=== PATIENT | female | born 1940 | race Caucasian/White ===

== ENCOUNTER 2024-03-15 23:22 | Observation (INO) | payer OTHER, SELFPAY ==
[2024-03-15 21:34] VITALS: BP 144/72
[2024-03-15 21:44] VITALS: BMI 33.3
[2024-03-15] MEDS: TORADOL 15 MG IV (22:38)
[2024-03-15 22:42] VITALS: BP 128/67
[2024-03-15 22:44] LABS: % Basophils 0.4 % (0-2); % Eosinophils 0.6 % (0-6); % Immature Granulocytes 1.4 % (0-0.5); % Lymphocytes 10.9 % (20.5-51.1); % Monocytes 8.6 % (1.7-9.3); % Neutrophils 78.1 % (42.2-75.2); Absolute Basophils 0.1 10^3/uL (0-0.2); Absolute Eosinophils 0.1 10^3/uL (0-0.7); Absolute Immature Granulocytes 0.2 10^3/uL (0-0.05); Absolute Lymphocytes 1.5 10^3/uL (1.2-3.4); Absolute Monocytes 1.2 10^3/uL (0.1-0.6); Absolute Neutrophils 10.6 10^3/uL (1.4-6.5); Hematocrit 40.7 % (37.0-47.0); Hemoglobin 13.6 g/dL (12.0-16.0); Mean Corp Hgb Conc. 33.4 g/dL (33.0-37.0); Mean Corpuscular Hgb 29.7 pg (27.0-31.0); Mean Corpuscular Volume 88.9 fL (81.0-99.0); Mean Platelet Volume 9.7 fL (7.4-10.4); Nucleated Red Blood Cells % 0 %; Platelet Count 233 10^3/uL (130-400); Red Blood Cell Count 4.58 10^6/uL (4.20-5.40); Red Cell Dist. Width 12.9 % (11.5-14.5); White Blood Cell Count 13.6 10^3/uL (4.8-10.8)
--- NOTE | 2024-03-15 22:54 | ED.GENMED ---
History of Present Illness
General
Chief Complaint: Musculo-Skeletal Complaint
Time Seen by Provider: 03/15/24 21:54
History of Present Illness
History of Present Illness:
83-year-old female with history of hyperlipidemia and hypothyroidism presenting after a fall. Patient reports prior to arrival she turned too quickly and fell directly onto her right hip. She has since been unable to ambulate. Denies any head
injury or loss of consciousness. Denies any numbness or tingling to her leg. Took 2 ibuprofen several hours prior to arrival. Denies any prodromal dizziness, lightheadedness,, chest pain or difficulty breathing. Denies additional acute medical
complaints
Past History
Past History
ED Past Medical History: HTN and Hypothyroidism
Social History
Tobacco: Non-smoker
Personal:
Living: with family
Phy Exam
Physical Exam
Physical Exam:
General: Well-appearing, no clinical signs of dehydration, nontoxic and in no acute distress
HEENT: protecting airway
Neck: appears supple
CV: Normal heart rate, regular rhythm
Resp: No accessory muscle use, no increased work of breathing, lungs clear to auscultation bilaterally
Abd: No distention
Extremities: No obvious deformity to the right lower extremity with distal sensation and pulses intact. Generalized tenderness to the right gluteal region without ecchymosis. Limited range of motion secondary to pain
Neuro: alert, no focal neurologic deficit
: deferred
Rectal: deferred
Psych: Normal affect
Skin: Intact
Course
Orders/Labs/Results
Orders:
Orders
03/15/24 21:51
Hip, Right 2-3 Views [CR Hip - RT w/wo Pel 2-3 Vw*] Urgent
Comment:
Reason For Exam: fall, right hip pain
Include a pelvis x-ray?: Yes
03/15/24 22:31
Ketorolac [Toradol] 15 mg IV NOW STA
03/15/24 22:35
Complete Blood Count/With Diff Urgent
Comprehensive Metabolic Panel Urgent
Abnormal Lab Results
03/15/24
22:35
WBC 13.6 H 10^3/uL
(4.8-10.8)
Abs Immat Gran (auto) 0.2 H 10^3/uL
(0-0.05)
Absolute Neuts (auto) 10.6 H 10^3/uL
(1.4-6.5)
Absolute Monos (auto) 1.2 H 10^3/uL
(0.1-0.6)
Immature Gran % 1.4 H %
(0-0.5)
Neutrophils % 78.1 H %
(42.2-75.2)
Lymphocytes % 10.9 L %
(20.5-51.1)
03/15/24 22:35
Vital Signs
Initial and Last Documented VS:
Initial Vital Signs
Temp Pulse Resp BP Pulse Ox
98.5 F 72 18 144/72 97
03/15/24 21:34 03/15/24 21:34 03/15/24 21:34 03/15/24 21:34 03/15/24 21:34
Last Documented Vital Signs
Temp Pulse Resp BP Pulse Ox
98.5 F 84 18 128/67 97
03/15/24 21:34 03/15/24 22:42 03/15/24 22:42 03/15/24 22:42 03/15/24 22:42
MDM/Problems Addressed
MDM/Problems Addressed:
83-year-old female presenting after a fall onto her right hip with inability to ambulate. Vital signs are normal
On exam patient is resting comfortably, no acute distress or discomfort. No signs of trauma. Patient denying any prodromal symptoms such as chest pain or difficulty breathing or lightheadedness, without concern for syncope. Patient denies any
head strike, GCS of 15. No indication for advanced head imaging. Plan for x-ray imaging of the right hip and pelvis. Suspected pelvic fracture, given inability to ambulate. No neurovascular compromise to the right lower extremity.
23:00 - X-ray is consistent with a pelvic fracture. Patient has been unable to walk or bear weight. Will admit for PT/OT and potential SNF
*Critical Care Note
Total Time (30-74mins, 75-104mins- exclusive of procedures): Not Applicable
ED Attending Note
-
Portions of this chart may have been created with voice recognition software.� Occasional wrong word or��sound alike� substitutions may have occurred due to the inherent limitations of voice recognition software.
Discharge Plan
Departure
Prescriptions:
No Action
atorvastatin 10 mg Tablet
10 mg PO HS
levothyroxine 125 mcg Tablet
125 mcg PO DAILY
triamterene-hydrochlorothiazid 37.5-25 mg Tablet
1 tab PO DAILY
Referrals:
Rashad Trinidad, DO [Family Provider] -
Interventions
Interventions:
*Risk Screen - Suicide Last Done: 03/15/24 21:45
*General Assessment Last Done: 03/15/24 21:45
*Neglect/Abuse Screening Last Done: 03/15/24 21:45
*ED COVID-19 Vaccine History Last Done: 03/15/24 21:45
ED-Musculoskeletal Assessment Last Done: 03/15/24 21:46
Discharge Date and Time
Print Language: UPPER SORBIAN
[2024-03-15 22:58] LABS: ALT (SGPT) 31 U/L (0-35); AST (SGOT) 34 U/L (14-36); Albumin 4.2 g/dl (3.5-5.0); Alkaline Phosphatase 125 U/L (38-126); Blood Urea Nitrogen 24 mg/dl (7-17); Calcium 9.1 mg/dl (8.4-10.2); Carbon Dioxide 25 mmol/L (22-30); Chloride 97 mmol/L (98-107); Estimated Creatinine Clearance 62 ml/min; Glucose 111 mg/dl (70-99); Potassium 3.9 mmol/L (3.5-5.1); Sodium 131 mmol/L (135-145); Total Bilirubin 0.2 mg/dl (0.2-1.3); Total Protein 6.8 g/dl (6.3-8.2); eGFR > 60.00
--- NOTE | 2024-03-15 23:19 | HPS.HSE ---
Family Physician
-
Family Physician: Rashad Trinidad
Chief Complaint
-
fall, right hip pain
History of Present Illness
83-year-old female past medical history of hyperlipidemia, hypothyroidism, hypertension presenting for fall. Prior to arrival she turned too quickly and fell directly onto her right hip because she lost her balance. She has been unable to
ambulate. Denies any head injury or loss of consciousness. Denies any numbness or tingling of her leg. Denies any prodromal dizziness, lightheadedness, chest pain or trouble breathing.
She is having pain in her right butt region which radiates to her groin.
Drinks alcohol occasionally. Denies smoking.
Medical History
Past Medical History
Past Medical History: Reports Other ( hyperlipidemia, hypothyroidism, hypertension)
Past Surgical History: Reports None
Social History
Tobacco: Non-smoker
Alcohol: Occasional
Drug: None
Family History
Family History: Not pertinent
Allergies / Home Medications
Allergies reflects when Allergies were last updated in [employer].
Home Medications with original date entered in [employer]
Allergy/Medication List:
Allergies
Allergy/AdvReac Type Severity Reaction Status Date / Time
aspirin Allergy Hives Verified 03/15/24 21:42
Home Medications
atorvastatin 10 mg tablet 10 mg PO HS 03/15/24
calcium carbonate 500 mg PO DAILY 03/15/24
cholecalciferol (vitamin D3) 25 mcg (1,000 unit) tablet (Vitamin D3) 25 mcg PO DAILY 03/15/24
ibuprofen 200 mg tablet 400 mg PO Q8HPRN PRN mild pain 03/15/24
levothyroxine 125 mcg tablet 125 mcg PO DAILY 03/15/24
triamterene 37.5 mg-hydrochlorothiazide 25 mg tablet 1 tab PO DAILY 03/15/24
Review of Systems
-
History Source: Patient
A 12 point ROS was completed and negative except as noted: Yes
Constitutional: Reports No Symptoms
EENT: Reports No Symptoms
Respiratory: Reports No Symptoms
Cardiac: Reports No Symptoms
Abdomen/GI: Reports No Symptoms
: Reports No Symptoms
Musculoskeletal: Reports See HPI
Skin: Reports No Symptoms
Neurological: Reports No Symptoms
Endocrine: Reports No Symptoms
Hematologic/Lymphatic: Reports No Symptoms
Psych: Reports No Symptoms
Physical Exam
Vital Signs
Vital Signs
Temp Pulse Resp BP Pulse Ox
98.5 F 84 18 128/67 97
03/15/24 21:34 03/15/24 22:42 03/15/24 22:42 03/15/24 22:42 03/15/24 22:42
Physical Exam
General: Well Developed, Well Nourished and No Apparent Distress
HEENT: NormoCephalic, Moist mucous membranes and Atraumatic
Respiratory: Clear
Cardiac: S1/S2 and Regular Rhythm; No Murmur or Rub
GI: Soft, Non Tender, Non Distended and Normal Bowel Sounds; No Organomegaly
Rectal: Deferred by Provider
Musculoskeletal: No Clubbing, No Cyanosis and No Edema
Skin: No Rash
Neuro: Nonfocal/grossly intact
Laboratory Results
-
03/15/24 22:35
03/15/24 22:35
Laboratory Results
Total Bilirubin 0.2 mg/dl (0.2-1.3) 03/15/24 22:35
AST 34 U/L (14-36) 03/15/24 22:35
ALT 31 U/L (0-35) 03/15/24 22:35
Alkaline Phosphatase 125 U/L (38-126) 03/15/24 22:35
Data Reviewed
-
Lab Data: Labs Reviewed by me
Old Records: Reviewed
Impression/Plan
-
IMPRESSION:
PLAN:
# Pelvic fracture
-Acute nondisplaced fracture of the right superior inferior pubic rami
-PT/OT
-Tylenol, ibuprofen, Dilaudid for pain as needed
Essential hypertension
-Continue triamterene/hydrochlorothiazide
Hyperlipidemia
-Continue statin
Hypothyroidism
-Continue levothyroxine
Full code
DVT prophylaxis�heparin
Regular diet
--- NOTE | 2024-03-15 23:45 | PTCARENOTE ---
Patient arrived to [facility] from [facility], transferred into bed with max assist. AAOx3, very pleasant, VSS. Pt c/o of pain to R side of pelvis and hip, especially when turning in bed.
[2024-03-16] MEDS: DILAUDID 0.5 MG IV ×2 (04:17→17:07)
[2024-03-16] MEDS: SYNTHROID 125 MCG PO (06:29)
[2024-03-16 07:09] LABS: % Basophils 0.3 % (0-2); % Eosinophils 0.8 % (0-6); % Immature Granulocytes 0.5 % (0-0.5); % Lymphocytes 12.3 % (20.5-51.1); % Monocytes 10.2 % (1.7-9.3); % Neutrophils 75.9 % (42.2-75.2); Absolute Eosinophils 0.1 10^3/uL (0-0.7); Absolute Immature Granulocytes 0.1 10^3/uL (0-0.05); Absolute Lymphocytes 1.5 10^3/uL (1.2-3.4); Absolute Monocytes 1.2 10^3/uL (0.1-0.6); Hematocrit 37.3 % (37.0-47.0); Hemoglobin 12.4 g/dL (12.0-16.0); Mean Corp Hgb Conc. 33.2 g/dL (33.0-37.0); Mean Corpuscular Hgb 29.6 pg (27.0-31.0); Mean Platelet Volume 9.9 fL (7.4-10.4); Nucleated Red Blood Cells % 0 %; Platelet Count 221 10^3/uL (130-400); Red Blood Cell Count 4.19 10^6/uL (4.20-5.40); White Blood Cell Count 11.8 10^3/uL (4.8-10.8)
[2024-03-16 07:47] LABS: ALT (SGPT) 26 U/L (0-35); AST (SGOT) 29 U/L (14-36); Albumin 3.8 g/dl (3.5-5.0); Alkaline Phosphatase 93 U/L (38-126); Blood Urea Nitrogen 24 mg/dl (7-17); Calcium 8.9 mg/dl (8.4-10.2); Carbon Dioxide 28 mmol/L (22-30); Chloride 99 mmol/L (98-107); Estimated Creatinine Clearance 72 ml/min; Glucose 102 mg/dl (70-99); Potassium 4.5 mmol/L (3.5-5.1); Sodium 133 mmol/L (135-145); Total Bilirubin 0.6 mg/dl (0.2-1.3); Total Protein 6.2 g/dl (6.3-8.2); eGFR > 60.00
--- NOTE | 2024-03-16 07:49 | W.PN.HOSP.TC ---
Today's Communication/Plan
-
see bold
Assessment / Plan
Assessment / Plan
HPI: 83-year-old female past medical history of hyperlipidemia, hypothyroidism, hypertension presenting for fall. Prior to arrival she turned too quickly and fell directly onto her right hip because she lost her balance. She has been unable to
ambulate. Denies any head injury or loss of consciousness. Denies any numbness or tingling of her leg. Denies any prodromal dizziness, lightheadedness, chest pain or trouble breathing. She is having pain in her right butt region which radiates to
her groin.
# Acute pelvic fracture
-Acute nondisplaced fracture of the right superior & inferior pubic rami
-Weightbearing as tolerated with rolling walker
-Tylenol 1 g 3 times daily, tramadol as needed moderate pain, Oxy severe pain, laxatives
-PT/OT - rec acute rehab
-Consult physiatry
-Follow-up with orthopedic surgery in the office in 2-3 weeks
Leukocytosis
� Afebrile
� Likely reactive, monitor off antibiotics
Essential hypertension
-Continue triamterene/hydrochlorothiazide
Hyperlipidemia
-Continue statin
Hypothyroidism
-Continue levothyroxine
Obesity due to excess calories
� Affects all aspects of care
DVT prophylaxis�subcu Lovenox
Full code
Updated daughter on phone 03/16
Total time spent to see the patient on the floor, examine the patient, review data and lab results, discuss treatment plan with patient, nursing staff around 50 minutes.
Physical Exam
General: No acute distress
HEENT: Normocephalic, Atraumatic, EOMI, MMM
Respiratory: Clear to Auscultation bilaterally
Cardiac: Normal S1/S2, Regular Rate and Rhythm
GI: Soft, Nontender, Nondistended, Normal Bowel Sounds
Extremities: No Clubbing, Cyanosis, or Edema
Neuro: Nonfocal/Grossly Intact
Psych: Calm, Cooperative
Derm: No Visible lesions
Anticipated Discharge: 24 - 48 hours
Subjective/Interval History
-
Date of Service: March 16, 2024
Patient reports her pain is 2 at rest, 7 with movement. No chest pain, no shortness of breath. No fever, no vomiting.
Objective Data
-
Labs:
Laboratory Results
03/15/24 03/16/24
22:35 06:53
WBC 13.6 H 11.8 H
Hgb 13.6 12.4
Hct 40.7 37.3
Plt Count 233 221
Sodium 131 L 133 L
Potassium 3.9 4.5
Chloride 97 L 99
Carbon Dioxide 25 28
BUN 24 H 24 H
Creatinine 0.7 0.6
Glucose 111 H 102 H
Calcium 9.1 8.9
Total Bilirubin 0.2 0.6
AST 34 29
ALT 31 26
Alkaline Phosphatase 125 93
Vital Signs:
Vital Signs
Temp Pulse Resp BP Pulse Ox
98.5 F 84 18 128/67 97
03/15/24 21:34 03/15/24 22:42 03/15/24 22:42 03/15/24 22:42 03/15/24 22:42
I&O
03/15/24 03/16/24 03/17/24
06:59 06:59 06:59
Intake Total 480 / 480
Balance 480 / 480
[2024-03-16 08:00] VITALS: BP 151/79
[2024-03-16] MEDS: VITAMIN D3 (cholecalciferol) 25 MCG PO (08:47)
[2024-03-16] MEDS: MIRALAX 17 GRAMS PO (08:47)
[2024-03-16] MEDS: TYLENOL 1000 MG PO ×3 (08:47→22:20)
[2024-03-16] MEDS: DYAZIDE 1 CAPSULE PO (08:47)
[2024-03-16] MEDS: ULTRAM 50 MG PO (08:48)
[2024-03-16] MEDS: HEPARIN 5000 UNITS SC (08:48)
[2024-03-16] MEDS: OSCAL CAL 500 500 MG PO (08:48)
[2024-03-16 10:18] VITALS: BP 127/59; PULSE 77; O2SAT 95
[2024-03-16 10:19] VITALS: BP 127/59; PULSE 76; O2SAT 95
[2024-03-16] MEDS: ROXICODONE 5 MG PO (13:15)
[2024-03-16 14:40] VITALS: BP 130/81
--- NOTE | 2024-03-16 15:57 | CM ---
CM met with pt at bedside.
Pt resides with spouse in a 2SH with bedroom/bathroom on 2nd floor. SC on first. 1STE home.
Prior to admission pt reports being independent with no AD for ambulation, active, ind with adl's. 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
PCP is Dr. Trinidad and pharmacy is [facility] on [facility].
Pt has HC history 10 years ago and no SNF history.
Discussed rehab options in depth including different levels. Offered choice. Pt is leaning towards [facility] at [facility] but would like to further discuss with family. Floor CM to follow up with pt tomorrow.
[2024-03-16] MEDS: LOVENOX 40 MG SC (17:09)
[2024-03-16] MEDS: LIPITOR 10 MG PO (22:19)
[2024-03-16 23:00] VITALS: BP 142/70
[2024-03-17] MEDS: ULTRAM 50 MG PO ×3 (02:46→21:13)
[2024-03-17] MEDS: SYNTHROID 125 MCG PO (06:24)
[2024-03-17 07:35] VITALS: BP 149/80
--- NOTE | 2024-03-17 08:25 | W.PN.HOSP.TC ---
Today's Communication/Plan
-
see bold
Assessment / Plan
Assessment / Plan
HPI: 83-year-old female past medical history of hyperlipidemia, hypothyroidism, hypertension presenting for fall. Prior to arrival she turned too quickly and fell directly onto her right hip because she lost her balance. She has been unable to
ambulate. Denies any head injury or loss of consciousness. Denies any numbness or tingling of her leg. Denies any prodromal dizziness, lightheadedness, chest pain or trouble breathing. She is having pain in her right butt region which radiates to
her groin.
# Acute pelvic fracture
-Acute nondisplaced fracture of the right superior & inferior pubic rami
-Weightbearing as tolerated with rolling walker
-Tylenol 1 g 3 times daily, tramadol as needed moderate pain, Oxy severe pain, laxatives
-PT/OT - rec acute rehab
-Physiatry consulted 03/16, awaiting evaluation
-Follow-up with orthopedic surgery in the office in 2-3 weeks
Leukocytosis
� Afebrile
� Likely reactive, monitor off antibiotics
Hyponatremia
� Mild, monitor
Essential hypertension
-Continue triamterene/hydrochlorothiazide
Hyperlipidemia
-Continue statin
Hypothyroidism
-Continue levothyroxine
Obesity due to excess calories
� Affects all aspects of care
DVT prophylaxis�subcu Lovenox
Full code
Updated daughter on phone 03/16, updated at bedside 03/17
Total time spent to see the patient on the floor, examine the patient, review data and lab results, discuss treatment plan with patient, nursing staff around 40 minutes.
Physical Exam
General: No acute distress
HEENT: Normocephalic, Atraumatic, EOMI, MMM
Respiratory: Clear to Auscultation bilaterally
Cardiac: Normal S1/S2, Regular Rate and Rhythm
GI: Soft, Nontender, Nondistended, Normal Bowel Sounds
Extremities: No Clubbing, Cyanosis, or Edema
Neuro: Nonfocal/Grossly Intact
Psych: Calm, Cooperative
Derm: No Visible lesions
Anticipated Discharge: Within 24 hours
Subjective/Interval History
-
Date of Service: March 16, 2024
Patient reports her pain is minimal at rest, increases to 7 with movement. No chest pain, no shortness of breath. No fever, no vomiting, no bowel movement.
Objective Data
-
Labs:
Laboratory Results
03/16/24
06:53
WBC 11.8 H
Hgb 12.4
Hct 37.3
Plt Count 221
Sodium 133 L
Potassium 4.5
Chloride 99
Carbon Dioxide 28
BUN 24 H
Creatinine 0.6
Glucose 102 H
Calcium 8.9
Total Bilirubin 0.6
AST 29
ALT 26
Alkaline Phosphatase 93
Vital Signs:
Vital Signs
Temp Pulse Resp BP Pulse Ox
97.9 F 67 20 151/79 97
03/16/24 08:00 03/16/24 08:47 03/16/24 08:00 03/16/24 08:47 03/16/24 08:00
I&O
03/15/24 03/16/24 03/17/24
06:59 06:59 06:59
Intake Total 480 / 480
Balance 480 / 480
[2024-03-17] MEDS: TYLENOL 1000 MG PO ×3 (08:55→20:59)
[2024-03-17] MEDS: MIRALAX 17 GRAMS PO (08:56)
[2024-03-17] MEDS: VITAMIN D3 (cholecalciferol) 25 MCG PO (08:56)
[2024-03-17] MEDS: DYAZIDE 1 CAPSULE PO (08:56)
[2024-03-17] MEDS: OSCAL CAL 500 500 MG PO (08:56)
--- NOTE | 2024-03-17 10:54 | CM ---
Reviewed the chart notes and spoke with the patient and her spouse at the bedside. The patient is admitted under observational status. [facility] letter provided and explained. The patient had no questions with regards to the letter. Patient's
insurance changed as of 03/16/2024 to M87 [employer] 65 [employer] PPO; Mbr # [id number]. Admissions provided with new insurance information. CM continues to be available to patient/family and is monitoring medical plan for
needs at discharge.
Plan: Discharge to Acute Rehab if appropriate and precert obtained.
[2024-03-17 11:16] VITALS: BP 120/81; PULSE 88; O2SAT 98
[2024-03-17 11:25] VITALS: BP 120/81; PULSE 92; O2SAT 95
[2024-03-17] MEDS: SENOKOT-S 2 TABLET PO ×2 (16:17→20:59)
[2024-03-17] MEDS: LOVENOX 40 MG SC (18:45)
--- NOTE | 2024-03-17 19:54 | CON.MD ---
Consultation - Medical
-
Referring Provider:�Dr. Sinan Dawkins
Chief Complaint:�Pelvic fracture
�
History of Present Illness:�83-year-old male with PMH (as below) presented to [facility] on 03/15/2024 with right buttock pain radiating to the groin after a fall from turning too quickly. Found to have an acute nondisplaced fracture of
the right superior and inferior pubic rami. Made weightbearing as tolerated with rolling walker. Given pain medications and laxatives. Found to have reactive leukocytosis. Also with mild hyponatremia improved on 03/16 at 133.
�
Past Medical History:�HLD, hypothyroidism, HTN
Procedure History:�Denies
Family History:�None pertinent
�
Social History:�
Functional Level Premorbidly:�Independent with all activities�
Functional Level Currently:�Min assist transfers, min assist ambulating 20 feet x 2 with rolling walker. Supervision for grooming, toileting, lower extremity self-care.
�
Tobacco:�Denies�
Alcohol:�Occasional
Drug use:�Denies�
�
Lives with:�Spouse
24-hour assistance available:�Yes
Number of floors:�2
# steps to enter:�1
# steps to second floor: Full flight
Potential First floor set up:�Half bath on the first floor
Driving:�Yes
Occupation:�Retired
�
�
Allergies:�
Allergy/AdvReac Type Severity Reaction Status Date / Time
aspirin Allergy Hives Verified 03/15/24 21:42
�
Review of Systems:�
Constitutional: (x) Normal _
Eye: (x) Normal _
Ear/Nose/Throat: (x) Normal _
Respiratory: (x) Normal _
Cardiovascular: (x) Normal _
Gastrointestinal: (x) abNormal _no bowel movement since hospital arrival all voiding without difficulty
Genitourinary: (x) Normal _
Musculoskeletal: (x) abNormal _pelvic pain towards the right hip with activity, okay at rest
Integumentary: (x) Normal _
Neurologic: (x) Normal _
Psychiatric: (x) Normal _
Endocrine: (x) Normal _
Hematologic/Lymphatic: (x) Normal _
Allergic/Immunologic: (x) Normal _
�
Medications:�
Active Current Visit Medication List
Category Date Time Status
Acetaminophen [Tylenol] Med 03/16/24 08:00 Active
1,000 mg PO TID
Atorvastatin [Lipitor] Med 03/16/24 22:00 Active
10 mg PO HS
Calcium Carbonate [Oscal Manuel 500] Med 03/16/24 08:00 Active
500 mg PO DAILY
Cholecalciferol (Vitamin D3) [VITAMIN D3 ( Med 03/16/24 08:00 Active
cholecalciferol)]
25 mcg PO DAILY
Docusate W/Senna [Senokot-S] Med 03/17/24 15:50 Active
2 tablet PO BID
Enoxaparin Sodium [Lovenox] Med 03/16/24 18:00 Active
40 mg SC QPM
HYDROmorphone [Dilaudid] Med 03/16/24 00:17 Active
0.5 mg IV Q4HPRN PRN
Levothyroxine [Synthroid] Med 03/16/24 06:00 Active
125 mcg PO DAILY@0600
Oxycodone [Roxicodone] Med 03/16/24 07:55 Active
5 mg PO TIDPRN PRN
Polyethylene Glycol Powder [Miralax] Med 03/16/24 08:00 Active
17 grams PO DAILY
Tramadol HCl [Ultram] Med 03/16/24 07:55 Active
50 mg PO BIDPRN PRN
Triamterene/Hctz [Dyazide] Med 03/16/24 08:00 Active
1 capsule PO DAILY
Vitals:�
Temp Pulse Resp BP Pulse Ox
98.5 F 78 18 149/80 98
03/17/24 07:35 03/17/24 07:35 03/17/24 07:35 03/17/24 07:35 03/17/24 07:35
Height 5 ft 2 in
Actual Weight 82.6 kg
Body Mass Index (BMI) 33.3
�
Physical Exam:�
General Appearance/Observation: Well-developed, well-nourished female in no apparent distress.�
Pain/Comfort Assessment: No significant pain at rest, 8/10 pain standing.
Mood/Affect: Appropriate�
�
Integumentary/Operative Site:�Right knee with area of dry rough white-colored skin, nontender
�� Pressure Ulcer Evaluation: absent over heels.�
�
Eyes: Conjunctiva/Lids: normal���� Pupils: pupils equal round and reactive to light and Accommodation�
Ears/Nose/Throat: oral mucosa moist,� throat clear.������������ Lips/Teeth/Gums: normal�
Cardiovascular: Heart: regular, no murmur�
Pulses: dorsalis pedis 2+ bilaterally�
Respiratory: Respiratory Effort/Chest Expansion: normal������� Auscultation: Clear to auscultation bilaterally�
Gastrointestinal: abdomen not tender, no distension, normal abdominal bowel sounds
Genitourinary: No Anne�
Extremities:�Edema: None�Cyanosis: None�Trophic�changes: None
�
Neurology Exam:
Orientation: Alert, Oriented to self, Time, Place�
Memory: Intact for recent medical concerns
Repetition: Intact
Comprehension: Intact
Two step command: Intact
Naming: Intact
Cranial Nerves:
�� CN VII:�Facial movement: Symmetric
�� CN VIII:�Hearing: Normal
�� CN IX/X:�Speech & swallow: Normal,�Position of Uvula: Midline
�� CN XII:�Tongue protrusion: Midline
Sensory:
�� Light touch: Intact in bilateral upper and lower extremities
�
�� Babinski: Down going bilaterally
�� Clonus: None
�� German: Negative bilaterally�
Musculoskeletal: Motor: (Manual muscle scale 0-5)�
Muscle SA EF WE EE FF FA HF KE DF EHL PF
Right� 5 5 5 2* 4* 5 5 5
Left 5 5 5 4* 5 5 5 5
�*pain limited
Tone: Normal in all extremities�
Range of Motion: Passively within normal limits in all extremities�
�
Lab Results
Laboratory Data
03/16/24 06:53
03/16/24 06:53
Total Bilirubin 0.6 mg/dl (0.2-1.3) 03/16/24:53
AST 29 U/L (14-36) 03/16/24:53
ALT 26 U/L (0-35) 03/16/24:53
Alkaline Phosphatase 93 U/L (38-126) 03/16/24:53
Total Protein 6.2 g/dl (6.3-8.2) L 03/16/24:53
Albumin 3.8 g/dl (3.5-5.0) 03/16/24 06:53
�
Diagnostic Results:�as per HPI�
�
Assessment
83-year-old male with PMH (HLD, hypothyroidism, HTN�) with 03/15/2024 acute nondisplaced fracture of the right superior and inferior pubic rami after fall with ADL and ambulatory dysfunction.
Plan�
PM&R�PT/OT to increase independence with ADLs, improve balance, coordination, endurance, strength, mobility, community reintegration, decreased burden of care on others and family education.�
�
Nondisplaced fracture of the right superior and inferior pubic rami: Pain control
HTN: Triamterene/hydrochlorothiazide, monitor closely�
HLD: Statin�
Hypothyroidism: Levothyroxine
Mild leukocytosis: Thought reactive, monitor.�
Pain: acetaminophen, tramadol, or oxycodone as needed.� Stop IV Dilaudid as patient is not able to get it in rehab.
Bowel: Constipated�Colace and Senna, PRN bisacodyl.�
Bladder: Voiding without concern
GI Prophylaxis: Pantoprazole�
DVT Prophylaxis: Mechanical and Lovenox.�
Pulmonary: Incentive spirometry�
Obesity: Continue to direct selling counselor patient about diet adjustments to control obesity. Body habitus and increased force to move body and extremities causes further difficulty with functional tasks.�
Safety: Continue to reinforce assistance with all transfers.�
Code Status:� Full code
Dispo�(date/plan/equipment needs): Home with family care.� Social history reviewed.�
Functional and Medical Goals:�Modified Independent with ADL�s, ambulation, transfers�
Discharge Destination:�penitentiary facility
A total of 60 minutes were spent with the patient preparing for the evaluation, obtaining history, performing examination and evaluation, counseling, data review, case management, care coordination, security orderly, and EMR documentation.
Summary of recommendations:
-�Discharge Destination:�penitentiary facility
Nondisplaced fracture of the right superior and inferior pubic rami: Pain control
Mild leukocytosis: Thought reactive, monitor.�
Pain: acetaminophen, tramadol, or oxycodone as needed.� Held IV Dilaudid as patient is not able to get it in rehab.
Bowel: Constipated�Colace and Senna, PRN bisacodyl.�
�
Thank you for allowing me to care for your patient. Please contact me with any questions or concerns.
[2024-03-17] MEDS: LIPITOR 10 MG PO (20:59)
[2024-03-17 23:30] VITALS: BP 152/71
[2024-03-18] MEDS: SYNTHROID 125 MCG PO (04:59)
[2024-03-18] MEDS: ROXICODONE 5 MG PO ×3 (05:04→21:39)
[2024-03-18 07:45] VITALS: BP 154/83
[2024-03-18] MEDS: VITAMIN D3 (cholecalciferol) 25 MCG PO (08:25)
[2024-03-18] MEDS: DYAZIDE 1 CAPSULE PO (08:25)
[2024-03-18] MEDS: OSCAL CAL 500 500 MG PO (08:25)
[2024-03-18] MEDS: SENOKOT-S 2 TABLET PO (08:25)
[2024-03-18] MEDS: TYLENOL 1000 MG PO ×3 (08:25→21:27)
[2024-03-18] MEDS: MIRALAX 17 GRAMS PO (08:25)
--- NOTE | 2024-03-18 08:30 | W.PN.HOSP.TC ---
Today's Communication/Plan
-
see bold
Assessment / Plan
Assessment / Plan
HPI: 83-year-old female past medical history of hyperlipidemia, hypothyroidism, hypertension presenting for fall. Prior to arrival she turned too quickly and fell directly onto her right hip because she lost her balance. She has been unable to
ambulate. Denies any head injury or loss of consciousness. Denies any numbness or tingling of her leg. Denies any prodromal dizziness, lightheadedness, chest pain or trouble breathing. She is having pain in her right butt region which radiates to
her groin.
# Acute pelvic fracture
-Acute nondisplaced fracture of the right superior & inferior pubic rami
-Weightbearing as tolerated with rolling walker
-Tylenol 1 g 3 times daily, tramadol as needed moderate pain, Oxy severe pain, laxatives
-PT/OT - rec acute rehab
-Physiatry consulted 03/16, rec STR
-Medically stable for discharge to short-term rehab when bed available
-Follow-up with orthopedic surgery in the office in 2-3 weeks
#Constipation
� Increased laxatives
Leukocytosis
� Afebrile
� Likely reactive, monitor off antibiotics
Hyponatremia
� Mild, monitor
Essential hypertension
-Continue triamterene/hydrochlorothiazide
Hyperlipidemia
-Continue statin
Hypothyroidism
-Continue levothyroxine
Obesity due to excess calories
� Affects all aspects of care
DVT prophylaxis�subcu Lovenox
Full code
Updated daughter on phone 03/16, updated at bedside 03/18
Total time spent to see the patient on the floor, examine the patient, review data and lab results, discuss treatment plan with patient, nursing staff around 37 minutes.
Physical Exam
General: No acute distress
HEENT: Normocephalic, Atraumatic, EOMI, MMM
Respiratory: Clear to Auscultation bilaterally
Cardiac: Normal S1/S2, Regular Rate and Rhythm
GI: Soft, Nontender, Nondistended, Normal Bowel Sounds
Extremities: No Clubbing, Cyanosis, or Edema
Neuro: Nonfocal/Grossly Intact
Psych: Calm, Cooperative
Derm: No Visible lesions
Anticipated Discharge: Within 24 hours
Subjective/Interval History
-
Date of Service: March 18, 2024
Patient denies pain at rest. She reports her pain is 7 out of 10 with movement. No fever, no chest pain, no shortness of breath. No bowel movement.
Objective Data
-
Vital Signs:
Vital Signs
Temp Pulse Resp BP Pulse Ox
98.0 F 89 16 154/83 97
03/18/24 07:45 03/18/24 07:45 03/18/24 07:45 03/18/24 07:45 03/18/24 07:45
I&O
03/17/24 03/18/24 03/19/24
06:59 06:59 06:59
Intake Total 1580 / 1580 480 / 480
Output Total 200 / 200
Balance 1380 / 1380 480 / 480
[2024-03-18] MEDS: ULTRAM 50 MG PO ×2 (08:33→17:00)
[2024-03-18] MEDS: DULCOLAX 10 MG PO (10:19)
--- NOTE | 2024-03-18 14:40 | CM ---
Reviewed the chart notes. [facility] able to accept the patient tomorrow. Patient, patient's spouse and son updated at bedside. Auth received started 03/19-03/23; NRD 03/23; Call: [phone]; Auth # [id number].
Plan: Discharge to [facility] Thursday.
Call report to: [phone] - ask for nursing supervisor cutting department
Fax report to: [phone]
Medical necessity and transport forms on chart.
[2024-03-18] MEDS: DULCOLAX 10 MG RECTAL (15:24)
[2024-03-18 15:35] VITALS: BP 134/80
[2024-03-18] MEDS: LOVENOX 40 MG SC (17:01)
[2024-03-18] MEDS: SENOKOT-S PO (20:54)
[2024-03-18] MEDS: LIPITOR 10 MG PO (21:27)
[2024-03-18 23:44] VITALS: BP 156/85
[2024-03-19] MEDS: SYNTHROID 125 MCG PO (05:47)
[2024-03-19] MEDS: ULTRAM 50 MG PO (05:47)
--- NOTE | 2024-03-19 07:12 | W.PN.HOSP.TC ---
Today's Communication/Plan
-
Discharge to short-term rehab today
Assessment / Plan
Assessment / Plan
HPI: 83-year-old female past medical history of hyperlipidemia, hypothyroidism, hypertension presenting for fall. Prior to arrival she turned too quickly and fell directly onto her right hip because she lost her balance. She has been unable to
ambulate. Denies any head injury or loss of consciousness. Denies any numbness or tingling of her leg. Denies any prodromal dizziness, lightheadedness, chest pain or trouble breathing. She is having pain in her right butt region which radiates to
her groin.
# Acute pelvic fracture
-Acute nondisplaced fracture of the right superior & inferior pubic rami
-Weightbearing as tolerated with rolling walker
-Tylenol 1 g 3 times daily, oxycodone as needed, laxatives
-PT/OT - rec acute rehab
-Physiatry consulted 03/16, rec STR
-Medically stable for discharge to short-term rehab today
-Follow-up with orthopedic surgery in the office in 2-3 weeks
#Constipation
� Resolved on laxatives, continue laxatives upon discharge
Leukocytosis
� Afebrile
� Likely reactive, monitor off antibiotics
Hyponatremia
� Mild, monitor
Essential hypertension
-Continue triamterene/hydrochlorothiazide
Hyperlipidemia
-Continue statin
Hypothyroidism
-Continue levothyroxine
Obesity due to excess calories
� Affects all aspects of care
DVT prophylaxis�subcu Lovenox
Full code
Updated daughter on phone 03/16, updated at bedside 03/18
Physical Exam
General: No acute distress
HEENT: Normocephalic, Atraumatic, EOMI, MMM
Respiratory: Clear to Auscultation bilaterally
Cardiac: Normal S1/S2, Regular Rate and Rhythm
GI: Soft, Nontender, Nondistended, Normal Bowel Sounds
Extremities: No Clubbing, Cyanosis, or Edema
Neuro: Nonfocal/Grossly Intact
Psych: Calm, Cooperative
Derm: No Visible lesions
Anticipated Discharge: Today
Subjective/Interval History
-
Date of Service: March 19, 2024
Patient has had 2 bowel movements. Her pelvic pain is 7 out of 10 in intensity with movement. No chest pain, no shortness of breath. No fever, no vomiting.
Objective Data
-
Vital Signs:
Vital Signs
Temp Pulse Resp BP Pulse Ox
97.2 F 84 16 156/85 92
03/18/24 23:44 03/18/24 23:44 03/18/24 23:44 03/18/24 23:44 03/18/24 23:44
I&O
03/18/24 03/19/24 03/20/24
06:59 06:59 06:59
Intake Total 480 / 480 2160 / 2160
Balance 480 / 480 2160 / 2160
[2024-03-19 07:25] VITALS: BP 147/74
[2024-03-19] MEDS: ROXICODONE 5 MG PO ×2 (08:42→15:51)
[2024-03-19] MEDS: TYLENOL 1000 MG PO ×2 (08:43→15:50)
[2024-03-19] MEDS: OSCAL CAL 500 500 MG PO (08:43)
[2024-03-19] MEDS: DYAZIDE 1 CAPSULE PO (08:43)
[2024-03-19] MEDS: VITAMIN D3 (cholecalciferol) 25 MCG PO (08:43)
[2024-03-19] MEDS: DULCOLAX 10 MG PO (08:43)
[2024-03-19] MEDS: MIRALAX 17 GRAMS PO (08:44)
[2024-03-19] MEDS: SENOKOT-S 2 TABLET PO (08:44)
--- NOTE | 2024-03-19 11:56 | CM ---
Addendum entered by Nani Pak 03/19/24 13:58:
Transport at 6PM
Spoke with devang Gray sup - aware
Family at bedside
Plan - transfer to [facility]
Report - [phone]
Fax - [phone]
Original Note:
Pt medically ready for discharge
Spoke with Devang Gray Sup at [facility] - can accept
Transport to be arranged
Plan - transfer to [facility]
Report - [phone] - ask for nursing supervisor special effects
Fax - [phone]
--- NOTE | 2024-03-19 12:52 | W.DCSUMMARY ---
Discharge Summary
Discharge Data
Date of Admission: 03/15/24
Date of Discharge: 03/19/24
-
Pending Results: No
Hospital Course
Discharge diagnosis:
Acute pelvic fracture
Constipation
Leukocytosis, reactive
Hyponatremia
Essential hypertension
Hyperlipidemia
Hypothyroidism
Obesity due to excess calories
Consults: Physiatry
Hip XR:
1. ACUTE NONDISPLACED FRACTURES of the RIGHT SUPERIOR and INFERIOR PUBIC RAMI.
2. Mild bilateral osteoarthritis of the hips.
3. 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
4. Diffuse bone demineralization.
Hospital course:
83-year-old female with a past medical history of hypertension, hyperlipidemia, hypothyroidism, and obesity was placed in observation after sustaining an acute pelvic fracture status post mechanical fall. Hip x-ray shows acute nondisplaced
fractures of the right superior and inferior pubic rami. She was treated with Tylenol scheduled, oxycodone, and laxatives. PT recommended acute rehab. Patient was seen in conjunction with physiatry, who recommended short-term rehab.
Patient had a leukocytosis upon admission, likely reactive. She was afebrile, and did not have any signs or symptoms of infection.
Her hospital course was complicated by constipation. Her laxatives were increased. Her constipation resolved.
Patient is medically stable for discharge on pain medication and laxatives. She needs to follow-up with orthopedic surgery in the office in 2-3 weeks, and her primary care doctor 1 week after she leaves rehab.
Disposition: Short-term rehab
Discharge planning: Required 42 minutes
Discharge Plan
-
Patient Disposition: [facility]NF
Discharge Diagnosis/Procedures: Acute pelvic fracture, constipation, essential hypertension
Condition: Good
Diet: Low Fat and Low Cholesterol
Activity: As tolerated and With Walker
Additional Activity: Weightbearing as tolerated with a rolling walker
Driving Restrictions: As prior to admission
Activity Restrictions/Additional Instructions:
Follow-up with your primary care doctor 1 week after you leave rehab, and orthopedic surgery in the office in 2-3 weeks.
Referrals:
Britton Coleman MD [Active] - in two to three weeks
Rashad Trinidad DO [Family Provider] - in one week
Prescriptions:
New
polyethylene glycol 3350 17 gram Powder In Packet
17 g PO DAILY Qty: 0 0RF
sennosides-docusate sodium 8.6-50 mg Tablet
2 tab PO BID Qty: 0 0RF
acetaminophen [Tylenol Extra Strength] 500 mg Tablet
1,000 mg PO TID Qty: 0 0RF
oxycodone 5 mg Tablet
5 mg PO TIDPRN PRN (Reason: severe pain) Qty: 10 0RF
Continued
atorvastatin 10 mg Tablet
10 mg PO HS
levothyroxine 125 mcg Tablet
125 mcg PO DAILY
triamterene-hydrochlorothiazid 37.5-25 mg Tablet
1 tab PO DAILY
calcium carbonate 500 mg calcium (1,250 mg) Tablet
500 mg PO DAILY
cholecalciferol (vitamin D3) [Vitamin D3] 25 mcg (1,000 unit) Tablet
25 mcg PO DAILY
Discontinued
ibuprofen 200 mg Tablet
400 mg PO Q8HPRN PRN (Reason: mild pain)
Discharge Orders:
Discharge Patient (As Directed); Ordered 03/19/24
Ordered By: Sinan Dawkins
Discharge Date and Time
Print Language: CAPE VERDEAN
[2024-03-19 15:15] VITALS: BP 132/73
[2024-03-19] MEDS: LOVENOX 40 MG SC (17:56)
== END 2024-03-19 19:30 ==
LOC: 2 SOUTH 23:22
PROVIDERS: ADMITTING PHYSICIAN Hospitalist; ATTENDING PHYSICIAN Family Medicine; CONSULT PHYSICIAN Physical Medicine & Rehabilitation; EMERGENCY PHYSICIAN Student in an Organized Health Care Education/Training Program; FAMILY PHYSICIAN Internal Medicine
DX: S32.591A Other specified fracture of right pubis, initial encounter for closed fracture (principal); E03.9 Hypothyroidism, unspecified; I10 Essential (primary) hypertension; E78.49 Other hyperlipidemia; E87.1 Hypo-osmolality and hyponatremia; K59.00 Constipation, unspecified; W01.0XXA Fall on same level from slipping, tripping and stumbling without subsequent striking against object, initial encounter; Y93.01 Activity, walking, marching and hiking; Y92.9 Unspecified place or not applicable; M16.0 Bilateral primary osteoarthritis of hip; M51.369 Other intervertebral disc degeneration, lumbar region without mention of lumbar back pain or lower extremity pain; D72.829 Elevated white blood cell count, unspecified; E66.09 Other obesity due to excess calories; Z68.33 Body mass index [BMI] 33.0-33.9, adult; Z79.890 Hormone replacement therapy; Z88.6 Allergy status to analgesic agent
CPT/HCPCS: 73502; 80053; 85025; 96374; 97116; 97162; 97166; 97530; 97535; 99284; G0378

== ENCOUNTER 2024-04-18 19:28 | Inpatient (IN) | payer OTHER, SELFPAY ==
[2024-04-18] VITALS (9 sets, daily range): BP systolic 131–166; BP diastolic 71–94; BMI 32.7; BMI 31.1
[2024-04-18 11:20] LABS: % Basophils 0.6 % (0-2); % Eosinophils 1.2 % (0-6); % Immature Granulocytes 0.4 % (0-0.5); % Lymphocytes 12.7 % (20.5-51.1); % Monocytes 10.1 % (1.7-9.3); Absolute Basophils 0.1 10^3/uL (0-0.2); Absolute Eosinophils 0.1 10^3/uL (0-0.7); Absolute Lymphocytes 1.3 10^3/uL (1.2-3.4); Absolute Neutrophils 7.7 10^3/uL (1.4-6.5); Hematocrit 39.5 % (37.0-47.0); Mean Corp Hgb Conc. 32.9 g/dL (33.0-37.0); Mean Corpuscular Volume 88.2 fL (81.0-99.0); Mean Platelet Volume 9.4 fL (7.4-10.4); Nucleated Red Blood Cells % 0 %; Platelet Count 307 10^3/uL (130-400); Red Blood Cell Count 4.48 10^6/uL (4.20-5.40); Red Cell Dist. Width 12.3 % (11.5-14.5); White Blood Cell Count 10.3 10^3/uL (4.8-10.8)
[2024-04-18 11:38] LABS: ALT (SGPT) 20 U/L (0-35); AST (SGOT) 23 U/L (14-36); Albumin 4.5 g/dl (3.5-5.0); Alkaline Phosphatase 135 U/L (38-126); Blood Urea Nitrogen 22 mg/dl (7-17); Calcium 9.2 mg/dl (8.4-10.2); Carbon Dioxide 26 mmol/L (22-30); Chloride 98 mmol/L (98-107); Glucose 104 mg/dl (70-99); Sodium 134 mmol/L (135-145); Total Bilirubin 0.5 mg/dl (0.2-1.3); Total Protein 7.3 g/dl (6.3-8.2); eGFR > 60.00
[2024-04-18 11:46] LABS: Urine Albumin 1+ (Neg - Trace); Urine Bilirubin Negative (Negative); Urine Character Slightly Cloudy (Clear); Urine Color Yellow; Urine Glucose Negative (Negative); Urine Ketone 1+ (Negative); Urine Leukocyte 1+ (Negative); Urine Nitrite Positive (Negative); Urine Occult Blood Negative (Negative); Urine Urobilinogen 1+ (Neg - 1+)
[2024-04-18 12:50] LABS: Urine Squamous Cell 16-20 /LPF (Few)
[2024-04-18 12:51] LABS: Urine Amorphous Seen; Urine Calcium Oxalate Crystals Seen; Urine Red Blood Cell 0-2 /HPF (0-2)
[2024-04-18 12:52] LABS: Urine Bacteria Many (Negative); Urine White Cell 0-2 /HPF (0-5)
--- NOTE | 2024-04-18 13:17 | ED.GENMED ---
History of Present Illness
General
Chief Complaint: Weakness
Time Seen by Provider: 04/18/24 13:04
History of Present Illness
History of Present Illness:
83-year-old female presents the emergency department for evaluation of worsening bilateral hip and pelvic pain as well as poor p.o. intake and intermittent confusion. Patient was seen in this emergency department on and diagnosed
with right superior and just hospital to rehab. Has been following as an outpatient repeat is fractures are showing positive signs of healing. Over the past week or more she has had increasing left hip and pelvic pain with difficulty ambulating.
Has been using Celebrex, acetaminophen, and nightly tramadol with only modest relief. Family is concerned that she is not drinking well and seems confused as the past 2 days. They are concerned for cloudy and malodorous urine
Past History
Past History
ED Past Medical History: HTN and Hypothyroidism
Social History
Tobacco: Non-smoker
Personal:
Living: with family
Review of Systems
Review of Systems
Allergies reviewed?: Yes
All Other Systems: ROS reviewed and negative except as documented in HPI and ROS
Phy Exam
Physical Exam
Physical Exam:
GEN: Well appearing, NAD, WDWN
Eyes: PERRLA, EOMs intact, no scleral icterus
HENT: NCAT, oral mucosa moist
Lungs: CTAB, no wheezes, rales, rhonchi, normal chest wall excursion
Cardiac: RRR, no M/R/G, no peripheral edema. Radial pulses 2+ bilat
Abdomen: S, NT, ND, NABS, no masses or hepatosplenomegaly
Neuro: AO x 3
MSK: No gross deformity or ecchymosis. No edema. Tenderness to palpation of the left PSIS as well as the right PSIS, no midline lumbar spine tenderness, normal hip range of motion bilaterally with no crepitus or pain
Skin: No rashes, petechiae. Normal color, no pallor or jaundice.
Psych: Calm, cooperative, proper hygiene
Course
Orders/Labs/Results
Orders:
Orders
04/18/24 10:52
Complete Blood Count/With Diff Urgent
Comprehensive Metabolic Panel Urgent
04/18/24 11:05
Urinalysis Reflex To Culture Urgent
Date Specimen was Collected: 04/18/24
Time Specimen was Collected: 10:40
Urine Microscopic Reflex Cult Urgent
Urine Culture Urgent
HENRIK Source: U
Specimen Description:
Date Specimen was Collected: 04/18/24
Time Specimen was Collected: 10:40
04/18/24 13:15
Straight cath- Treatment ONCE
0.9% Sodium Chloride 1000 ml [Nss] 1,000 ml IV BOLUS
04/18/24 14:06
Urinalysis Urgent
Date Specimen was Collected: 04/18/24
Time Specimen was Collected: 13:57
Urine Microscopic Urgent
Date Specimen was Collected: 04/18/24
Time Specimen was Collected: 13:57
04/18/24 15:26
CefTRIAXone [Rocephin] 1,000 mg IV NOW STA
CR Hip - LT w/wo Pel 2-3 Vw* Urgent
Comment:
Reason For Exam: L pelvis/hip pain
Include a pelvis x-ray?: Yes
04/18/24 15:27
Ketorolac [Toradol] 15 mg IV NOW STA
Abnormal Lab Results
04/18/24 04/18/24 04/18/24
10:52 11:05 14:06
MCHC 32.9 L g/dL
(33.0-37.0)
Absolute Neuts (auto) 7.7 H 10^3/uL
(1.4-6.5)
Absolute Monos (auto) 1.0 H 10^3/uL
(0.1-0.6)
Lymphocytes % 12.7 L %
(20.5-51.1)
Monocytes % 10.1 H %
(1.7-9.3)
Sodium 134 L mmol/L
(135-145)
BUN 22 H mg/dl
(7-17)
Creatinine 0.5 L mg/dL
(0.6-1.0)
Glucose 104 H mg/dl
(70-99)
Alkaline Phosphatase 135 H U/L
(38-126)
Urine Ketones 1+ A 2+ A
(Negative) (Negative)
Urine Nitrite Positive A
(Negative)
Urine Nitrite (Reflex) Positive A
(Negative)
Leukocyte Esterase Rfl 1+ A
(Negative)
Urine Bacteria Many A
(Negative)
Urine Bacteria (Reflex) Many A
(Negative)
Urine Albumin 1+ A
(Neg - Trace)
Urine Albumin (Reflex) 1+ A
(Neg - Trace)
04/18/24 10:52
04/18/24 10:52
Vital Signs
Initial and Last Documented VS:
Initial Vital Signs
Temp Pulse Resp BP Pulse Ox
98.4 F 84 18 144/79 98
04/18/24 10:37 04/18/24 10:37 04/18/24 10:37 04/18/24 10:37 04/18/24 10:37
Last Documented Vital Signs
Temp Pulse Resp BP Pulse Ox
98.4 F 84 18 148/81 96
04/18/24 10:37 04/18/24 15:12 04/18/24 10:37 04/18/24 16:00 04/18/24 17:45
MDM/Problems Addressed
MDM/Problems Addressed:
Patient's urinalysis was repeated after initial midstream collection appeared to be contaminated, subsequent straight cath UA shows large bacteria with positive nitrites however no large amount of white blood cells. Given that I have no prior urine
specimens for comparison, we will have to treat this as a potential UTI particular given the patient's reported urine frequency. I am not certain as to the etiology of the patient's new onset bilateral hip pain but certainly she has significant
functional debility and is not suitable for discharge home to the care of family at this time
*Critical Care Note
Total Time (30-74mins, 75-104mins- exclusive of procedures): Not Applicable
ED Attending Note
-
Portions of this chart may have been created with voice recognition software.� Occasional wrong word or��sound alike� substitutions may have occurred due to the inherent limitations of voice recognition software.
Discharge Plan
Departure
Patient Disposition: Admit
Date of Disposition: 04/18/24
Time of Disposition: 18:27
Admit to: Med/Surg
Presentation/result/management discussed w/ accepting MD/DO: Hospitalist
Discharge Problem:
Urinary tract infection, Ambulatory dysfunction
Prescriptions:
No Action
atorvastatin 10 mg Tablet
10 mg PO HS
levothyroxine 125 mcg Tablet
125 mcg PO DAILY
triamterene-hydrochlorothiazid 37.5-25 mg Tablet
1 tab PO DAILY
calcium carbonate 500 mg calcium (1,250 mg) Tablet
500 mg PO DAILY
cholecalciferol (vitamin D3) [Vitamin D3] 25 mcg (1,000 unit) Tablet
25 mcg PO DAILY
polyethylene glycol 3350 17 gram Powder In Packet
17 g PO DAILY Qty: 0 0RF
sennosides-docusate sodium 8.6-50 mg Tablet
2 tab PO BID Qty: 0 0RF
acetaminophen [Tylenol Extra Strength] 500 mg Tablet
1,000 mg PO TID Qty: 0 0RF
oxycodone 5 mg Tablet
5 mg PO TIDPRN PRN (Reason: severe pain) Qty: 10 0RF
Referrals:
Rashad Trinidad DO [Family Provider] -
Interventions
Interventions:
*Risk Screen - Suicide Last Done: 04/18/24 10:37
*General Assessment Last Done: 04/18/24 10:37
*Neglect/Abuse Screening Last Done: 04/18/24 10:37
ED- Fall Risk Assessment Last Done: 04/18/24 14:18
*ED COVID-19 Vaccine History Last Done: 04/18/24 14:18
ED- Cardiac Assessment Last Done: 04/18/24 14:18
ED-Musculoskeletal Assessment Last Done: 04/18/24 14:18
ED- Neurological Assessment Last Done: 04/18/24 14:18
ED- Pulmonary Assessment Last Done: 04/18/24 14:18
Discharge Date and Time
Print Language: SWEDISH
[2024-04-18] MEDS: NSS 1000 IV (13:40)
[2024-04-18 14:33] LABS: Urine Albumin 1+ (Neg - Trace); Urine Bilirubin Negative (Negative); Urine Glucose Negative (Negative); Urine Ketone 2+ (Negative); Urine Leukocyte Negative (Negative); Urine Nitrite Positive (Negative); Urine Occult Blood Negative (Negative); Urine Urobilinogen Negative (Neg - 1+)
[2024-04-18 14:34] LABS: Urine Character Slightly Cloudy (Clear); Urine Color Yellow
[2024-04-18 14:49] LABS: Urine Amorphous Seen; Urine Squamous Cell 0-2 /LPF (Few)
[2024-04-18 14:50] LABS: Urine Bacteria Many (Negative); Urine Red Blood Cell 0-2 /HPF (0-2); Urine White Cell 0-2 /HPF (0-5)
[2024-04-18] MEDS: ROCEPHIN 1000 MG IV (15:40)
[2024-04-18] MEDS: TORADOL 15 MG IV (15:40)
--- NOTE | 2024-04-18 18:59 | HPS.HSE ---
Family Physician
-
Family Physician: Rashad Trinidad
Chief Complaint
-
Weakness
History of Present Illness
This is a 83-year-old female with past medical history of hypothyroidism, mild short-term memory loss, hypertension, hyperlipidemia, osteoporosis who presents to the emergency department from rehab with severe weakness.
Patient was recently admitted to the hospital a month ago with a right pelvic fracture. She was tolerating rehab and was ambulating independently the past week when today she started requesting to assist due to severe bilateral hip pain. She
reports urinary frequency and malodorous urine.
Patient reports recent episode of urinary frequency. She had a UA that was positive and apparently did have culture sent and was started on antibiotics. She took 5 days of antibiotic but unclear exactly what. Reports 3 times a day so likely
Keflex or ampicillin based. She reported that sometimes last year she also took a round of antibiotics. Despite the 5 days of antibiotics patient continued to have urinary frequency. She denies incontinence. She denies having any fevers or
chills. Nausea vomiting or diarrhea. She denies having any flank pain. She denies history of kidney stones. She denies urinary retention.
Patient reports left-sided hip and leg pain. She states the pain does shoot down her left leg. She denies any numbness or tingling. Pain worse with ambulation.
In the emergency department she was afebrile, blood pressure was 148/80 with a pulse of 84 satting 96% on room air. CBC was unremarkable. Electrolytes BUN/creatinine were all within the normal range. UA was markedly positive. Hip x-ray shows
subacute right sided superior and inferior pubic rami fractures without dislocation.
Medical History
Past Medical History
Past Medical History: Reports Dementia, HTN, Hypercholesterolemia and Hypothyroidism
Past Surgical History: Reports Cholecystectomy and Gynocological
Social History
Tobacco: Non-smoker
Alcohol: None
Drug: None
Personal:
Living: With Family
Employment: Retired
Family History
Family History: Not pertinent
Allergies / Home Medications
Allergies reflects when Allergies were last updated in [employer].
Home Medications with original date entered in [employer]
Allergy/Medication List:
Allergies
Allergy/AdvReac Type Severity Reaction Status Date / Time
aspirin Allergy Hives Verified 03/15/24 21:42
Home Medications
atorvastatin 10 mg tablet 10 mg PO HS High Cholesterol 03/15/24
calcium carbonate 500 mg PO DAILY Supplement 03/15/24
cholecalciferol (vitamin D3) 25 mcg (1,000 unit) tablet (Vitamin D3) 25 mcg PO DAILY Supplement 03/15/24
levothyroxine 125 mcg tablet 125 mcg PO DAILY Thyroid 03/15/24
triamterene 37.5 mg-hydrochlorothiazide 25 mg tablet 1 tab PO DAILY Blood Pressure 03/15/24
acetaminophen 500 mg tablet (Tylenol Extra Strength) 1,000 mg (2 x 500 mg) PO TID #0 tabs 03/19/24
oxycodone 5 mg tablet 5 mg PO TIDPRN PRN severe pain #10 tabs 03/19/24
polyethylene glycol 3350 17 gram oral powder packet 17 g PO DAILY #0 ea 03/19/24
sennosides 8.6 mg-docusate sodium 50 mg tablet 2 tab PO BID #0 tabs 03/19/24
Review of Systems
-
History Source: Family
Constitutional: Reports No Symptoms
EENT: Reports No Symptoms
Respiratory: Reports No Symptoms
Cardiac: Reports No Symptoms
Abdomen/GI: Reports No Symptoms
: Reports Dysuria and Frequency
Musculoskeletal: Reports Joint Pain
Skin: Reports No Symptoms
Neurological: Reports No Symptoms
Endocrine: Reports No Symptoms
Hematologic/Lymphatic: Reports No Symptoms
Psych: Reports No Symptoms
Physical Exam
Vital Signs
Vital Signs
Temp Pulse Resp BP Pulse Ox
98.4 F 84 18 148/81 96
04/18/24 10:37 04/18/24 15:12 04/18/24 10:37 04/18/24 16:00 04/18/24 17:45
Physical Exam
General: Well Developed, Well Nourished and Comfortable
HEENT: NormoCephalic, Anicteric and Moist mucous membranes
Respiratory: Clear
Cardiac: S1/S2 and Regular Rhythm
Breast: Deferred by me
GI: Soft, Non Tender, Non Distended and Normal Bowel Sounds
Rectal: Deferred by Provider
Genito-urinary: Deferred by me
Musculoskeletal: No Clubbing, No Cyanosis and Edema, Left Lower Extremity
Skin: Rash (left lower extremity swelling and erythema)
Neuro: AO x 3 and No Motor Deficits
Hematologic/Lymphatic: No Lymphadenopathy
Psych: Calm
Laboratory Results
-
04/18/24 10:52
04/18/24 10:52
Laboratory Results
Total Bilirubin 0.5 mg/dl (0.2-1.3) 04/18/24 10:52
AST 23 U/L (14-36) 04/18/24 10:52
ALT 20 U/L (0-35) 04/18/24 10:52
Alkaline Phosphatase 135 U/L (38-126) H 04/18/24 10:52
Data Reviewed
-
Diagnostic Radiology: Report Reviewed by me
Lab Data: Labs Reviewed by me
Old Records: Reviewed
Impression/Plan
-
IMPRESSION:
83 female with UTI and left sided > right sided hip pain.
PLAN:
1. UTI - Somewhat resistant UTI but no signs of systemic infection. No obvious pyelo. No history of stones or obstruction.
- admit to med/surg
- urine cultures
- IV ceftriaxone pending culture results
- I L NS in ED and tolerates PO well.
2. Hip Fracture - Subacute R pubic rami fractures. Had a fall and fracture Fei 1. In rehab but has developed more left sided pain over last 2 weeks. Likely MSK from muscle pain and arthritis from selective over use.
- pain control
- topical lidocaine on the left hip
- PT evaluation
3. HTN - normotensive
- continue hctz-triamterene
4. Hypothyroid - eutthyroid appearing
- continue levothyroxine
DVT PPX - Lovenox Sq
Code Status - Full Code
[2024-04-18] MEDS: TYLENOL 1000 MG PO (19:44)
[2024-04-18] MEDS: LIPITOR 10 MG PO (21:06)
--- NOTE | 2024-04-19 01:45 | PTCARENOTE ---
Pt admitted from ED to [facility]. Pt AAOx3. Pain to L hip/buttock area with movement. Pt afebrile, VSS. Lungs clear, pt on room air. Purewick placed in ED. Purewick and attends changed upon arrival to unit. Pt oriented to room. Bed in lowest
position and call richardson within reach.
[2024-04-19] MEDS: SYNTHROID 125 MCG PO (05:35)
[2024-04-19 07:27] LABS: Hematocrit 36.4 % (37.0-47.0); Hemoglobin 12.6 g/dL (12.0-16.0); Mean Corp Hgb Conc. 34.6 g/dL (33.0-37.0); Mean Corpuscular Hgb 29.9 pg (27.0-31.0); Mean Corpuscular Volume 86.5 fL (81.0-99.0); Mean Platelet Volume 9.4 fL (7.4-10.4); Platelet Count 280 10^3/uL (130-400); Red Blood Cell Count 4.21 10^6/uL (4.20-5.40); Red Cell Dist. Width 12.3 % (11.5-14.5); White Blood Cell Count 11.6 10^3/uL (4.8-10.8)
[2024-04-19 08:03] VITALS: BP 113/64
[2024-04-19] MEDS: LIDOCAINE 4% PATCH 1 PATCH TOPICAL (08:20)
[2024-04-19] MEDS: TYLENOL 1000 MG PO ×3 (08:22→21:49)
[2024-04-19 08:24] LABS: Blood Urea Nitrogen 16 mg/dl (7-17); Calcium 8.8 mg/dl (8.4-10.2); Carbon Dioxide 25 mmol/L (22-30); Chloride 98 mmol/L (98-107); Estimated Creatinine Clearance 70 ml/min; Glucose 93 mg/dl (70-99); Potassium 3.5 mmol/L (3.5-5.1); Sodium 133 mmol/L (135-145); eGFR > 60.00
[2024-04-19] MEDS: DYAZIDE 1 CAPSULE PO (08:30)
[2024-04-19 09:10] VITALS: BP 151/80; PULSE 104; O2SAT 94
--- NOTE | 2024-04-19 09:19 | VNURNOTE ---
Chart reviewed.� [facility].� Will continue to follow hospital course and DC plans.
--- NOTE | 2024-04-19 11:52 | W.PN.HOSP.TC ---
Today's Communication/Plan
-
Lumbar X ray
Tylenol & Toradol PRN
Check CRP & ESR
Assessment / Plan
Assessment / Plan
# left Buttock pain
Usually pubic fracture pain is groin area
Lumbar x ray showed moderate DJD, no fracture
Pain started after the fall
Check CRP & ESR, if highly elevated
Tylenol 1000 mg TID, PRN NSAIDs
#UTI - Somewhat resistant UTI but no signs of systemic infection. No obvious pyelo. No history of stones or obstruction.
Ordered blood culture
- urine culture is showing gram negative bacilli
- IV ceftriaxone for now. No fever or dysuria.
- I L NS in ED and tolerates PO well.
#. Hip Fracture - Subacute R pubic rami fractures. Had a fall and fracture Fei 1. In rehab but has developed more left sided pain over last 2 weeks. Likely MSK from muscle pain and arthritis from selective over use.
- pain control
- topical lidocaine on the left hip
- PT evaluation
#Leukocytosis
� Afebrile
� Likely reactive, monitor off antibiotics
#Hyponatremia
� Mild, monitor
#Essential hypertension
-Continue triamterene/hydrochlorothiazide
#Hyperlipidemia
-Continue statin
#Hypothyroidism
-Continue levothyroxine
#Obesity due to excess calories
� Affects all aspects of care
#DVT prophylaxis�subcu Lovenox
Full code
Total time spent to see the patient, examine the patient, review data and lab results, discuss treatment plan with patient and nursing staff around 55 minutes
Anticipated Discharge: 24 - 48 hours
Subjective/Interval History
-
Date of Service: April 19, 2024
She complained of pain in left buttock area that has been going on since her fall in February.
Objective Data
-
Labs:
Laboratory Results
04/19/24
07:14
WBC 11.6 H
Hgb 12.6
Hct 36.4 L
Plt Count 280
Sodium 133 L
Potassium 3.5
Chloride 98
Carbon Dioxide 25
BUN 16
Creatinine 0.4 L
Glucose 93
Calcium 8.8
Vital Signs:
Vital Signs
Temp Pulse Resp BP Pulse Ox
98.7 F 99 17 113/64 94
04/19/24 08:03 04/19/24 08:03 04/19/24 08:03 04/19/24 08:03 04/19/24 08:03
[2024-04-19 13:18] LABS: Erythrocyte Sed Rate 23 mm/hour (0-20)
[2024-04-19] MEDS: TORADOL 15 MG IV (13:21)
[2024-04-19 15:09] VITALS: BP 140/79
--- NOTE | 2024-04-19 16:01 | CM ---
Alert awake oriented patient who lives with her Isai in a 2 story home with 1 steps to enter and 13 to bed bathroom. She is independent in in all activities of daily living but needs more help since fall in Mar 2024.PT recommended VN .
Will offer VN.
walker
VN/[facility] hx
Pharmacy [facility]
PCP Dr Penny
PLAN Home with VN if pts accepts
[2024-04-19] MEDS: ROCEPHIN 1000 MG IV (16:30)
[2024-04-19] MEDS: STERILE WATER FOR INJECTION 10 ML IV (16:31)
[2024-04-19] MEDS: LOVENOX 40 MG SC (18:29)
[2024-04-19] MEDS: LIPITOR 10 MG PO (21:50)
[2024-04-19 23:10] VITALS: BP 164/80
[2024-04-20] MEDS: SYNTHROID 125 MCG PO (05:07)
[2024-04-20 06:58] VITALS: BP 149/78
[2024-04-20 07:08] LABS: Blood Urea Nitrogen 16 mg/dl (7-17); Calcium 8.9 mg/dl (8.4-10.2); Carbon Dioxide 24 mmol/L (22-30); Chloride 95 mmol/L (98-107); Estimated Creatinine Clearance 70 ml/min; Glucose 101 mg/dl (70-99); Potassium 3.6 mmol/L (3.5-5.1); Sodium 132 mmol/L (135-145); eGFR > 60.00
[2024-04-20] MEDS: DYAZIDE 1 CAPSULE PO (08:54)
[2024-04-20] MEDS: LIDOCAINE 4% PATCH 1 PATCH TOPICAL (08:54)
[2024-04-20] MEDS: TYLENOL 1000 MG PO ×3 (08:56→20:59)
[2024-04-20] MEDS: STERILE WATER FOR INJECTION 10 ML IV ×2 (08:56→16:05)
[2024-04-20] MEDS: MAXIPIME 1000 MG IV ×2 (08:56→16:05)
[2024-04-20] MEDS: TORADOL 15 MG IV (10:44)
--- NOTE | 2024-04-20 11:10 | W.PN.HOSP.TC ---
Addendum entered and electronically signed by Gaurav De Luna MD 04/20/24 13:45:
Addendum
Discussed with family at bedside. Will DC diuretic therapy and monitor blood pressure as recommended upon discussion with her primary care doctor
Will change tramadol to only at night for severe pain
Will add probiotic
Likely discharge Thursday pending physical status and pain level
End
Original Note:
Today's Communication/Plan
-
Repeat CBC and BMP in AM
PT/OT
c/w Cefepime
Order EKG
Assessment / Plan
Assessment / Plan
# left Buttock pain
Usually pubic fracture pain is groin area
Lumbar x ray showed moderate DJD, no fracture
Pain started after the fall
Ordered renal US, no obstructive lesion or hydronephrosis
Elevated CRP & ESR but not f highly elevated
Tylenol 1000 mg TID, PRN NSAIDs
#UTI -
OP culture Pseudomonas that is susceptible cefepime
Continue to monitor culture of urine and blood culture here. Change antibiotic to cefepime
Patient denies fever or dysuria.
Status post IV fluid. Renal ultrasound no hydronephrosis
CBC in the a.m. check EKG for QT interval for possibility to be discharged on quinolones
#. Hip Fracture - Subacute R pubic rami fractures. Had a fall and fracture Mar 16. In rehab but has developed more left sided pain over last 2 weeks. Likely MSK from muscle pain and arthritis from selective over use.
- pain control
- topical lidocaine on the left hip
- PT evaluation
#Leukocytosis
� Afebrile
� Likely reactive, monitor off antibiotics
#Hyponatremia
� Mild, monitor
Repeat blood work tomorrow
#Essential hypertension
-Continue triamterene/hydrochlorothiazide
#Hyperlipidemia
-Continue statin
#Hypothyroidism
-Continue levothyroxine
#Obesity due to excess calories
� Affects all aspects of care
#DVT prophylaxis�subcu Lovenox
Full code
Total time spent to see the patient, examine the patient, review data and lab results, discuss treatment plan with patient and nursing staff around 55 minutes
Anticipated Discharge: Within 24 hours
Subjective/Interval History
-
Date of Service: April 20, 2024
No chest pain
No sob
Objective Data
-
Labs:
Laboratory Results
04/20/24
06:16
Sodium 132 L
Potassium 3.6
Chloride 95 L
Carbon Dioxide 24
BUN 16
Creatinine 0.5 L
Glucose 101 H
Calcium 8.9
Vital Signs:
Vital Signs
Temp Pulse Resp BP Pulse Ox
98.6 F 92 20 149/78 96
04/20/24 06:58 04/20/24 06:58 04/20/24 06:58 04/20/24 06:58 04/20/24 06:58
I&O
04/19/24 04/20/24 04/21/24
06:59 06:59 06:59
Intake Total 600 / 600
Balance 600 / 600
[2024-04-20] MEDS: VISBIOME 1 CAP PO (14:33)
[2024-04-20 15:05] VITALS: BP 115/72
[2024-04-20] MEDS: LOVENOX 40 MG SC (17:11)
[2024-04-20] MEDS: LIPITOR 10 MG PO (20:59)
[2024-04-20 23:23] VITALS: BP 158/87
[2024-04-21] MEDS: MAXIPIME 1000 MG IV ×4 (00:24→23:42)
[2024-04-21] MEDS: ULTRAM 25 MG PO (00:26)
[2024-04-21] MEDS: STERILE WATER FOR INJECTION 10 ML IV ×4 (00:26→23:43)
[2024-04-21] MEDS: SYNTHROID 125 MCG PO (04:59)
[2024-04-21] MEDS: TORADOL 15 MG IV ×3 (05:00→21:01)
[2024-04-21 05:43] LABS: Mean Corp Hgb Conc. 35.3 g/dL (33.0-37.0); Mean Corpuscular Hgb 30.1 pg (27.0-31.0); Mean Corpuscular Volume 85.2 fL (81.0-99.0); Mean Platelet Volume 9.4 fL (7.4-10.4); Platelet Count 273 10^3/uL (130-400); Red Blood Cell Count 3.99 10^6/uL (4.20-5.40); Red Cell Dist. Width 12.2 % (11.5-14.5); White Blood Cell Count 12.5 10^3/uL (4.8-10.8)
[2024-04-21 06:14] LABS: Blood Urea Nitrogen 15 mg/dl (7-17); Calcium 8.9 mg/dl (8.4-10.2); Carbon Dioxide 25 mmol/L (22-30); Chloride 95 mmol/L (98-107); Estimated Creatinine Clearance 70 ml/min; Glucose 98 mg/dl (70-99); Potassium 3.7 mmol/L (3.5-5.1); Sodium 130 mmol/L (135-145); eGFR > 60.00
[2024-04-21 07:05] VITALS: BP 130/79
[2024-04-21] MEDS: TYLENOL 1000 MG PO ×3 (08:55→23:41)
[2024-04-21] MEDS: LIDOCAINE 4% PATCH 1 PATCH TOPICAL (08:56)
[2024-04-21 09:25] VITALS: BP 123/76; PULSE 95; O2SAT 96
--- NOTE | 2024-04-21 10:01 | W.PN.HOSP.TC ---
Addendum entered and electronically signed by Gaurav De Luna MD 04/21/24 12:03:
Addendum
In order to minimize the use/need for tramadol, we will do low-dose Toradol twice daily.
Discussed with daughter.
End
Addendum entered and electronically signed by Gaurav De Luna MD 04/21/24 10:12:
Addendum/ Correction
Essential hypertension
Family told me that Dyazide was discontinued by primary care doctor. Patient was having urinary frequency. Will monitor blood pressure. If consistently more than 130/90, will recommend an alternative blood pressure medication.
End
Original Note:
Today's Communication/Plan
-
Likely discharge Thursday if pain in back in better
Assessment / Plan
Assessment / Plan
Physical Exam
General: Well Developed, Well Nourished and Comfortable
HEENT: Normocephalic, Anicteric and Moist mucous membranes
Respiratory: Clear
Cardiac: S1/S2 and Regular Rhythm
GI: Soft, Non Tender, Non Distended and Normal Bowel Sounds
Rectal: no bleeding
Genito-urinary: no hematuria.
Musculoskeletal: No Clubbing, No Cyanosis and Edema, Left Lower Extremity
Skin: Rash (left lower extremity swelling and erythema)
Neuro: AO to self and surroundings,she follows commands.
Psych: Calm
# left Buttock pain
likely related to lumbar radiculopathy
Lumbar x ray showed moderate DJD, no fracture
Pain started after the fall
Ordered renal US, no obstructive lesion or hydronephrosis
Elevated CRP & ESR but not highly elevated
Tylenol 1000 mg TID, PRN NSAIDs. PRN tramadol for night time.
#UTI -
OP culture Pseudomonas that is susceptible cefepime
Current urine culture showing Pseudomonas & Raoultella ornithinolytica
Negative blood culture
c/w cefepime
Patient denies fever or dysuria.
Status post IV fluid. Renal ultrasound no hydronephrosis
#. Hip Fracture - Subacute R pubic rami fractures. Had a fall and fracture Fei 1. In rehab but has developed more left sided pain over last 2 weeks. Likely MSK from muscle pain and arthritis from selective over use.
- pain control
- topical lidocaine on the left hip
- PT evaluation
#Leukocytosis
� Afebrile
� Likely reactive, monitor off antibiotics
#Hyponatremia
� Mild, monitor
Repeat blood work tomorrow
#Essential hypertension
-Continue triamterene/hydrochlorothiazide
#Hyperlipidemia
-Continue statin
#Hypothyroidism
-Continue levothyroxine
#DVT prophylaxis�subcu Lovenox
Full code
Total time spent to see the patient, examine the patient, review data and lab results, discuss treatment plan with patient,family and nursing staff around 55 minutes
Anticipated Discharge: Within 24 hours
Subjective/Interval History
-
Date of Service: April 21, 2024
She denies back pain while in bed, only upon moving
Objective Data
-
Labs:
Laboratory Results
04/21/24
05:19
WBC 12.5 H
Hgb 12.0
Hct 34.0 L
Plt Count 273
Sodium 130 L
Potassium 3.7
Chloride 95 L
Carbon Dioxide 25
BUN 15
Creatinine 0.5 L
Glucose 98
Calcium 8.9
Vital Signs:
Vital Signs
Temp Pulse Resp BP Pulse Ox
97.4 F 84 18 130/79 95
04/21/24 07:05 04/21/24 07:05 04/21/24 07:05 04/21/24 07:05 04/21/24 07:05
I&O
04/20/24 04/21/24 04/22/24
06:59 06:59 06:59
Intake Total 600 / 600 480 / 480
Balance 600 / 600 480 / 480
[2024-04-21] MEDS: VISBIOME 1 CAP PO (10:47)
--- NOTE | 2024-04-21 12:12 | VNURNOTE ---
[facility] liaison met with patient and daughter at bedside. They both confirm they would like to resume [facility] services. Resumption referral for [facility] placed in [facility].
[2024-04-21 15:05] VITALS: BP 124/73
[2024-04-21] MEDS: LOVENOX 40 MG SC (17:04)
[2024-04-21] MEDS: LIPITOR 10 MG PO (21:01)
[2024-04-22 00:31] VITALS: BP 155/81
[2024-04-22] MEDS: SYNTHROID 125 MCG PO (05:22)
[2024-04-22] MEDS: TORADOL 15 MG IV ×3 (05:23→21:28)
[2024-04-22 05:37] LABS: % Basophils 0.7 % (0-2); % Eosinophils 7.5 % (0-6); % Immature Granulocytes 0.3 % (0-0.5); % Lymphocytes 28.3 % (20.5-51.1); % Monocytes 10.3 % (1.7-9.3); % Neutrophils 52.9 % (42.2-75.2); Absolute Basophils 0.1 10^3/uL (0-0.2); Absolute Eosinophils 0.7 10^3/uL (0-0.7); Absolute Lymphocytes 2.5 10^3/uL (1.2-3.4); Absolute Monocytes 0.9 10^3/uL (0.1-0.6); Absolute Neutrophils 4.7 10^3/uL (1.4-6.5); Mean Corp Hgb Conc. 34.3 g/dL (33.0-37.0); Mean Corpuscular Hgb 29.7 pg (27.0-31.0); Mean Corpuscular Volume 86.6 fL (81.0-99.0); Mean Platelet Volume 9.2 fL (7.4-10.4); Nucleated Red Blood Cells % 0 %; Platelet Count 291 10^3/uL (130-400); Red Blood Cell Count 4.04 10^6/uL (4.20-5.40); Red Cell Dist. Width 12.3 % (11.5-14.5); White Blood Cell Count 8.9 10^3/uL (4.8-10.8)
[2024-04-22 06:35] LABS: Blood Urea Nitrogen 20 mg/dl (7-17); Carbon Dioxide 25 mmol/L (22-30); Chloride 97 mmol/L (98-107); Estimated Creatinine Clearance 70 ml/min; Glucose 90 mg/dl (70-99); Potassium 3.6 mmol/L (3.5-5.1); Sodium 128 mmol/L (135-145); eGFR > 60.00
[2024-04-22 07:05] VITALS: BP 141/78
--- NOTE | 2024-04-22 07:19 | PTCARENOTE ---
pt c/o 7/10 pain in hips and back. ASSISTANT MAINTENANCE MANAGER notified and instructed to give 0800 dose of toradol early, given at 0523. At 0630, pt called to go to the bathroom. Pt w/ increasing pain attempting to get oob. Pt placed on bedpan d/t pain. Dayshift RN to
place lidocaine patch and give tylenol. Passed on in report to RN. Plan of care ongoing.
[2024-04-22] MEDS: MAXIPIME 1000 MG IV ×2 (07:57→15:06)
[2024-04-22] MEDS: TYLENOL 1000 MG PO ×3 (07:58→21:29)
[2024-04-22] MEDS: VISBIOME 1 CAP PO (07:59)
[2024-04-22] MEDS: LIDOCAINE 4% PATCH TOPICAL ×2 (07:59→13:17)
[2024-04-22] MEDS: STERILE WATER FOR INJECTION 10 ML IV ×2 (07:59→15:06)
--- NOTE | 2024-04-22 12:13 | CM ---
PT Indicates [facility]N at [facility].
Offered VN pt picked [facility] .
[facility] liaison set up [facility]
Family to transport home.
[facility]
--- NOTE | 2024-04-22 12:28 | W.PN.HOSP.TC ---
Today's Communication/Plan
-
c/w IV Cefepime while in hospital
She reports same back pain, will do MRI
Pre- MRI Low dose Ativan for Claustrophobia
Assessment / Plan
Assessment / Plan
Physical Exam
General: Well Developed, Well Nourished and Comfortable
HEENT: Normocephalic, Anicteric and Moist mucous membranes
Respiratory: Clear
Cardiac: S1/S2 and Regular Rhythm
GI: Soft, Non Tender, Non Distended and Normal Bowel Sounds
Rectal: no bleeding
Genito-urinary: no hematuria.
Musculoskeletal: No Clubbing, No Cyanosis and Edema, Left Lower Extremity
Skin: Rash (left lower extremity swelling and erythema)
Neuro: AO to self and surroundings,she follows commands.
Psych: Calm
# left Buttock pain
likely related to lumbar radiculopathy
Lumbar x ray showed moderate DJD, no fracture
Pain started after the fall
Ordered renal US, no obstructive lesion or hydronephrosis
Elevated CRP & ESR but not highly elevated , WBC came back to normal Negative blood culture
back pain not improving per pt, will do MRI lumbar
Tylenol 1000 mg TID, PRN NSAIDs. PRN tramadol for night time.
#UTI -
OP culture Pseudomonas that is susceptible cefepime
Current urine culture showing Pseudomonas & Raoultella ornithinolytica
Negative blood culture
c/w cefepime
Patient denies fever or dysuria.
Status post IV fluid. Renal ultrasound no hydronephrosis
#. Hip Fracture - Subacute R pubic rami fractures. Had a fall and fracture Fei 1. In rehab but has developed more left sided pain over last 2 weeks. Likely MSK from muscle pain and arthritis from selective over use.
- pain control
- topical lidocaine on the left hip
- PT evaluation
#Leukocytosis
� Afebrile
� Likely reactive, monitor off antibiotics
#Hyponatremia
� Mild, monitor
Repeat blood work tomorrow
#Essential hypertension
-Continue triamterene/hydrochlorothiazide
#Hyperlipidemia
-Continue statin
#Hypothyroidism
-Continue levothyroxine
#DVT prophylaxis�subcu Lovenox
Full code
Total time spent to see the patient, examine the patient, review data and lab results, discuss treatment plan with patient,family and nursing staff around 55 minutes
Anticipated Discharge: Within 24 hours
Subjective/Interval History
-
Date of Service: April 22, 2024
She reports same quality of back pain , not improving, only upon moving
Objective Data
-
Labs:
Laboratory Results
04/22/24
05:27
WBC 8.9
Hgb 12.0
Hct 35.0 L
Plt Count 291
Sodium 128 L
Potassium 3.6
Chloride 97 L
Carbon Dioxide 25
BUN 20 H
Creatinine 0.5 L
Glucose 90
Calcium 9.0
Vital Signs:
Vital Signs
Temp Pulse Resp BP Pulse Ox
97.7 F 74 17 141/78 95
04/22/24 07:05 04/22/24 07:05 04/22/24 07:05 04/22/24 07:05 04/22/24 09:07
I&O
04/21/24 04/22/24 04/23/24
06:59 06:59 06:59
Intake Total 480 / 480 1500 / 1500
Balance 480 / 480 1500 / 1500
[2024-04-22 14:11] VITALS: BP 114/66; PULSE 88
[2024-04-22] MEDS: SENOKOT-S 1 TABLET PO (14:24)
[2024-04-22 15:05] VITALS: BP 138/73
[2024-04-22] MEDS: LOVENOX 40 MG SC (17:35)
[2024-04-22 21:12] VITALS: BP 143/82
[2024-04-22] MEDS: LIPITOR 10 MG PO (21:29)
[2024-04-22] MEDS: NSS (PRESERVATIVE FREE) 0.25 ML IV (21:30)
[2024-04-22] MEDS: ATIVAN 0.5 MG IV (21:30)
[2024-04-22 23:20] VITALS: BP 179/98
[2024-04-23] MEDS: STERILE WATER FOR INJECTION 10 ML IV ×4 (00:02→23:23)
[2024-04-23] MEDS: MAXIPIME 1000 MG IV ×4 (00:02→23:24)
[2024-04-23 02:46] VITALS: BP 152/84
[2024-04-23] MEDS: ULTRAM 25 MG PO (03:24)
[2024-04-23] MEDS: SYNTHROID 125 MCG PO (06:05)
[2024-04-23 07:00] VITALS: BP 165/94
[2024-04-23] MEDS: VISBIOME 1 CAP PO (08:35)
[2024-04-23] MEDS: LIDOCAINE 4% PATCH 1 PATCH TOPICAL (08:35)
[2024-04-23] MEDS: TYLENOL 1000 MG PO ×3 (08:35→21:09)
--- NOTE | 2024-04-23 09:20 | W.PN.HOSP.TC ---
Addendum entered and electronically signed by Gaurav De Luna MD 04/23/24 12:17:
Addendum
MRI resulted, discussed with radiologist and orthopedic doctor who reviewed MRI remotely. Recommended pain control, physical therapy, can follow-up with pain management as outpatient if needed.
End
Original Note:
Today's Communication/Plan
-
Await MRI to be resulted, will reach out to radiologist and ask Orthopedic doctor to give recommendations.
Change IV Toradol to oral form
Last day of IV Cefepime 04/24
DC planning, likely Monday 04/24
Assessment / Plan
Assessment / Plan
Physical Exam
General: Well Developed, Well Nourished and Comfortable
HEENT: Normocephalic, Anicteric and Moist mucous membranes
Respiratory: Clear
Cardiac: S1/S2 and Regular Rhythm
GI: Soft, Non Tender, Non Distended and Normal Bowel Sounds
Rectal: no bleeding
Genito-urinary: no hematuria.
Musculoskeletal: No Clubbing, No Cyanosis and Edema, Left Lower Extremity
Skin: Rash (left lower extremity swelling and erythema)
Neuro: AO to self and surroundings,she follows commands.
Psych: Calm
# left Buttock pain
likely related to lumbar radiculopathy
Lumbar x ray showed moderate DJD, no fracture
Pain started after the fall
Ordered renal US, no obstructive lesion or hydronephrosis
Elevated CRP & ESR but not highly elevated , WBC came back to normal Negative blood culture
MRI lumbar result is pending, will ask radiologist to, read and discuss it with orthopedic doctor.
Tylenol 1000 mg TID, PRN NSAIDs, change IV Toradol to oral form. PRN tramadol for night time.
#UTI -
OP culture Pseudomonas that is susceptible cefepime
Current urine culture showing Pseudomonas & Raoultella ornithinolytica
Negative blood culture
c/w cefepime day # 4
Patient denies fever or dysuria.
Status post IV fluid. Renal ultrasound no hydronephrosis
#. Hip Fracture - Subacute R pubic rami fractures. Had a fall and fracture Fei 1. In rehab but has developed more left sided pain over last 2 weeks. Likely MSK from muscle pain and arthritis from selective over use.
- pain control
- topical lidocaine on the left hip
- PT evaluation
#Leukocytosis
� Afebrile
� Likely reactive, monitor off antibiotics
#Hyponatremia
� Mild, monitor
Repeat blood work tomorrow
#Essential hypertension
-Continue triamterene/hydrochlorothiazide
#Hyperlipidemia
-Continue statin
#Hypothyroidism
-Continue levothyroxine
#DVT prophylaxis�subcu Lovenox
Full code
Total time spent to see the patient, examine the patient, review data and lab results, discuss treatment plan with patient,family and nursing staff around 55 minutes
Anticipated Discharge: Within 24 hours
Subjective/Interval History
-
Date of Service: April 23, 2024
Still same back pain
Objective Data
-
Vital Signs:
Vital Signs
Temp Pulse Resp BP Pulse Ox
98.2 F 85 17 165/94 92
04/23/24 07:00 04/23/24 07:00 04/23/24 07:00 04/23/24 07:00 04/23/24 07:00
I&O
04/22/24 04/23/24 04/24/24
06:59 06:59 06:59
Intake Total 1500 / 1500 1440 / 1440
Balance 1500 / 1500 1440 / 1440
[2024-04-23] MEDS: TORADOL 10 MG PO (10:55)
[2024-04-23] MEDS: FLEXERIL 2.5 MG PO ×3 (10:56→21:08)
[2024-04-23 15:00] VITALS: BP 138/80
[2024-04-23] MEDS: MIRALAX 17 GRAMS PO (18:12)
[2024-04-23] MEDS: LOVENOX 40 MG SC (18:12)
[2024-04-23] MEDS: LIPITOR 10 MG PO (21:09)
[2024-04-23] MEDS: SENOKOT-S 1 TABLET PO (21:09)
[2024-04-23 23:14] VITALS: BP 182/101
[2024-04-24] MEDS: DULCOLAX 10 MG RECTAL (03:50)
[2024-04-24 07:00] VITALS: BP 140/80
[2024-04-24] MEDS: VISBIOME 1 CAP PO (07:37)
[2024-04-24] MEDS: STERILE WATER FOR INJECTION 10 ML IV ×2 (07:37→17:43)
[2024-04-24] MEDS: LIDOCAINE 4% PATCH 1 PATCH TOPICAL (07:37)
[2024-04-24] MEDS: SYNTHROID 125 MCG PO (07:38)
[2024-04-24] MEDS: MAXIPIME 1000 MG IV ×2 (07:38→17:43)
[2024-04-24] MEDS: TYLENOL 1000 MG PO ×3 (07:38→21:53)
[2024-04-24] MEDS: FLEXERIL 2.5 MG PO ×3 (07:45→21:53)
--- NOTE | 2024-04-24 09:39 | W.PN.HOSP.TC ---
Today's Communication/Plan
-
Family will set up transportation Thursday morning
They have hospital bed at home
Plan to dc home Tuesday 04/25 with services if no new events
BMP today
Add PRN Amlodipine for high blood pressure
c/w Tylenol, PRN oral Toradol, oral Tramadol for severe pain/nighttime discomfort
Assessment / Plan
Assessment / Plan
Physical Exam
General: Well Developed, Well Nourished and Comfortable
HEENT: Normocephalic, Anicteric and Moist mucous membranes
Respiratory: Clear
Cardiac: S1/S2 and Regular Rhythm
GI: Soft, Non Tender, Non Distended and Normal Bowel Sounds
Rectal: no bleeding
Genito-urinary: no hematuria.
Musculoskeletal: No Clubbing, No Cyanosis and Edema, Left Lower Extremity
Skin: Rash (left lower extremity swelling and erythema)
Neuro: AO to self and surroundings,she follows commands.
Psych: Calm
# left Buttock pain
Related to lumbar radiculopathy
Lumbar x ray showed moderate DJD, no fracture
MRI Lumbar: discussed with radiologist and orthopedic doctor orientation & mobility specialist ( Dr Rice) who reviewed MRI remotely. MRI showed signs of lumbar spine stenosis/sacral insufficiency fracture/moderate to severe DDD NASRIN mostly around L3-4 -5.
Recommendations: pain control, physical therapy, can follow-up with pain management/ spine specialistas outpatient if needed. Informations for follow up placed in chart.
Elevated CRP & ESR but not highly elevated , WBC came back to normal Negative blood culture
Tylenol 1000 mg TID, PRN NSAIDs, change IV Toradol to oral form. PRN tramadol for night timeand as needed.
#UTI -uncomplicated with lack of bacteremia/pyelonephritis/urinary retention
OP culture Pseudomonas that is susceptible cefepime
Ordered renal US, no obstructive lesion or hydronephrosis
Current urine culture showing Pseudomonas & Raoultella ornithinolytica
Negative blood culture
c/w cefepime day # 5 today, she finish course later tonight, no need for more antibiotic upon discharge.
Patient denies fever or dysuria.
Status post IV fluid. WBC came down to normal.
#. Hip Fracture - Subacute R pubic rami fractures. Had a fall and fracture Fei 1. In rehab but has developed more left sided pain over last 2 weeks. Likely MSK from muscle pain and arthritis from selective over use.
- pain control
- topical lidocaine on the left hip
- PT evaluation
#Hyponatremia
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
� Mild,
BMP today
#Essential hypertension
-She was on triamterene/hydrochlorothiazide but was stopped due to urinary frequency.
She is noted to have uncontrolled blood pressure, at times high. Will add as needed amlodipine which should not cause polyuria.
#Hyperlipidemia
-Continue statin
#Hypothyroidism
-Continue levothyroxine
#DVT prophylaxis�subcu Lovenox
Full code
Total time spent to see the patient, examine the patient, review data and lab results, discuss treatment plan with patient,family and nursing staff around 57 minutes
Anticipated Discharge: Within 24 hours
Subjective/Interval History
-
Date of Service: April 24, 2024
No sob
No chest pain
Objective Data
-
Vital Signs:
Vital Signs
Temp Pulse Resp BP Pulse Ox
98.0 F 90 17 140/80 94
04/24/24 07:00 04/24/24 07:00 04/24/24 07:00 04/24/24 07:00 04/24/24 07:00
I&O
04/23/24 04/24/24 04/25/24
06:59 06:59 06:59
Intake Total 1440 / 1440 1200 / 1200
Balance 1440 / 1440 1200 / 1200
[2024-04-24 11:14] LABS: Blood Urea Nitrogen 18 mg/dl (7-17); Calcium 9.5 mg/dl (8.4-10.2); Carbon Dioxide 30 mmol/L (22-30); Chloride 98 mmol/L (98-107); Estimated Creatinine Clearance 70 ml/min; Glucose 114 mg/dl (70-99); Potassium 3.7 mmol/L (3.5-5.1); Sodium 134 mmol/L (135-145); eGFR > 60.00
[2024-04-24] MEDS: TORADOL 10 MG PO ×2 (13:01→20:09)
[2024-04-24 15:00] VITALS: BP 140/80
[2024-04-24] MEDS: LOVENOX 40 MG SC (17:42)
[2024-04-24] MEDS: LIPITOR 10 MG PO (21:53)
[2024-04-24 23:06] VITALS: BP 152/83
[2024-04-25] MEDS: STERILE WATER FOR INJECTION 10 ML IV ×2 (00:36→08:17)
[2024-04-25] MEDS: MAXIPIME 1000 MG IV ×2 (00:36→08:17)
[2024-04-25] MEDS: TORADOL 10 MG PO ×2 (05:45→14:13)
[2024-04-25] MEDS: SYNTHROID 125 MCG PO (05:45)
[2024-04-25 07:05] VITALS: BP 176/92
[2024-04-25] MEDS: TYLENOL 1000 MG PO (08:17)
[2024-04-25] MEDS: FLEXERIL 2.5 MG PO (08:17)
[2024-04-25] MEDS: LIDOCAINE 4% PATCH 1 PATCH TOPICAL (08:18)
[2024-04-25] MEDS: VISBIOME 1 CAP PO (08:26)
[2024-04-25 08:42] VITALS: BP 150/88
[2024-04-25 14:20] VITALS: BP 154/86
--- NOTE | 2024-04-25 14:23 | W.DCSUMMARY ---
Discharge Summary
Discharge Data
Date of Admission: 04/18/24
Date of Discharge: 04/25/24
-
Pending Results: No
Hospital Course
Ms. Hope is an 83-year-old female with a medical history of hypothyroidism, hypertension, and osteoporosis who presented from rehab with severe weakness. She had recently been admitted approximately 1 month ago with a right pelvic fracture and
was discharged to rehab. She had been tolerating rehab well until she developed severe bilateral hip pain and urinary frequency. She was found to have a urinary tract infection and was treated with a course of antibiotics. Urine cultures resulted
positive for Pseudomonas sensitive to cefepime and she has now completed antibiotic course. Renal imaging was unremarkable other than small bilateral simple parapelvic renal cysts. She had ongoing severe bilateral hip pain. MRI revealed sacral
insufficiency fracture. Orthopedics recommended pain control, ongoing physical therapy, and outpatient follow-up with pain management as needed. She will be discharged to home with family. She has remained hemodynamically stable and afebrile. Of
note, she was moderately hypertensive however this is being followed by her family doctor with blood pressure goals being liberalized to avoid hypotension. The patient and her family monitor her blood pressure with a blood pressure cuff at home and
keep in touch with her primary care physician for ongoing management. Also of note, she has mild hyponatremia appears chronic and stable which she can have monitored periodically in the outpatient setting.
Gen-AAOx3, NAD
HEENT-NC, AT, anicteric, clear oral mm
Neck-supple
CV-reg, no M, +S1/S2
Lungs-clear B/L
Abd-soft, NT, ND
Musculoskeletal-no edema, no deformity
Skin-warm and dry
Neuro-grossly non-focal
Psych-calm, cooperative
Discharge Plan
-
Patient Disposition: Home (Routine Discharge)
Discharge Diagnosis/Procedures: Back pain, sacral insufficiency fracture, ambulatory dysfunction, UTI
Activity Restrictions/Additional Instructions:
Ms. Hope is an 83-year-old female with a medical history of hypothyroidism, hypertension, and osteoporosis who presented from rehab with severe weakness. She had recently been admitted approximately 1 month ago with a right pelvic fracture and
was discharged to rehab. She had been tolerating rehab well until she developed severe bilateral hip pain and urinary frequency. She was found to have a urinary tract infection and was treated with a course of antibiotics. Urine cultures resulted
positive for Pseudomonas sensitive to cefepime and she has now completed antibiotic course. Renal imaging was unremarkable other than small bilateral simple parapelvic renal cysts. She had ongoing severe bilateral hip pain. MRI revealed sacral
insufficiency fracture. Orthopedics recommended pain control, ongoing physical therapy, and outpatient follow-up with pain management as needed. She will be discharged to home with family. She has remained hemodynamically stable and afebrile. Of
note, she was moderately hypertensive however this is being followed by her family doctor with blood pressure goals being liberalized to avoid hypotension. The patient and her family monitor her blood pressure with a blood pressure cuff at home and
keep in touch with her primary care physician for ongoing management. Also of note, she has mild hyponatremia appears chronic and stable which she can have monitored periodically in the outpatient setting.
Referrals:
Taiwo Elmore MD [Active] - (medical authorization specialist / call to make appointment as needed)
Stephanie Marinelli MD [Non-Admitting Privileges] - (Pain management: Call to make appointment as)
Rashad Trinidad DO [Family Provider] -
Prescriptions:
New
cyclobenzaprine 10 mg Tablet
2.5 mg PO TID 10 Days Qty: 8 0RF
lidocaine 4 % Adhesive Patch,Medicated
1 patch topical DAILY 10 Days Qty: 10 0RF
ketorolac 10 mg Tablet
10 mg PO Q6HPRN PRN (Reason: mild to mod pain) 10 Days Qty: 20 0RF
Continued
atorvastatin 10 mg Tablet
10 mg PO HS
levothyroxine 125 mcg Tablet
125 mcg PO DAILY
calcium carbonate 500 mg calcium (1,250 mg) Tablet
500 mg PO DAILY
cholecalciferol (vitamin D3) [Vitamin D3] 25 mcg (1,000 unit) Tablet
25 mcg PO DAILY
polyethylene glycol 3350 17 gram Powder In Packet
17 g PO DAILY Qty: 0 0RF
acetaminophen [Tylenol Extra Strength] 500 mg Tablet
1,000 mg PO TID Qty: 0 0RF
tramadol 25 mg Tablet
25 mg PO Q8HPRN PRN (Reason: pain)
sennosides-docusate sodium 8.6-50 mg Tablet
2 tab PO BID Qty: 0 0RF
Discontinued
triamterene-hydrochlorothiazid 37.5-25 mg Tablet
1 tab PO DAILY
oxycodone 5 mg Tablet
5 mg PO TIDPRN PRN (Reason: severe pain) Qty: 10 0RF
Discharge Orders:
Discharge Patient (As Directed); Ordered 04/25/24
Ordered By: Kareem Castillo
Discharge Date and Time
Print Language: HEBREW
--- NOTE | 2024-04-25 14:36 | CM ---
Pt stable for d/c today. Current w/ [facility]
Per pt, family will transport home
IMM reviewed
Plan: Home; [facility] w/ [facility]
[2024-04-25 15:00] VITALS: BP 128/55
== END 2024-04-25 15:25 | disposition home health service (06) | DRG 552 ==
LOC: 3 WEST ACU 19:28
PROVIDERS: Emergency Medicine; Internal Medicine; Nurse Practitioner Family; Physician Assistant; ADMITTING PHYSICIAN Internal Medicine; ATTENDING PHYSICIAN Internal Medicine; EMERGENCY PHYSICIAN Emergency Medicine; FAMILY PHYSICIAN Internal Medicine
DX: M54.16 Radiculopathy, lumbar region (principal); N39.0 Urinary tract infection, site not specified; S32.591A Other specified fracture of right pubis, initial encounter for closed fracture; M84.454A Pathological fracture, pelvis, initial encounter for fracture; E87.1 Hypo-osmolality and hyponatremia; E03.9 Hypothyroidism, unspecified; I10 Essential (primary) hypertension; M81.0 Age-related osteoporosis without current pathological fracture; E78.00 Pure hypercholesterolemia, unspecified; F03.90 Unspecified dementia, unspecified severity, without behavioral disturbance, psychotic disturbance, mood disturbance, and anxiety; Z90.49 Acquired absence of other specified parts of digestive tract; Z88.6 Allergy status to analgesic agent; N28.1 Cyst of kidney, acquired; Z79.890 Hormone replacement therapy; M19.90 Unspecified osteoarthritis, unspecified site
CPT/HCPCS: 51701; 72100; 72148; 73502; 76775; 80048; 80053; 81003; 81015; 85025; 85027; 85652; 86140; 87040; 87077; 87086; 87186; 93005; 96361; 96374; 96375; 97116; 97163; 97530; 99285

== ENCOUNTER 2024-04-28 16:41 | Observation (INO) | payer OTHER, SELFPAY ==
[2024-04-28] VITALS (9 sets, daily range): BP systolic 116–143; BP diastolic 69–89; BMI 31.1; BMI 30.6
[2024-04-28 12:04] LABS: % Basophils 0.4 % (0-2); % Eosinophils 0.1 % (0-6); % Immature Granulocytes 0.8 % (0-0.5); % Monocytes 7.2 % (1.7-9.3); % Neutrophils 81.5 % (42.2-75.2); Absolute Basophils 0.1 10^3/uL (0-0.2); Absolute Immature Granulocytes 0.1 10^3/uL (0-0.05); Absolute Lymphocytes 1.4 10^3/uL (1.2-3.4); Absolute Neutrophils 11.2 10^3/uL (1.4-6.5); Hematocrit 32.5 % (37.0-47.0); Hemoglobin 11.1 g/dL (12.0-16.0); Mean Corp Hgb Conc. 34.2 g/dL (33.0-37.0); Mean Corpuscular Hgb 29.8 pg (27.0-31.0); Mean Corpuscular Volume 87.1 fL (81.0-99.0); Mean Platelet Volume 8.9 fL (7.4-10.4); Nucleated Red Blood Cells % 0 %; Platelet Count 388 10^3/uL (130-400); Red Blood Cell Count 3.73 10^6/uL (4.20-5.40); Red Cell Dist. Width 12.6 % (11.5-14.5); White Blood Cell Count 13.8 10^3/uL (4.8-10.8)
--- NOTE | 2024-04-28 12:18 | ED.GENMED ---
History of Present Illness
<Dia Bradshaw PA-C - Last Filed: 04/28/24 17:34>
General
Chief Complaint: Skin Problem
Source: patient and records
Exam Limitations: none
Time Seen by Provider: 04/28/24 12:04
History of Present Illness
History of Present Illness:
83yoF with a history of a R pubic rami fracture in March 2024, hypertension, hyperlipidemia, hypothyroidism, and obesity presenting with her for evaluation of a right flank contusion. Patient was recently admitted earlier this month for a
UTI and ambulatory dysfunction. She was diagnosed with a R pubic rami fracture in March and had an MRI lumbar spine last week which showed a sacral fracture. She returned home 3 days ago. She noticed a small bruise to her R flank yesterday which
became progressively larger. She denies any trauma to the area although has been coughing more since being discharged. She denies any shortness of breath, fevers, hematuria. She does note L hip pain which has been ongoing and was also present during
her last hospitalization. She was discharged with prescriptions for Toradol and Flexeril. She is not taking any blood thinners.
Past History
<Dia Bradshaw PA-C - Last Filed: 04/28/24 17:34>
Past History
ED Past Medical History: HTN and Hypothyroidism
Social History
Tobacco: Non-smoker
Personal:
Living: with family
Phy Exam
<Dia Bradshaw PA-C - Last Filed: 04/28/24 17:34>
General Physical Exam
General Presentation: well appearing and no apparent distress
General age: appears stated age
General Skin: warm and dry
General Habitus: normal
General Mental: alert
ENT Exam
ENT Exam: normocephalic
Cardiovascular Exam
Cardiovascular Exam: regular rate/rhythm
Pulmonary Exam
Pulmonary Exam: lungs clear, no respiratory distress, no rales, no crackles and no rhonchi
Gastrointestinal Exam
Gastrointestinal Exam: non tender, soft and non distended
Neurological Exam
Neurological Exam: alert
Bandar Coma Scale
Eye Opening: Spontaneous
Verbal Response: Oriented
Motor Response: Obeys Commands
GCS Total Score: 15
Skin Exam
Skin Exam: warm/dry and other (Large contusion present to the R flank with palpable hematoma and tenderness. )
Psychiatric Exam
Psychiatric Exam: normal mood/affect
Course
<Dia Bradshaw PA-C - Last Filed: 04/28/24 17:34>
Orders/Labs/Results
Orders:
Orders
04/28/24 11:45
Complete Blood Count/With Diff Urgent
Comprehensive Metabolic Panel Urgent
04/28/24 11:49
PTT Urgent
Prothrombin Time Urgent
04/28/24 12:17
CT Abd/pelvis W Iv Cont Urgent
Comment:
Reason For Exam: R flank contusion
04/28/24 12:18
CR Chest - 2 Views Urgent
Comment:
Reason For Exam: cough
04/28/24 14:33
Ketorolac [Toradol] 15 mg IV NOW STA
04/28/24 Dinner
Regular
At Your Request: Full Participation
04/28/24 16:15
Code Status As Directed
Resuscitation Status: Full Code
Bisacodyl [Dulcolax] 10 mg RECTAL [id number] PRN
Docusate W/Senna [Senokot-S] 1 tablet PO BIDPRN PRN
Polyethylene Glycol Powder [Miralax] 17 grams PO DAILYPRN PRN
Activity As Directed
Activity Level: As Tolerated
With Assistance
Vital Signs As Directed
Frequency: Per unit guidelines
04/28/24 16:16
Admit/Transfer Patient As Directed
Co-Sign Provider:
Level of Care: Observation services
Assign to:: Medical/Surgical
Physician / Group: Hospitalist: Jonathan
Diagnosis: R flank hematoma
04/28/24 16:17
PRN Pain Medication Management As Directed
May give lesser potent ordered pain med per pt: Yes
preference::
Protocol:: Medication orders for pain may be administered in a
manner that supports deferring to patient preference
when the pt is:
- Requesting an ordered lesser potent pain medication.
Least to most potent pain medications are defined
as: acetaminophen < NSAID < tramadol < opioids
(morphine, oxycodone, hydromorphone).
- Requesting a lesser dose of the same medication IF
ORDERED.
- Requesting a less intrusive route of administration
if both routes are prescribed by the provider (PO <
IV).
04/28/24 16:27
Cold Application As Directed
Location: R flank
Frequency: Intermittent q4h
Duration of Application: No longer than 20 minutes
Method of Delivery: Ice packs
04/28/24 17:00
Flush (0.9% Sodium Chloride) [Flush (Nss)] See Dose Instructions IV PER PROTOCOL
04/28/24 17:01
Urinalysis Reflex To Culture Urgent
Date Specimen was Collected: 04/28/24
Time Specimen was Collected: 15:48
Urine Microscopic Reflex Cult Urgent
04/29/24 06:00
BMP [Basic Metabolic Panel] IN AM
CBC/With Diff [Complete Blood Count/With Diff] IN AM
LFT [Dgrgf-Ccrn-Adpjfvr] IN AM
Magnesium IN AM
Phosphorus IN AM
04/30/24 06:00
BMP [Basic Metabolic Panel] IN AM
CBC/With Diff [Complete Blood Count/With Diff] IN AM
Magnesium IN AM
Phosphorus IN AM
05/01/24 06:00
BMP [Basic Metabolic Panel] IN AM
CBC/With Diff [Complete Blood Count/With Diff] IN AM
Magnesium IN AM
Phosphorus IN AM
Abnormal Lab Results
04/28/24
11:45
WBC 13.8 H 10^3/uL
(4.8-10.8)
RBC 3.73 L 10^6/uL
(4.20-5.40)
Hgb 11.1 L g/dL
(12.0-16.0)
Hct 32.5 L %
(37.0-47.0)
Abs Immat Gran (auto) 0.1 H 10^3/uL
(0-0.05)
Absolute Neuts (auto) 11.2 H 10^3/uL
(1.4-6.5)
Absolute Monos (auto) 1.0 H 10^3/uL
(0.1-0.6)
Immature Gran % 0.8 H %
(0-0.5)
Neutrophils % 81.5 H %
(42.2-75.2)
Lymphocytes % 10.0 L %
(20.5-51.1)
Sodium 129 L mmol/L
(135-145)
Chloride 93 L mmol/L
(98-107)
BUN 24 H mg/dl
(7-17)
Glucose 125 H mg/dl
(70-99)
AST 38 H U/L
(14-36)
ALT 50 H U/L
(0-35)
Alkaline Phosphatase 149 H U/L
(38-126)
04/28/24 11:45
04/28/24 11:45
Vital Signs
Initial and Last Documented VS:
Initial Vital Signs
Temp Pulse Resp BP Pulse Ox
98.0 F 98 18 116/77 97
04/28/24 11:29 04/28/24 11:29 04/28/24 11:29 04/28/24 11:29 04/28/24 11:29
Last Documented Vital Signs
Temp Pulse Resp BP Pulse Ox
98.0 F 83 18 131/78 98
04/28/24 11:29 04/28/24 15:45 04/28/24 15:45 04/28/24 15:00 04/28/24 15:45
<Keily Bettencourt MD - Last Filed: 04/28/24 14:34>
Orders/Labs/Results
Orders:
Orders
04/28/24 11:45
Complete Blood Count/With Diff Urgent
Comprehensive Metabolic Panel Urgent
04/28/24 11:49
PTT Urgent
Prothrombin Time Urgent
04/28/24 12:17
CT Abd/pelvis W Iv Cont Urgent
Comment:
Reason For Exam: R flank contusion
04/28/24 12:18
CR Chest - 2 Views Urgent
Comment:
Reason For Exam: cough
04/28/24 14:33
Ketorolac [Toradol] 15 mg IV NOW STA
04/28/24 Dinner
Regular
At Your Request: Full Participation
04/28/24 16:15
Code Status As Directed
Resuscitation Status: Full Code
Bisacodyl [Dulcolax] 10 mg RECTAL [id number] PRN
Docusate W/Senna [Senokot-S] 1 tablet PO BIDPRN PRN
Polyethylene Glycol Powder [Miralax] 17 grams PO DAILYPRN PRN
Activity As Directed
Activity Level: As Tolerated
With Assistance
Vital Signs As Directed
Frequency: Per unit guidelines
04/28/24 16:16
Admit/Transfer Patient As Directed
Co-Sign Provider:
Level of Care: Observation services
Assign to:: Medical/Surgical
Physician / Group: Hospitalist: Jonathan
Diagnosis: R flank hematoma
04/28/24 16:17
PRN Pain Medication Management As Directed
May give lesser potent ordered pain med per pt: Yes
preference::
Protocol:: Medication orders for pain may be administered in a
manner that supports deferring to patient preference
when the pt is:
- Requesting an ordered lesser potent pain medication.
Least to most potent pain medications are defined
as: acetaminophen < NSAID < tramadol < opioids
(morphine, oxycodone, hydromorphone).
- Requesting a lesser dose of the same medication IF
ORDERED.
- Requesting a less intrusive route of administration
if both routes are prescribed by the provider (PO <
IV).
04/28/24 16:27
Cold Application As Directed
Location: R flank
Frequency: Intermittent q4h
Duration of Application: No longer than 20 minutes
Method of Delivery: Ice packs
04/28/24 17:00
Flush (0.9% Sodium Chloride) [Flush (Nss)] See Dose Instructions IV PER PROTOCOL
04/28/24 17:01
Urinalysis Reflex To Culture Urgent
Date Specimen was Collected: 04/28/24
Time Specimen was Collected: 15:48
Urine Microscopic Reflex Cult Urgent
04/29/24 06:00
BMP [Basic Metabolic Panel] IN AM
CBC/With Diff [Complete Blood Count/With Diff] IN AM
LFT [Snwrp-Uubb-Zqwgvwy] IN AM
Magnesium IN AM
Phosphorus IN AM
04/30/24 06:00
BMP [Basic Metabolic Panel] IN AM
CBC/With Diff [Complete Blood Count/With Diff] IN AM
Magnesium IN AM
Phosphorus IN AM
05/01/24 06:00
BMP [Basic Metabolic Panel] IN AM
CBC/With Diff [Complete Blood Count/With Diff] IN AM
Magnesium IN AM
Phosphorus IN AM
Abnormal Lab Results
04/28/24
11:45
WBC 13.8 H 10^3/uL
(4.8-10.8)
RBC 3.73 L 10^6/uL
(4.20-5.40)
Hgb 11.1 L g/dL
(12.0-16.0)
Hct 32.5 L %
(37.0-47.0)
Abs Immat Gran (auto) 0.1 H 10^3/uL
(0-0.05)
Absolute Neuts (auto) 11.2 H 10^3/uL
(1.4-6.5)
Absolute Monos (auto) 1.0 H 10^3/uL
(0.1-0.6)
Immature Gran % 0.8 H %
(0-0.5)
Neutrophils % 81.5 H %
(42.2-75.2)
Lymphocytes % 10.0 L %
(20.5-51.1)
Sodium 129 L mmol/L
(135-145)
Chloride 93 L mmol/L
(98-107)
BUN 24 H mg/dl
(7-17)
Glucose 125 H mg/dl
(70-99)
AST 38 H U/L
(14-36)
ALT 50 H U/L
(0-35)
Alkaline Phosphatase 149 H U/L
(38-126)
04/28/24 11:45
04/28/24 11:45
Vital Signs
Initial and Last Documented VS:
Initial Vital Signs
Temp Pulse Resp BP Pulse Ox
98.0 F 98 18 116/77 97
04/28/24 11:29 04/28/24 11:29 04/28/24 11:29 04/28/24 11:29 04/28/24 11:29
Last Documented Vital Signs
Temp Pulse Resp BP Pulse Ox
98.0 F 83 18 131/78 98
04/28/24 11:29 04/28/24 15:45 04/28/24 15:45 04/28/24 15:00 04/28/24 15:45
<Dia Bradshaw PA-C - Last Filed: 04/28/24 17:34>
MDM/Problems Addressed
Differential Diagnosis Includes:
83yoF here with an atraumatic R flank contusion that started yesterday. Significantly progressed today. No blood thinners and patient adamantly denies trauma. Does have a mild cough. VSS. She is well appearing in no distress. There is a large R
flank contusion/hematoma on exam with tenderness. Differential diagnosis includes but is not limited to: contusion, hematoma, intra-abdominal bleeding, anemia, coagulopathy
Initial ED plan: Check CBC, CMP, coags, CXR, and CT abdomen with IV contrast.
<Dia Bradshaw PA-C - Last Filed: 04/28/24 17:34>
*Critical Care Note
Total Time (30-74mins, 75-104mins- exclusive of procedures): Not Applicable
<Dia Bradshaw PA-C - Last Filed: 04/28/24 17:34>
Update Note
Update Note:
Hemoglobin mildly low at 11.1. Platelets WNL. Sodium 129 which is near baseline. CT shows a '8.9 x 5.6 x 5.8 cm hematoma within the right posterior lateral abdominal wall with surrounding edema.' Patient continues to complain of significant pain on
reassessment and family prefers for patient to be admitted for observation. Patient admitted for further management.
ED Attending Note
<Dia Bradshaw PA-C - Last Filed: 04/28/24 17:34>
-
Portions of this chart may have been created with voice recognition software.� Occasional wrong word or��sound alike� substitutions may have occurred due to the inherent limitations of voice recognition software.
<Keily Bettencourt MD - Last Filed: 04/28/24 14:34>
ED Attending Note
Patient seen and examined by attending physician: Yes
I performed the substantive portion of visit, reviewed & personally made and approve the management plan that is documented in note by myself or GAIL.: Yes
ED Attending Note:
Patient appears hemodynamically stable. Patient's lungs are clear and heart sounds regular. Patient has a large right upper flank hematoma which is very tender and painful to the touch. It is unclear as to why she has this. Patient denies recent
trauma. Patient and family more comfortable with patient being admitted to the hospital to monitor hematoma and treat pain.
Discharge Plan
Departure
Patient Disposition: Admit
Date of Disposition: 04/28/24
Time of Disposition: 14:36
Presentation/result/management discussed w/ accepting MD/DO: Hospitalist
Discharge Problem:
Abdominal wall hematoma
Interventions
Interventions:
*Risk Screen - Suicide Last Done: 04/28/24 11:29
*General Assessment Last Done: 04/28/24 11:29
*ED COVID-19 Vaccine History Last Done: 04/28/24 11:29
ED-Skin Assessment Last Done: 04/28/24 13:03
[2024-04-28 12:22] LABS: INR 1.05; PT 14.2 Sec (11.4-14.6)
[2024-04-28 12:23] LABS: APTT 28.4 Sec (23.4-35.0)
[2024-04-28 12:33] LABS: ALT (SGPT) 50 U/L (0-35); AST (SGOT) 38 U/L (14-36); Albumin 3.9 g/dl (3.5-5.0); Alkaline Phosphatase 149 U/L (38-126); Blood Urea Nitrogen 24 mg/dl (7-17); Calcium 9.3 mg/dl (8.4-10.2); Carbon Dioxide 26 mmol/L (22-30); Chloride 93 mmol/L (98-107); Estimated Creatinine Clearance 46 ml/min; Glucose 125 mg/dl (70-99); Potassium 4.7 mmol/L (3.5-5.1); Sodium 129 mmol/L (135-145); Total Bilirubin 0.6 mg/dl (0.2-1.3); Total Protein 6.5 g/dl (6.3-8.2); eGFR > 60.00
[2024-04-28] MEDS: TORADOL 15 MG IV (14:52)
--- NOTE | 2024-04-28 16:29 | HPS.HSE ---
Family Physician
-
Family Physician: Rashad Trinidad
Chief Complaint
-
Right flank hematoma
History of Present Illness
Ms. Hope is an 83-year-old female with a medical history of hypothyroidism, hypertension, and osteoporosis who presented from home with a right flank hematoma and persistent urinary frequency.
She had recently been discharged 3 days prior to this admission after treatment for sacral insufficiency fracture, ambulatory dysfunction, and UTI. Prior to that recent admission, she had been admitted approximately 1 month earlier with a right
pelvic fracture and was discharged to rehab. She had been tolerating rehab well until she developed severe bilateral hip pain and urinary frequency. She was found to have a urinary tract infection and was treated with a course of antibiotics.
Urine cultures resulted positive for Pseudomonas sensitive to cefepime and she has now completed antibiotic course. Renal imaging was unremarkable other than small bilateral simple parapelvic renal cysts. She had ongoing severe bilateral hip pain.
MRI revealed sacral insufficiency fracture. Orthopedics recommended pain control, ongoing physical therapy, and outpatient follow-up with pain management as needed.
After being discharged home with family, she developed a large right flank hematoma with no obvious inciting factor or trauma. CT imaging of her abdomen pelvis showed a right posterior lateral abdominal wall hematoma measuring 8.9 x 5.6 x 5.8 cm.
Labs were significant for a leukocytosis of almost 14,000. Her hemoglobin was 11 which was only slightly down from 12 during prior admission. She was mild to moderately hyponatremic with serum sodium of 129, however this appears close to her
baseline serum sodium of around 133. Her LFTs were very mildly abnormal. She had persistent urinary frequency as well despite completing antibiotic treatment for UTI. Urinalysis and culture are pending. She has been admitted for further
evaluation and management of right flank hematoma and urinary frequency.
Medical History
Past Medical History
Past Medical History: Reports HTN, Hypothyroidism and Other (Osteoporosis with sacral insufficiency fracture)
Past Surgical History: Reports Cholecystectomy
Social History
Tobacco: Non-smoker
Alcohol: None
Drug: None
Personal:
Living: With Family
Employment: Retired
Family History
Family History: Not pertinent
Allergies / Home Medications
Allergies reflects when Allergies were last updated in [facility].
Home Medications with original date entered in [facility]
Allergy/Medication List:
Review of Systems
-
History Source: Patient
A 12 point ROS was completed and negative except as noted: Yes
: Reports Frequency
Musculoskeletal: Reports Joint Pain (Low back pain)
Skin: Reports Other (Right flank hematoma)
Physical Exam
Vital Signs
Vital Signs
Temp Pulse Resp BP Pulse Ox
98.0 F 83 18 131/78 98
04/28/24 11:29 04/28/24 15:45 04/28/24 15:45 04/28/24 15:00 04/28/24 15:45
Physical Exam
General: No Apparent Distress
Laboratory Results
-
04/28/24 11:45
04/28/24 11:45
Laboratory Results
PT 14.2 Sec (11.4-14.6) 04/28/24 11:49
INR 1.05 04/28/24 11:49
APTT 28.4 Sec (23.4-35.0) 04/28/24 11:49
Total Bilirubin 0.6 mg/dl (0.2-1.3) 04/28/24 11:45
AST 38 U/L (14-36) H 04/28/24 11:45
ALT 50 U/L (0-35) H 04/28/24 11:45
Alkaline Phosphatase 149 U/L (38-126) H 04/28/24 11:45
Impression/Plan
-
Gen-AAOx3, NAD
HEENT-NC, AT, anicteric, clear oral mm
Neck-supple
CV-reg, no M, +S1/S2
Lungs-clear B/L
Abd-soft, NT, ND
Musculoskeletal-no edema, no deformity
Skin-warm and dry, large right flank hematoma
Neuro-grossly non-focal
Psych-calm, cooperative
Ms. Hope is an 83-year-old female with a medical history of hypothyroidism, hypertension, degenerative disc disease, recent Pseudomonas UTI, and osteoporosis with sacral insufficiency fracture who presented from home with a right flank hematoma
and persistent urinary frequency. She was recently treated at [facility] for UTI and amatory dysfunction due to sacral insufficiency fracture during which time she completed a course of antibiotics. After being discharged home with
family, she developed a large right flank hematoma with no obvious inciting factor or trauma. CT imaging of her abdomen pelvis showed a right posterior lateral abdominal wall hematoma measuring 8.9 x 5.6 x 5.8 cm.
Labs were significant for a leukocytosis of almost 14,000. Her hemoglobin was 11 which was only slightly down from 12 during prior admission. She was mild to moderately hyponatremic with serum sodium of 129, however this appears close to her
baseline serum sodium of around 133. Her LFTs were very mildly abnormal. She had persistent urinary frequency as well despite completing antibiotic treatment for UTI. Urinalysis and culture are pending. She has been admitted for further
evaluation and management of right flank hematoma and urinary frequency.
Right flank hematoma:
-No clear inciting factors although could be related to DVT prophylaxis during recent admission, also taking NSAIDs for back pain
-Hemoglobin dropped approximately 1 g since recent admission (12-11), will monitor with repeat labs in the morning
-Remains hemodynamically stable
-Will place ice pack on right flank
-Continue pain control without NSAIDs to avoid further bleeding
-Avoid chemical DVT prophylaxis, SCDs ordered
Urinary frequency:
-Suspect persistent UTI despite completing recent course of cefepime for pseudomonal urinary tract infection
-Repeat urinalysis and culture, if positive start appropriate antibiotic treatment, consider ID consult for further guidance
Abnormal LFTs:
-Mildly elevated transaminases and alk phos, normal T. bili
-Possibly due to Tylenol use for back pain
-Repeat LFTs with morning labs
-Continuing home low-dose statin for now, will hold if LFTs continue to worsen
-Imaging shows fatty liver disease which will need ongoing outpatient monitoring
Hyponatremia:
-Appears chronic
-No acute neurologic changes
-Will give gentle normal saline and monitor, consider fluid restriction if worsens
Degenerative disc disease:
-Chronic
-Pain control
Hypothyroidism: Continue home Synthroid 125 mcg daily
CODE STATUS: Full code
[2024-04-28 17:09] LABS: Urine Albumin 2+ (Neg - Trace); Urine Bilirubin Negative (Negative); Urine Character Clear (Clear); Urine Color Yellow; Urine Glucose Negative (Negative); Urine Ketone Negative (Negative); Urine Leukocyte Negative (Negative); Urine Nitrite Negative (Negative); Urine Occult Blood Negative (Negative); Urine Urobilinogen Negative (Neg - 1+)
[2024-04-28 17:19] LABS: Urine Bacteria Few (Negative); Urine Red Blood Cell 0-2 /HPF (0-2); Urine Squamous Cell >30 /LPF (Few); Urine White Cell 0-2 /HPF (0-5)
--- NOTE | 2024-04-28 18:44 | PTCARENOTE ---
Received pt from ER via stretcher, accompanied by E staff. Pt AAO x3, PINEDA; ambulatory to bed with assist x1/walker,michael well. VSS. On room air- pulse ox 96%, no SOB noted. Abd obese, soft, to start regular diet. pt DTV; states she will call for
assistance to to BR. Rt flank/side with large ecchymotic area; site circled. Oriented to 4East, currently resting in bed. Family at bedside. Will continue to monitor.
[2024-04-28] MEDS: NSS 1000 IV (19:53)
[2024-04-28] MEDS: TYLENOL 1000 MG PO (19:53)
[2024-04-28] MEDS: FLEXERIL 2.5 MG PO (21:19)
[2024-04-28] MEDS: LIPITOR 10 MG PO (21:19)
[2024-04-28] MEDS: SENOKOT 17.2 MG PO (21:19)
[2024-04-29] MEDS: NSS 1000 IV (04:25)
[2024-04-29] MEDS: TYLENOL 1000 MG PO ×2 (04:25→20:48)
[2024-04-29] MEDS: SYNTHROID 125 MCG PO (04:25)
[2024-04-29 07:10] VITALS: BP 138/72
[2024-04-29 07:20] LABS: ALT (SGPT) 34 U/L (0-35); AST (SGOT) 29 U/L (14-36); Albumin 3.1 g/dl (3.5-5.0); Alkaline Phosphatase 120 U/L (38-126); Blood Urea Nitrogen 19 mg/dl (7-17); Calcium 8.4 mg/dl (8.4-10.2); Carbon Dioxide 26 mmol/L (22-30); Chloride 99 mmol/L (98-107); Direct Bilirubin 0.2 mg/dl (0.0-0.4); Estimated Creatinine Clearance 69 ml/min; Glucose 94 mg/dl (70-99); Magnesium 1.7 mg/dl (1.6-2.3); Phosphorus 4.1 mg/dl (2.5-4.5); Potassium 4.2 mmol/L (3.5-5.1); Sodium 131 mmol/L (135-145); Total Bilirubin 0.6 mg/dl (0.2-1.3); Total Protein 5.5 g/dl (6.3-8.2); eGFR > 60.00
[2024-04-29 07:31] LABS: % Basophils 0.5 % (0-2); % Eosinophils 3.6 % (0-6); % Immature Granulocytes 0.5 % (0-0.5); % Lymphocytes 20.9 % (20.5-51.1); % Monocytes 13.4 % (1.7-9.3); % Neutrophils 61.1 % (42.2-75.2); Absolute Basophils 0.1 10^3/uL (0-0.2); Absolute Eosinophils 0.3 10^3/uL (0-0.7); Absolute Immature Granulocytes 0.1 10^3/uL (0-0.05); Absolute Monocytes 1.3 10^3/uL (0.1-0.6); Absolute Neutrophils 5.7 10^3/uL (1.4-6.5); Hematocrit 26.2 % (37.0-47.0); Mean Corp Hgb Conc. 34.4 g/dL (33.0-37.0); Mean Corpuscular Volume 87.3 fL (81.0-99.0); Mean Platelet Volume 9.5 fL (7.4-10.4); Nucleated Red Blood Cells % 0 %; Platelet Count 305 10^3/uL (130-400); Red Cell Dist. Width 12.5 % (11.5-14.5); White Blood Cell Count 9.4 10^3/uL (4.8-10.8)
--- NOTE | 2024-04-29 08:35 | VNURNOTE ---
Chart reviewed. Patient is current with [facility] nursing, PT, OT, [facility]. Will continue to follow hospital course and DC plans.
[2024-04-29] MEDS: FLEXERIL 2.5 MG PO ×3 (09:13→20:47)
[2024-04-29] MEDS: LIDOCAINE 4% PATCH 1 PATCH TOPICAL (09:14)
[2024-04-29] MEDS: FLOMAX 0.4 MG PO (11:26)
[2024-04-29] MEDS: ULTRAM 50 MG PO ×2 (11:26→17:39)
[2024-04-29] MEDS: OSCAL CAL 500 500 MG PO (11:26)
[2024-04-29] MEDS: VITAMIN D3 (cholecalciferol) 25 MCG PO (11:26)
--- NOTE | 2024-04-29 14:34 | W.PN.HOSP.TC ---
Today's Communication/Plan
-
Assessment / Plan
Assessment / Plan
Gen-AAOx3, NAD
HEENT-NC, AT, anicteric, clear oral mm
Neck-supple
CV-reg, no M, +S1/S2
Lungs-clear B/L
Abd-soft, NT, ND
Musculoskeletal-no edema, no deformity
Skin-warm and dry, large right flank hematoma stable from yesterday
Neuro-grossly non-focal
Psych-calm, cooperative
Ms. Hope is an 83-year-old female with a medical history of hypothyroidism, hypertension, degenerative disc disease, recent Pseudomonas UTI, and osteoporosis with sacral insufficiency fracture who presented from home with a right flank hematoma
and persistent urinary frequency. She was recently treated at [facility] for UTI and amatory dysfunction due to sacral insufficiency fracture during which time she completed a course of antibiotics. After being discharged home with
family, she developed a large right flank hematoma with no obvious inciting factor or trauma. CT imaging of her abdomen pelvis showed a right posterior lateral abdominal wall hematoma measuring 8.9 x 5.6 x 5.8 cm.
Labs were significant for a leukocytosis of almost 14,000. Her hemoglobin was 11 which was only slightly down from 12 during prior admission. She was mild to moderately hyponatremic with serum sodium of 129, however this appears close to her
baseline serum sodium of around 133. Her LFTs were very mildly abnormal. She had persistent urinary frequency as well despite completing antibiotic treatment for UTI. Urinalysis and culture are pending. She has been admitted for further
evaluation and management of right flank hematoma and urinary frequency.
Right flank hematoma:
-Goal from yesterday
-No clear inciting factors although could be related to DVT prophylaxis during recent admission, also taking NSAIDs for back pain
-Hemoglobin dropped to 9.0 from 11 at the time of admission yesterday, was 12 during recent admission, suspect due to blood loss with hematoma in addition to dilution with IVF
-Remains hemodynamically stable
-Obtained CT angiography which shows no evidence of active extravasation
-Continue ice pack on right flank
-Will monitor hemoglobin with repeat labs in the morning, if stable plan for discharge to home
-Continue pain control without NSAIDs to avoid further bleeding
-Avoid chemical DVT prophylaxis, SCDs ordered
Urinary frequency:
-Suspect due to incomplete bladder emptying, was straight cathed overnight with 500 cc out
-Started Flomax
-Previously had UTI which was treated during recent admission
-Repeat urinalysis unremarkable, will monitor off antibiotics for now
Abnormal LFTs:
-Mildly elevated transaminases and alk phos, normal T. bili on admission labs
-Possibly due to Tylenol use for back pain
-Resolved on repeat labs this morning
-Continuing home low-dose statin for now
-Imaging shows fatty liver disease which will need ongoing outpatient monitoring
Hyponatremia:
-Appears chronic, stable
-No acute neurologic changes
-Monitor
Degenerative disc disease:
-Chronic
-Pain control
Hypothyroidism: Continue home Synthroid 125 mcg daily
CODE STATUS: Full code
Anticipated Discharge: 24 - 48 hours
Subjective/Interval History
-
Date of Service: April 29, 2024
Patient was seen and examined at bedside this morning. Right flank hematoma appears stable. Hemoglobin dropped to 9.0 on labs this morning from 11 yesterday, which may be partially dilutional after IV fluids. Was found to be retaining urine and
was straight cathed for 500 cc. Adding Flomax.
Objective Data
-
Labs:
Laboratory Results
04/29/24
05:48
WBC 9.4
Hgb 9.0 L
Hct 26.2 L
Plt Count 305 D
Sodium 131 L
Potassium 4.2
Chloride 99
Carbon Dioxide 26
BUN 19 H
Creatinine 0.6
Glucose 94
Calcium 8.4
Total Bilirubin 0.6
AST 29
ALT 34
Alkaline Phosphatase 120
Vital Signs:
Vital Signs
Temp Pulse Resp BP Pulse Ox
97.5 F 99 20 138/72 98
04/29/24 07:10 04/29/24 07:10 04/29/24 07:10 04/29/24 07:10 04/29/24 07:10
I&O
04/28/24 04/29/24 04/30/24
06:59 06:59 06:59
Intake Total 120 / 120 180 / 180
Output Total 520 / 520
Balance -400 / -400 180 / 180
Review of Systems
-
History Source: Patient
All other systems: Reviewed and negative
Musculoskeletal: Reports Joint Pain (Low back and left leg pain.)
Skin: Reports Other (Right flank hematoma)
Physical Exam
-
General: No Apparent Distress
[2024-04-29 15:49] VITALS: BP 101/58
--- NOTE | 2024-04-29 17:23 | CM ---
Alert awake oriented patient who lives with her Isai who lives in a 2 story home with 1 steps to enter and stair glide to 2 nd floor. .
She is independent in driving and in all activities of daily living.Offered VN she requested [facility] . [place] letter explained copy given. Pt did not sign.
[facility] /[facility]
Pharmacy [facility]
PCP Dr Penny
PLAN Home with [facility]
[2024-04-29] MEDS: SENOKOT 17.2 MG PO (20:48)
[2024-04-29] MEDS: LIPITOR 10 MG PO (20:48)
[2024-04-29 22:18] VITALS: BP 110/59
[2024-04-30] VITALS (8 sets, daily range): BP systolic 100–131; BP diastolic 48–76
[2024-04-30] MEDS: SYNTHROID 125 MCG PO (05:57)
[2024-04-30 07:23] LABS: % Basophils 0.6 % (0-2); % Eosinophils 5.1 % (0-6); % Immature Granulocytes 0.4 % (0-0.5); % Lymphocytes 24.7 % (20.5-51.1); % Monocytes 13.3 % (1.7-9.3); % Neutrophils 55.9 % (42.2-75.2); Absolute Basophils 0.1 10^3/uL (0-0.2); Absolute Eosinophils 0.5 10^3/uL (0-0.7); Absolute Lymphocytes 2.3 10^3/uL (1.2-3.4); Absolute Monocytes 1.2 10^3/uL (0.1-0.6); Absolute Neutrophils 5.2 10^3/uL (1.4-6.5); Hematocrit 25.5 % (37.0-47.0); Hemoglobin 8.5 g/dL (12.0-16.0); Mean Corp Hgb Conc. 33.3 g/dL (33.0-37.0); Mean Corpuscular Hgb 29.4 pg (27.0-31.0); Mean Corpuscular Volume 88.2 fL (81.0-99.0); Mean Platelet Volume 9.4 fL (7.4-10.4); Nucleated Red Blood Cells % 0 %; Platelet Count 300 10^3/uL (130-400); Red Blood Cell Count 2.89 10^6/uL (4.20-5.40); Red Cell Dist. Width 12.7 % (11.5-14.5); White Blood Cell Count 9.4 10^3/uL (4.8-10.8)
[2024-04-30 07:39] LABS: Blood Urea Nitrogen 14 mg/dl (7-17); Calcium 8.4 mg/dl (8.4-10.2); Carbon Dioxide 27 mmol/L (22-30); Chloride 99 mmol/L (98-107); Estimated Creatinine Clearance 69 ml/min; Glucose 90 mg/dl (70-99); Magnesium 1.8 mg/dl (1.6-2.3); Phosphorus 3.6 mg/dl (2.5-4.5); Potassium 4.4 mmol/L (3.5-5.1); Sodium 131 mmol/L (135-145); eGFR > 60.00
[2024-04-30] MEDS: LIDOCAINE 4% PATCH 1 PATCH TOPICAL (08:12)
[2024-04-30] MEDS: FLOMAX 0.4 MG PO (08:13)
[2024-04-30] MEDS: FLEXERIL 2.5 MG PO (08:13)
[2024-04-30] MEDS: FLUSH (NSS) 1 FLUSH IV ×2 (08:14→13:00)
[2024-04-30] MEDS: SENOKOT-S 1 TABLET PO (08:38)
[2024-04-30] MEDS: ULTRAM 50 MG PO (08:38)
[2024-04-30] MEDS: TYLENOL 1000 MG PO (11:30)
[2024-04-30] MEDS: VITAMIN D3 (cholecalciferol) 25 MCG PO (11:31)
[2024-04-30] MEDS: OSCAL CAL 500 500 MG PO (11:31)
[2024-04-30] MEDS: NEURONTIN 200 MG PO ×3 (12:58→22:52)
[2024-04-30] MEDS: ROXICODONE 5 MG PO ×2 (12:59→17:55)
[2024-04-30] MEDS: SOLU-MEDROL PF 40 MG IV (12:59)
--- NOTE | 2024-04-30 13:31 | PTCARENOTE ---
patient having difficulty walking due to severe pain in left buttock radiating down left leg. very little relief from tramadol and tylenol given earlier. Dr Arreola made aware and orders received. Solumedrol, gabapentin and oxycodone given as ordered.
some relief at present. plan of care on going.
--- NOTE | 2024-04-30 16:23 | W.PN.HOSP.TC ---
Today's Communication/Plan
-
Assessment / Plan
Assessment / Plan
Gen-AAOx3, NAD
HEENT-NC, AT, anicteric, clear oral mm
Neck-supple
CV-reg, no M, +S1/S2
Lungs-clear B/L
Abd-soft, NT, ND
Musculoskeletal-no edema, no deformity
Skin-warm and dry, large right flank hematoma stable
Neuro-grossly non-focal
Psych-calm, cooperative
Ms. Hope is an 83-year-old female with a medical history of hypothyroidism, hypertension, degenerative disc disease, recent Pseudomonas UTI, and osteoporosis with sacral insufficiency fracture who presented from home with a right flank hematoma
and persistent urinary frequency. She was recently treated at [facility] for UTI and amatory dysfunction due to sacral insufficiency fracture during which time she completed a course of antibiotics. After being discharged home with
family, she developed a large right flank hematoma with no obvious inciting factor or trauma. CT imaging of her abdomen pelvis showed a right posterior lateral abdominal wall hematoma measuring 8.9 x 5.6 x 5.8 cm.
Labs were significant for a leukocytosis of almost 14,000. Her hemoglobin was 11 which was only slightly down from 12 during prior admission. She was mild to moderately hyponatremic with serum sodium of 129, however this appears close to her
baseline serum sodium of around 133. Her LFTs were very mildly abnormal. She had persistent urinary frequency as well despite completing antibiotic treatment for UTI. Urinalysis and culture are pending. She has been admitted for further
evaluation and management of right flank hematoma and urinary frequency.
Right flank hematoma:
-Stable appearing hematoma, although hemoglobin dropped to 8.5 this morning, will transfuse 1 unit PRBCs
-No clear inciting factors although could be related to DVT prophylaxis during recent admission, also taking NSAIDs for back pain
-Remains hemodynamically stable
-Obtained CT angiography which shows no evidence of active extravasation
-Continue ice pack on right flank
-Continue pain control without NSAIDs to avoid further bleeding
-Avoid chemical DVT prophylaxis, SCDs ordered
Urinary frequency:
-Suspect due to incomplete bladder emptying, was straight cathed overnight with 500 cc out
-Started Flomax
-Previously had UTI which was treated during recent admission
-Repeat urinalysis unremarkable, will monitor off antibiotics for now
Abnormal LFTs:
-Mildly elevated transaminases and alk phos, normal T. bili on admission labs
-Possibly due to Tylenol use for back pain
-Resolved on repeat labs
-Continuing home low-dose statin for now
-Imaging shows fatty liver disease which will need ongoing outpatient monitoring
Hyponatremia:
-Appears chronic, stable
-No acute neurologic changes
-Monitor
Degenerative disc disease:
-Chronic
-Pain control
Hypothyroidism: Continue home Synthroid 125 mcg daily
CODE STATUS: Full code
Anticipated Discharge: 24 - 48 hours
Subjective/Interval History
-
Date of Service: April 30, 2024
Patient was seen and examined at bedside this morning. Feels well. Hemoglobin dropped to further to 8.5 this morning despite no more active bleeding. Will transfuse 1 unit PRBCs and continue to monitor.
Objective Data
-
Labs:
Laboratory Results
04/30/24 04/30/24 04/30/24
05:54 14:00 17:45
WBC 9.4
Hgb 8.5 L Cancelled Pending
Hct 25.5 L Cancelled Pending
Plt Count 300
Sodium 131 L
Potassium 4.4
Chloride 99
Carbon Dioxide 27
BUN 14
Creatinine 0.5 L
Glucose 90
Calcium 8.4
Vital Signs:
Vital Signs
Temp Pulse Resp BP Pulse Ox
97.4 F 82 20 121/62 94
04/30/24 15:05 04/30/24 15:05 04/30/24 15:05 04/30/24 15:05 04/30/24 15:05
I&O
04/29/24 04/30/24 05/01/24
06:59 06:59 06:59
Intake Total 120 / 120 280 / 280 0 / 0
Output Total 520 / 520 180 / 180
Balance -400 / -400 100 / 100 0 / 0
Review of Systems
-
History Source: Patient
All other systems: Reviewed and negative
Skin: Reports Other (Right flank hematoma)
Physical Exam
-
General: No Apparent Distress
[2024-04-30] MEDS: FLEXERIL 5 MG PO (17:47)
[2024-04-30 18:53] LABS: Hematocrit 32.8 % (37.0-47.0); Hemoglobin 11.1 g/dL (12.0-16.0)
[2024-04-30] MEDS: SENOKOT 17.2 MG PO (21:59)
[2024-04-30] MEDS: LIPITOR 10 MG PO (21:59)
[2024-04-30] MEDS: FLEXERIL PO (22:53)
--- NOTE | 2024-04-30 23:09 | PTCARENOTE ---
Pt very drowsy after administration of oxycodone. Held HS dose flexeril.
[2024-05-01] MEDS: SYNTHROID 125 MCG PO (05:09)
[2024-05-01 07:02] LABS: % Basophils 0.2 % (0-2); % Immature Granulocytes 0.9 % (0-0.5); % Monocytes 7.8 % (1.7-9.3); % Neutrophils 80.1 % (42.2-75.2); Absolute Immature Granulocytes 0.1 10^3/uL (0-0.05); Absolute Lymphocytes 1.3 10^3/uL (1.2-3.4); Absolute Monocytes 0.9 10^3/uL (0.1-0.6); Absolute Neutrophils 9.5 10^3/uL (1.4-6.5); Hemoglobin 10.3 g/dL (12.0-16.0); Mean Corp Hgb Conc. 34.3 g/dL (33.0-37.0); Mean Corpuscular Volume 87.5 fL (81.0-99.0); Mean Platelet Volume 9.6 fL (7.4-10.4); Nucleated Red Blood Cells % 0 %; Platelet Count 321 10^3/uL (130-400); Red Blood Cell Count 3.43 10^6/uL (4.20-5.40); Red Cell Dist. Width 12.7 % (11.5-14.5); White Blood Cell Count 11.9 10^3/uL (4.8-10.8)
[2024-05-01 07:10] VITALS: BP 143/75
[2024-05-01] MEDS: TYLENOL 1000 MG PO (07:18)
[2024-05-01] MEDS: FLEXERIL 5 MG PO (07:20)
[2024-05-01 07:39] LABS: Blood Urea Nitrogen 17 mg/dl (7-17); Calcium 8.7 mg/dl (8.4-10.2); Carbon Dioxide 24 mmol/L (22-30); Chloride 99 mmol/L (98-107); Estimated Creatinine Clearance 69 ml/min; Glucose 104 mg/dl (70-99); Magnesium 1.8 mg/dl (1.6-2.3); Phosphorus 3.8 mg/dl (2.5-4.5); Potassium 4.6 mmol/L (3.5-5.1); Sodium 129 mmol/L (135-145); eGFR > 60.00
[2024-05-01] MEDS: LIDOCAINE 4% PATCH 1 PATCH TOPICAL (08:23)
[2024-05-01] MEDS: NEURONTIN 200 MG PO (08:24)
[2024-05-01] MEDS: FLOMAX 0.4 MG PO (08:25)
[2024-05-01] MEDS: MIRALAX 17 GRAMS PO (08:26)
[2024-05-01] MEDS: SENOKOT-S 1 TABLET PO (08:26)
[2024-05-01] MEDS: ULTRAM 50 MG PO (10:21)
--- NOTE | 2024-05-01 10:46 | W.DCSUMMARY ---
Discharge Summary
Discharge Data
Date of Admission: 04/28/24
Date of Discharge: 05/01/24
-
Pending Results: No
Hospital Course
Ms. Hope is an 83-year-old female with a medical history of hypothyroidism, hypertension, degenerative disc disease, recent Pseudomonas UTI, and osteoporosis with sacral insufficiency fracture who presented from home with a right flank hematoma
and persistent urinary frequency. She was recently treated at [facility] for UTI and ambulatory dysfunction due to sacral insufficiency fracture during which time she completed a course of antibiotics. After being discharged home with
family, she developed a large right flank hematoma with no obvious inciting factor or trauma. CT imaging of her abdomen pelvis showed a right posterior lateral abdominal wall hematoma measuring 8.9 x 5.6 x 5.8 cm.
Labs were significant for a leukocytosis of almost 14,000. Her hemoglobin was 11 which was only slightly down from 12 during prior admission. She was mild to moderately hyponatremic with serum sodium of 129, however this appears close to her
baseline serum sodium of around 133. Her LFTs were very mildly abnormal. She had persistent urinary frequency as well despite completing antibiotic treatment for UTI. Urinalysis was unremarkable. She was admitted for further evaluation and
management of right flank hematoma and urinary frequency.
CT angiography showed stable appearing hematoma with no active extravasation. Her hemoglobin did drop further to 8.5 on the morning of 04/30, at which time she was transfused 1 unit PRBCs. Her repeat hemoglobin posttransfusion was 11.1 which
dropped to 10.3 on repeat labs the next morning. She remained hemodynamically stable and her hematoma did not expand. The hemoglobin change from 11.1-10.3 is likely at least partially due to equilibration posttransfusion. She has no evidence of
active bleeding. She will need repeat labs in a few days with her PCP to monitor her hemoglobin level.
Her urinary frequency appears due to incomplete bladder emptying. She required straight catheterization for urinary retention with 500 cc clear yellow urine out. She was started on Flomax. She was not treated with antibiotics. Her renal function
was normal. She will need follow-up with a urologist if her urinary frequency continues.
She continues to have significant back pain due to known fractures. She complained of new pain shooting down her left buttock and leg. Gabapentin was added to her pain regimen and her Flexeril dose was increased from 2.5 mg to 5 mg 3 times per day.
She had mildly abnormal LFTs on initial labs which resolved on repeat lab work. Imaging does show fatty liver disease which will need ongoing follow-up in the outpatient setting.
Her hyponatremia appears chronic and stable but should continue to monitor.
At time of hospital discharge, she was hemodynamically stable. She will be discharged to home with family and home care. She has planned follow-up with a seed specialist for her pelvic/sacral fractures and back pain on Tuesday 05/02. She should
continue physical therapy as tolerated. She should also follow-up closely with her primary care physician.
Gen-AAOx3, NAD
HEENT-NC, AT, anicteric, clear oral mm
Neck-supple
CV-reg, no M, +S1/S2
Lungs-clear B/L
Abd-soft, NT, ND
Musculoskeletal-no edema, no deformity
Skin-warm and dry, large stable right flank hematoma
Neuro-grossly non-focal
Psych-calm, cooperative
Discharge Plan
-
Patient Disposition: Home with Home Care
Discharge Diagnosis/Procedures: Right flank hematoma, acute blood loss anemia requiring transfusion
Diet: No restrictions
Activity: As tolerated and With Walker
Other Services: VN
Activity Restrictions/Additional Instructions:
Ms. Hope is an 83-year-old female with a medical history of hypothyroidism, hypertension, degenerative disc disease, recent Pseudomonas UTI, and osteoporosis with sacral insufficiency fracture who presented from home with a right flank hematoma
and persistent urinary frequency. She was recently treated at [facility] for UTI and ambulatory dysfunction due to sacral insufficiency fracture during which time she completed a course of antibiotics. After being discharged home with
family, she developed a large right flank hematoma with no obvious inciting factor or trauma. CT imaging of her abdomen pelvis showed a right posterior lateral abdominal wall hematoma measuring 8.9 x 5.6 x 5.8 cm.
Labs were significant for a leukocytosis of almost 14,000. Her hemoglobin was 11 which was only slightly down from 12 during prior admission. She was mild to moderately hyponatremic with serum sodium of 129, however this appears close to her
baseline serum sodium of around 133. Her LFTs were very mildly abnormal. She had persistent urinary frequency as well despite completing antibiotic treatment for UTI. Urinalysis was unremarkable. She was admitted for further evaluation and
management of right flank hematoma and urinary frequency.
CT angiography showed stable appearing hematoma with no active extravasation. Her hemoglobin did drop further to 8.5 on the morning of 04/30, at which time she was transfused 1 unit PRBCs. Her repeat hemoglobin posttransfusion was 11.1 which
dropped to 10.3 on repeat labs the next morning. She remained hemodynamically stable and her hematoma did not expand. The hemoglobin change from 11.1-10.3 is likely at least partially due to equilibration posttransfusion. She has no evidence of
active bleeding. She will need repeat labs in a few days with her PCP to monitor her hemoglobin level.
Her urinary frequency appears due to incomplete bladder emptying. She required straight catheterization for urinary retention with 500 cc clear yellow urine out. She was started on Flomax. She was not treated with antibiotics. Her renal function
was normal. She will need follow-up with a urologist if her urinary frequency continues.
She continues to have significant back pain due to known fractures. She complained of new pain shooting down her left buttock and leg. Gabapentin was added to her pain regimen and her Flexeril dose was increased from 2.5 mg to 5 mg 3 times per day.
She had mildly abnormal LFTs on initial labs which resolved on repeat lab work. Imaging does show fatty liver disease which will need ongoing follow-up in the outpatient setting.
Her hyponatremia appears chronic and stable but should continue to monitor.
At time of hospital discharge, she was hemodynamically stable. She will be discharged to home with family and home care. She has planned follow-up with a seed specialist for her pelvic/sacral fractures and back pain on Tuesday 05/02. She should
continue physical therapy as tolerated. She should also follow-up closely with her primary care physician.
Referrals:
Rashad Trinidad, DO [Family Provider] -
Prescriptions:
New
tamsulosin 0.4 mg Capsule
0.4 mg PO DAILY 30 Days Qty: 30 0RF
tramadol 50 mg Tablet
50 mg PO Q6HPRN PRN (Reason: pain mod to sev) Qty: 15 0RF
gabapentin 100 mg Capsule
200 mg PO TID 30 Days Qty: 180 0RF
Continued
atorvastatin 10 mg Tablet
10 mg PO HS
levothyroxine 125 mcg Tablet
125 mcg PO DAILY
calcium carbonate 500 mg calcium (1,250 mg) Tablet
500 mg PO NOON
cholecalciferol (vitamin D3) [Vitamin D3] 25 mcg (1,000 unit) Tablet
25 mcg PO NOON
sennosides [senna] 8.6 mg Tablet
17.2 mg PO HS
therapeutic multivitamin Tablet
1 tab PO NOON
Focus Eye
1 cap PO NOON
lidocaine 4 % adhesive patch,medicated
1 patch topical DAILY
acetaminophen [Tylenol Extra Strength] 500 mg tablet
1,000 mg PO TIDPRN PRN (Reason: mild pain)
Changed
cyclobenzaprine 10 mg Tablet
5 mg PO TID PRN (Reason: muscle spasm and pain) 10 Days Qty: 8 0RF
Discontinued
ketorolac 10 mg Tablet
10 mg PO DAILYPRN PRN (Reason: afternoon mild pains)
ketorolac 10 mg tablet
10 mg PO BID
Discharge Orders:
Discharge Patient (As Directed); Ordered 05/01/24
Ordered By: Kareem Castillo
Discharge Date and Time
Print Language: DOMINICAN
[2024-05-01] MEDS: VITAMIN D3 (cholecalciferol) 25 MCG PO (11:50)
[2024-05-01] MEDS: OSCAL CAL 500 500 MG PO (11:50)
[2024-05-01 13:13] VITALS: BP 110/74
== END 2024-05-01 13:24 | disposition home health service (06) ==
LOC: 4 EAST ACU 16:41
PROVIDERS: Emergency Medicine; ADMITTING PHYSICIAN Internal Medicine; EMERGENCY PHYSICIAN Emergency Medicine; FAMILY PHYSICIAN Internal Medicine
DX: S30.1XXA Contusion of abdominal wall, initial encounter (principal); X58.XXXA Exposure to other specified factors, initial encounter; D62 Acute posthemorrhagic anemia; I10 Essential (primary) hypertension; E03.9 Hypothyroidism, unspecified; E87.1 Hypo-osmolality and hyponatremia; D72.829 Elevated white blood cell count, unspecified; R26.2 Difficulty in walking, not elsewhere classified; R05.9 Cough, unspecified; R60.9 Edema, unspecified; I70.0 Atherosclerosis of aorta; N94.89 Other specified conditions associated with female genital organs and menstrual cycle; K57.30 Diverticulosis of large intestine without perforation or abscess without bleeding; R91.1 Solitary pulmonary nodule; R33.9 Retention of urine, unspecified; R74.01 Elevation of levels of liver transaminase levels; R35.0 Frequency of micturition; M25.552 Pain in left hip; M80.08XD Age-related osteoporosis with current pathological fracture, vertebra(e), subsequent encounter for fracture with routine healing; S32.591D Other specified fracture of right pubis, subsequent encounter for fracture with routine healing; X58.XXXD Exposure to other specified factors, subsequent encounter; M25.551 Pain in right hip; Z90.49 Acquired absence of other specified parts of digestive tract; Z87.440 Personal history of urinary (tract) infections; Z79.890 Hormone replacement therapy
CPT/HCPCS: 36430; 71046; 74174; 74177; 80048; 80053; 81003; 81015; 82248; 83735; 84100; 85014; 85018; 85025; 85610; 85730; 86850; 86900; 86901; 86920; 96374; 99285; G0378; P9016; Q9967

== ENCOUNTER 2024-06-13 11:00 | Outpatient (RCR) | payer OTHER, SELFPAY | END 2024-06-13 23:59 | disposition home or self-care (01) | LOC: RPT 11:00 | PROVIDERS: ATTENDING PHYSICIAN Physical Medicine & Rehabilitation; FAMILY PHYSICIAN Internal Medicine | DX: M54.16 Radiculopathy, lumbar region (principal); M48.061 Spinal stenosis, lumbar region without neurogenic claudication; M84.48XD Pathological fracture, other site, subsequent encounter for fracture with routine healing | CPT/HCPCS: 97110; 97162; 97535 ==

== ENCOUNTER 2024-07-12 06:25 | Outpatient (RCR) | payer OTHER, SELFPAY | END 2024-07-12 23:59 | disposition home or self-care (01) | LOC: RPT 06:25 | PROVIDERS: ATTENDING PHYSICIAN Physical Medicine & Rehabilitation; FAMILY PHYSICIAN Internal Medicine | DX: M54.16 Radiculopathy, lumbar region (principal); M48.061 Spinal stenosis, lumbar region without neurogenic claudication; M84.48XD Pathological fracture, other site, subsequent encounter for fracture with routine healing | CPT/HCPCS: 97110 ==

== ENCOUNTER 2024-07-19 06:43 | Outpatient (RCR) | payer OTHER, SELFPAY | END 2024-07-19 23:59 | disposition home or self-care (01) | LOC: RPT 06:43 | PROVIDERS: ATTENDING PHYSICIAN Physical Medicine & Rehabilitation; FAMILY PHYSICIAN Internal Medicine | DX: M54.16 Radiculopathy, lumbar region (principal); M48.061 Spinal stenosis, lumbar region without neurogenic claudication; M84.48XD Pathological fracture, other site, subsequent encounter for fracture with routine healing | CPT/HCPCS: 97110 ==

== ENCOUNTER 2024-07-26 07:48 | Inpatient (IN) | payer OTHER, SELFPAY ==
[2024-07-25] VITALS (10 sets, daily range): BP systolic 91–141; BP diastolic 44–74
[2024-07-25 17:36] LABS: ALT (SGPT) 43 U/L (0-35); AST (SGOT) 40 U/L (14-36); Albumin 4.5 g/dl (3.5-5.0); Alkaline Phosphatase 106 U/L (38-126); Blood Urea Nitrogen 19 mg/dl (7-17); Calcium 9.3 mg/dl (8.4-10.2); Carbon Dioxide 26 mmol/L (22-30); Chloride 104 mmol/L (98-107); Glucose 161 mg/dl (70-99); Potassium 3.9 mmol/L (3.5-5.1); Sodium 134 mmol/L (135-145); Total Bilirubin 1.1 mg/dl (0.2-1.3); Total Protein 7.1 g/dl (6.3-8.2); eGFR > 60.00
[2024-07-25 17:54] LABS: Hematocrit 40.5 % (37.0-47.0); Hemoglobin 13.5 g/dL (12.0-16.0); Mean Corp Hgb Conc. 33.3 g/dL (33.0-37.0); Mean Corpuscular Volume 87.1 fL (81.0-99.0); Platelet Count 245 10^3/uL (130-400); Red Blood Cell Count 4.65 10^6/uL (4.20-5.40); Red Cell Dist. Width 13.2 % (11.5-14.5); White Blood Cell Count 29.3 10^3/uL (4.8-10.8)
[2024-07-25 18:33] LABS: % Basophils 0.2 % (0-2); % Immature Granulocytes 0.9 % (0-0.5); % Lymphocytes 2.4 % (20.5-51.1); % Monocytes 9.5 % (1.7-9.3); Absolute Basophils 0.1 10^3/uL (0-0.2); Absolute Immature Granulocytes 0.3 10^3/uL (0-0.05); Absolute Lymphocytes 0.7 10^3/uL (1.2-3.4); Absolute Monocytes 2.8 10^3/uL (0.1-0.6); Absolute Neutrophils 25.5 10^3/uL (1.4-6.5); Nucleated Red Blood Cells % 0 %
--- NOTE | 2024-07-25 19:25 | ED.GENMED ---
History of Present Illness
General
Chief Complaint: Urinary Symptoms
Source: patient and family (Daughter and spouse at bedside)
Exam Limitations: none
Time Seen by Provider: 07/25/24 18:19
Nursing documentation reviewed up to this point in time: agreed with
History of Present Illness
History of Present Illness:
Patient is an 84-year-old female with history of hypertension, frequent UTIs presenting to the emergency department w/ complaints of lower back pain and fever over the past 2 days. Patient reports a few days of lower back aching now with fever up
to 103 at home today and weakness. She describes aching across her lower back as well as some pain in her suprapubic region. No obvious flank pain or dysuria. No hematuria. Patient states that last night she had shaking chills and was unable to
get warm despite multiple blankets. Her daughter states that today she seemed more confused which is atypical for patient.
Patient denies any chest pain or shortness of breath.
Patient is currently being seen by Dr. Gilbert for frequent UTIs. She was scheduled for a cystoscopy next month.
Past History
Past History
ED Past Medical History: HTN and Hypothyroidism
Social History
Tobacco: Non-smoker
Personal:
Living: with family
Review of Systems
Review of Systems
Allergies reviewed?: Yes
All Other Systems: ROS reviewed and negative except as documented in HPI and ROS
Phy Exam
Physical Exam
Physical Exam:
Vitals: Hypertensive, tachycardic on arrival. Afebrile
General: Patient is in no apparent distress.
Skin: Warm and dry, no rashes or lesions
Head: Normocephalic, atraumatic
Eyes: Sclera nonicteric. EOMs intact. No nystagmus.
Throat: Protecting airway
Neck: Normal ROM, no cervical spine tenderness, no meningismus
Cardiac: Tachycardic, normal rhythm, no murmurs.
Pulm: Normal respiratory effort. Lungs clear bilaterally
.
Abdomen: Abdomen soft with mild diffuse tenderness. No rebound tenderness or guarding. No CVA tenderness
Extremities: No evidence of cyanosis or edema. Palpable DP pulses bilateral
Neuro: AAOx3. Grossly intact.
Psychiatric: Normal affect.
Course
Orders/Labs/Results
Orders:
Orders
07/25/24 16:43
EKG [Electrocardiogram (*1)] Urgent
Reason for Study: Tachycardia
07/25/24 16:44
EKG- Treatment ONCE
07/25/24 17:16
Complete Blood Count/With Diff Urgent
Comprehensive Metabolic Panel Urgent
07/25/24 18:26
0.9% Sodium Chloride 1000 ml [Nss] 1,000 ml IV BOLUS
Acetaminophen [Tylenol] 650 mg PO NOW STA
07/25/24 19:00
Blood Culture Q30M
HENRIK Source: Blood/Venous
Specimen Description:
07/25/24 19:24
Abdomen/Pelvis wo Contrast CT [CT Abd/pelvis Wo Iv Cont] Urgent
Comment:
Reason For Exam: Lower back pain, UTI
07/25/24 19:25
Cardiac Monitoring- Treatment ONCE
07/25/24 20:14
Lactic Acid Q4H
Comment: CANCEL 2nd LACTIC ACID IF 1st LACTIC ACID IS LESS THAN 2
Blood Culture Q30M
HENRIK Source: Blood/Venous
Specimen Description:
07/25/24 21:15
Urinalysis Reflex To Culture Urgent
Date Specimen was Collected: 07/25/24
Time Specimen was Collected: 16:42
Urine Microscopic Reflex Cult Urgent
Urine Culture Urgent
HENRIK Source: U
Specimen Description:
Date Specimen was Collected: 07/25/24
Time Specimen was Collected: 16:42
07/25/24 22:52
Piperacillin/Tazo 3.375 Gram [Zosyn] 3.375 gram in 50 ml IV NOW
07/26/24 00:01
CT Head W/o Iv Contrast Urgent
Reason For Exam: AMS
07/26/24 00:23
COVID-19 Antigen Urgent
Source: Nasal Swab
Influenza A+B Rapid Molecular Urgent
HENRIK Source: Nasal Swab
Specimen Description:
07/26/24 02:38
Admit/Transfer Patient As Directed
Co-Sign Provider:
Level of Care: Observation services
Assign to:: Medical/Surgical
Physician / Group: Maury
Diagnosis: abdominal pain
Code Status As Directed
Resuscitation Status: Full Code
PRN Pain Medication Management As Directed
May give lesser potent ordered pain med per pt: Yes
preference::
Protocol:: Medication orders for pain may be administered in a
manner that supports deferring to patient preference
when the pt is:
- Requesting an ordered lesser potent pain medication.
Least to most potent pain medications are defined
as: acetaminophen < NSAID < tramadol < opioids
(morphine, oxycodone, hydromorphone).
- Requesting a lesser dose of the same medication IF
ORDERED.
- Requesting a less intrusive route of administration
if both routes are prescribed by the provider (PO <
IV).
Abnormal Lab Results
07/25/24 07/25/24
17:16 21:15
WBC 29.3 H 10^3/uL
(4.8-10.8)
Abs Immat Gran (auto) 0.3 H 10^3/uL
(0-0.05)
Absolute Neuts (auto) 25.5 H 10^3/uL
(1.4-6.5)
Absolute Lymphs (auto) 0.7 L 10^3/uL
(1.2-3.4)
Absolute Monos (auto) 2.8 H 10^3/uL
(0.1-0.6)
Immature Gran % 0.9 H %
(0-0.5)
Neutrophils % 87.0 H %
(42.2-75.2)
Lymphocytes % 2.4 L %
(20.5-51.1)
Monocytes % 9.5 H %
(1.7-9.3)
Sodium 134 L mmol/L
(135-145)
BUN 19 H mg/dl
(7-17)
Glucose 161 H mg/dl
(70-99)
AST 40 H U/L
(14-36)
ALT 43 H U/L
(0-35)
Urine Ketones 3+ A
(Negative)
Ur Occult Blood Reflex 2+ A
(Negative)
Urine Bacteria (Reflex) Moderate A
(Negative)
Urine Albumin (Reflex) 2+ A
(Neg - Trace)
07/25/24 17:16
07/25/24 17:16
Vital Signs
Initial and Last Documented VS:
Initial Vital Signs
Temp Pulse Resp BP Pulse Ox
98.5 F 128 18 141/74 96
07/25/24 16:40 07/25/24 16:40 07/25/24 16:40 07/25/24 16:40 07/25/24 16:40
Last Documented Vital Signs
Temp Pulse Resp BP Pulse Ox
98.5 F 107 24 124/44 97
07/25/24 16:40 07/26/24 01:30 07/26/24 01:30 07/26/24 01:00 07/26/24 00:30
MDM/Problems Addressed
Differential Diagnosis Includes:
Not limited to: Cystitis, pyelonephritis, nephrolithiasis, urosepsis, muscle strain, etc.
MDM/Problems Addressed:
84-year-old female with history as documented presenting with few days of lower abdominal/back pain, fever, now with altered mental status. She does have frequent UTIs. No history of vomiting or diarrhea. No recent cough. Patient tachycardic and
hypertensive on arrival. However�she is afebrile. Physical exam as above. Patient in no apparent distress. Abdomen soft with mild diffuse tenderness. No CVA tenderness bilaterally. Cardio/pulmonary assessment unremarkable. Patient is alert
and oriented x 3 on my exam with no focal deficits. Labs initiated in triage which demonstrated significant leukocytosis of 29.3 with left shift. Chemistry without clinically significant abnormalities. Given frequent UTIs and history of possible
urinary frequency�concern for possible urinary source of infection including UTI/pyelonephritis. Lower suspicion for kidney stone�although will obtain CT scan abdomen/pelvis without contrast to rule out obstructive process. Will obtain urinalysis.
Will give IV fluids.
Update 23:00 : CT scan without obstructing ureteral calculi. Findings of mild acute sigmoid diverticulitis noted on scan. Urinalysis does not appear infected. Fortunately�patient's heart rate has normalized in 80s/90s after IV fluids. She
remains afebrile and in no apparent distress. However�given history of fever with significant leukocytosis, concern for underlying infectious process. Patient does appear somewhat altered and given no evidence of UTI�will obtain CT head to rule
out acute intracranial process. Will start IV Zosyn to cover for possible infection secondary to acute diverticulitis. Patient will require admission for further evaluation/management pending urine and blood cultures. Case signed out to Ed
HUMBERTO Hayes pending head CT. Plan for admission.
Chronic conditions affecting care:
Frequent UTIs, hypertension
Acute Exacerbation and/or Progression of Chronic Illness:
Acutely hypertensive
*Radiology
Radiology exam reviewed: radiology read reviewed
*Pulse Oximetry
Patient hypoxic: no
*EKG
Interpreted by ED Provider?: Yes
EKG Intrepretation Date: 07/25/24
Interpretation: abnormal
Comparison EKG: changes noted
Heart Rate: 119
Rate: tachycardiac
Rhythm: sinus
Simla: normal axis
Interval: normal QT interval
QRS Pattern: normal QRS
Ischemia: no ischemia
*Disciplinary Hearing Officer Interpretation
Rate: normal
Interpretation: normal
Heart Rate: 92
Rhythm: sinus
*Critical Care Note
Total Time (30-74mins, 75-104mins- exclusive of procedures): Not Applicable
Patient Management
Discussion with other providers: Hospitalist
Escalation/DeEscalation of care consider admission/obs:
Admit indicated
ED Attending Note
-
Portions of this chart may have been created with voice recognition software.� Occasional wrong word or��sound alike� substitutions may have occurred due to the inherent limitations of voice recognition software.
Discharge Plan
Departure
Patient Disposition: Admit
Date of Disposition: 07/26/24
Time of Disposition: :25
Admit to: Med/Surg
Admit to doctor: Maury
Presentation/result/management discussed w/ accepting MD/DO: Hospitalist
Patient with high blood pressure during this ER visit?: No
Condition: Fair
Covid-19: Not Applicable
Discharge Problem:
Sepsis, Diverticulitis, Altered mental status
Interventions
Interventions:
*Risk Screen - Suicide Last Done: 07/25/24 16:40
*General Assessment Last Done: 07/25/24 16:40
*Neglect/Abuse Screening Last Done: 07/25/24 16:40
ED-Female Genitourinary Assessment Last Done: 07/25/24 20:24
[2024-07-25] MEDS: TYLENOL 650 MG PO (20:15)
[2024-07-25] MEDS: NSS 1000 IV (20:17)
[2024-07-25 20:38] LABS: Lactic Acid 1.6 mmol/L (0.7-2.0)
[2024-07-25 22:09] LABS: Urine Albumin 2+ (Neg - Trace); Urine Bilirubin Negative (Negative); Urine Character Clear (Clear); Urine Color Yellow; Urine Glucose Negative (Negative); Urine Ketone 3+ (Negative); Urine Leukocyte Negative (Negative); Urine Nitrite Negative (Negative); Urine Occult Blood 2+ (Negative); Urine Urobilinogen Negative (Neg - 1+)
[2024-07-25 22:51] LABS: Urine Amorphous Seen; Urine Bacteria Moderate (Negative); Urine Red Blood Cell 0-2 /HPF (0-2); Urine White Cell 0-2 /HPF (0-5)
[2024-07-25] MEDS: ZOSYN 50 IV (23:05)
[2024-07-26] VITALS (17 sets, daily range): BP systolic 107–148; BP diastolic 43–76; BMI 30.2
[2024-07-26 00:51] LABS: COVID-19 Antigen Negative (Negative)
--- NOTE | 2024-07-26 02:18 | HPS.HSE ---
Family Physician
-
Family Physician: Rashad Trinidad
Chief Complaint
-
Low back pain
History of Present Illness
Tricia is a 84-year-old with past medical history significant for hypothyroid and hyperlipidemia as well as recurrent urinary tract infections pending urology follow-up who presents to the emergency department with bilateral low back pain and a febrile
episode.
Patient reported that she has been having bilateral low back pain for few days. She describes as an ache. It is worse when she stands. It is improved with laying down. There is no radiation down to the legs but describes possible radiation to
the groin bilaterally. She denies abdominal pain. She denies flank pain. She denies any nausea or vomiting. She reported that she had a fever up to 103 at home 2 days ago but has not recurred since. She has been taking Tylenol for the pain but
it is not resolving. She denies any focal weakness numbness or tingling. She reports history of frequent UTIs but states she is not having usual urinary symptoms at this time.
She appears more confused on arrival in the emergency department. Currently she is alert and oriented and has insight unable to provide coherent history with details.
On arrival in the emergency department the patient was afebrile, blood pressure was 124/44 with a pulse rate of 107 and she was satting 97% on room air.
She had a white count of 29,000, CBC otherwise unremarkable. Electrolytes BUN/creatinine were unremarkable. ECG shows sinus tachycardia at a rate of 119 but otherwise unremarkable.
UA was notable for moderate bacteria but was otherwise negative. Lactic acid was 1.6. LFTs notable for marginal increase in AST and ALT to 40 both.
Negative COVID, negative flu.
She had a CT of the abdomen pelvis showing no bowel obstruction, right inguinal hernia containing short segment of small bowel without wall thickening or proximal obstruction. There is no renal ureteral calculus and no hydronephrosis or obstructive
uropathy. Diverticulosis, possible subacute to acute diverticulitis in the sigmoid colon.
CT of the head was unremarkable.
Medical History
Past Medical History
Past Medical History: Reports HTN, Hypothyroidism and Other (Osteoporosis with sacral insufficiency fracture)
Past Surgical History: Reports Cholecystectomy
Social History
Tobacco: Non-smoker
Alcohol: None
Drug: None
Personal:
Living: With Family
Employment: Retired
Family History
Family History: Not pertinent
Allergies / Home Medications
Allergies reflects when Allergies were last updated in [facility].
Home Medications with original date entered in [facility]
Allergy/Medication List:
Allergies
Allergy/AdvReac Type Severity Reaction Status Date / Time
aspirin Allergy Hives Verified 07/25/24 16:41
Home Medications
atorvastatin 10 mg tablet 10 mg PO HS High Cholesterol 03/15/24
calcium carbonate 500 mg PO NOON Supplement 03/15/24
cholecalciferol (vitamin D3) 25 mcg (1,000 unit) tablet (Vitamin D3) 25 mcg PO NOON Supplement 03/15/24
levothyroxine 125 mcg tablet 125 mcg PO DAILY Thyroid 03/15/24
Focus Eye 1 cap PO NOON Supplement 04/28/24
acetaminophen 500 mg tablet (Tylenol Extra Strength) 1,000 mg PO TIDPRN PRN mild pain 04/28/24
therapeutic multivitamin 1 tab PO NOON Supplement 04/28/24
Review of Systems
-
History Source: Patient
Constitutional: Reports Fever
EENT: Reports No Symptoms
Respiratory: Reports No Symptoms
Cardiac: Reports No Symptoms
Abdomen/GI: Reports No Symptoms
: Reports No Symptoms
Musculoskeletal: Reports Joint Pain
Skin: Reports No Symptoms
Neurological: Reports No Symptoms
Endocrine: Reports No Symptoms
Hematologic/Lymphatic: Reports No Symptoms
Psych: Reports No Symptoms
Physical Exam
Vital Signs
Vital Signs
Temp Pulse Resp BP Pulse Ox
98.5 F 107 24 124/44 97
07/25/24 16:40 05/13/25 01:30 07/26/24 01:30 07/26/24 01:00 07/26/24 00:30
Physical Exam
General: Well Developed, No Apparent Distress and Comfortable
HEENT: NormoCephalic, Anicteric, Moist mucous membranes and Atraumatic
Respiratory: Clear
Cardiac: S1/S2 and Tachycardia
Breast: Deferred by me
GI: Soft, Non Tender, Non Distended and Normal Bowel Sounds
Rectal: Deferred by Provider
Genito-urinary: Deferred by me
Musculoskeletal: No Clubbing, No Cyanosis and No Edema
Skin: Warm
Neuro: AO x 3 and Nonfocal/grossly intact
Hematologic/Lymphatic: No Lymphadenopathy
Psych: Calm
Laboratory Results
-
07/25/24 17:16
07/25/24 17:16
Laboratory Results
Lactic Acid Cancelled 07/25/24 22:30
Total Bilirubin 1.1 mg/dl (0.2-1.3) 07/25/24 17:16
AST 40 U/L (14-36) H 07/25/24 17:16
ALT 43 U/L (0-35) H 07/25/24 17:16
Alkaline Phosphatase 106 U/L (38-126) 07/25/24 17:16
Data Reviewed
-
CT Scan: Report Reviewed by me
Medical Tests (Nuc Med, Echo, EKG etc): Image Personally Visualized and interpreted
Lab Data: Labs Reviewed by me
Old Records: Reviewed
Impression/Plan
-
IMPRESSION:
84-year-old with acute episode of low back pain, a fever to 103 at home but not recorded anywhere else or in the emergency department, leukocytosis to 29,000, otherwise unremarkable labs and negative infectious workup. CT scan with possible
diverticulitis in the appropriate setting however clinically the exam is very benign without any evidence for diverticulitis. Patient is being admitted and started on Zosyn by ED.
PLAN:
1. Diverticulitis -had a history no exam is consistent with diverticulitis. On the CT scan was subtle and likely equivocal. Patient is not complain of any pain nausea vomiting diarrhea or anorexia. She does have unexplained tachycardia
-Admit to MedSurg observation
-Hold for antibiotics at this time
-Check blood cultures
-Check urine cultures
-Check ESR/CRP, if elevated continue abx
- check tsh
- iv fluids
-Monitor fever profile
- ADAT
2.Leukocytosis - unexplained at this time
- investigation as above
3. Hypothyroid
- continue levothyroxine
DVT PPX - lovenox sq
Code status- Full code
[2024-07-26] MEDS: NSS 1000 IV (05:43)
[2024-07-26] MEDS: SYNTHROID 125 MCG PO (06:03)
[2024-07-26 06:10] LABS: Erythrocyte Sed Rate 25 mm/hour (0-20)
[2024-07-26 06:31] LABS: Blood Urea Nitrogen 17 mg/dl (7-17); Calcium 8.8 mg/dl (8.4-10.2); Carbon Dioxide 23 mmol/L (22-30); Chloride 108 mmol/L (98-107); Creatine Phosphokinase 32 U/L (30-135); Glucose 130 mg/dl (70-99); Magnesium 1.7 mg/dl (1.6-2.3); Potassium 3.5 mmol/L (3.5-5.1); Sodium 135 mmol/L (135-145); eGFR > 60.00
[2024-07-26 06:34] LABS: Hematocrit 36.6 % (37.0-47.0); Hemoglobin 12.6 g/dL (12.0-16.0); Mean Corp Hgb Conc. 34.4 g/dL (33.0-37.0); Mean Corpuscular Hgb 29.8 pg (27.0-31.0); Mean Corpuscular Volume 86.5 fL (81.0-99.0); Mean Platelet Volume 10.1 fL (7.4-10.4); Platelet Count 192 10^3/uL (130-400); Red Blood Cell Count 4.23 10^6/uL (4.20-5.40); Red Cell Dist. Width 13.2 % (11.5-14.5); White Blood Cell Count 25.2 10^3/uL (4.8-10.8)
[2024-07-26 07:04] LABS: TSH 0.17 uIU/ml (0.47-4.68)
--- NOTE | 2024-07-26 07:49 | W.PN.HOSP.TC ---
Today's Communication/Plan
-
see A/P
Assessment / Plan
Assessment / Plan
84-year-old with past medical history significant for hypothyroidism, hyperlipidemia, recurrent urinary tract infections pending urology follow-up; p/w fever, mild abd tenderness and bilateral low back pain.
Abd tenderness going on for days.
Bilateral low back pain also ongoing for days but is getting better.
She reported that she had a fever up to 103 at home 2 days ago but has not recurred since.
She reports history of frequent UTIs but states she is not having usual urinary symptoms at this time.
In the ED, her white count high at 29,000, CBC otherwise unremarkable. Electrolytes BUN/creatinine were unremarkable. ECG shows sinus tachycardia at a rate of 119 but otherwise unremarkable.
UA was notable for moderate bacteria but was otherwise negative. LFTs notable for marginal increase in AST and ALT to 40 both.
Negative COVID, negative flu.
She had a CT of the abdomen pelvis showing no bowel obstruction, right inguinal hernia containing short segment of small bowel without wall thickening or proximal obstruction. There is no renal ureteral calculus and no hydronephrosis or obstructive
uropathy. Diverticulosis, possible subacute to acute diverticulitis in the sigmoid colon.
CT of the head was unremarkable.
A/P:
# ?Sepsis POA (leucocytosis, tachycardia, fever at home) likely due to diverticulitis
CT AP noted possible subacute to acute diverticulitis in the sigmoid colon, consistent with pt's history of mild abdominal tenderness
Follow blood culture, urine Cx
elevated CRP at 230 , cont to trend
Cont Zosyn
COVID/Flu negative
# Hypothyroidism
continue levothyroxine
Check TSH reflex FT4
DVT PPX - lovenox SQ
Code status- Full code
Anticipated Discharge: > 48 hours
Subjective/Interval History
-
Date of Service: July 26, 2024
Objective Data
-
Labs:
Laboratory Results
07/26/24
05:39
WBC 25.2 H
Hgb 12.6
Hct 36.6 L
Plt Count 192 D
Sodium 135
Potassium 3.5
Chloride 108 H
Carbon Dioxide 23
BUN 17
Creatinine 0.5 L
Glucose 130 H
Calcium 8.8
Vital Signs:
Vital Signs
Temp Pulse Resp BP Pulse Ox
36.9 C 105 24 115/43 97
07/25/24 16:40 07/26/24 06:00 07/26/24 01:30 07/26/24 06:00 07/26/24 00:30
Review of Systems
-
Abdomen/GI: Reports Abdominal Pain (mild abd tenderness)
Physical Exam
-
General: Well Developed, Well Nourished, No Apparent Distress, Comfortable and Conversant
HEENT: Normocephalic, Atraumatic, Nose Appears Normal and Ears Appear Normal; Negative Oxygen
Respiratory: Clear to Auscultation and Non Labored Respirations; Negative Accessory Resp Muscle Use
Cardiac: Regular Rhythm and S1/S2
GI: Soft, Nondistended, Normal Bowel Sounds and Tender (very mild)
Skin: Warm and Dry
Neuro: Awake and Alert
Psych: Calm and Intact Judgement/Insight (somewhat)
Data Reviewed
-
CT Scan: Report Reviewed by me
Labs: Labs Reviewed by me
[2024-07-26 09:17] LABS: Free T4 1.64 ng/dl (0.78-2.19)
[2024-07-26] MEDS: ZOSYN 50 IV ×3 (10:44→21:00)
--- NOTE | 2024-07-26 11:57 | EDRN ---
the pts pressed the call richardson and this RN entered the pts room, the pt stated that she needed to use the bathroom, the pt was able to ambulate with the walker to the bathroom with no issues
[2024-07-26] MEDS: TYLENOL 650 MG PO (12:48)
--- NOTE | 2024-07-26 14:12 | EDRN ---
this RN called the receiving unit and notified them that paper report was going to be tubed up
[2024-07-26] MEDS: LOVENOX 40 MG SC (15:59)
[2024-07-26] MEDS: ULTRAM 50 MG PO (19:52)
[2024-07-26] MEDS: LIPITOR 10 MG PO (20:57)
[2024-07-27] MEDS: ZOSYN 50 IV ×3 (04:04→16:04)
[2024-07-27] MEDS: SYNTHROID 125 MCG PO (05:08)
[2024-07-27 07:00] LABS: Hematocrit 34.9 % (37.0-47.0); Hemoglobin 11.9 g/dL (12.0-16.0); Mean Corp Hgb Conc. 34.1 g/dL (33.0-37.0); Mean Corpuscular Hgb 29.5 pg (27.0-31.0); Mean Corpuscular Volume 86.4 fL (81.0-99.0); Platelet Count 170 10^3/uL (130-400); Red Blood Cell Count 4.04 10^6/uL (4.20-5.40); White Blood Cell Count 23.1 10^3/uL (4.8-10.8)
[2024-07-27 07:15] LABS: ALT (SGPT) 48 U/L (0-35); AST (SGOT) 32 U/L (14-36); Alkaline Phosphatase 93 U/L (38-126); Blood Urea Nitrogen 17 mg/dl (7-17); Calcium 8.4 mg/dl (8.4-10.2); Carbon Dioxide 24 mmol/L (22-30); Chloride 103 mmol/L (98-107); Estimated Creatinine Clearance 67 ml/min; Glucose 105 mg/dl (70-99); Magnesium 1.8 mg/dl (1.6-2.3); Potassium 3.2 mmol/L (3.5-5.1); Sodium 132 mmol/L (135-145); Total Bilirubin 1.1 mg/dl (0.2-1.3); Total Protein 5.4 g/dl (6.3-8.2); eGFR > 60.00
[2024-07-27 07:28] LABS: C-Reactive Protein > 270.00 mg/L (0.0-10.00)
[2024-07-27 07:30] VITALS: BP 128/64
[2024-07-27 07:58] LABS: % Basophils 0.2 % (0-2); % Immature Granulocytes 0.6 % (0-0.5); % Lymphocytes 5.2 % (20.5-51.1); % Monocytes 4.9 % (1.7-9.3); % Neutrophils 89.1 % (42.2-75.2); Absolute Immature Granulocytes 0.2 10^3/uL (0-0.05); Absolute Lymphocytes 1.2 10^3/uL (1.2-3.4); Absolute Monocytes 1.1 10^3/uL (0.1-0.6); Absolute Neutrophils 20.6 10^3/uL (1.4-6.5); Nucleated Red Blood Cells % 0 %
[2024-07-27] MEDS: KCL 40 MEQ PO (09:28)
--- NOTE | 2024-07-27 09:43 | W.PN.HOSP.TC ---
Today's Communication/Plan
-
see A/P
Assessment / Plan
Assessment / Plan
84-year-old with past medical history significant for hypothyroidism, hyperlipidemia, recurrent urinary tract infections pending urology follow-up; p/w fever, mild abd tenderness and bilateral lower back pain.
Abd tenderness ongoing for days.
Bilateral low back pain also ongoing for days but is getting better.
She reported that she had a fever up to 103 at home 2 days [employer] but has not recurred since.
She reports history of frequent UTIs but states she is not having unusual urinary symptoms at this time.
In the ED, her white count high at 29,000, CBC otherwise unremarkable. Electrolytes BUN/creatinine were unremarkable. ECG shows sinus tachycardia at a rate of 119 but otherwise unremarkable.
UA was notable for moderate bacteria but was otherwise negative. LFTs notable for marginal increase in AST and ALT to 40 both.
Negative COVID, negative flu.
She had a CT of the abdomen pelvis showing no bowel obstruction, right inguinal hernia containing short segment of small bowel without wall thickening or proximal obstruction. There is no renal ureteral calculus and no hydronephrosis or obstructive
uropathy. Diverticulosis, possible subacute to acute diverticulitis in the sigmoid colon.
CT of the head was unremarkable.
A/P:
# ?Sepsis POA (leucocytosis, tachycardia, fever at home) likely due to diverticulitis
CT AP noted possible subacute to acute diverticulitis in the sigmoid colon, consistent with pt's history of mild abdominal tenderness
Follow blood culture, urine Cx
elevated CRP today > 270, cont to trend
Cont Zosyn
COVID/Flu negative
ID CS to investigate alternative source of infection given abd symptoms relatively benign
# Hypothyroidism
continue levothyroxine
TSH 0.17, reflex FT4 1.64, repeat TSH reflex FT4 in 4-6 weeks
# R posterior neck pain, likely MSK
lidocaine patch
cont tramadol PRN
DVT PPX - lovenox SQ
Code status- Full code
DW at bedside
DW RN
Anticipated Discharge: 24 - 48 hours
Subjective/Interval History
-
Date of Service: July 27, 2024
Objective Data
-
Labs:
Laboratory Results
07/27/24
06:29
WBC 23.1 H
Hgb 11.9 L
Hct 34.9 L
Plt Count 170
Sodium 132 L
Potassium 3.2 L
Chloride 103
Carbon Dioxide 24
BUN 17
Creatinine 0.5 L
Glucose 105 H
Calcium 8.4
Total Bilirubin 1.1
AST 32
ALT 48 H
Alkaline Phosphatase 93
Vital Signs:
Vital Signs
Temp Pulse Resp BP Pulse Ox
36.7 C 91 16 128/64 92
07/27/24 07:30 07/27/24 07:30 07/27/24 07:30 07/27/24 07:30 07/27/24 07:30
I&O
07/26/24 07/27/24 07/28/24
06:59 06:59 06:59
Intake Total 240 / 240
Balance 240 / 240
Review of Systems
-
Abdomen/GI: Reports Abdominal Pain (mild abd tenderness below rib cages)
Musculoskeletal: Reports Other (posterior neck pain over right side )
Physical Exam
-
General: Well Developed, Well Nourished, No Apparent Distress, Comfortable and Conversant
HEENT: Normocephalic, Atraumatic, Nose Appears Normal and Ears Appear Normal; Negative Oxygen
Respiratory: Clear to Auscultation and Non Labored Respirations; Negative Accessory Resp Muscle Use
Cardiac: Regular Rhythm and S1/S2
GI: Soft, Nondistended, Normal Bowel Sounds and Tender (very mild)
Musculoskeletal: Other (posterior neck, right side )
Skin: Warm and Dry
Neuro: Awake and Alert
Psych: Calm and Intact Judgement/Insight
Data Reviewed
-
CT Scan: Report Reviewed by me
Labs: Labs Reviewed by me
[2024-07-27] MEDS: LIDOCAINE 4% PATCH 1 PATCH TOPICAL (10:24)
[2024-07-27] MEDS: ULTRAM 25 MG PO (10:31)
[2024-07-27] MEDS: THERAGRAN PO (12:13)
--- NOTE | 2024-07-27 14:08 | W.PN.UPDATE ---
Update Note
Progress Note Update
I personally performed a history and physical exam of the patient and discussed management with the resident. I reviewed the resident's separately documented note and agree with the documented findings and plan of care HPI/CC with the following
additions/corrections:
HPI:
Ms Hope is an 84 year old female with history of recurrent UTIs who presented here 07/26 for new onset bilateral lower back pain for several days - its positional, no flank pain, nausea, vomiting. Also mild abdominal tenderness. Has been febrile
to 103 two days prior to arrival which resolved with tylenol for the pain. Staff reported increased confusion in the ER.
Since arrival here she has been afebrile and none since, bp stable, wbc initially 29 now 23, hgb 11.9, plt 170, L shift is noted, esr 25, cr 0.5, na 132, t bili 1.1, ast 32, alt 48 (mildly elevated), alk phos 93, crp >270, UA no pyuria, covid ag
negative, 07/26 CT head: no acute abnormality, CT a/p without IV contrast: diverticulosis possible subacute diverticulitis, possible gastritis,
Physical exam:
General: Comfortable
Respiratory: Clear to Auscultation and Non Labored Respirations
Cardiac: Regular Rhythm and S1/S2
GI: Soft, Nondistended, Normal Bowel Sounds and mild abdominal tenderness
: no suprapubic or CVA tenderness
Skin: Warm and Dry
Neuro: Awake and Alert
A&P
Fever
Suspected diverticulitis
Leukocytosis
- note that CT a/p was a noncontrasted study which limits the exam - possible diverticulitis
- blood cultures x2 no growth to date
- influenza and covid ags negative
- fever has resolved and leukocytosis improving on zosyn
- switch to augmentin for a 10 day course 07/25-08/03
- follow up with PCP; stable for dc from ID perspective
--- NOTE | 2024-07-27 14:17 | CON.ID ---
Addendum entered and electronically signed by Dariana Kelly MD 07/27/24 21:10:
I personally performed a history and physical exam of the patient and discussed management with the resident. I reviewed the resident's separately documented note and agree with the documented findings and plan of care HPI/CC with the following
additions/corrections:
HPI:
Ms Hope is an 84 year old female with history of recurrent UTIs who presented here 07/26 for new onset bilateral lower back pain for several days - its positional, no flank pain, nausea, vomiting. Also mild abdominal tenderness. Has been febrile
to 103 two days prior to arrival which resolved with tylenol for the pain. Staff reported increased confusion in the ER.
Since arrival here she has been afebrile and none since, bp stable, wbc initially 29 now 23, hgb 11.9, plt 170, L shift is noted, esr 25, cr 0.5, na 132, t bili 1.1, ast 32, alt 48 (mildly elevated), alk phos 93, crp >270, UA no pyuria, covid ag
negative, 07/26 CT head: no acute abnormality, CT a/p without IV contrast: diverticulosis possible subacute diverticulitis, possible gastritis,
Physical exam:
General: Comfortable
Respiratory: Clear to Auscultation and Non Labored Respirations
Cardiac: Regular Rhythm and S1/S2
GI: Soft, Nondistended, Normal Bowel Sounds and mild abdominal tenderness
: no suprapubic or CVA tenderness
Skin: Warm and Dry
Neuro: Awake and Alert
A&P
Fever
Suspected diverticulitis
Leukocytosis
- note that CT a/p was a noncontrasted study which limits the exam - possible diverticulitis
- blood cultures x2 no growth to date
- influenza and covid ags negative
- fever has resolved and leukocytosis improving on zosyn
- switch to augmentin for a 10 day course 07/25-08/03
- follow up with PCP; stable for dc from ID perspective
Original Note:
Consultation
-
Date/Time Consultation Requested: 07/27/2024 7:36
Date/Time Consultation Performed: 07/27/2024 15:20
Requesting Provider: Sonya Denson MD
Performing Provider: Dariana Kelly MD
Reason for Consultation: History of recurrent UTI
Chief Complaint / Past History
Chief Complaint
Bilateral lower back pain
History of Present Illness
Ms. Hope is an 84-year-old female with PMH of recurrent UTI, hypothyroidism, hyperlipidemia, who presented to the emergency department with bilateral low back pain and fever of 103 at home which resolved with Tylenol [employer]. On arrival to the ED,
patient was reported to be confused but was afebrile with BP 124/44, pulse 107, saturating at 97% on room air. Her WBC counts was 29,000 with left shift, sodium 134, urinalysis with no pyuria, COVID and flu were negative. She was evaluated with a
CT scan of abdomen and pelvis which showed no bowel obstruction or renal, hydronephrosis, ureteral calculus but was remarkable for right inguinal hernia containing short segment of small bowel without wall thickening or proximal obstruction. Of
note, diverticulosis with possible acute to subacute diverticulitis in the sigmoid colon was also reported. Patient was admitted for further evaluation and management.
Past History
Past Medical History: HTN, Hypothyroidism and Other (Osteoporosis with sacral insufficiency fracture)
Past Surgical History: Cholecystectomy
Allergy History:
aspirin Allergy (Verified 07/25/24 16:41)
Hives
Medications Reviewed: Yes
Social History
Tobacco: Non-Smoker
Alcohol: None
Drug: None
Personal:
Living: With Family
Employment: Retired
Family History
Family History: Not Pertinent
Review of Systems
Review of Systems
General: Negative Fever or Chills
Respiratory: Negative Dyspnea or Cough
Genital / Urological: Other (Bilateral back pain); Negative Dysuria
Skin / Hair / Nails: Negative Rash
Neurological: Negative Headache
All systems: All other systems were reviewed and were negative
Vital Signs
Temp Pulse Resp BP Pulse Ox
98.0 F 91 16 128/64 92
07/27/24 07:30 07/27/24 07:30 07/27/24 07:30 07/27/24 07:30 07/27/24 07:30
Physical Exam
Physical Exam
Constitutional: No Acute Distress and Comfortable
Cardiovascular: Regular Rate and S1/S2; Negative Murmur or Rub
Pulmonary: Clear and Symmetric; Negative Wheezes, Rales or Rhonchi
Gastrointestinal: Soft, Non Tender, Non Distended and Normal Bowel Sounds
Genito-Urinary: Negative Suprapubic Tenderness or CVA Tenderness
Skin: Warm and Dry; Negative Rash or Jaundice
Neurological: Awake and AO x 3
Psychological: Calm
Lab / Diagnostic Study Results
07/27/24 06:29
07/27/24 06:29
Abs Immat Gran (auto) 0.2 10^3/uL (0-0.05) H 07/27/24 06:29
Absolute Neuts (auto) 20.6 10^3/uL (1.4-6.5) H 07/27/24 06:29
Absolute Lymphs (auto) 1.2 10^3/uL (1.2-3.4) 07/27/24 06:29
Absolute Monos (auto) 1.1 10^3/uL (0.1-0.6) H 07/27/24 06:29
Absolute Basos (auto) 0.0 10^3/uL (0-0.2) 07/27/24 06:
Immature Gran % 0.6 % (0-0.5) H 07/27/24 06:29
Neutrophils % 89.1 % (42.2-75.2) H 07/27/24 06:29
Lymphocytes % 5.2 % (20.5-51.1) L 07/27/24 06:29
Monocytes % 4.9 % (1.7-9.3) 07/27/24 06:29
Eosinophils % 0.0 % (0-6) 07/27/24 06:29
Basophils % 0.2 % (0-2) 07/27/24 06:29
ESR 25 mm/hour (0-20) H 07/26/24 05:39
Lactic Acid Cancelled 07/25/24 22:30
C-Reactive Protein > 270.00 mg/L (0.0-10.00) H 07/27/24 06:29
Ur Squamous Epith Cells 6-10 /LPF (Few) 07/25/24 21:15
Microbiology Results
Micro:
07/26/24 10:45 Blood Culture - Preliminary
Blood/Venous No Growth in 24 hours- Final report to follow
07/26/24 10:45 Blood Culture - Preliminary
Blood/Venous No Growth in 24 hours- Final report to follow
07/25/24 21:15 Urine Culture - Final
Urine
07/25/24 20:14 Blood Culture - Preliminary
Blood/Venous No Growth in 24 hours- Final report to follow
07/26/24 00:23 Influenza Types A & B (JOSE G) - Final
Nasal Swab Negative for Influenza A & B, NAAT
Negative results must be combined with clinical observations
and patient history.
Nucleic Acid Amplification test (NAAT)performed on the
[employer] platform.
Assessment / Plan
84-year-old female with PMH of recurrent UTI, hypothyroidism, hyperlipidemia, who presented to the emergency department with bilateral low back pain and fever of 103 at home which resolved with Tylenol [employer].
Assessment/plan:
#Possible diverticulitis
#Leukocytosis
#History of fever
- CT abdomen/pelvis without contrast noted.
- Fever resolved.
- Leukocytosis much improved on Zosyn.
- Blood cultures x 2 in progress, NGTD.
- Switch to Augmentin to complete a 10 days course.
- Stable for discharge from ID standpoint.
Care Review
Plan reviewed with: Physician
--- NOTE | 2024-07-27 15:08 | PTCARENOTE ---
Patient was given 25mg of tramadol this am. Patient briefly became disoriented, called and asked him 'to come upstairs and help me get dressed.' was made aware and discontinued Tramadol.
[2024-07-27 15:20] VITALS: BP 128/72
[2024-07-27] MEDS: TYLENOL 1000 MG PO (16:04)
--- NOTE | 2024-07-27 17:18 | CM ---
Placed a call to patient's spouse to obtain information for assessment however had to leave a voice mail message. Will attempt again tomorrow.
[2024-07-27] MEDS: LOVENOX 40 MG SC (17:19)
[2024-07-27] MEDS: AUGMENTIN 875 MG/125 MG 1 TABLET PO (20:23)
[2024-07-27] MEDS: LIPITOR 10 MG PO (20:24)
[2024-07-27 23:47] VITALS: BP 150/86
[2024-07-28] MEDS: SYNTHROID 125 MCG PO (05:53)
[2024-07-28 07:20] VITALS: BP 138/75
[2024-07-28 07:48] LABS: % Basophils 0.3 % (0-2); % Eosinophils 0.8 % (0-6); % Immature Granulocytes 0.6 % (0-0.5); % Lymphocytes 6.6 % (20.5-51.1); % Monocytes 7.1 % (1.7-9.3); % Neutrophils 84.6 % (42.2-75.2); Absolute Basophils 0.1 10^3/uL (0-0.2); Absolute Eosinophils 0.2 10^3/uL (0-0.7); Absolute Immature Granulocytes 0.1 10^3/uL (0-0.05); Absolute Lymphocytes 1.3 10^3/uL (1.2-3.4); Absolute Monocytes 1.4 10^3/uL (0.1-0.6); Hematocrit 35.1 % (37.0-47.0); Mean Corp Hgb Conc. 34.2 g/dL (33.0-37.0); Mean Corpuscular Hgb 29.3 pg (27.0-31.0); Mean Corpuscular Volume 85.6 fL (81.0-99.0); Mean Platelet Volume 10.6 fL (7.4-10.4); Nucleated Red Blood Cells % 0 %; Platelet Count 214 10^3/uL (130-400); Red Cell Dist. Width 12.9 % (11.5-14.5); White Blood Cell Count 18.9 10^3/uL (4.8-10.8)
--- NOTE | 2024-07-28 08:03 | W.PN.ID1 ---
Addendum entered and electronically signed by Dariana Kelly MD 07/28/24 17:14:
Nonbillable note:
I reviewed the resident�s note and agree with findings and plan as documented in the resident�s note, however patient was discharged prior to my rounds and thus no physical exam was preformed today. The plan is unchanged compared to yesterday
Follow up with PCP
Original Note:
Date of Service
Date of Service: July 28, 2024
Patient seen and examined with by the bedside. She was sitting comfortably in bed in no acute distress. She reports that her abdominal pain is improving, denies chest pain, shortness of breath, fever, chills, nausea or vomiting. She had
BM yesterday which was a little loose but not diarrhea. No blood or mucus seen in stool. She had mild chronic cough which otherwise does not bother her. has questions about possible discharge today given that her leukocytosis has not
completely resolved.
Today's Communication
Continue Augmentin, last day 08/05/2024.
Stable for discharge from ID perspective.
Assessment / Plan
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
Assessment/plan:
#Possible diverticulitis
#Leukocytosis
#History of fever
- Patient feeling better today, abdominal pain improving.
- Leukocytosis improving, trending not necessary for hospital stay.
- CT abdomen/pelvis without contrast noted, not a good study.
- Fever resolved.
- Blood cultures 07/26 x 2 in progress, NGTD.
- Nasal swab negative for COVID and flu.
- Daily trend of CRP per primary.
- Continue Augmentin until 08/05.
- Stable for discharge from ID standpoint.
- Follow-up with PCP.
Chief Complaint
-: Leukocytosis and Other (Suspected diverticulitis)
Subjective / Review of Systems
Review of Systems: No Fever, No Chills, No Headache, No Chest Pain, No Palpitations, Abdominal Pain (Mild abdominal tenderness), No Nausea, No Vomiting and No Diarrhea
Vital Signs / Physical Exam
Vital Signs
Vital Signs
Temp Pulse Resp BP Pulse Ox
98.0 F 90 17 150/86 95
07/27/24 23:47 07/27/24 23:47 07/27/24 23:47 07/27/24 23:47 07/27/24 23:47
Physical Exam
Constitutional: No Acute Distress and Comfortable
Cardiovascular: Regular Rate and S1/S2; Negative Murmur or Rub
Pulmonary: Clear, Symmetric and Non Labored; Negative Wheezes or Rales
Gastrointestinal: Soft, Non Tender, Non Distended and Normal Bowel Sounds
Skin: Warm and Dry; Negative Rash or Jaundice
Neurological: Awake and AO x 3
Psychological: Calm
Objective Data
Lab Data
Lab Results
07/28/24 06:43
ESR 25 mm/hour (0-20) H 07/26/24 05:39
Estimated Creat Clear 67 ml/min 07/27/24 06:29
Lactic Acid Cancelled 07/25/24 22:30
Total Bilirubin 1.1 mg/dl (0.2-1.3) 07/27/24 06:29
AST 32 U/L (14-36) 07/27/24 06:29
ALT 48 U/L (0-35) H 07/27/24 06:29
Alkaline Phosphatase 93 U/L (38-126) 07/27/24 06:29
C-Reactive Protein > 270.00 mg/L (0.0-10.00) H 07/27/24 06:29
Most recent labs reviewed.
Microbiology: Report Reviewed
Micro Results:
07/25/24 20:14 Blood Culture - Preliminary
Blood/Venous No Growth in 48 hours- Final report to follow
07/26/24 10:45 Blood Culture - Preliminary
Blood/Venous No Growth in 24 hours- Final report to follow
07/26/24 10:45 Blood Culture - Preliminary
Blood/Venous No Growth in 24 hours- Final report to follow
07/25/24 21:15 Urine Culture - Final
Urine
07/26/24 00:23 Influenza Types A & B (JOSE G) - Final
Nasal Swab Negative for Influenza A & B, NAAT
Negative results must be combined with clinical observations
and patient history.
Nucleic Acid Amplification test (NAAT)performed on the
[employer] platform.
Care Review
Plan reviewed with: Nurse and Physician
[2024-07-28 08:14] LABS: ALT (SGPT) 44 U/L (0-35); AST (SGOT) 31 U/L (14-36); Albumin 2.8 g/dl (3.5-5.0); Alkaline Phosphatase 106 U/L (38-126); Blood Urea Nitrogen 14 mg/dl (7-17); Carbon Dioxide 22 mmol/L (22-30); Chloride 102 mmol/L (98-107); Estimated Creatinine Clearance 67 ml/min; Glucose 87 mg/dl (70-99); Magnesium 1.7 mg/dl (1.6-2.3); Potassium 3.5 mmol/L (3.5-5.1); Sodium 130 mmol/L (135-145); Total Bilirubin 0.9 mg/dl (0.2-1.3); Total Protein 5.2 g/dl (6.3-8.2); eGFR > 60.00
[2024-07-28] MEDS: TYLENOL 1000 MG PO (08:19)
[2024-07-28] MEDS: LIDOCAINE 4% PATCH 1 PATCH TOPICAL (08:19)
[2024-07-28] MEDS: AUGMENTIN 875 MG/125 MG 1 TABLET PO (08:21)
[2024-07-28] MEDS: FLUSH (NSS) 1 FLUSH IV (08:21)
--- NOTE | 2024-07-28 11:36 | W.PN.HOSP.TC ---
Addendum entered and electronically signed by Sonya Denson MD 07/28/24 13:53:
total DC time 39 min
Original Note:
Today's Communication/Plan
-
DC home with HH
Assessment / Plan
Assessment / Plan
84-year-old with past medical history significant for hypothyroidism, hyperlipidemia, recurrent urinary tract infections pending urology follow-up; p/w fever, mild abd tenderness and bilateral lower back pain.
Abd tenderness ongoing for days.
Bilateral low back pain also ongoing for days but is getting better.
She reported that she had a fever up to 103 at home 2 days [employer] but has not recurred since.
She reports history of frequent UTIs but states she is not having unusual urinary symptoms at this time.
In the ED, her white count high at 29,000, CBC otherwise unremarkable. Electrolytes BUN/creatinine were unremarkable. ECG shows sinus tachycardia at a rate of 119 but otherwise unremarkable.
UA was notable for moderate bacteria but was otherwise negative. LFTs notable for marginal increase in AST and ALT to 40 both.
Negative COVID, negative flu.
She had a CT of the abdomen pelvis showing no bowel obstruction, right inguinal hernia containing short segment of small bowel without wall thickening or proximal obstruction. There is no renal ureteral calculus and no hydronephrosis or obstructive
uropathy. Diverticulosis, possible subacute to acute diverticulitis in the sigmoid colon.
CT of the head was unremarkable.
A/P:
# Sepsis POA (leucocytosis, tachycardia, fever at home) due to diverticulitis
CT AP noted possible subacute to acute diverticulitis in the sigmoid colon, consistent with pt's history of mild abdominal tenderness
blood cultures negative
Urine Cx with mixed samina
CRP downtrended from 270 to 244
Zosyn -> augmentin for 10 day course 07/25-08/03 per ID
Of note, COVID/Flu negative
# Hypothyroidism
continue levothyroxine
TSH 0.17, reflex FT4 1.64, repeat TSH reflex FT4 in 4-6 weeks
# R posterior neck pain, likely MSK
lidocaine patch
Informed to try warm compress
No tramadol with confusion S/E
DVT PPX - lovenox SQ
Code status- Full code
DW at bedside
DW RN
Anticipated Discharge: Today
Subjective/Interval History
-
Date of Service: July 28, 2024
Objective Data
-
Labs:
Laboratory Results
07/28/24
06:43
WBC 18.9 H
Hgb 12.0
Hct 35.1 L
Plt Count 214 D
Sodium 130 L
Potassium 3.5
Chloride 102
Carbon Dioxide 22
BUN 14
Creatinine 0.4 L
Glucose 87
Calcium 8.0 L
Total Bilirubin 0.9
AST 31
ALT 44 H
Alkaline Phosphatase 106
Vital Signs:
Vital Signs
Temp Pulse Resp BP Pulse Ox
37.1 C 95 18 138/75 93
07/28/24 07:20 07/28/24 07:20 07/28/24 07:20 07/28/24 07:20 07/28/24 07:20
I&O
07/27/24 07/28/24 07/29/24
06:59 06:59 06:59
Intake Total 240 / 240 1440 / 1440
Output Total 75 / 75
Balance 240 / 240 1365 / 1365
Review of Systems
-
Abdomen/GI: Reports Abdominal Pain (improved )
Musculoskeletal: Reports Other (posterior neck pain over right side )
Physical Exam
-
General: Well Developed, Well Nourished, No Apparent Distress, Comfortable and Conversant
HEENT: Normocephalic, Atraumatic, Nose Appears Normal and Ears Appear Normal; Negative Oxygen
Respiratory: Clear to Auscultation and Non Labored Respirations; Negative Accessory Resp Muscle Use
Cardiac: Regular Rhythm and S1/S2
GI: Soft, Nontender, Nondistended and Normal Bowel Sounds
Musculoskeletal: Other (posterior neck, right side )
Skin: Warm and Dry
Neuro: Awake and Alert
Psych: Calm and Intact Judgement/Insight
Data Reviewed
-
CT Scan: Report Reviewed by me
Labs: Labs Reviewed by me
[2024-07-28] MEDS: THERAGRAN 1 TABLET PO (13:24)
[2024-07-28] MEDS: KCL 40 MEQ PO (13:24)
--- NOTE | 2024-07-28 13:44 | W.DCSUMMARY ---
Addendum entered and electronically signed by Sonya Denson MD 07/28/24 13:54:
She has also been informed to check outpatient colonoscopy with GI in 4 to 6 weeks in setting of her acute diverticulitis
Original Note:
Discharge Summary
Discharge Data
Date of Admission: 07/26/24
Date of Discharge: 07/28/24
-
Pending Results: No
Hospital Course
Principal Diagnosis:
Sepsis POA (leucocytosis, tachycardia, fever at home) due to acute diverticulitis
Chronic Diagnoses:�
Hypothyroidism. TSH 0.17, reflex FT4 1.64 this admission
Hyperlipidemia
Recurrent urinary tract infections
Consultations:�
Infectious disease
Procedures:�
None
Clinical course:�
This is a 84-year-old with past medical history as stated above, who presented with mild abdominal tenderness and fever.
Problem 1:
Sepsis POA (leucocytosis, tachycardia, fever at home) due to acute diverticulitis.
Her CT AP noted possible subacute to acute diverticulitis in the sigmoid colon, consistent with pt's history of mild abdominal tenderness.
Her blood cultures were negative. Her urine culture grew mixed samina.
She received Zosyn while in the hospital, and can continue with Augmentin for 10 days course 07/25-08/03 per ID.
She can follow-up outpatient CBC, CMP and CRP with result to her PCP in 1 week.
As for the rest of her medical problems, they were stable during her hospital stay.
Discharge Plan
-
Patient Disposition: Home with Home Care
Discharge Diagnosis/Procedures: Acute diverticulitis;
Hypothyroidism (TSH 0.17, reflex FT4 1.64 this admission)
Condition: Good
Diet: As tolerated
Activity: As tolerated
Driving Restrictions: As prior to admission
Blood Work: CBC, CMP, CRP in 1 week, result to PCP;
Repeat TSH reflex FT4 in 4-6 weeks
Activity Restrictions/Additional Instructions:
Follow up with GI outpatient for C scope in 4-6 weeks
Referrals:
Rashad Trinidad, DO [Family Provider] - in less than 1 week
Additional Discharge Medication Instructions: Augmentin for 10 day course 07/25-08/03
Prescriptions:
New
amoxicillin-pot clavulanate 875-125 mg Tablet
1 tab PO Q12 10 Days Qty: 20 0RF
Continued
atorvastatin 10 mg Tablet
10 mg PO HS
levothyroxine 125 mcg Tablet
125 mcg PO DAILY
calcium carbonate 500 mg calcium (1,250 mg) Tablet
500 mg PO NOON
cholecalciferol (vitamin D3) [Vitamin D3] 25 mcg (1,000 unit) Tablet
25 mcg PO NOON
therapeutic multivitamin Tablet
1 tab PO NOON
Focus Eye
1 cap PO NOON
acetaminophen [Tylenol Extra Strength] 500 mg tablet
1,000 mg PO TIDPRN PRN (Reason: mild pain)
Discharge Orders:
Discharge Patient (As Directed); Ordered 07/28/24
Ordered By: Sonya Denson
Discharge Date and Time
Print Language: PANAMANIAN
[2024-07-28 14:00] VITALS: BP 123/74
--- NOTE | 2024-07-28 14:53 | CM ---
Met with patient to obtain information for assessment. Patient stated that she lives with her spouse in a two story home with no steps and a stair glide inside. She uses a quad cane. She also has a walker. Patient described herself as independent
with her ADLs, personal care, dressing and bathing. 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 Patient has had VN in the distant past and SNF at [facility]. She declined VN this visit.
Plan: Case management will continue to follow and assist with discharge planning. Home.
== END 2024-07-28 15:06 | disposition home or self-care (01) | DRG 872 ==
LOC: 4 EAST ACU 07:48
PROVIDERS: Emergency Medicine; Physician Assistant; ADMITTING PHYSICIAN Internal Medicine; ATTENDING PHYSICIAN Internal Medicine; CONSULT PHYSICIAN Student in an Organized Health Care Education/Training Program; EMERGENCY PHYSICIAN Emergency Medicine; FAMILY PHYSICIAN Internal Medicine
DX: A41.9 Sepsis, unspecified organism (principal); K57.32 Diverticulitis of large intestine without perforation or abscess without bleeding; E03.9 Hypothyroidism, unspecified; E78.5 Hyperlipidemia, unspecified; Z11.52 Encounter for screening for COVID-19; Z87.440 Personal history of urinary (tract) infections; I10 Essential (primary) hypertension; M81.0 Age-related osteoporosis without current pathological fracture; Z79.890 Hormone replacement therapy; Z90.49 Acquired absence of other specified parts of digestive tract
CPT/HCPCS: 70450; 74176; 80048; 80053; 81003; 81015; 82550; 83605; 83735; 84439; 84443; 85025; 85027; 85652; 86140; 87040; 87086; 87502; 87811; 93005

== ENCOUNTER → 2024-08-03 19:37 | Outpatient (REF) | payer OTHER, SELFPAY | LOC: MRI 3T 19:37 | PROVIDERS: ATTENDING PHYSICIAN Internal Medicine | DX: R79.82 Elevated C-reactive protein (CRP) (principal) | CPT/HCPCS: 72158; A9575 ==

== ENCOUNTER 2024-08-04 21:00 | Inpatient (IN) | payer OTHER, SELFPAY ==
[2024-08-04 13:39] VITALS: BP 135/70
[2024-08-04 13:57] LABS: % Basophils 0.3 % (0-2); % Eosinophils 0.7 % (0-6); % Immature Granulocytes 1.4 % (0-0.5); % Lymphocytes 9.8 % (20.5-51.1); % Monocytes 5.2 % (1.7-9.3); % Neutrophils 82.6 % (42.2-75.2); Absolute Basophils 0.1 10^3/uL (0-0.2); Absolute Eosinophils 0.1 10^3/uL (0-0.7); Absolute Immature Granulocytes 0.3 10^3/uL (0-0.05); Absolute Lymphocytes 1.9 10^3/uL (1.2-3.4); Absolute Neutrophils 16.1 10^3/uL (1.4-6.5); Hematocrit 39.8 % (37.0-47.0); Hemoglobin 13.2 g/dL (12.0-16.0); Mean Corp Hgb Conc. 33.2 g/dL (33.0-37.0); Mean Corpuscular Volume 87.5 fL (81.0-99.0); Mean Platelet Volume 9.2 fL (7.4-10.4); Nucleated Red Blood Cells % 0 %; Platelet Count 460 10^3/uL (130-400); Red Blood Cell Count 4.55 10^6/uL (4.20-5.40); Red Cell Dist. Width 13.2 % (11.5-14.5); White Blood Cell Count 19.5 10^3/uL (4.8-10.8)
[2024-08-04 14:13] LABS: ALT (SGPT) 34 U/L (0-35); AST (SGOT) 26 U/L (14-36); Albumin 3.6 g/dl (3.5-5.0); Alkaline Phosphatase 110 U/L (38-126); Blood Urea Nitrogen 10 mg/dl (7-17); Carbon Dioxide 29 mmol/L (22-30); Chloride 100 mmol/L (98-107); Glucose 129 mg/dl (70-99); Lipase 82 U/L (23-300); Potassium 4.7 mmol/L (3.5-5.1); Sodium 134 mmol/L (135-145); Total Bilirubin 0.5 mg/dl (0.2-1.3); Total Protein 6.6 g/dl (6.3-8.2); eGFR > 60.00
[2024-08-04 16:52] LABS: Lactic Acid 0.8 mmol/L (0.7-2.0)
--- NOTE | 2024-08-04 19:07 | ED.GENMED ---
History of Present Illness
General
Chief Complaint: Abdominal Pain
Time Seen by Provider: 08/04/24 15:54
History of Present Illness
History of Present Illness:
84-year-old female presents to the emergency department for evaluation of an abnormal MRI. Patient was admitted to this hospital earlier this month for a fever at which time was felt to be due to a UTI and she was treated with Augmentin. She had
negative blood cultures at that time. She had continued back pain and was sent for an outpatient MRI by her primary care physician which incidentally noted a suspicious liver mass highly suspicious for a abscess and thus she returned to the
emergency department
Past History
Past History
ED Past Medical History: HTN and Hypothyroidism
Social History
Tobacco: Non-smoker
Personal:
Living: with family
Review of Systems
Review of Systems
Allergies reviewed?: Yes
All Other Systems: ROS reviewed and negative except as documented in HPI and ROS
Phy Exam
Physical Exam
Physical Exam:
GEN: Well appearing, NAD, WDWN
HEENT: Oral mucosa moist, no scleral icterus
Cardiac: Regular rate
Lung: No respiratory distress, no tachypnea
MSK: No gross deformity or injuries
Skin: Good color, no pallor or jaundice, no rashes
Neuro: AO x3, moves all extremities freely
Psych: Calm, cooperative
Course
Orders/Labs/Results
Orders:
Orders
08/04/24 13:47
Complete Blood Count/With Diff Urgent
Comprehensive Metabolic Panel Urgent
Lipase Urgent
08/04/24 16:19
CT Abd/pelvis W/wo Iv Cont Urgent
Comment:
Reason For Exam: poss hepatic abscess
08/04/24 16:25
Lactate Level [Lactic Acid] Urgent
Blood Culture Q30M
HENRIK Source: Blood/Venous
Specimen Description:
08/04/24 17:28
Blood Culture Q30M
HENRIK Source: Blood/Venous
Specimen Description:
08/04/24 18:53
Piperacillin/Tazo 3.375 Gram [Zosyn] 3.375 gram in 50 ml IV NOW
Abnormal Lab Results
08/04/24
13:47
WBC 19.5 H 10^3/uL
(4.8-10.8)
Plt Count 460 H 10^3/uL
(130-400)
Abs Immat Gran (auto) 0.3 H 10^3/uL
(0-0.05)
Absolute Neuts (auto) 16.1 H 10^3/uL
(1.4-6.5)
Absolute Monos (auto) 1.0 H 10^3/uL
(0.1-0.6)
Immature Gran % 1.4 H %
(0-0.5)
Neutrophils % 82.6 H %
(42.2-75.2)
Lymphocytes % 9.8 L %
(20.5-51.1)
Sodium 134 L mmol/L
(135-145)
Creatinine 0.5 L mg/dL
(0.6-1.0)
Glucose 129 H mg/dl
(70-99)
08/04/24 13:47
08/04/24 13:47
Vital Signs
Initial and Last Documented VS:
Initial Vital Signs
Temp Pulse Resp BP Pulse Ox
98.4 F 86 16 135/70 97
08/04/24 13:39 08/04/24 13:39 08/04/24 13:39 08/04/24 13:39 08/04/24 13:39
Last Documented Vital Signs
Temp Pulse Resp BP Pulse Ox
98.4 F 86 16 135/70 97
08/04/24 13:39 08/04/24 13:39 08/04/24 13:39 08/04/24 13:39 08/04/24 13:39
MDM/Problems Addressed
MDM/Problems Addressed:
CT imaging confirms hepatic and perigastric abscesses, unclear etiology. Certainly interesting that she had negative blood cultures on last admission. Will admit for further management
*Critical Care Note
Total Time (30-74mins, 75-104mins- exclusive of procedures): Not Applicable
ED Attending Note
-
Portions of this chart may have been created with voice recognition software.� Occasional wrong word or��sound alike� substitutions may have occurred due to the inherent limitations of voice recognition software.
Discharge Plan
Departure
Patient Disposition: Admit
Date of Disposition: 08/04/24
Time of Disposition: 19:25
Admit to: Med/Surg
Presentation/result/management discussed w/ accepting MD/DO: Hospitalist
Discharge Problem:
Hepatic abscess
Prescriptions:
No Action
atorvastatin 10 mg Tablet
10 mg PO HS
levothyroxine 125 mcg Tablet
125 mcg PO DAILY
calcium carbonate 500 mg calcium (1,250 mg) Tablet
500 mg PO NOON
cholecalciferol (vitamin D3) [Vitamin D3] 25 mcg (1,000 unit) Tablet
25 mcg PO NOON
therapeutic multivitamin Tablet
1 tab PO NOON
Focus Eye
1 cap PO NOON
acetaminophen [Tylenol Extra Strength] 500 mg tablet
1,000 mg PO TIDPRN PRN (Reason: mild pain)
amoxicillin-pot clavulanate 875-125 mg Tablet
1 tab PO Q12 10 Days Qty: 20 0RF
Rx Instructions:
for 10 days starting 07/28/24
Visbiome 112.5 billion cell Capsule
1 cap PO DAILY
Referrals:
Rashad Triindad DO [Family Provider] -
Interventions
Interventions:
*Risk Screen - Suicide Last Done: 08/04/24 16:33
*Neglect/Abuse Screening Last Done: 08/04/24 16:33
*ED- Fall Risk Assessment Last Done: 08/04/24 18:36
*ED COVID-19 Vaccine History Last Done: 08/04/24 18:36
XK-Tpihyv-Zfuybnnroc Assessment Last Done: 08/04/24 18:36
Discharge Date and Time
Print Language: TELUGU
[2024-08-04] MEDS: ZOSYN 50 IV (19:20)
--- NOTE | 2024-08-04 19:32 | HPS.HSE ---
Family Physician
-
Family Physician: Rashad Trinidad
Chief Complaint
-
abnormal out patient MRI
History of Present Illness
Patient is a 84-year-old female with past medical history significant for hypertension, hyperlipidemia, hypothyroidism and osteoporosis with sacral insufficiency fracture who presented to [facility] ED for evaluation of abnormal out patient MRI. Patient
recently hospitalized for acute diverticulitis and suspected UTI and treated with Zosyn while in patient and discharged on Augmentin. Patient and family (at bedside) report that patient had follow up labs that resulted with continued leukocytosis,
so primary care ordered an out patient MRI to be sure nothing was missed that could be causing infection. MRI completed last night, primary care called with results today and recommended to return to hospital for further workup and treatment. She
states that she has continued back pain and abdominal tenderness. Since discharge on 07/28/2024 patient denies any fever, chills, cough, shortness of breath, chest pain, nausea, vomiting, constipation, diarrhea or urinary symptoms.
Medical History
Past Medical History
Past Medical History: Reports Other
Additional Past Medical History:
hypertension
hyperlipidemia
hypothyroidism
Osteoporosis with sacral insufficiency fracture
Past Surgical History: Reports Other
Additional Past Surgical History:
cholecystectomy
Cataract extraction
Carpal tunnel release
B/L foot surgery (multiple)
LPS- BTL
Cervix LEEP
LT L4-5 ILESI NO SED 05.04.24
LT L5 TFESI NO SED 05/31/24
Social History
Tobacco: Non-smoker
Alcohol: None
Drug: None
Personal:
Living: With Family
Employment: Retired
Family History
Family History: Not pertinent
Allergies / Home Medications
Allergies reflects when Allergies were last updated in [employer] [facility].
Home Medications with original date entered in [employer] [facility]
Allergy/Medication List:
Allergies
Allergy/AdvReac Type Severity Reaction Status Date / Time
aspirin Allergy Hives Verified 08/04/24 13:41
Home Medications
atorvastatin 10 mg tablet 10 mg PO HS High Cholesterol 03/15/24
calcium carbonate 500 mg PO NOON Supplement 03/15/24
cholecalciferol (vitamin D3) 25 mcg (1,000 unit) tablet (Vitamin D3) 25 mcg PO NOON Supplement 03/15/24
levothyroxine 125 mcg tablet 125 mcg PO DAILY Thyroid 03/15/24
Focus Eye 1 cap PO NOON Supplement 04/28/24
acetaminophen 500 mg tablet (Tylenol Extra Strength) 1,000 mg PO TIDPRN PRN mild pain 04/28/24
therapeutic multivitamin 1 tab PO NOON Supplement 04/28/24
amoxicillin 875 mg-potassium clavulanate 125 mg tablet 1 tab PO Q12 10 days #20 tabs 07/28/24
Lactobac no.2-Bifidobac no.1-S. thermo 112.5 billion cell capsule (Visbiome) 1 cap PO DAILY 08/04/24
Review of Systems
-
History Source: Patient
Musculoskeletal: Reports Other (lower back pain, abdominal tenderness )
Physical Exam
Vital Signs
Vital Signs
Temp Pulse Resp BP Pulse Ox
98.4 F 86 16 135/70 97
08/04/24 13:39 08/04/24 13:39 08/04/24 13:39 08/04/24 13:39 08/04/24 13:39
Physical Exam
General: Well Developed, Well Nourished, No Apparent Distress, Comfortable, Conversant and Obese
HEENT: NormoCephalic, Moist mucous membranes, Atraumatic, [place] Conjunctivae, Nose Appears Normal and Ears Appear Normal
Respiratory: Clear
Cardiac: S1/S2 and Regular Rhythm
Breast: Deferred by me
GI: Soft, Non Tender, Non Distended and Normal Bowel Sounds; No Organomegaly
Rectal: Deferred by Provider
Genito-urinary: Deferred by me
Musculoskeletal: No Clubbing, No Cyanosis and No Edema
Skin: Warm and IV/Catheter Site
Neuro: Awake, Alert, AO x 3 and Nonfocal/grossly intact
Psych: Calm and Intact Judgment/Insight
Laboratory Results
-
08/04/24 13:47
08/04/24 13:47
Laboratory Results
Lactic Acid 0.8 mmol/L (0.7-2.0) 08/04/24 16:25
Total Bilirubin 0.5 mg/dl (0.2-1.3) 08/04/24 13:47
AST 26 U/L (14-36) 08/04/24 13:47
ALT 34 U/L (0-35) 08/04/24 13:47
Alkaline Phosphatase 110 U/L (38-126) 08/04/24 13:47
Lipase 82 U/L (23-300) 08/04/24 13:47
Data Reviewed
-
CT Scan: Report Reviewed by me (Abd/Pel: Mass within the lateral segment of the left lobe liver, highly suspicious for hepatic abscess. Two collections along the posterolateral wall the stomach, which may have a thin connection. These are highly
suspicious for perigastric abscesses. No free intraperitoneal air is identified. St)
MRI: Report Reviewed by me (Lumbar Spine on 08/03/2024 (see report))
Lab Data: Labs Reviewed by me (WBC 19.5, Neut 82.6)
Impression/Plan
-
IMPRESSION/PLAN:
#hepatic and perigastric abscesses
Abd/Pel CT: Mass within the lateral segment of the left lobe liver, highly suspicious for hepatic abscess.
Two collections along the posterolateral wall the stomach, which may have a thin connection. These are highly suspicious for perigastric abscesses.
No free intraperitoneal air is identified.
Status post cholecystectomy with no evidence for biliary ductal dilation.
Numerous colonic diverticula. In the region of the sigmoid colon, there is stranding of the fat surrounding the sigmoid colon, suggestive of diverticulitis. No evidence for focal abscess in this region.
Bony degenerative changes as described. Appearance of subacute fracture involving the right side of the symphysis pubis and the right inferior pubic ramus, stable appearance. Suggestion of
subacute fracture involving the left sacral ala, stable appearance.
Lumbar Spine MRI (08/03/2024): 1. 5.6 cm irregularly-shaped rim-enhancing mass in the left lobe of the liver. A HEPATIC ABSCESS is considered most likely. A centrally necrotic malignant hepatic
tumor is a less likely diagnostic possibility.
2. 2.8 cm segment of asymmetric enhancing wall thickening in the mid sigmoid colon which is most likely ACUTE DIVERTICULITIS. Colonic adenocarcinoma is considered
less likely. Severe diverticulosis throughout the sigmoid colon.
3. Bilateral sacral insufficiency fractures containing mild bone marrow edema.
4. Severe left lateral recess stenosis, moderate central canal stenosis, and severe left neural foraminal narrowing at L4/L5 which appears unchanged.
5. Severe right lateral recess stenosis, moderate central canal stenosis, and severe right neural foraminal narrowing at L3/L4 which appears unchanged.
6. Severe left-sided facet joint arthrosis at L5/S1 with moderate surrounding bone marrow and soft tissue edema.
7. Mild central canal stenosis at L2/L3 which appears unchanged.
Blood Cx: pending
- Admit to
- Consult IR
- Consult ID
- Consult Surgery
- IV Zosyn appreciate ID input
- NPO at midnight
- supportive care
#diverticulitis
- follow up out patient as recommended with GI
#hyperlipidemia
- continue atorvastatin
#hypothyroidism
- continue levothyroxine
#hypertension
#Osteoporosis with sacral insufficiency fracture
Code status: DNR
DVT prophylaxis: Lovenox Sq
--- NOTE | 2024-08-04 20:20 | W.PN.UPDATE ---
Update Note
Progress Note Update
Patient seen in conjunction with [facility]. I agree the findings and physical. I concur with assessment plan listed otherwise.
Briefly, this 84-year-old female with past medical history significant for hyperlipidemia, hypothyroid who presents to the emergency department from outpatient clinic with an MRI showing intra-abdominal/hepatic abscess.
Patient was recently admitted on 513 with abdominal pain at that time was found to have a mild diverticulitis. She was initially started on Zosyn and ultimately discharged on Augmentin. Prior to that she had a urinary tract infection. She had
pretty elevated leukocytosis started time. After follow-up as an outpatient the patient continued to have leukocytosis. There was concern that she might of had infection from a spinal injection and PMD did a MRI of the lumbar spine which showed
the intra abdominal/hepatic abscess for which she was sent to the emergency department.
Patient denies any history of recent surgical procedure. She reports that during childbirth at 1 point she was told she had hepatitis of childbirth. She denies any recent travel. She does have a well water source at home which she states she
tests regularly. She is a wine drinker drinking about a cup of wine nightly with meals but has no history of liver disease.
She denies any fevers or chills. She reports ongoing abdominal discomfort (denies to colic pain) as well as pain across the lower back.
In the emergency department she was afebrile, blood pressure was 135/70 with a pulse of 86 and she was satting at 7% on room air. Temp was 98.4.
She has a white count of 19.5, hemoglobin and platelets were normal. Electrolytes BUN/creatinine were normal. LFTs were normal. Lipase was normal.
CT of the abdomen showing mass within the lateral segment of the left lobe liver highly suspicious for hepatic abscess. 2 collections along the posterolateral wall of the stomach which may have a thin connection this highly suspicious for
perigastric abscesses. No free air identified. No evidence of biliary ductal abnormalities.
Assessment and plan
Patient with ongoing mild abdominal discomfort, persistent leukocytosis and found to have intra-abdominal abscess on outpatient MRI of the lumbar spine for leukocytosis. CT scan here shows multiple intra-abdominal abscesses suspicious for
perigastric abscess as well as left liver lobe collection suspicious for hepatic abscess. No obvious free air. No bowel obstruction or signs of ischemia. No history of surgical/puncture wound. She is long-standing s/p cholecystectomy without any
evidence of biliary process.
Pyogenic liver abscess suspected - other in the differential is entamoeba given lack of evident predisposition but less likely given perigastric findings. She is hemodynamically stable and non-toxic appearing. Without fevers. Currently on
augmentin at home and s/p zosyn in ED.
- admit to med/surg
- npo after midnight
- possible IR drainage, surgical consult initiated
- blood cultures sent
- consider E. histolytica serologies, ESR to eval possible endocarditis
- IV zosyn continued for now
- ID consultation
- possible IR consultation pending surgery
- gentle hydration after initiation of npo
DVT PPX - SCDs
Code Status - DNR
[2024-08-04 20:30] VITALS: BP 131/72
--- NOTE | 2024-08-04 21:15 | PTCARENOTE ---
Received patient from ED via stretcher. Patient ambulated from stretcher to bed with minimal assistance. AAOx3, denies pain. Oriented patient to room and placed call [place] within reach.
[2024-08-04 21:16] VITALS: BP 145/75; BMI 29.9
[2024-08-04] MEDS: LIPITOR 10 MG PO (21:40)
[2024-08-04] MEDS: MELATONIN 5 MG PO (22:06)
[2024-08-04 23:00] VITALS: BP 133/64
[2024-08-05] VITALS (15 sets, daily range): BP systolic 72–164; BP diastolic 60–104
[2024-08-05] MEDS: ZOSYN 50 IV ×4 (01:39→20:16)
[2024-08-05] MEDS: SYNTHROID 125 MCG PO (05:31)
[2024-08-05 07:15] LABS: Hematocrit 35.9 % (37.0-47.0); Hemoglobin 12.2 g/dL (12.0-16.0); Mean Corpuscular Hgb 29.3 pg (27.0-31.0); Mean Corpuscular Volume 86.3 fL (81.0-99.0); Mean Platelet Volume 9.3 fL (7.4-10.4); Platelet Count 435 10^3/uL (130-400); Red Blood Cell Count 4.16 10^6/uL (4.20-5.40); White Blood Cell Count 15.3 10^3/uL (4.8-10.8)
--- NOTE | 2024-08-05 07:35 | W.PN.HOSP.TC ---
Today's Communication/Plan
-
See plan
Assessment / Plan
Assessment / Plan
Physical Exam
General: Not in acute distress
HEENT: Normocephalic, Moist mucous membranes
Respiratory: Clear to Auscultation Bilaterally
Cardiac: S1/S2 and Regular Rhythm
GI: Soft, Non Tender, Non Distended and Normal Bowel Sounds
Musculoskeletal: No Cyanosis and No Edema
Skin: Warm and Dry.
Neuro: Awake, Alert, AO x 3 and Nonfocal/grossly intact
Psych: Calm and Intact Judgment/Insight
Assessment/Plan
84-year-old female with past medical history significant for hypertension, hyperlipidemia, hypothyroidism and osteoporosis with sacral insufficiency fracture, who presents to the emergency department from outpatient clinic with an MRI showing
intra-abdominal/hepatic abscess. Patient was recently admitted on 07/26/24 to 07/28/24 with abdominal pain at that time was found to have a mild diverticulitis. She was initially started on Zosyn and ultimately discharged on Augmentin. Prior to
that she had a urinary tract infection. She had pretty elevated leukocytosis. After follow-up as an outpatient the patient continued to have leukocytosis. There was concern that she might of had infection from a spinal injection and PMD did a MRI
of the lumbar spine which showed the intra abdominal/hepatic abscess for which she was sent to the emergency department. Patient denies any history of recent surgical procedure. She reports that during childbirth at 1 point she was told she had
hepatitis of childbirth. She denied any recent travel. She does have a well water source at home which she states she tests regularly. She is a wine drinker drinking about a cup of wine nightly with meals but has no history of liver disease. She
denied any fevers or chills, cough, shortness of breath, chest pain, nausea, vomiting, constipation, diarrhea or urinary symptoms. She reports ongoing abdominal discomfort (denies to colic pain) as well as pain across the lower back.
In the emergency department she was afebrile, blood pressure was 135/70 with a pulse of 86 and she was satting at 97% on room air. She had a white count of 19.5. Electrolytes BUN/creatinine were unremarkable. LFTs were normal. Lipase was normal.
CT of the abdomen showed mass within the lateral segment of the left lobe liver highly suspicious for hepatic abscess. 2 collections along the posterolateral wall of the stomach which may have a thin connection this highly suspicious for
perigastric abscesses. No free air identified. No evidence of biliary ductal abnormalities.
Patient with ongoing mild abdominal discomfort, persistent leukocytosis and found to have intra-abdominal abscess on outpatient MRI of the lumbar spine for leukocytosis. CT scan here showed multiple intra-abdominal abscesses suspicious for
perigastric abscess as well as left liver lobe collection suspicious for hepatic abscess. No obvious free air. No bowel obstruction or signs of ischemia. No history of surgical/puncture wound. She is long-standing s/p cholecystectomy without any
evidence of biliary process.
#Liver mass, suspected to be hepatic abscess (less likely to be a centrally necrotic malignant hepatic tumor)
#Suspected perigastric abscesses
#Concern for Diverticulitis on CT Imaging -- less likely to be colon cancer
#Persistent Leukocytosis
- Findings above found on L-Spine MRI since patient was having low back pain
- Recently hospitalized for diverticulitis
- Consult IR for possible drainage
- Consult ID
- Consult Surgery
- IV Zosyn appreciate ID input
- NPO except meds, for now
- Supportive care/IV fluids
- Follow blood cultures
- Dr Finley going to do EGD/EUS around 2 pm today to see if can drain posterior gastric collections
#diverticulitis
- Continue antibiotics
#hyperlipidemia
- continue atorvastatin
#hypothyroidism
- continue levothyroxine
#hypertension
#Osteoporosis with sacral insufficiency fracture
#Status post cholecystectomy with no evidence for biliary ductal dilation on CT Imaging
#Numerous colonic diverticula on CT Imaging
#Bony degenerative changes on CT Imaging
#Appearance of subacute fracture involving the right side of the symphysis pubis and the right inferior pubic ramus, stable appearance
#Suggestion of subacute fracture involving the left sacral ala, stable appearance on CT Imaging
#Bilateral sacral insufficiency fractures containing mild bone marrow edema.
#Severe left lateral recess stenosis, moderate central canal stenosis, and severe left neural foraminal narrowing at L4/L5 which appears unchanged.
#Severe right lateral recess stenosis, moderate central canal stenosis, and severe right neural foraminal narrowing at L3/L4 which appears unchanged.
#Severe left-sided facet joint arthrosis at L5/S1 with moderate surrounding bone marrow and soft tissue edema.
#Mild central canal stenosis at L2/L3 which appears unchanged.
Code status: DNR
DVT prophylaxis: Lovenox Sq
Anticipated Discharge: > 48 hours
Subjective/Interval History
-
Date of Service: August 05, 2024
Patient was seen and examined. She reported no pain or any complaints while laying in bed.
Objective Data
-
Labs:
Laboratory Results
08/05/24
06:10
WBC 15.3 H
Hgb 12.2
Hct 35.9 L
Plt Count 435 H
Sodium Pending
Potassium Pending
Chloride Pending
Carbon Dioxide Pending
BUN Pending
Creatinine Pending
Glucose Pending
Calcium Pending
Vital Signs:
Vital Signs
Temp Pulse Resp BP Pulse Ox
98.4 F 73 16 133/64 97
08/04/24 23:00 08/04/24 23:00 08/04/24 23:00 08/04/24 23:00 08/04/24 23:00
[2024-08-05 07:51] LABS: Blood Urea Nitrogen 9 mg/dl (7-17); Calcium 8.7 mg/dl (8.4-10.2); Carbon Dioxide 27 mmol/L (22-30); Chloride 100 mmol/L (98-107); Estimated Creatinine Clearance 67 ml/min; Glucose 88 mg/dl (70-99); Potassium 4.8 mmol/L (3.5-5.1); Sodium 134 mmol/L (135-145); eGFR > 60.00
[2024-08-05 08:52] LABS: INR 1.14; PT 14.9 Sec (11.4-14.6)
[2024-08-05] MEDS: VISBIOME 1 CAP PO (09:19)
--- NOTE | 2024-08-05 09:28 | W.PN.UPDATE ---
Update Note
Progress Note Update
I personally performed a history and physical exam of the patient and discussed management with the resident. I reviewed the resident's note and agree with the documented findings and plan of care HPI/CC with the following additions/corrections.
HPI:
Ms Hope is an 84 year old female with a history of recurrent UTIs, recent admission here 07/26 for suspected diverticulitis with lower back pain, mild abdominal tenderness, fevers, confusion, CT a/p w/o contrast possible subacute diverticulitis,
she was initially treated with zosyn treated with a 10 day course of augmentin, however in follow up she was noted to have persistent leukocytosis, PCP ordered an MRI lumbar spine showing probable hepatic abscess and and in the ER CT showed hepatic
abscess and possible thin perigastric abscess. Since discharge on 07/28/2024 patient denies any fever, chills, cough, shortness of breath, chest pain, nausea, vomiting, constipation, diarrhea or urinary symptoms. She was referred to the ER for
further evaluation and treatment
Since arrival here she has been afebrile, bp stable, wbc initially 19.5 today 15.3, hgb 12.2, plt 435, L shift present on arrival, na 134, cr 0.6, LFTS wnl, imaging as above, blood cultures x2 in progress, patient has been restarted on zosyn. ID is
consulted for assistance with management.
General: NAD
Respiratory: Clear to auscultation bilaterally, no rales, wheezes or ronchi
Cardiac: S1/S2 and Regular Rhythm, no murmurs gallops or rubs
GI: Soft, Non Tender, Non Distended and Normal Bowel Sounds
Musculoskeletal: No Clubbing, No Cyanosis and No Edema
Skin: Warm and IV/Catheter Site
Neuro: Awake, Alert
Imaging:
Lumbar spine MRI: likely hepatic abscess, acute diverticulitis; bilateral sacral insufficiency fractures, DJD
CT a/p with/without contrast: suspected hepatic abscess, possible thin perigastric abscess
A&P:
Hepatic Abscess
Intraabdominal Abscess
- 08/04 blood cultures x2 in progress; 07/26 blood cultures x2 finalized negative
- ESR and CRP in the AM
- IR is consulted for drain placement into the abscess - routine culture ordered, I added on anaerobic
- would continue zosyn for now, further antibiotic changes after obtaining cultures from the liver
- last colonoscopy was fairly recent - 02/04 - notable for significant diverticulosis, difficulty study due to L sided rigidity, one poly resected, it was felt that risk of further colonoscopies likely outweighed future benefits and I would assess
that to still be the case at this time.
AW
--- NOTE | 2024-08-05 10:06 | CON.GS ---
Addendum entered and electronically signed by Dominguez Zhang MD 08/05/24 12:13:
I saw and examined the patient independently.
The resident's documentation was reviewed and I agree with the note, assessment and plan except where noted below.
Comment: This is an 84-year-old female with upper abdominal discomfort who was found to have a left hepatic lobe abscess as well as two collections along the greater curve of her stomach of unclear etiology.
MRI, CT scan imaging as well as her blood work reviewed
IV antibiotics
IR consult for percutaneous drainage of the left lobe of the liver. We will also asked them about access of the perigastric collections though I suspect GI will be in a better position to endoscopically decompress these. Appreciate both their
recommendations.
N.p.o. for now until GI and IR plans in.
PPI 40 mg IV twice daily
Surgery will continue to follow
I spent 70 minutes in total for the care of this patient today including direct patient care and counseling, reviewing labs, imaging, coordination of care, as well as documentation.
Original Note:
Consultation
-
Date/Time Consultation Requested: 2024 21:08
Date/Time Consultation Performed: 08/05/24 9:30 AM
Requesting Provider: Annalise Amaya
Performing Provider: Dominguez Greer
Reason for Consultation: Hepatic and perigastric Abcesses
Medical History
-
Chief Complaint: Abdominal pain radiating to the back
History of Present Illness:
84-year-old female, DNR, with PMH significant for hyperlipidemia and hypothyroidism presents to the emergency department on 08/04/24 from outpatient clinic with an MRI showing intra-abdominal/hepatic abscess.
The Patient was recently admitted on 07/26 to [place] ED with abdominal pain and diagnosed with mild diverticulitis. Started on Zosyn then discharged on Augmentin. On discharge had elevated leukocytosis then during follow-up as an outpatient 1
week later, the patient continued to have leukocytosis. MRI of the lumbar spine was then performed for suspicion of spinal infection from a previous spinal injection. Incidental findings of intra abdominal/hepatic abscess were found for which she
was sent to the emergency department.
She is complaining of mild epigastric abdominal pain which occasionally radiates to the back.
No recent surgical procedures. However 20 years ago she had her gallbladder removed. No recent travel. She does have a well water source at home which she states she tests regularly. She is a wine drinker drinking about a cup of wine nightly with
meals but has no history of liver disease.
No fever, chills, N/V/D. She reports ongoing abdominal discomfort (denies to colic pain) as well as pain across the lower back.
On admission she was afebrile, and vitals were stable.
Labs on admission showed WBC count of 19.5, hemoglobin and platelets were normal. CMP normal. Lipase was normal.
On admission, CT of the abdomen showing mass within the lateral segment of the left lobe liver highly suspicious for hepatic abscess. 2 collections along the posterolateral wall of the stomach which may have a thin connection this highly suspicious
for perigastric abscesses. No free air identified. No evidence of biliary ductal abnormalities.
Infectious disease, IRAD, and Surgery consulted.
She is currently on Zosyn.
Past Medical History
Past Medical History: Other (See HPI)
Past Surgical History: Cholecystectomy (20 years ago.)
Social History
Tobacco: Non-Smoker
Alcohol: Daily (cup of wine)
Drug: None
Personal:
Living: With Family
Family History
Family History: Reviewed & Not Pertinent
Allergies / Home Medications
Allergy/AdvReac Type Severity Reaction Status Date / Time
aspirin Allergy Hives Verified 08/04/24 13:41
�Medication �Instructions �Recorded �Confirmed �Type
atorvastatin 10 mg tablet 10 mg PO HS High Cholesterol 03/15/24 08/04/24 History
calcium carbonate 500 mg PO NOON Supplement 03/15/24 08/04/24 History
cholecalciferol (vitamin D3) 25 25 mcg PO NOON Supplement 03/15/24 08/04/24 History
mcg (1,000 unit) tablet (Vitamin
D3)
levothyroxine 125 mcg tablet 125 mcg PO DAILY Thyroid 03/15/24 08/04/24 History
Focus Eye 1 cap PO NOON Supplement 04/28/24 08/04/24 History
acetaminophen 500 mg tablet 1,000 mg PO TIDPRN PRN mild pain 04/28/24 08/04/24 History
(Tylenol Extra Strength)
therapeutic multivitamin 1 tab PO NOON Supplement 04/28/24 08/04/24 History
amoxicillin 875 mg-potassium 1 tab PO Q12 10 days #20 tabs 07/28/24 08/04/24 Rx
clavulanate 125 mg tablet
Lactobac no.2-Bifidobac no.1-S. 1 cap PO DAILY Gastrointestinal 08/04/24 08/04/24 History
thermo 112.5 billion cell capsule Issue
(Visbiome)
Review of Systems
-
History Source: Patient
All other systems: Negative unless noted
Abdomen/GI: Abdominal Pain (epigastric)
A 10 point review of systems was completed, and was negative except as per HPI.
Physical Exam
Vital Signs
Temp Pulse Resp BP Pulse Ox
98.2 F 85 18 130/67 94
08/05/24 08:18 08/05/24 08:18 08/05/24 08:18 08/05/24 08:18 08/05/24 08:18
08/04/24 08/05/24 08/06/24
06:59 06:59 06:59
Actual Weight 74.106 kg
Body Mass Index (BMI) 29.9
Lab Results
08/05/24 06:10
08/05/24 06:10
WBC 15.3 10^3/uL (4.8-10.8) H 08/05/24 06:10
Hgb 12.2 g/dL (12.0-16.0) 08/05/24 06:10
Hct 35.9 % (37.0-47.0) L 08/05/24 06:10
Plt Count 435 10^3/uL (130-400) H 08/05/24 06:10
Abs Immat Gran (auto) 0.3 10^3/uL (0-0.05) H 08/04/24 13:47
Neutrophils % 82.6 % (42.2-75.2) H 08/04/24 13:47
Physical Exam
General: Poor Appetite
GI: Soft, Non Distended, Normal Bowel Sounds and Tender (mild epigastric tenderness in the epigastric quadrant )
Data Reviewed
-
CT Scan: Report Reviewed by me and Discussed with Physician
Labs: Labs Reviewed by me and Discussed with Physician
Assessment / Plan
-
84 yo F, DNR, w/ PMh of hypothyroidism and hyperlipidemia with confirmed left lobe hepatic abscess and two perigastric abbesses on abdominal CT scan.
Confirmed left lobe hepatic abscess and two perigastric abbesses on abdominal CT scan
Leucocytosis:
- Labs today show wbc count of 15.3 elevated from 19.5, normal hgb and LFT's
- Physical exam shows mild epigastric tenderness to palpation. Appears comfortable and not ill.
- On CT scan abdomen, Left hepatic abscess is 4.4 cm transverse by 4.2 cm AP by 4.8 cm craniocaudal, two perigastric abscesses are 2.6 cm AP by 2.0 cm transverse by 2.2 cm craniocaudal in the lateral wall of the upper gastric body/ fundus and 4.6 cm
craniocaudal by 2.8 cm transverse by 2.3 cm AP in the posterolateral margin of the gastric body.
- Based on the location of the left hepatic abscesses and size >3 cm, we will consult IR to drain since it is in a accessible location, for the two perigastric abscesses we will discuss with GI to check if they can drain the abscesses via an
endoscopic approach. The abscess in the posterolateral margin of the gastric body is a high risk procedure surgically since it is close to the splenic artery and vein and there will be a high risk of hemorrhage.
- Patient educated on location of abscesses, different approaches to drainage, risk/ benefits.
- Consulted GI
- ID already consulted
- Awaiting blood cultures
- Continue IV zosyn
- Continue NPO
- Started on Protonix 40 mg iv BID for gastric ppx
Hyperlipidemia:
- continue atorvastatin
Hypothyroidism:
- continue levothyroxine
Osteoporosis with sacral insufficiency fracture:
- continue on calcium carbonate and cholecalciferol
PPX- SCD
DNR
--- NOTE | 2024-08-05 10:14 | CON.ID ---
Consultation
-
Date/Time Consultation Requested: 08/04/2024 21:08
Date/Time Consultation Performed: 08/05/2024 10:49
Requesting Provider: Annalise Amaya
Performing Provider: Dariana Kelly MD
Reason for Consultation: Liver abscess
Chief Complaint / Past History
Chief Complaint
Hepatic abscess
History of Present Illness
Mr. Hope is an 84-year-old female with PMH of recurrent UTIs, who presented again to the ED due to an outpatient MRI showing hepatic abscess. Patient was recently admitted here from 07/25 to 07/28 for bilateral low back pain, mild abdominal
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 Patient was treated with Zosyn and discharged on Augmentin but continued to have elevated leukocytosis outpatient. PCP was concerned of epidural infection from a previous spinal injection site and
ordered a lumbar spine MRI which showed intra-abdominal/hepatic abscess with foci of sigmoid diverticulitis. Patient was sent to the hospital for further evaluation and ID was consulted for management.
While in the ED, patient was afebrile, BP 135/70, pulse 86, respiratory 16 and saturating at 97% on room air. Her WBC count was 19.5, with left shift, platelets 460, creatinine 0.5, ALT 34, AST 26, ALP 110. She denies recent travel, recent
diarrhea, family history of liver disease, or IBD. Of note, CT abdomen/pelvis 07/25/2024 reported diverticulosis with possible subtle acute diverticulitis which was again seen on the MRI in the mid sigmoid colon with severe diverticulosis
throughout the sigmoid colon. Since discharge, patient denies fever, chills, nausea, vomiting, diarrhea, abdominal pain, urinary symptoms, chest pain or shortness of breath.
Past History
Past Medical History: HTN, Hypothyroidism and Other (Osteoporosis with sacral insufficiency fracture)
Past Surgical History: Cholecystectomy
Allergy History:
aspirin Allergy (Verified 08/04/24 13:41)
Hives
Medications Reviewed: Yes
Social History
Tobacco: Non-Smoker
Alcohol: None
Drug: None
Personal:
Living: With Family
Employment: Retired
Family History
Family History: Not Pertinent
Review of Systems
Review of Systems
General: Negative Fever or Chills
Cardiovascular: Negative Chest Pain
Respiratory: Negative Dyspnea or Cough
Genital / Urological: Negative Dysuria
Musculoskeletal: Other (Bilateral back pain)
Skin / Hair / Nails: Negative Rash
Neurological: Negative Headache
All systems: All other systems were reviewed and were negative
Vital Signs
Temp Pulse Resp BP Pulse Ox
98.2 F 85 18 130/67 94
08/05/24 08:18 08/05/24 08:18 08/05/24 08:18 08/05/24 08:18 08/05/24 08:18
Physical Exam
Physical Exam
Constitutional: No Acute Distress and Comfortable
Cardiovascular: Regular Rate and S1/S2; Negative Murmur or Rub
Pulmonary: Clear and Symmetric; Negative Wheezes, Rales or Rhonchi
Gastrointestinal: Soft, Non Tender, Non Distended and Normal Bowel Sounds
Genito-Urinary: Negative Suprapubic Tenderness or CVA Tenderness
Skin: Warm and Dry; Negative Rash or Jaundice
Neurological: Awake and AO x 3
Psychological: Calm
Lab / Diagnostic Study Results
08/05/24 06:10
08/05/24 06:10
Abs Immat Gran (auto) 0.3 10^3/uL (0-0.05) H 08/04/24 13:47
Absolute Neuts (auto) 16.1 10^3/uL (1.4-6.5) H 08/04/24 13:47
Absolute Lymphs (auto) 1.9 10^3/uL (1.2-3.4) 08/04/24 13:47
Absolute Monos (auto) 1.0 10^3/uL (0.1-0.6) H 08/04/24 13:47
Absolute Basos (auto) 0.1 10^3/uL (0-0.2) 08/04/24 13:47
Immature Gran % 1.4 % (0-0.5) H 08/04/24 13:47
Neutrophils % 82.6 % (42.2-75.2) H 08/04/24 13:47
Lymphocytes % 9.8 % (20.5-51.1) L 08/04/24 13:47
Monocytes % 5.2 % (1.7-9.3) 08/04/24 13:47
Eosinophils % 0.7 % (0-6) 08/04/24 13:47
Basophils % 0.3 % (0-2) 08/04/24 13:47
PT 14.9 Sec (11.4-14.6) H 08/05/24 08:28
INR 1.14 08/05/24 08:28
Lactic Acid 0.8 mmol/L (0.7-2.0) 08/04/24 16:25
Microbiology Results
Micro:
08/04/24 17:28 Blood Culture - Pending
Blood/Venous
08/04/24 16:25 Blood Culture - Pending
Blood/Venous
Assessment / Plan
84-year-old female with PMH of recurrent UTIs, who presented again to the ED due to an outpatient MRI showing hepatic abscess.
Assessment/plan:
#Hepatic abscess
#Probable perigastric abscesses
#Leukocytosis
#Diverticulitis/diverticulosis
- Recently treated with Zosyn and transitioned to Augmentin.
- Suspect allergies and not covered by previous antibiotics vs ampicillin resistant species.
- Patient with no known biliary disease, recent abdominal surgery, biliary instrumentation, pyogenic abscess less likely.
- IR percutaneous drainage of hepatic abscess with 5 cc bloody purulent fluid.
- Aerobic and anaerobic culture with Gram stain.
- Patient's demographics does not suit E. histolytica infections.
- Blood cultures x 2 08/04 in progress.
- Continue with Zosyn, will add Micafungin 100 mg Q24H for yeast coverage.
- Colonoscopy recently in 2021, recommendations not to repeat given patient's age and absence of advanced adenoma + difficulty with procedure and risk of perforation.
- Perigastric abscess probably not drainable given the size and location, will defer to GI.
- Follow clinically.
Care Review
Plan reviewed with: Physician
[2024-08-05] MEDS: PROTONIX IV 40 MG IV ×2 (10:15→20:16)
[2024-08-05] MEDS: NSS (PRESERVATIVE FREE) 10 ML IV ×2 (10:15→20:16)
[2024-08-05] MEDS: FLUSH (NSS) 2 FLUSH IV (10:16)
--- NOTE | 2024-08-05 10:35 | PTCARENOTE ---
Provided report to Harriet in IR. Pt transported at this time to IR.
--- NOTE | 2024-08-05 11:13 | CON.GI ---
Addendum entered and electronically signed by Tamara Hayes MD 08/05/24 15:27:
I saw and examined the patient.
The DAY CARE DIRECTOR or PA's note was reviewed and I agree with the note.
Comment:84-year-old female with history of hypertension, hypothyroidism, colon polyps, history of recent UTIs treated with antibiotics presenting with upper abdominal discomfort and chills that brought her to the emergency room. She was recently
hospitalized 07/26 for abdominal discomfort and fever, CT scan of the abdomen pelvis showed possible sigmoid diverticulitis, treated with Augmentin. CT scan of the abdomen and pelvis with IV contrast only this time showing 2 collections along the
posterolateral wall of the stomach, possible perigastric abscesses and liver abscess. There is also some stranding of the fat surrounding the sigmoid colon, questionable diverticulitis but no abscess noted. She did have leukocytosis on admission
again, normal LFTs. Currently treated with Zosyn and micafungin.
Denies any significant abdominal pain, nausea or vomiting. No heartburn or trouble swallowing. No constipation, diarrhea, blood or black stool. Colonoscopy in 2021, difficult procedure, sigmoid colon had to be traversed with an upper endoscope
due to luminal narrowing, likely diverticular related, single ascending colon tubular adenoma removed. Procedure was aborted in the ascending colon as patient was retching.
No history of peptic ulcer disease and no previous diverticulitis. No travel outside of the country.
- Unclear etiology for abscesses noted in the liver and perigastric area on imaging,? Sigmoid diverticulitis, treated with antibiotics
NPO for now
IR drainage of hepatic abscess today, await cultures.
Patient also scheduled to have EGD with endoscopy ultrasound to evaluate the gastric abscesses.
Continue broad-spectrum antibiotic coverage with Zosyn.
Agree with continuing PPI.
Will follow-up on the EGD/EUS.
Original Note:
Consultation
-
Date/Time Consultation Requested: 08/05/24 0838
Date/Time Consultation Performed: 08/05/24 1000
Requesting Provider: RIDDHI Metzger
Performing Provider: Dr. Hayes/RIDDHI Melgar
Reason for Consultation: posterior gastric abscess
Medical History
Chief Complaint / HPI
Chief Complaint: abdnormal imaging, back pain
History of Present Illness:
84-year-old female with past medical history of hypothyroidism, hypertension, degenerative disc disease, Pseudomonas UTI, osteoporosis, sacral insufficiency fracture, right flank hematoma 04/2024 felt to be secondary to DVT prophylaxis from pelvic
fracture requiring transfusion 1 unit packed red blood cells, recent hospitalization on 07/26/2024 for chills, leukocytosis of 29,000, febrile up to 103 degrees. And reports at that time of bilateral low back pain and CT of the abdomen pelvis
without contrast showing diverticulosis possible subacute diverticulitis and possible gastritis. Blood cultures x 2 were negative. Influenza and COVID were negative. Patient was treated with Zosyn and switched to Augmentin for 10-day course to
end on 08/03/2024. Patient was discharged to home on 07/28/2024. Patient states that she had upper abdominal discomfort above the umbilicus and wraps around to back. Followed up with PCP. Had persistent leukocytosis. Outpatient PCP ordered lumbar
MRI which showed hepatic abscesses and was referred to the emergency room for further evaluation. CT imaging showed posterior gastric abscesses and we have asked to evaluate for the same. The patient states that she had mid abdominal discomfort
with wrapping around to the back. This always remained the same. She denies any current fevers, chills, nausea, vomiting, melena, hematochezia, dysphagia or odynophagia. No early satiety or unintentional weight loss. She has had no change in her
bowels. She denies any aspirin, NSAIDs. She does not take any PPI. She does not recall eating anything unusual. No recent travel. She does not smoke. She does not drink any alcohol. Patient has been placed back on Zosyn. She is also on
pantoprazole 40 mg IV twice daily now. Currently WBC 15.3 down from 19.5, hemoglobin 12.2, hematocrit 35.9, platelets 435, PT 14.9, INR 1.14, sodium 134, potassium 4.8, BUN 9, creatinine 0.6, glucose 88, total bilirubin 0.5, AST 26, ALT 34, alk
phos 110, lipase 82. CT of the abdomen and pelvis with and without IV contrast shows' In the lateral segment of the left lobe of the liver, there is a focal mass with low-density central region and irregular enhancing border, with progressive
slight centripetal filling of enhancement on delayed images, but persistence of cystic central component. This mass measures 4.4 cm transverse by 4.2 cm AP by 4.8 cm craniocaudal. The appearance is highly suggestive of a hepatic abscess, as
suggested on MRI of the lumbar spine performed yesterday.'... 'Additionally, there is a lobulated low-density collection which is centered in the lateral wall of the upper gastric body/fundus this collection is seen on image 16 of series 301, and
measures approximately 2.6 cm AP by 2.0 cm transverse by 2.2 cm craniocaudal. This focal collection appears to have a thin connection to a second collection more inferiorly along the posterolateral margin of the gastric body. This second collection
measures 4.6 cm craniocaudal by 2.8 cm transverse by 2.3 cm AP. These collections do appear to be centered in the gastric wall, and likely represent perigastric abscesses. Abscesses in the gastric wall are relatively rare, sometimes seen after
endoscopic procedures or surgery, although I do not have a history of recent endoscopic procedure or surgery in this patient.'(Full report will be detailed below).
Past Medical History
Past Medical History: Other (Hypothyroidism, hypertension, degenerative disc disease, Pseudomonas UTI, osteoporosis, sacral insufficiency fracture, right flank hematoma, diverticulitis, colon polyp,)
Past Surgical History: Other (Cholecystectomy, cataracts, carpal tunnel release, bilateral foot surgeries, LEEP, L4-L5 TOSHA, L5 TFESI)
Social History
Tobacco: Non-Smoker
Alcohol: None
Personal:
Living: With Family
Employment: Retired
Family History
Family History: Other (Father with possible history of pancreatic cancer, otherwise no family history of gastrointestinal malignancies or IBD)
Allergies / Home Medications
Allergy/AdvReac Type Severity Reaction Status Date / Time
aspirin Allergy Hives Verified 08/04/24 13:41
�Medication �Instructions �Recorded
atorvastatin 10 mg tablet 10 mg PO HS High Cholesterol 03/15/24
calcium carbonate 500 mg PO NOON Supplement 03/15/24
cholecalciferol (vitamin D3) 25 25 mcg PO NOON Supplement 03/15/24
mcg (1,000 unit) tablet (Vitamin
D3)
levothyroxine 125 mcg tablet 125 mcg PO DAILY Thyroid 03/15/24
Focus Eye 1 cap PO NOON Supplement 04/28/24
acetaminophen 500 mg tablet 1,000 mg PO TIDPRN PRN mild pain 04/28/24
(Tylenol Extra Strength)
therapeutic multivitamin 1 tab PO NOON Supplement 04/28/24
amoxicillin 875 mg-potassium 1 tab PO Q12 10 days #20 tabs 07/28/24
clavulanate 125 mg tablet
Lactobac no.2-Bifidobac no.1-S. 1 cap PO DAILY Gastrointestinal 08/04/24
thermo 112.5 billion cell capsule Issue
(Visbiome)
Review of Systems
-
All other systems: A 12 pt ROS was Negative except as stated above in HPI
Vital Signs
Temp Pulse Resp BP Pulse Ox
97.9 F 72 47 103/81 96
08/05/24 11:01 08/05/24 11:01 08/05/24 11:01 08/05/24 11:01 08/05/24 11:01
Physical Exam
Exam
General: No Apparent Distress
HEENT: Anicteric
Respiratory: Clear
Cardiac: Regular Rhythm
GI: Soft, Non Tender, Non Distended and Normal Bowel Sounds
Musculoskeletal: No Edema
Skin: Warm and Dry
Neuro: AO x 3
Psych: Calm
Results
WBC 15.3 10^3/uL (4.8-10.8) H 08/05/24 06:10
Hgb 12.2 g/dL (12.0-16.0) 08/05/24 06:10
Hct 35.9 % (37.0-47.0) L 08/05/24 06:10
MCV 86.3 fL (81.0-99.0) 08/05/24 06:10
Plt Count 435 10^3/uL (130-400) H 08/05/24 06:10
Absolute Neuts (auto) 16.1 10^3/uL (1.4-6.5) H 08/04/24 13:47
PT 14.9 Sec (11.4-14.6) H 08/05/24 08:28
INR 1.14 08/05/24 08:28
Sodium 134 mmol/L (135-145) L 08/05/24 06:10
Potassium 4.8 mmol/L (3.5-5.1) 08/05/24 06:10
Chloride 100 mmol/L (98-107) 08/05/24 06:10
Carbon Dioxide 27 mmol/L (22-30) 08/05/24 06:10
BUN 9 mg/dl (7-17) 08/05/24 06:10
Creatinine 0.6 mg/dL (0.6-1.0) 08/05/24 06:10
Calcium 8.7 mg/dl (8.4-10.2) 08/05/24 06:10
Total Bilirubin 0.5 mg/dl (0.2-1.3) 08/04/24 13:47
AST 26 U/L (14-36) 08/04/24 13:47
ALT 34 U/L (0-35) 08/04/24 13:47
Alkaline Phosphatase 110 U/L (38-126) 08/04/24 13:47
Lipase 82 U/L (23-300) 08/04/24 13:47
Diagnostic Image Results:
CT of the abdomen and pelvis with and without IV contrast 08/04/24:
Initial unenhanced CT images of the abdomen and pelvis. With intravenous contrast, portal venous phase and delayed equilibrium phase imaging of the abdomen and pelvis is performed.
Mild to moderate dependent atelectasis in the visualized lower lungs. There is no significant pleural effusion and no significant pericardial effusion.
In the lateral segment of the left lobe of the liver, there is a focal mass with low-density central region and irregular enhancing border, with progressive slight centripetal filling of enhancement on delayed images, but persistence of cystic
central component. This mass measures 4.4 cm transverse by 4.2 cm AP by 4.8 cm craniocaudal. The appearance is highly suggestive of a hepatic abscess, as suggested on MRI of the lumbar spine performed yesterday.
The patient is status post cholecystectomy with no evidence for biliary ductal dilation. No other hepatic lesions are identified. The main portal vein and its branches appear patent as well as the SMV and the splenic vein.
Additionally, there is a lobulated low-density collection which is centered in the lateral wall of the upper gastric body/fundus this collection is seen on image 16 of series 301, and measures approximately 2.6 cm AP by 2.0 cm transverse by 2.2 cm
craniocaudal. This focal collection appears to have a thin connection to a second collection more inferiorly along the posterolateral margin of the gastric body. This second collection measures 4.6 cm craniocaudal by 2.8 cm transverse by 2.3 cm AP.
These collections do appear to be centered in the gastric wall, and likely represent perigastric abscesses. Abscesses in the gastric wall are relatively rare, sometimes seen after endoscopic procedures or surgery, although I do not have a history of
recent endoscopic procedure or surgery in this patient.
Within the fat of the anterior midline abdomen, adjacent to the margin of the lateral segment of the left lobe liver, there is a small focus of soft tissue/fluid density, probably a small phlegmons/microabscesses within the anterior fat anterior to
the stomach, as seen on images 30 and 31 of series 301.
Although the collections in the stomach extends close to the pancreas, they do not appear to originate from the pancreas. No gross abnormality of the pancreas itself.
Both adrenal glands appear within normal limits. There are central parapelvic renal cysts on the left. No other focal abnormality kidneys. The visualized pelvicalyceal systems and ureters appear normal. No focal abnormality of the urinary bladder.
There are some vascular calcifications within the uterus with no evidence for uterine mass. Both ovaries appear within normal limits.
Colonic diverticula are noted, greatest in the region of the sigmoid colon. There is some stranding of the fat surrounding the sigmoid colon, and findings would be considered suggestive of diverticulitis, without evidence of an abscess.
No free intraperitoneal air is identified.
Numerous diverticula scattered throughout the rest of the colon. The appendix appears normal.
Moderate vascular calcification with no aortic aneurysm.
Mild diffuse subcutaneous edema.
Mild to moderate levoconvex scoliosis centered at L3-4. Changes of degenerative disc disease, greatest from L3-4 through L5-S1 with multilevel vacuum disc phenomenon. Mild degenerative change of both hip joints.
Subacute fracture involving the right side of the symphysis pubis and the right inferior pubic ramus, stable from examination of July 25, 2024. There is also subtle sclerosis involving the lateral left sacral ala, stable, probably subacute sacral
fracture.
Lumbar spine MRI 08/03/2024:
1. 5.6 cm irregularly-shaped rim-enhancing mass in the left lobe of the liver. A HEPATIC ABSCESS is considered most likely. A centrally necrotic malignant hepatic tumor is a less likely diagnostic possibility.
2. 2.8 cm segment of asymmetric enhancing wall thickening in the mid sigmoid colon which is most likely ACUTE DIVERTICULITIS. Colonic adenocarcinoma is considered less likely. Severe diverticulosis throughout the sigmoid colon.
3. Bilateral sacral insufficiency fractures containing mild bone marrow edema.
4. Severe left lateral recess stenosis, moderate central canal stenosis, and severe left neural foraminal narrowing at L4/L5 which appears unchanged.
5. Severe right lateral recess stenosis, moderate central canal stenosis, and severe right neural foraminal narrowing at L3/L4 which appears unchanged.
6. Severe left-sided facet joint arthrosis at L5/S1 with moderate surrounding bone marrow and soft tissue edema.
7. Mild central canal stenosis at L2/L3 which appears unchanged.
CT abdomen and pelvis without IV contrast or oral contrast 07/25/2024:
No renal or ureteral calculus. No bladder calculus. No hydronephrosis or obstructive uropathy. Left renal parapelvic cysts.
Diverticulosis. Possible subtle acute diverticulitis in the sigmoid colon in the proper clinical setting.
Mild soft tissue stranding associated with the gastric margin, raising the possibility of gastritis in the proper clinical setting.
No bowel obstruction. Right inguinal hernia containing short segment of small bowel without wall thickening or proximal obstruction.
Posterior bibasilar atelectasis. Posterolateral right lower lobe subpleural nodule appears slightly larger than on prior examination, likely accentuated by adjacent atelectasis.
Prior GI Procedures:
EGD: Never had
Colonoscopy: 01/16/2022 (Dr. Pal) - Hemorrhoids found on perianal exam.
- Significant diverticulosis with left sided rigidity
making colonoscopy very difficult. Needed the EGD
scope to get through safely.
- One 5 mm polyp in the ascending colon, removed with
a cold snare. Resected and retrieved.
- Otherwise, normal to the ascending. Unable to
visualize the cecum well.
COLO 01/04/2015 (Dr. Georges) - The examined portion of the ileum was normal.
- One 5 mm polyp in the mid ascending colon. Resected
and retrieved.
- One 4 mm polyp at 25 cm proximal to the anus. Resected
and retrieved.
- Moderate diverticulosis in the sigmoid colon. There
was narrowing of the colon in association with the
diverticular opening.
- Non-bleeding external internal hemorrhoids.
COLO 07/18/2010 (Dr. Justice) - Preparation of the colon was fair.
- One 3 mm polyp in the cecum. Resected and retrieved.
- Lipomatous ileocecal valve. This was biopsied.
- Diverticulosis sigmoid colon. Thickened folds seen in
a long segement of sigmoid in the area of diverticulosis
with some mild erythema and whitish specks. Multiple
biopsies obtained
- Internal hemorrhoids.
Assessment / Plan
-
84-year-old female with past medical history of hypothyroidism, hypertension, degenerative disc disease, Pseudomonas UTI, osteoporosis, sacral insufficiency fracture, right flank hematoma 04/2024 felt to be secondary to DVT prophylaxis from pelvic
fracture requiring transfusion 1 unit packed red blood cells, recent hospitalization on 07/26/2024 for chills, leukocytosis of 29,000, febrile up to 103 degrees. And reports at that time of bilateral low back pain and CT of the abdomen pelvis
without contrast showing diverticulosis possible subacute diverticulitis and possible gastritis. Blood cultures x 2 were negative. Influenza and COVID were negative. Patient was treated with Zosyn and switched to Augmentin for 10-day course to
end on 08/03/2024. Patient was discharged to home on 07/28/2024. Patient states that she had upper abdominal discomfort above the umbilicus and wraps around to back. Followed up with PCP. Had persistent leukocytosis. Outpatient PCP ordered lumbar
MRI which showed hepatic abscesses and was referred to the emergency room for further evaluation. CT imaging showed posterior gastric abscesses and we have asked to evaluate for the same. CT of the abdomen and pelvis with and without IV contrast
performed on 08/04/2024 shows 'there is a lobulated low-density collection which is centered in the lateral wall of the upper gastric body/fundus this collection is seen on image 16 of series 301, and measures approximately 2.6 cm AP by 2.0 cm
transverse by 2.2 cm craniocaudal. This focal collection appears to have a thin connection to a second collection more inferiorly along the posterolateral margin of the gastric body. This second collection measures 4.6 cm craniocaudal by 2.8 cm
transverse by 2.3 cm AP. These collections do appear to be centered in the gastric wall, and likely represent perigastric abscesses'. Additionally, 'In the lateral segment of the left lobe of the liver, there is a focal mass with low-density
central region and irregular enhancing border, with progressive slight centripetal filling of enhancement on delayed images, but persistence of cystic central component. This mass measures 4.4 cm transverse by 4.2 cm AP by 4.8 cm craniocaudal. The
appearance is highly suggestive of a hepatic abscess, as suggested on MRI of the lumbar spine performed yesterday.'
Impression:
Posterior Gastric abscesses:
--lobulated low-density collection, centered in the lateral wall of the upper gastric body/fundus 2.6 cm AP by 2.0 cm transverse by 2.2 cm
--posterolateral margin of the gastric body, measuring 4.6 cm craniocaudal by 2.8 cm transverse by 2.3 cm
Hepatic abscess
--4.4 cm transverse by 4.2 cm AP by 4.8 cm, lateral segment of the left lobe of the liver
MRI findings of 2.8 cm segment of asymmetric enhancing wall thickening in the mid sigmoid colon which is most likely ACUTE DIVERTICULITIS. Colonic adenocarcinoma is considered less likely. Severe diverticulosis throughout the sigmoid colon.
--last colonoscopy 01/16/2022.
Plan:
-IR for liver abscess drainage, discussed with Dr. Naylor
-NPO
-Continue Pantoprazole 40 mg IV BID
-Continue IV Zosyn
-Trend labs
-Dr. Finley to review CT for possible EGD with gastric abscess drainage. Discussed with patient/ at bedside along with Dr. Hayes.
-Consent obtained in the event that can be performed.
-Further recommendations to be forthcoming.
-
-
Thank you for consultation and allowing me to participate in the patient's care. Please call the labor economics professor GI physician during the after hours with any questions or concerns.
--- NOTE | 2024-08-05 12:08 | W.PN.UPDATE ---
Update Note
Progress Note Update
US guided drainage catheter placed, yielding 5 cc of bloody purulent fluid. Sent for laboratory analysis.
--- NOTE | 2024-08-05 12:40 | PTCARENOTE ---
Pt back to rm post IR, Pt AAOx3, slight discomfort over drain site, lungs CTA, HR reg, vital signs noted. [place] drain of upper (mid) abdomen, draining sanguinous drainage.
[2024-08-05] MEDS: TYLENOL 650 MG PO (13:17)
[2024-08-05] MEDS: OSCAL CAL 500 PO (13:44)
[2024-08-05] MEDS: THERAGRAN PO (13:44)
[2024-08-05] MEDS: VITAMIN D3 (cholecalciferol) PO (13:44)
--- NOTE | 2024-08-05 14:14 | PTCARENOTE ---
Provided report to GI lab. Pt transported at this time via stretcher to GI lab.
[2024-08-05 15:01] LABS: Body Fluid Granulocytes 100 %
[2024-08-05 15:03] LABS: Body Fluid Second Tech DW
--- NOTE | 2024-08-05 16:51 | PTCARENOTE ---
Pt returned from GI Lab, AOx3 but drowsy. Family at bedside. VSS.
[2024-08-05] MEDS: MYCAMINE 105 MG IV (16:56)
[2024-08-05] MEDS: NON-FORMULARY ITEM PO (17:04)
[2024-08-05] MEDS: LOVENOX 40 MG SC (17:21)
--- NOTE | 2024-08-05 18:42 | FALL ---
Description of Fall:
Pt fell while getting off the toilet in the bathroom. states she hit her head. fall heard, not witnessed. Pt assisted by staff to her feet, able to walk to bed w/ assistance. VSS.
Injuries Noted:
No visible injuries. Pt states the back of her head is sore
Action Taken:
VS taken, body observed, Neuro check done.
Name of Provider Notified: Dr Sanchez notified. Head CT ordered.
[2024-08-05] MEDS: FLUSH (NSS) 3 FLUSH IV (20:17)
[2024-08-05] MEDS: LIPITOR 10 MG PO (21:12)
[2024-08-05] MEDS: MELATONIN 5 MG PO (21:13)
[2024-08-06] MEDS: TYLENOL 650 MG PO (00:54)
[2024-08-06] MEDS: FLUSH (NSS) 2 FLUSH IV ×2 (02:27→08:55)
[2024-08-06] MEDS: ZOSYN 50 IV ×4 (02:27→20:31)
[2024-08-06] MEDS: SYNTHROID 125 MCG PO (05:46)
[2024-08-06 06:06] LABS: Hematocrit 34.6 % (37.0-47.0); Hemoglobin 11.7 g/dL (12.0-16.0); Mean Corp Hgb Conc. 33.8 g/dL (33.0-37.0); Mean Corpuscular Hgb 29.2 pg (27.0-31.0); Mean Corpuscular Volume 86.3 fL (81.0-99.0); Mean Platelet Volume 9.1 fL (7.4-10.4); Platelet Count 414 10^3/uL (130-400); Red Blood Cell Count 4.01 10^6/uL (4.20-5.40); Red Cell Dist. Width 13.1 % (11.5-14.5)
[2024-08-06 06:35] LABS: ALT (SGPT) 24 U/L (0-35); AST (SGOT) 23 U/L (14-36); Alkaline Phosphatase 92 U/L (38-126); Blood Urea Nitrogen 7 mg/dl (7-17); Calcium 8.5 mg/dl (8.4-10.2); Carbon Dioxide 27 mmol/L (22-30); Chloride 102 mmol/L (98-107); Direct Bilirubin 0.2 mg/dl (0.0-0.4); Estimated Creatinine Clearance 67 ml/min; Glucose 101 mg/dl (70-99); Magnesium 1.9 mg/dl (1.6-2.3); Potassium 4.3 mmol/L (3.5-5.1); Sodium 134 mmol/L (135-145); Total Bilirubin 0.7 mg/dl (0.2-1.3); Total Protein 5.6 g/dl (6.3-8.2); Triglycerides 71 mg/dl (10-149); eGFR > 60.00
[2024-08-06 06:40] LABS: Prealbumin (Transthyretin) 7.6 mg/dl (17.6-36.0)
[2024-08-06 07:21] VITALS: BP 118/65
--- NOTE | 2024-08-06 07:30 | W.PN.HOSP.TC ---
Today's Communication/Plan
-
Continue antibiotics and antifungal
Diet advanced to full liquids
Follow cultures
Assessment / Plan
Assessment / Plan
Physical Exam
General: Not in acute distress
HEENT: Normocephalic, Moist mucous membranes
Respiratory: Clear to Auscultation Bilaterally
Cardiac: S1/S2 and Regular Rhythm
GI: Soft, Non Tender, Non Distended and Normal Bowel Sounds
Musculoskeletal: No Cyanosis and No Edema
Skin: Warm and Dry.
Neuro: Awake, Alert, AO x 3 and Nonfocal/grossly intact
Psych: Calm and Intact Judgment/Insight
Assessment/Plan
84-year-old female with past medical history significant for hypertension, hyperlipidemia, hypothyroidism and osteoporosis with sacral insufficiency fracture, who presents to the emergency department from outpatient clinic with an MRI showing
intra-abdominal/hepatic abscess. Patient was recently admitted on 07/26/24 to 07/28/24 with abdominal pain at that time was found to have a mild diverticulitis. She was initially started on Zosyn and ultimately discharged on Augmentin. Prior to
that she had a urinary tract infection. She had pretty elevated leukocytosis. After follow-up as an outpatient the patient continued to have leukocytosis. There was concern that she might of had infection from a spinal injection and PMD did a MRI
of the lumbar spine which showed the intra abdominal/hepatic abscess for which she was sent to the emergency department. Patient denies any history of recent surgical procedure. She reports that during childbirth at 1 point she was told she had
hepatitis of childbirth. She denied any recent travel. She does have a well water source at home which she states she tests regularly. She is a wine drinker drinking about a cup of wine nightly with meals but has no history of liver disease. She
denied any fevers or chills, cough, shortness of breath, chest pain, nausea, vomiting, constipation, diarrhea or urinary symptoms. She reports ongoing abdominal discomfort (denies to colic pain) as well as pain across the lower back.
In the emergency department she was afebrile, blood pressure was 135/70 with a pulse of 86 and she was satting at 97% on room air. She had a white count of 19.5. Electrolytes BUN/creatinine were unremarkable. LFTs were normal. Lipase was normal.
CT of the abdomen showed mass within the lateral segment of the left lobe liver highly suspicious for hepatic abscess. 2 collections along the posterolateral wall of the stomach which may have a thin connection this highly suspicious for
perigastric abscesses. No free air identified. No evidence of biliary ductal abnormalities.
Patient with ongoing mild abdominal discomfort, persistent leukocytosis and found to have intra-abdominal abscess on outpatient MRI of the lumbar spine for leukocytosis. CT scan here showed multiple intra-abdominal abscesses suspicious for
perigastric abscess as well as left liver lobe collection suspicious for hepatic abscess. No obvious free air. No bowel obstruction or signs of ischemia. No history of surgical/puncture wound. She is long-standing s/p cholecystectomy without any
evidence of biliary process.
#Liver mass, suspected to be hepatic abscess (less likely to be a centrally necrotic malignant hepatic tumor)
#Suspected perigastric abscesses
#Concern for Diverticulitis on CT Imaging -- less likely to be colon cancer
#Persistent Leukocytosis
- Findings above found on L-Spine MRI since patient was having low back pain
- Recently hospitalized for diverticulitis
- IR drainage of liver abscess drainage performed 08/05/24
- Consult ID
- Consult Surgery
- Continue IV Zosyn and Micafungin. Appreciate ID input
- Diet advanced from clear liquid diet to full liquid diet
- Continue Pantoprazole 40 mg IV BID
- Supportive care/IV fluids
- Follow blood cultures
- Dr Tushar gao performed EGD/EUS on 08/06/24 -- await cultures and sensitivities from the abscess that was drained
- Repeat imaging early next week to evaluate if there is any change in the size of the abscesses both in the perigastric/hepatic areas.
- Continue IR drain
#Fall on 08/06/24
-Likely from post-anesthesia state
-Had head impact; CT Head showed no acute changes
#diverticulitis
- Continue antibiotics
#hyperlipidemia
- continue atorvastatin
#hypothyroidism
- continue levothyroxine
#hypertension
#Osteoporosis with sacral insufficiency fracture
#Status post cholecystectomy with no evidence for biliary ductal dilation on CT Imaging
#Numerous colonic diverticula on CT Imaging
#Bony degenerative changes on CT Imaging
#Appearance of subacute fracture involving the right side of the symphysis pubis and the right inferior pubic ramus, stable appearance
#Suggestion of subacute fracture involving the left sacral ala, stable appearance on CT Imaging
#Bilateral sacral insufficiency fractures containing mild bone marrow edema.
#Severe left lateral recess stenosis, moderate central canal stenosis, and severe left neural foraminal narrowing at L4/L5 which appears unchanged.
#Severe right lateral recess stenosis, moderate central canal stenosis, and severe right neural foraminal narrowing at L3/L4 which appears unchanged.
#Severe left-sided facet joint arthrosis at L5/S1 with moderate surrounding bone marrow and soft tissue edema.
#Mild central canal stenosis at L2/L3 which appears unchanged.
Code status: DNR
DVT prophylaxis: Lovenox Sq
Anticipated Discharge: > 48 hours
Subjective/Interval History
-
Date of Service: August 06, 2024
Patient was seen and examined. She was doing okay this morning after a fall last night.
Objective Data
-
Labs:
Laboratory Results
25 08/06/24
05:30 05:31
WBC 15.0 H
Hgb 11.7 L
Hct 34.6 L
Plt Count 414 H
Sodium 134 L
Potassium 4.3
Chloride 102
Carbon Dioxide 27
BUN 7
Creatinine 0.6
Glucose 101 H
Calcium 8.5
Total Bilirubin 0.7
AST 23
ALT 24
Alkaline Phosphatase 92
Vital Signs:
Vital Signs
Temp Pulse Resp BP Pulse Ox
98.2 F 101 16 153/83 91
08/05/24 23:45 08/05/24 23:45 08/05/24 23:45 08/05/24 23:45 08/05/24 23:45
I&O
08/05/24 08/06/24 08/07/24
06:59 06:59 06:59
Intake Total 360 / 360
Output Total
Balance 340 / 340
[2024-08-06] MEDS: NSS (PRESERVATIVE FREE) 10 ML IV ×2 (08:53→20:31)
[2024-08-06] MEDS: PROTONIX IV 40 MG IV ×2 (08:53→20:30)
[2024-08-06] MEDS: VISBIOME 1 CAP PO (08:55)
[2024-08-06 09:17] LABS: Erythrocyte Sed Rate 68 mm/hour (0-20)
--- NOTE | 2024-08-06 09:19 | W.PN.GI.CBS2 ---
Today's Communication / Plan
-
Plan:
-IR drainage of liver abscess drainage performed 08/05
-Tolerating clear liquid diet, will advance to full liquid diet for dinner.
-Continue Pantoprazole 40 mg IV BID
-Continue IV Zosyn
-Trend labs
-Await cultures and sensitivities from the abscess that was drained during endoscopy ultrasound, will tailor antibiotics based on the sensitivities.
Repeat imaging early next week to evaluate if there is any change in the size of the abscesses both in the perigastric/hepatic areas.
Unclear etiology/source for these abscesses in the liver and perigastric area. Questionable diverticulitis, unclear if there is true diverticulitis, no evidence of biliary stones, patient is status postcholecystectomy.
Will follow-up
Assessment / Plan
-
84-year-old female with past medical history of hypothyroidism, hypertension, degenerative disc disease, Pseudomonas UTI, osteoporosis, sacral insufficiency fracture, right flank hematoma 04/2024 felt to be secondary to DVT prophylaxis from pelvic
fracture requiring transfusion 1 unit packed red blood cells, recent hospitalization on 07/26/2024 for chills, leukocytosis of 29,000, febrile up to 103 degrees. And reports at that time of bilateral low back pain and CT of the abdomen pelvis
without contrast showing diverticulosis possible subacute diverticulitis and possible gastritis. Blood cultures x 2 were negative. Influenza and COVID were negative. Patient was treated with Zosyn and switched to Augmentin for 10-day course to
end on 08/03/2024. Patient was discharged to home on 07/28/2024. Patient states that she had upper abdominal discomfort above the umbilicus and wraps around to back. Followed up with PCP. Had persistent leukocytosis. Outpatient PCP ordered lumbar
MRI which showed hepatic abscesses and was referred to the emergency room for further evaluation. CT imaging showed posterior gastric abscesses and we have asked to evaluate for the same. CT of the abdomen and pelvis with and without IV contrast
performed on 08/04/2024 shows 'there is a lobulated low-density collection which is centered in the lateral wall of the upper gastric body/fundus this collection is seen on image 16 of series 301, and measures approximately 2.6 cm AP by 2.0 cm
transverse by 2.2 cm craniocaudal. This focal collection appears to have a thin connection to a second collection more inferiorly along the posterolateral margin of the gastric body. This second collection measures 4.6 cm craniocaudal by 2.8 cm
transverse by 2.3 cm AP. These collections do appear to be centered in the gastric wall, and likely represent perigastric abscesses'. Additionally, 'In the lateral segment of the left lobe of the liver, there is a focal mass with low-density
central region and irregular enhancing border, with progressive slight centripetal filling of enhancement on delayed images, but persistence of cystic central component. This mass measures 4.4 cm transverse by 4.2 cm AP by 4.8 cm craniocaudal. The
appearance is highly suggestive of a hepatic abscess, as suggested on MRI of the lumbar spine performed yesterday.'
Impression:
Posterior Gastric abscesses:
--lobulated low-density collection, centered in the lateral wall of the upper gastric body/fundus 2.6 cm AP by 2.0 cm transverse by 2.2 cm
--posterolateral margin of the gastric body, measuring 4.6 cm craniocaudal by 2.8 cm transverse by 2.3 cm
Hepatic abscess
--4.4 cm transverse by 4.2 cm AP by 4.8 cm, lateral segment of the left lobe of the liver
MRI findings of 2.8 cm segment of asymmetric enhancing wall thickening in the mid sigmoid colon which is most likely ACUTE DIVERTICULITIS. Colonic adenocarcinoma is considered less likely. Severe diverticulosis throughout the sigmoid colon.
--last colonoscopy 01/16/2022.
08/05/24-EUS- - Extrinsic compression in the cardia.- A lesion was found in the left lobe of the liver. The lesion was anechoic, hypoechoic and heterogenous. lesion measured 38 mm.
- A complex cystic lesion vs abscess was seen near the pancreatic body. Fine needle aspiration for fluid performed. - Pancreatic parenchymal abnormalities consisting of
diffusely increased echogenicity were noted in the pancreatic head and pancreatic body. - Main pancreatic duct (MPD) diameter was measured. Endosonographically, the MPD had a normal appearance.
- There was no sign of significant pathology in the common bile duct.
Plan:
-IR drainage of liver abscess drainage performed 08/05
-Tolerating clear liquid diet, will advance to full liquid diet for dinner.
-Continue Pantoprazole 40 mg IV BID
-Continue IV Zosyn
-Trend labs
-Await cultures and sensitivities from the abscess that was drained during endoscopy ultrasound, will tailor antibiotics based on the sensitivities.
Repeat imaging early next week to evaluate if there is any change in the size of the abscesses both in the perigastric/hepatic areas.
Unclear etiology/source for these abscesses in the liver and perigastric area. Questionable diverticulitis, unclear if there is true diverticulitis, no evidence of biliary stones, patient is status postcholecystectomy.
Will follow-up
Subjective
Subjective
Date of Service: August 06, 2024
Patient reports some discomfort in the upper abdomen but no nausea or vomiting.
No fevers or chills. Had soft brown bowel movement this morning. Tolerating clear liquid diet.
Objective
Data Reviewed
Laboratory Data:
Laboratory Results
08/06/24 05:30
08/06/24 05:31
Laboratory Results
PT 14.9 Sec (11.4-14.6) H 08/05/24 08:28
INR 1.14 08/05/24 08:28
Phosphorus 4.0 mg/dl (2.5-4.5) 08/06/24 05:31
Magnesium 1.9 mg/dl (1.6-2.3) 08/06/24 05:31
Total Bilirubin 0.7 mg/dl (0.2-1.3) 08/06/24 05:31
AST 23 U/L (14-36) 08/06/24 05:31
ALT 24 U/L (0-35) 08/06/24 05:31
Alkaline Phosphatase 92 U/L (38-126) 08/06/24 05:31
Lipase 82 U/L (23-300) 08/04/24 13:47
Vital Signs and I&O:
Vital Signs
Temp Pulse Resp BP Pulse Ox
97.9 F 82 18 118/65 94
08/06/24 07:21 08/06/24 07:21 08/06/24 07:21 08/06/24 07:21 08/06/24 07:21
I&O
08/05/24 08/06/24 08/07/24
06:59 06:59 06:59
Intake Total 360 / 360
Output Total /
Balance 340 / 340
Physical Exam
Physical Exam
GI: Soft, Non Distended and Tender (Discomfort on palpation in the upper abdomen)
--- NOTE | 2024-08-06 09:30 | PTCARENOTE ---
Pt stated this morning that the left side of her face, at jaw line was tender, no bruising or edema noted. She thinks when she fell she may have hit the side of her face last night. Made Dr. Sweeney aware.
--- NOTE | 2024-08-06 10:08 | W.PN.ID1 ---
Date of Service
Date of Service: August 06, 2024
Today's Communication
- would continue zosyn and micafungin - further antibiotic changes pending cultures from the liver and peripancreatic area
Assessment / Plan
Hepatic Abscess
Intraabdominal Abscess - possibly related to pancrease or gastric body; no perforation was found on EGD
- 08/04 blood cultures x2 in progress; / blood cultures x2 finalized negative
- 08/05 - aerobic and anaerobic culture of fluid from the hepatic abscess in progress, fluid was purulent; gram stain no organisms
- 08/05 - aerobic culture from the perigastric/pancreatic fluid in progress
- ESR 68 and CRP 131
- hepatic drain put out 20 further ccs of fluid yesterday - continue to follow
- would continue zosyn and micafungin - further antibiotic changes pending cultures from the liver and peripancreatic area
- last colonoscopy was fairly recent - 02/04 - notable for significant diverticulosis, difficulty study due to L sided rigidity, one poly resected, it was felt that risk of further colonoscopies likely outweighed future benefits and I would assess
that to still be the case at this time.
Chief Complaint
-: Other (hepatic abscess, diverticulosis with recent diverticulitis, possible gastric abscess)
Subjective / Review of Systems
afebrile
bp stabletake for EGD yesterday
complex cystic lesion near the pancreatic body - aspiration preformed
abdomen only tender with pressure, feels well overall
Vital Signs / Physical Exam
Vital Signs
Vital Signs
Temp Pulse Resp BP Pulse Ox
97.9 F 82 18 118/65 94
08/06/24 07:21 08/06/24 07:21 08/06/24 07:21 08/06/24 07:21 08/06/24 07:21
Physical Exam
Constitutional: No Acute Distress
Cardiovascular: Regular Rate and S1/S2; Negative Murmur or Rub
Pulmonary: Clear and Symmetric; Negative Wheezes or Rales
Gastrointestinal: Soft, Tender (diffuse with pressure), Non Distended and Normal Bowel Sounds
Skin: Warm and Dry; Negative Rash or Jaundice
Objective Data
Lab Data
Lab Results
08/06/24 05:30
08/06/24 05:31
ESR 68 mm/hour (0-20) H 08/06/24 05:30
PT 14.9 Sec (11.4-14.6) H 08/05/24 08:28
INR 1.14 08/05/24 08:28
Estimated Creat Clear 67 ml/min 08/06/24 05:31
Lactic Acid 0.8 mmol/L (0.7-2.0) 08/04/24 16:25
Total Bilirubin 0.7 mg/dl (0.2-1.3) 08/06/24 05:31
AST 23 U/L (14-36) 08/06/24 05:31
ALT 24 U/L (0-35) 08/06/24 05:31
Alkaline Phosphatase 92 U/L (38-126) 08/06/24 05:31
C-Reactive Protein 131.20 mg/L (0.0-10.00) H 08/06/24 05:31
Most recent labs reviewed.
Micro Results:
08/05/24 11:54 Anaerobic Culture - Preliminary
Abscess Culture pending. Anaerobic cultures are examined after 3
days incubation. Additional information to follow.
08/05/24 11:54 Body Fluid Culture - Preliminary
Fluid NO GROWTH
Gram Stain - Preliminary
08/05/24 16:32 Wound Culture - Pending
Abscess Gram Stain - Preliminary
08/04/24 17:28 Blood Culture - Preliminary
Blood/Venous No Growth in 24 hours- Final report to follow
08/04/24 16:25 Blood Culture - Preliminary
Blood/Venous No Growth in 24 hours- Final report to follow
--- NOTE | 2024-08-06 11:19 | W.PN.GS2 ---
Today's Communication / Plan
-
ABX, c/w ir drain
Assessment / Plan
-
This is an 84-year-old female with upper abdominal discomfort who was found to have a left hepatic lobe abscess as well as two collections along the greater curve of her stomach of unclear etiology.
PPD #1 IR drainage of left lobe liver abscess and Endoscopy for drainage of perigastric/pancreatitc collection
AFVSS
WBC trending downward as is CRP
Tolerating clears
--ABX as per ID
--Diet as per GI
--Await cx from IR and EGD procedures
--Eventual repeat imaging early next week for reevaluation
Medical management as per primary team
Subjective Data
-
Date of Service: August 06, 2024
Patient seen and examined at bedside. OOB to chair having lunch. Denies n/v. Poor appetite. Pain better today especially in her back. Still present across the upper abdomen.
Objective Data
-
Intake and Output
08/05/24 08/06/24 08/07/24
06:59 06:59 06:59
Intake Total 360 / 360
Output Total
Balance 340 / 340
Intake:
IV fluids (Total) 250 / 250
IV piggybacks 100 / 100
Amount instilled into Drain (
Total)
Middle Abdomen Placed in IR
Output:
Drain Output (Total) 20
Middle Abdomen Placed in IR
Other:
Number of approximated MODERATE 1
amounts of urine
How many times incontinent 1
MODERATE amount urine
Vital Signs
Temp Pulse Resp BP Pulse Ox
97.9 F 82 18 118/65 94
08/06/24 07:21 08/06/24 07:21 08/06/24 07:21 08/06/24 07:21 08/06/24 09:00
Lab Results
08/06/24 05:30
08/06/24 05:31
Calcium 8.5 mg/dl (8.4-10.2) 08/06/24 05:31
Phosphorus 4.0 mg/dl (2.5-4.5) 08/06/24 05:31
Magnesium 1.9 mg/dl (1.6-2.3) 08/06/24 05:31
Total Bilirubin 0.7 mg/dl (0.2-1.3) 08/06/24 05:31
Direct Bilirubin 0.2 mg/dl (0.0-0.4) 08/06/24 05:31
AST 23 U/L (14-36) 08/06/24 05:31
ALT 24 U/L (0-35) 08/06/24 05:31
Alkaline Phosphatase 92 U/L (38-126) 08/06/24 05:31
Total Protein 5.6 g/dl (6.3-8.2) L 08/06/24 05:31
Albumin 3.0 g/dl (3.5-5.0) L 08/06/24 05:31
Physical Exam
-
NAD
ABD soft, tender to the epigastrium, ND
IR drain with minimal ssf
--- NOTE | 2024-08-06 11:59 | CHAP ---
Fr[facility] Viral Burris of [facility] in [place] anointed [place] and gave her Holy Communion. Exact time uncertain.
[2024-08-06] MEDS: OSCAL CAL 500 500 MG PO (13:13)
[2024-08-06] MEDS: NON-FORMULARY ITEM 1 TAB PO (13:13)
[2024-08-06] MEDS: THERAGRAN 1 TABLET PO (13:14)
[2024-08-06] MEDS: VITAMIN D3 (cholecalciferol) 25 MCG PO (13:14)
[2024-08-06 15:03] VITALS: BP 155/89
[2024-08-06] MEDS: MYCAMINE 105 MG IV (15:36)
[2024-08-06] MEDS: LOVENOX 40 MG SC (17:45)
[2024-08-06 18:46] VITALS: BMI 29.9
[2024-08-06] MEDS: MELATONIN 5 MG PO (20:31)
[2024-08-06] MEDS: LIPITOR 10 MG PO (20:31)
[2024-08-06 23:07] VITALS: BP 165/86
[2024-08-07] MEDS: SYNTHROID 125 MCG PO (01:39)
[2024-08-07] MEDS: ZOSYN 50 IV ×4 (01:39→20:24)
[2024-08-07 06:48] LABS: % Basophils 0.4 % (0-2); % Eosinophils 0.9 % (0-6); % Immature Granulocytes 0.7 % (0-0.5); % Lymphocytes 10.6 % (20.5-51.1); % Monocytes 9.3 % (1.7-9.3); % Neutrophils 78.1 % (42.2-75.2); Absolute Basophils 0.1 10^3/uL (0-0.2); Absolute Eosinophils 0.1 10^3/uL (0-0.7); Absolute Immature Granulocytes 0.1 10^3/uL (0-0.05); Absolute Lymphocytes 1.6 10^3/uL (1.2-3.4); Absolute Monocytes 1.4 10^3/uL (0.1-0.6); Absolute Neutrophils 11.7 10^3/uL (1.4-6.5); Hematocrit 37.1 % (37.0-47.0); Hemoglobin 12.6 g/dL (12.0-16.0); Mean Corpuscular Hgb 28.7 pg (27.0-31.0); Mean Corpuscular Volume 84.5 fL (81.0-99.0); Mean Platelet Volume 9.1 fL (7.4-10.4); Nucleated Red Blood Cells % 0 %; Platelet Count 432 10^3/uL (130-400); Red Blood Cell Count 4.39 10^6/uL (4.20-5.40); Red Cell Dist. Width 12.7 % (11.5-14.5)
[2024-08-07 07:21] LABS: Blood Urea Nitrogen 5 mg/dl (7-17); Calcium 8.8 mg/dl (8.4-10.2); Carbon Dioxide 26 mmol/L (22-30); Chloride 98 mmol/L (98-107); Estimated Creatinine Clearance 67 ml/min; Glucose 114 mg/dl (70-99); Potassium 3.9 mmol/L (3.5-5.1); Sodium 132 mmol/L (135-145); eGFR > 60.00
[2024-08-07 07:55] VITALS: BP 145/82
[2024-08-07] MEDS: NSS (PRESERVATIVE FREE) 10 ML IV ×2 (08:42→20:24)
[2024-08-07] MEDS: PROTONIX IV 40 MG IV ×2 (08:43→20:24)
[2024-08-07] MEDS: FLUSH (NSS) 2 FLUSH IV (08:44)
[2024-08-07] MEDS: VISBIOME 1 CAP PO (08:44)
--- NOTE | 2024-08-07 10:04 | W.PN.GI.CBS2 ---
Today's Communication / Plan
-
-IR drainage of liver abscess and also aspiration of perigastric abscess by EUS performed 08/05. Await cultures.
-Tolerating full liquid diet, if no significant abdominal pain, could put her on low residue diet.
-Continue Pantoprazole 40 mg IV BID
-Continue IV Zosyn
-Mild leukocytosis noted, CRP trending down.
-Await cultures and sensitivities from the abscess that was drained during endoscopy ultrasound, antibiotics will be adjusted based on the sensitivities. ID following as well.
Repeat imaging early next week to evaluate if there is any change in the size of the abscesses both in the perigastric/hepatic areas.
Unclear etiology/source for these abscesses in the liver and perigastric area. Questionable diverticulitis, unclear if there is true diverticulitis, no evidence of biliary stones, patient is status postcholecystectomy.
Will follow-up
Assessment / Plan
-
84-year-old female with past medical history of hypothyroidism, hypertension, degenerative disc disease, Pseudomonas UTI, osteoporosis, sacral insufficiency fracture, right flank hematoma 04/2024 felt to be secondary to DVT prophylaxis from pelvic
fracture requiring transfusion 1 unit packed red blood cells, recent hospitalization on 07/26/2024 for chills, leukocytosis of 29,000, febrile up to 103 degrees. And reports at that time of bilateral low back pain and CT of the abdomen pelvis
without contrast showing diverticulosis possible subacute diverticulitis and possible gastritis. Blood cultures x 2 were negative. Influenza and COVID were negative. Patient was treated with Zosyn and switched to Augmentin for 10-day course to
end on 08/03/2024. Patient was discharged to home on 07/28/2024. Patient states that she had upper abdominal discomfort above the umbilicus and wraps around to back. Followed up with PCP. Had persistent leukocytosis. Outpatient PCP ordered lumbar
MRI which showed hepatic abscesses and was referred to the emergency room for further evaluation. CT imaging showed posterior gastric abscesses and we have asked to evaluate for the same. CT of the abdomen and pelvis with and without IV contrast
performed on 08/04/2024 shows 'there is a lobulated low-density collection which is centered in the lateral wall of the upper gastric body/fundus this collection is seen on image 16 of series 301, and measures approximately 2.6 cm AP by 2.0 cm
transverse by 2.2 cm craniocaudal. This focal collection appears to have a thin connection to a second collection more inferiorly along the posterolateral margin of the gastric body. This second collection measures 4.6 cm craniocaudal by 2.8 cm
transverse by 2.3 cm AP. These collections do appear to be centered in the gastric wall, and likely represent perigastric abscesses'. Additionally, 'In the lateral segment of the left lobe of the liver, there is a focal mass with low-density
central region and irregular enhancing border, with progressive slight centripetal filling of enhancement on delayed images, but persistence of cystic central component. This mass measures 4.4 cm transverse by 4.2 cm AP by 4.8 cm craniocaudal. The
appearance is highly suggestive of a hepatic abscess, as suggested on MRI of the lumbar spine performed yesterday.'
Impression:
Posterior Gastric abscesses:
--lobulated low-density collection, centered in the lateral wall of the upper gastric body/fundus 2.6 cm AP by 2.0 cm transverse by 2.2 cm
--posterolateral margin of the gastric body, measuring 4.6 cm craniocaudal by 2.8 cm transverse by 2.3 cm
Hepatic abscess
--4.4 cm transverse by 4.2 cm AP by 4.8 cm, lateral segment of the left lobe of the liver
MRI findings of 2.8 cm segment of asymmetric enhancing wall thickening in the mid sigmoid colon which is most likely ACUTE DIVERTICULITIS. Colonic adenocarcinoma is considered less likely. Severe diverticulosis throughout the sigmoid colon.
--last colonoscopy 01/16/2022.
08/05/24-EUS- - Extrinsic compression in the cardia.- A lesion was found in the left lobe of the liver. The lesion was anechoic, hypoechoic and heterogenous. lesion measured 38 mm.
- A complex cystic lesion vs abscess was seen near the pancreatic body. Fine needle aspiration for fluid performed. - Pancreatic parenchymal abnormalities consisting of
diffusely increased echogenicity were noted in the pancreatic head and pancreatic body. - Main pancreatic duct (MPD) diameter was measured. Endosonographically, the MPD had a normal appearance.
- There was no sign of significant pathology in the common bile duct.
Plan:
-IR drainage of liver abscess and also aspiration of perigastric abscess by EUS performed 08/05. Await cultures.
-Tolerating full liquid diet, if no significant abdominal pain, could put her on low residue diet.
-Continue Pantoprazole 40 mg IV BID
-Continue IV Zosyn
-Mild leukocytosis noted, CRP trending down.
-Await cultures and sensitivities from the abscess that was drained during endoscopy ultrasound, antibiotics will be adjusted based on the sensitivities. ID following as well.
Repeat imaging early next week to evaluate if there is any change in the size of the abscesses both in the perigastric/hepatic areas.
Unclear etiology/source for these abscesses in the liver and perigastric area. Questionable diverticulitis, unclear if there is true diverticulitis, no evidence of biliary stones, patient is status postcholecystectomy.
Will follow-up
Subjective
Subjective
Date of Service: August 07, 2024
Patient without any abdominal pain but she does note some discomfort in the upper abdomen on palpation. No nausea or vomiting. Had a bowel movement yesterday. No fevers or chills. Tolerating full liquid diet.
Objective
Data Reviewed
Laboratory Data:
Laboratory Results
08/07/24 06:08
08/07/24 06:08
Laboratory Results
PT 14.9 Sec (11.4-14.6) H 08/05/24 08:28
INR 1.14 08/05/24 08:28
Phosphorus 4.0 mg/dl (2.5-4.5) 08/06/24 05:31
Magnesium 1.9 mg/dl (1.6-2.3) 08/06/24 05:31
Total Bilirubin 0.7 mg/dl (0.2-1.3) 08/06/24 05:31
AST 23 U/L (14-36) 08/06/24 05:31
ALT 24 U/L (0-35) 08/06/24 05:31
Alkaline Phosphatase 92 U/L (38-126) 08/06/24 05:31
Lipase 82 U/L (23-300) 08/04/24 13:47
Vital Signs and I&O:
Vital Signs
Temp Pulse Resp BP Pulse Ox
98.0 F 83 16 145/82 94
08/07/24 07:55 08/07/24 07:55 08/07/24 07:55 08/07/24 07:55 08/07/24 07:55
I&O
08/06/24 08/07/24 08/08/24
06:59 06:59 06:59
Intake Total 360 / 360 1395 / 1395
Output Total /
Balance 340 / 340 1391 / 1391
Physical Exam
Physical Exam
GI: Soft, Non Distended and Tender (Some discomfort in the upper abdomen but no guarding or rigidity)
--- NOTE | 2024-08-07 11:31 | W.PN.ID1 ---
Date of Service
Date of Service: August 07, 2024
Today's Communication
- hepatic drain output dropping off if it remains minimal could be reassessed with IR thursday
- would continue zosyn and micafungin - further antibiotic changes pending cultures from the liver and peripancreatic area
Assessment / Plan
Hepatic Abscess
Intraabdominal Abscess - possibly related to pancrease or gastric body; no perforation was found on EGD
- 08/04 blood cultures x2 in progress; 07/26 blood cultures x2 finalized negative
- 08/05 - aerobic and anaerobic culture of fluid from the hepatic abscess in progress, fluid was purulent; gram stain no organisms
- 08/05 - aerobic culture from the perigastric/pancreatic fluid in progress
- ESR 68 and CRP 131
- hepatic drain output dropping off if it remains minimal could be reassessed with IR thursday
- would continue zosyn and micafungin - further antibiotic changes pending cultures from the liver and peripancreatic area
- last colonoscopy was fairly recent - 02/04 - notable for significant diverticulosis, difficulty study due to L sided rigidity, one poly resected, it was felt that risk of further colonoscopies likely outweighed future benefits and I would assess
that to still be the case at this time.
Chief Complaint
-: Other (hepatic abscess, diverticulosis with recent diverticulitis, possible gastric abscess)
Subjective / Review of Systems
afebrile
bp stable
tolerating current therapies
minimal output from the drain
Vital Signs / Physical Exam
Vital Signs
Vital Signs
Temp Pulse Resp BP Pulse Ox
98.0 F 83 16 145/82 94
08/07/24 07:55 08/07/24 07:55 08/07/24 07:55 08/07/24 07:55 08/07/24 09:00
Physical Exam
Constitutional: No Acute Distress
Cardiovascular: Regular Rate and S1/S2; Negative Murmur or Rub
Pulmonary: Clear and Symmetric; Negative Wheezes or Rales
Gastrointestinal: Soft, Non Tender, Non Distended and Normal Bowel Sounds
Skin: Warm and Dry; Negative Rash or Jaundice
Lines: Other (drain minimal output)
Objective Data
Lab Data
Lab Results
08/07/24 06:08
08/07/24 06:08
ESR 68 mm/hour (0-20) H 08/06/24 05:30
PT 14.9 Sec (11.4-14.6) H 08/05/24 08:28
INR 1.14 08/05/24 08:28
Estimated Creat Clear 67 ml/min 08/07/24 06:08
Lactic Acid 0.8 mmol/L (0.7-2.0) 08/04/24 16:25
Total Bilirubin 0.7 mg/dl (0.2-1.3) 08/06/24 05:31
AST 23 U/L (14-36) 08/06/24 05:31
ALT 24 U/L (0-35) 08/06/24 05:31
Alkaline Phosphatase 92 U/L (38-126) 08/06/24 05:31
C-Reactive Protein 131.20 mg/L (0.0-10.00) H 08/06/24 05:31
Most recent labs reviewed.
Micro Results:
08/05/24 11:54 Body Fluid Culture - Preliminary
Fluid NO GROWTH
Gram Stain - Preliminary
08/05/24 16:32 Wound Culture - Preliminary
Abscess Gram Stain - Preliminary
08/04/24 17:28 Blood Culture - Preliminary
Blood/Venous No Growth in 48 hours- Final report to follow
08/04/24 16:25 Blood Culture - Preliminary
Blood/Venous No Growth in 48 hours- Final report to follow
08/05/24 11:54 Anaerobic Culture - Preliminary
Abscess Culture pending. Anaerobic cultures are examined after 3
days incubation. Additional information to follow.
[2024-08-07] MEDS: NON-FORMULARY ITEM 1 TAB PO (12:21)
[2024-08-07] MEDS: THERAGRAN 1 TABLET PO (12:22)
[2024-08-07] MEDS: OSCAL CAL 500 500 MG PO (12:22)
[2024-08-07] MEDS: VITAMIN D3 (cholecalciferol) 25 MCG PO (12:22)
--- NOTE | 2024-08-07 14:02 | CM ---
Patient with Dx Liver mass, hepatic abscess, Suspected perigastric abscesses, s/p IR drainage of liver abscess 08/05, fall on 08/05. Drain in place. Per nurse; OOB chair, ambulatory in room.
Met with patient who resides with her in a two story home with 1 outside step and a stair glide to 2nd floor.
The patient was independent with ADLs and ambulation.
The patient was recently discharged to home on 07/28/24 and says she has been staying at home since then.
DME - [employer], jillian, transport chair
VN - prior [facility]
SNF - [facility]
PCP - Rashad Trinidad
Pharmacy - [facility]
Patient will consider VN if drain in place at discharge.
Message to Dr Sweeney requesting PT/OT [facility] ---> responded saying he will order PT.
Plan offer VN if patient is discharged with drain.
Plan follow up after seen by PT.
--- NOTE | 2024-08-07 15:23 | W.PN.HOSP.TC ---
Today's Communication/Plan
-
Continue antibiotics and antifungal
Diet can be advanced to low residue if patient continues to not have any abdominal pain
Follow cultures
Follow IR drain output
Assessment / Plan
Assessment / Plan
Physical Exam
General: Not in acute distress
HEENT: Normocephalic, Moist mucous membranes
Respiratory: Clear to Auscultation Bilaterally
Cardiac: S1/S2 and Regular Rhythm
GI: Soft, Non Tender, Non Distended and Normal Bowel Sounds
Musculoskeletal: No Cyanosis and No Edema
Skin: Warm and Dry.
Neuro: Awake, Alert, AO x 3 and Nonfocal/grossly intact
Psych: Calm and Intact Judgment/Insight
Assessment/Plan
84-year-old female with past medical history significant for hypertension, hyperlipidemia, hypothyroidism and osteoporosis with sacral insufficiency fracture, who presents to the emergency department from outpatient clinic with an MRI showing
intra-abdominal/hepatic abscess. Patient was recently admitted on 07/26/24 to 07/28/24 with abdominal pain at that time was found to have a mild diverticulitis. She was initially started on Zosyn and ultimately discharged on Augmentin. Prior to
that she had a urinary tract infection. She had pretty elevated leukocytosis. After follow-up as an outpatient the patient continued to have leukocytosis. There was concern that she might of had infection from a spinal injection and PMD did a MRI
of the lumbar spine which showed the intra abdominal/hepatic abscess for which she was sent to the emergency department. Patient denies any history of recent surgical procedure. She reports that during childbirth at 1 point she was told she had
hepatitis of childbirth. She denied any recent travel. She does have a well water source at home which she states she tests regularly. She is a wine drinker drinking about a cup of wine nightly with meals but has no history of liver disease. She
denied any fevers or chills, cough, shortness of breath, chest pain, nausea, vomiting, constipation, diarrhea or urinary symptoms. She reports ongoing abdominal discomfort (denies to colic pain) as well as pain across the lower back.
In the emergency department she was afebrile, blood pressure was 135/70 with a pulse of 86 and she was satting at 97% on room air. She had a white count of 19.5. Electrolytes BUN/creatinine were unremarkable. LFTs were normal. Lipase was normal.
CT of the abdomen showed mass within the lateral segment of the left lobe liver highly suspicious for hepatic abscess. 2 collections along the posterolateral wall of the stomach which may have a thin connection this highly suspicious for
perigastric abscesses. No free air identified. No evidence of biliary ductal abnormalities.
Patient with ongoing mild abdominal discomfort, persistent leukocytosis and found to have intra-abdominal abscess on outpatient MRI of the lumbar spine for leukocytosis. CT scan here showed multiple intra-abdominal abscesses suspicious for
perigastric abscess as well as left liver lobe collection suspicious for hepatic abscess. No obvious free air. No bowel obstruction or signs of ischemia. No history of surgical/puncture wound. She is long-standing s/p cholecystectomy without any
evidence of biliary process.
#Liver mass, suspected to be hepatic abscess (less likely to be a centrally necrotic malignant hepatic tumor)
#Suspected perigastric abscesses
#Concern for Diverticulitis on CT Imaging -- less likely to be colon cancer
#Persistent Leukocytosis
- Findings above found on L-Spine MRI since patient was having low back pain
- Recently hospitalized for diverticulitis
- IR drainage of liver abscess drainage performed 08/05/24
- Consult ID
- Consult Surgery
- Continue IV Zosyn and Micafungin. Appreciate ID input
- Full liquid diet --> if no abdominal pain, then can advance to low residue diet
- Continue Pantoprazole 40 mg IV BID
- Supportive care/IV fluids
- Follow blood cultures
- Dr Tushar gao performed EGD/EUS on 08/06/24 -- await cultures and sensitivities from the abscess that was drained
- Repeat imaging early next week to evaluate if there is any change in the size of the abscesses both in the perigastric/hepatic areas.
- Continue IR drain
#Fall on 08/05/24
-In the setting of post-anesthesia (from EGD) state
-Had head impact; CT Head showed no acute changes
-Patient's neurological exam as of 08/07/24 remains good
#Concern for Diverticulitis
- Continue antibiotics
#Hyperlipidemia
- Continue atorvastatin
#Hypothyroidism
- Continue levothyroxine
#Hypertension
#Osteoporosis with sacral insufficiency fracture
#Status post cholecystectomy with no evidence for biliary ductal dilation on CT Imaging
#Numerous colonic diverticula on CT Imaging
#Bony degenerative changes on CT Imaging
#Appearance of subacute fracture involving the right side of the symphysis pubis and the right inferior pubic ramus, stable appearance
#Suggestion of subacute fracture involving the left sacral ala, stable appearance on CT Imaging
#Bilateral sacral insufficiency fractures containing mild bone marrow edema.
#Severe left lateral recess stenosis, moderate central canal stenosis, and severe left neural foraminal narrowing at L4/L5 which appears unchanged.
#Severe right lateral recess stenosis, moderate central canal stenosis, and severe right neural foraminal narrowing at L3/L4 which appears unchanged.
#Severe left-sided facet joint arthrosis at L5/S1 with moderate surrounding bone marrow and soft tissue edema.
#Mild central canal stenosis at L2/L3 which appears unchanged.
Code status: DNR
DVT prophylaxis: Lovenox Subq
Anticipated Discharge: > 48 hours
Subjective/Interval History
-
Date of Service: August 07, 2024
Patient was seen and examined. She reported that overall her symptoms have improved, pain is better, she denied any new symptoms or complaints.
Objective Data
-
Labs:
Laboratory Results
08/07/24
06:08
WBC 15.0 H
Hgb 12.6
Hct 37.1
Plt Count 432 H
Sodium 132 L
Potassium 3.9
Chloride 98
Carbon Dioxide 26
BUN 5 L
Creatinine 0.6
Glucose 114 H
Calcium 8.8
Vital Signs:
Vital Signs
Temp Pulse Resp BP Pulse Ox
98.0 F 83 16 145/82 94
08/07/24 07:55 08/07/24 07:55 08/07/24 07:55 08/07/24 07:55 08/07/24 09:00
I&O
08/06/24 08/07/24 08/08/24
06:59 06:59 06:59
Intake Total 360 / 360 1395 / 1395
Output Total
Balance 340 / 340 1391 / 1391
[2024-08-07 15:55] VITALS: BP 140/82
[2024-08-07] MEDS: MYCAMINE 105 MG IV (16:28)
[2024-08-07] MEDS: TYLENOL 650 MG PO (16:41)
[2024-08-07] MEDS: LOVENOX 40 MG SC (17:48)
[2024-08-07] MEDS: LIPITOR 10 MG PO (20:24)
[2024-08-07] MEDS: MELATONIN 5 MG PO (21:22)
[2024-08-07 23:37] VITALS: BP 136/81
[2024-08-08] MEDS: ZOSYN 50 IV ×2 (01:21→07:51)
[2024-08-08] MEDS: SYNTHROID 125 MCG PO (05:13)
[2024-08-08 07:13] LABS: % Basophils 0.6 % (0-2); % Eosinophils 2.6 % (0-6); % Immature Granulocytes 0.5 % (0-0.5); % Lymphocytes 16.5 % (20.5-51.1); % Monocytes 10.9 % (1.7-9.3); % Neutrophils 68.9 % (42.2-75.2); Absolute Basophils 0.1 10^3/uL (0-0.2); Absolute Eosinophils 0.3 10^3/uL (0-0.7); Absolute Immature Granulocytes 0.1 10^3/uL (0-0.05); Absolute Monocytes 1.3 10^3/uL (0.1-0.6); Absolute Neutrophils 8.4 10^3/uL (1.4-6.5); Hematocrit 34.9 % (37.0-47.0); Mean Corp Hgb Conc. 34.4 g/dL (33.0-37.0); Mean Corpuscular Hgb 28.8 pg (27.0-31.0); Mean Corpuscular Volume 83.7 fL (81.0-99.0); Mean Platelet Volume 9.2 fL (7.4-10.4); Nucleated Red Blood Cells % 0 %; Platelet Count 446 10^3/uL (130-400); Red Blood Cell Count 4.17 10^6/uL (4.20-5.40); Red Cell Dist. Width 12.6 % (11.5-14.5); White Blood Cell Count 12.2 10^3/uL (4.8-10.8)
[2024-08-08 07:28] LABS: Blood Urea Nitrogen 7 mg/dl (7-17); Calcium 8.8 mg/dl (8.4-10.2); Carbon Dioxide 28 mmol/L (22-30); Chloride 98 mmol/L (98-107); Estimated Creatinine Clearance 67 ml/min; Glucose 95 mg/dl (70-99); Potassium 4.3 mmol/L (3.5-5.1); Sodium 131 mmol/L (135-145); eGFR > 60.00
[2024-08-08 07:36] VITALS: BP 145/80
[2024-08-08] MEDS: VISBIOME 1 CAP PO (07:50)
[2024-08-08] MEDS: PROTONIX IV 40 MG IV ×2 (07:50→19:49)
[2024-08-08] MEDS: NSS (PRESERVATIVE FREE) 10 ML IV ×2 (07:50→19:49)
--- NOTE | 2024-08-08 09:42 | W.PN.GS2 ---
Today's Communication / Plan
-
`
Assessment / Plan
-
Assessment: 84-year-old female with upper abdominal discomfort with left hepatic lobe abscess as well as two collections along the greater curve of her stomach of unclear etiology - possibly d/t chronic diverticulitis
s/p IR drainage of left lobe liver abscess and EUS guided FNA of perigastric/pancreatic collection
AFVSS
WBC trending downward
cultures with NGTD
Plan: continue LRD and added ensure supplement
--ABX as per ID
-- repeat CT a/p imaging with contrast ordered for follow up evaluation tomorrow 08/09/24
d/w at bedside and daughter via phone call
Subjective Data
-
Date of Service: August 08, 2024
pt seen and examined
still with epigastric tenderness but stable
poor appetite but no nausea
+BMs yesterday
Objective Data
-
Intake and Output
08/07/24 08/08/24 08/09/24
06:59 06:59 06:59
Intake Total 1395 / 1395 2265 / 2265
Output Total
Balance 1391 / 1391 2261 / 2261
Intake:
Oral fluids 1080 / 1080 1950 / 1950
IV piggybacks 305 / 305 305 / 305
Amount instilled into Drain (
Total)
Middle Abdomen Placed in IR
Output:
Drain Output (Total)
Middle Abdomen Placed in IR
Other:
Number of approximated MODERATE 2 1
amounts of urine
Number of approximated LARGE 2
amounts of urine
How many times incontinent 1
SMALL amount urine
Vital Signs
Temp Pulse Resp BP Pulse Ox
98 F 85 18 145/80 95
08/08/24 07:36 08/08/24 07:36 08/08/24 07:36 08/08/24 07:36 08/08/24 09:00
Lab Results
08/08/24 06:20
08/08/24 06:20
Calcium 8.8 mg/dl (8.4-10.2) 08/08/24 06:20
Phosphorus 4.0 mg/dl (2.5-4.5) 08/06/24 05:31
Magnesium 1.9 mg/dl (1.6-2.3) 08/06/24 05:31
Total Bilirubin 0.7 mg/dl (0.2-1.3) 08/06/24 05:31
Direct Bilirubin 0.2 mg/dl (0.0-0.4) 08/06/24 05:31
AST 23 U/L (14-36) 08/06/24 05:31
ALT 24 U/L (0-35) 08/06/24 05:31
Alkaline Phosphatase 92 U/L (38-126) 08/06/24 05:31
Total Protein 5.6 g/dl (6.3-8.2) L 08/06/24 05:31
Albumin 3.0 g/dl (3.5-5.0) L 08/06/24 05:31
Physical Exam
-
NAD AAOx3
ABD: soft, mild epigastric tenderness, no R/R/G
IR [place] with scant purulence in bulb
--- NOTE | 2024-08-08 09:56 | W.PN.ID1 ---
Date of Service
Date of Service: August 08, 2024
Today's Communication
- hepatic drain output dropping minimal - reassess with IR thursday
- start unasyn, stop zosyn/micafungin
Assessment / Plan
Hepatic Abscess
Intraabdominal Abscess - possibly related to pancrease or gastric body; no perforation was found on EGD
- 08/04 blood cultures x2 in progress; 07/26 blood cultures x2 finalized negative
- 08/05 - aerobic and anaerobic culture of fluid from the hepatic abscess in progress, fluid was purulent; gram stain no organisms
- 08/05 - aerobic culture from the perigastric/pancreatic fluid in progress
- baseline ESR 68 and CRP 131; repeat CRP tomorrow
- hepatic drain output dropping minimal - reassess with IR thursday
- start unasyn, stop zosyn/micafungin
- last colonoscopy was fairly recent - 02/04 - notable for significant diverticulosis, difficulty study due to L sided rigidity, one poly resected, it was felt that risk of further colonoscopies likely outweighed future benefits and I would assess
that to still be the case at this time.
Chief Complaint
-: Other (hepatic abscess, diverticulosis with recent diverticulitis, possible gastric abscess)
Subjective / Review of Systems
afebrile
bp stable
drain output remains minimal
tolerating current therapies
no new complaints
Vital Signs / Physical Exam
Vital Signs
Vital Signs
Temp Pulse Resp BP Pulse Ox
98 F 85 18 145/80 95
08/08/24 07:36 08/08/24 07:36 08/08/24 07:36 08/08/24 07:36 08/08/24 09:00
Physical Exam
Constitutional: No Acute Distress
Cardiovascular: Regular Rate and S1/S2; Negative Murmur or Rub
Pulmonary: Clear and Symmetric; Negative Wheezes or Rales
Gastrointestinal: Soft, Non Tender, Non Distended and Normal Bowel Sounds
Skin: Warm and Dry; Negative Rash or Jaundice
Lines: Other (drain - minimal serosanguinous fluid)
Objective Data
Lab Data
Lab Results
08/08/24 06:20
08/08/24 06:20
ESR 68 mm/hour (0-20) H 08/06/24 05:30
PT 14.9 Sec (11.4-14.6) H 08/05/24 08:28
INR 1.14 08/05/24 08:28
Estimated Creat Clear 67 ml/min 08/08/24 06:20
Lactic Acid 0.8 mmol/L (0.7-2.0) 08/04/24 16:25
Total Bilirubin 0.7 mg/dl (0.2-1.3) 08/06/24 05:31
AST 23 U/L (14-36) 08/06/24 05:31
ALT 24 U/L (0-35) 08/06/24 05:31
Alkaline Phosphatase 92 U/L (38-126) 08/06/24 05:31
C-Reactive Protein 131.20 mg/L (0.0-10.00) H 08/06/24 05:31
Most recent labs reviewed.
Micro Results:
08/04/24 17:28 Blood Culture - Preliminary
Blood/Venous No Growth in 72 hours- Final report to follow
08/04/24 16:25 Blood Culture - Preliminary
Blood/Venous No Growth in 72 hours- Final report to follow
08/05/24 11:54 Body Fluid Culture - Preliminary
Fluid NO GROWTH
Gram Stain - Preliminary
08/05/24 16:32 Wound Culture - Preliminary
Abscess Gram Stain - Preliminary
08/05/24 11:54 Anaerobic Culture - Preliminary
Abscess Culture pending. Anaerobic cultures are examined after 3
days incubation. Additional information to follow.
--- NOTE | 2024-08-08 10:13 | W.PN.GI.CBS2 ---
Today's Communication / Plan
-
Plan:
-IR drainage of liver abscess and also aspiration of perigastric abscess by EUS performed 08/05. Await cultures, many white cells noted.
Leukocytosis trending down, no fevers or chills.
-On low residue diet.
-Continue Pantoprazole 40 mg IV BID
-Continue IV Zosyn
-CRP trending down.
-Await cultures and sensitivities from the abscess that was drained during endoscopy ultrasound, antibiotics will be adjusted based on the sensitivities. ID following as well.
Repeat imaging tomorrow to evaluate if there is any change in the size of the abscesses both in the perigastric/hepatic areas.
Unclear etiology/source for these abscesses in the liver and perigastric area. Questionable diverticulitis, unclear if there is true diverticulitis, no evidence of biliary stones, patient is status postcholecystectomy.
Will follow-up
Assessment / Plan
-
84-year-old female with past medical history of hypothyroidism, hypertension, degenerative disc disease, Pseudomonas UTI, osteoporosis, sacral insufficiency fracture, right flank hematoma 04/2024 felt to be secondary to DVT prophylaxis from pelvic
fracture requiring transfusion 1 unit packed red blood cells, recent hospitalization on 07/26/2024 for chills, leukocytosis of 29,000, febrile up to 103 degrees. And reports at that time of bilateral low back pain and CT of the abdomen pelvis
without contrast showing diverticulosis possible subacute diverticulitis and possible gastritis. Blood cultures x 2 were negative. Influenza and COVID were negative. Patient was treated with Zosyn and switched to Augmentin for 10-day course to
end on 08/03/2024. Patient was discharged to home on 07/28/2024. Patient states that she had upper abdominal discomfort above the umbilicus and wraps around to back. Followed up with PCP. Had persistent leukocytosis. Outpatient PCP ordered lumbar
MRI which showed hepatic abscesses and was referred to the emergency room for further evaluation. CT imaging showed posterior gastric abscesses and we have asked to evaluate for the same. CT of the abdomen and pelvis with and without IV contrast
performed on 08/04/2024 shows 'there is a lobulated low-density collection which is centered in the lateral wall of the upper gastric body/fundus this collection is seen on image 16 of series 301, and measures approximately 2.6 cm AP by 2.0 cm
transverse by 2.2 cm craniocaudal. This focal collection appears to have a thin connection to a second collection more inferiorly along the posterolateral margin of the gastric body. This second collection measures 4.6 cm craniocaudal by 2.8 cm
transverse by 2.3 cm AP. These collections do appear to be centered in the gastric wall, and likely represent perigastric abscesses'. Additionally, 'In the lateral segment of the left lobe of the liver, there is a focal mass with low-density
central region and irregular enhancing border, with progressive slight centripetal filling of enhancement on delayed images, but persistence of cystic central component. This mass measures 4.4 cm transverse by 4.2 cm AP by 4.8 cm craniocaudal. The
appearance is highly suggestive of a hepatic abscess, as suggested on MRI of the lumbar spine performed yesterday.'
Impression:
Posterior Gastric abscesses:
--lobulated low-density collection, centered in the lateral wall of the upper gastric body/fundus 2.6 cm AP by 2.0 cm transverse by 2.2 cm
--posterolateral margin of the gastric body, measuring 4.6 cm craniocaudal by 2.8 cm transverse by 2.3 cm
Hepatic abscess
--4.4 cm transverse by 4.2 cm AP by 4.8 cm, lateral segment of the left lobe of the liver
MRI findings of 2.8 cm segment of asymmetric enhancing wall thickening in the mid sigmoid colon which is most likely ACUTE DIVERTICULITIS. Colonic adenocarcinoma is considered less likely. Severe diverticulosis throughout the sigmoid colon.
--last colonoscopy 01/16/2022.
08/05/24-EUS- - Extrinsic compression in the cardia.- A lesion was found in the left lobe of the liver. The lesion was anechoic, hypoechoic and heterogenous. lesion measured 38 mm.
- A complex cystic lesion vs abscess was seen near the pancreatic body. Fine needle aspiration for fluid performed. - Pancreatic parenchymal abnormalities consisting of
diffusely increased echogenicity were noted in the pancreatic head and pancreatic body. - Main pancreatic duct (MPD) diameter was measured. Endosonographically, the MPD had a normal appearance.
- There was no sign of significant pathology in the common bile duct.
Plan:
-IR drainage of liver abscess and also aspiration of perigastric abscess by EUS performed 08/05. Await cultures, many white cells noted.
Leukocytosis trending down, no fevers or chills.
-On low residue diet.
-Continue Pantoprazole 40 mg IV BID
-Continue IV Zosyn
-CRP trending down.
-Await cultures and sensitivities from the abscess that was drained during endoscopy ultrasound, antibiotics will be adjusted based on the sensitivities. ID following as well.
Repeat imaging tomorrow to evaluate if there is any change in the size of the abscesses both in the perigastric/hepatic areas.
Unclear etiology/source for these abscesses in the liver and perigastric area. Questionable diverticulitis, unclear if there is true diverticulitis, no evidence of biliary stones, patient is status postcholecystectomy.
Will follow-up
Subjective
Subjective
Date of Service: August 08, 2024
Patient still has discomfort in the upper abdomen, tolerating diet and had bowel movements yesterday. Appetite is poor.
Objective
Data Reviewed
Laboratory Data:
Laboratory Results
08/08/24 06:20
08/08/24 06:20
Laboratory Results
PT 14.9 Sec (11.4-14.6) H 08/05/24 08:28
INR 1.14 08/05/24 08:28
Phosphorus 4.0 mg/dl (2.5-4.5) 08/06/24 05:31
Magnesium 1.9 mg/dl (1.6-2.3) 08/06/24 05:31
Total Bilirubin 0.7 mg/dl (0.2-1.3) 08/06/24 05:31
AST 23 U/L (14-36) 08/06/24 05:31
ALT 24 U/L (0-35) 08/06/24 05:31
Alkaline Phosphatase 92 U/L (38-126) 08/06/24 05:31
Lipase 82 U/L (23-300) 08/04/24 13:47
Vital Signs and I&O:
Vital Signs
Temp Pulse Resp BP Pulse Ox
98 F 85 18 145/80 95
08/08/24 07:36 08/08/24 07:36 08/08/24 07:36 08/08/24 07:36 08/08/24 09:00
I&O
08/07/24 08/08/24 08/09/24
06:59 06:59 06:59
Intake Total 1395 / 1395 2265 / 2265
Output Total
Balance 1391 / 1391 2261 / 2261
Physical Exam
Physical Exam
GI: Soft, Non Distended and Tender (Discomfort on palpation in the upper abdomen)
[2024-08-08] MEDS: UNASYN IV ×3 (10:28→21:21)
[2024-08-08] MEDS: OSCAL CAL 500 500 MG PO (12:17)
[2024-08-08] MEDS: VITAMIN D3 (cholecalciferol) 25 MCG PO (12:17)
[2024-08-08] MEDS: NON-FORMULARY ITEM 1 TAB PO (12:17)
[2024-08-08] MEDS: THERAGRAN 1 TABLET PO (12:17)
--- NOTE | 2024-08-08 12:58 | W.PN.HOSP.TC ---
Addendum entered and electronically signed by Kian Piña MD 08/08/24 14:44:
+atelectatic rales
will add I.S.
Original Note:
Today's Communication/Plan
-
CT scan of abd 08/09
follow labs
Assessment / Plan
Assessment / Plan
84-year-old female with past medical history significant for hypertension, hyperlipidemia, hypothyroidism and osteoporosis with sacral insufficiency fracture, who presents to the emergency department from outpatient clinic with an MRI showing
intra-abdominal/hepatic abscess. Patient was recently admitted on 07/26/24 to 07/28/24 with abdominal pain at that time was found to have a mild diverticulitis. She was initially started on Zosyn and ultimately discharged on Augmentin. Prior to
that she had a urinary tract infection. She had pretty elevated leukocytosis. After follow-up as an outpatient the patient continued to have leukocytosis. There was concern that she might of had infection from a spinal injection and PMD did a MRI
of the lumbar spine which showed the intra abdominal/hepatic abscess for which she was sent to the emergency department. Patient denies any history of recent surgical procedure. She reports that during childbirth at 1 point she was told she had
hepatitis of childbirth. She denied any recent travel. She does have a well water source at home which she states she tests regularly. She is a wine drinker drinking about a cup of wine nightly with meals but has no history of liver disease. She
denied any fevers or chills, cough, shortness of breath, chest pain, nausea, vomiting, constipation, diarrhea or urinary symptoms. She reports ongoing abdominal discomfort (denies to colic pain) as well as pain across the lower back.
In the emergency department she was afebrile, blood pressure was 135/70 with a pulse of 86 and she was satting at 97% on room air. She had a white count of 19.5. Electrolytes BUN/creatinine were unremarkable. LFTs were normal. Lipase was normal.
CT of the abdomen showed mass within the lateral segment of the left lobe liver highly suspicious for hepatic abscess. 2 collections along the posterolateral wall of the stomach which may have a thin connection this highly suspicious for
perigastric abscesses. No free air identified. No evidence of biliary ductal abnormalities.
Patient with ongoing mild abdominal discomfort, persistent leukocytosis and found to have intra-abdominal abscess on outpatient MRI of the lumbar spine for leukocytosis. CT scan here showed multiple intra-abdominal abscesses suspicious for
perigastric abscess as well as left liver lobe collection suspicious for hepatic abscess. No obvious free air. No bowel obstruction or signs of ischemia. No history of surgical/puncture wound. She is long-standing s/p cholecystectomy without any
evidence of biliary process.
#Liver mass, suspected to be hepatic abscess (less likely to be a centrally necrotic malignant hepatic tumor)
To have follow up CT scan 08/09
#Suspected perigastric abscesses
#Concern for Diverticulitis on CT Imaging -- less likely to be colon cancer
#Persistent Leukocytosis
WBC 19.5-->15.3-->15.0-->12.2k
- Findings above found on L-Spine MRI since patient was having low back pain
- Recently hospitalized for diverticulitis
- IR drainage of liver abscess drainage performed 08/05/24
- input from ID appreciated
- input from Surgery appreciated
- Continue IV Zosyn and Micafungin. Appreciate ID input
- advanced to low residue diet and is tolerating
- Continue Pantoprazole 40 mg IV BID
- Supportive care/IV fluids
- Follow blood cultures
- Dr Finley performed EGD/EUS on 08/06/24 -- await cultures and sensitivities from the abscess that was drained
- Continue IR drain
#Fall on 08/05/24
-In the setting of post-anesthesia (from EGD) state
-Had head impact; CT Head showed no acute changes
-Patient's neurological exam as of 08/07/24 remains good
#Concern for Diverticulitis
- Continue antibiotics
#Hyperlipidemia
- Continue atorvastatin
#Hypothyroidism
- Continue levothyroxine
#Hypertension
#Osteoporosis with sacral insufficiency fracture
#Status post cholecystectomy with no evidence for biliary ductal dilation on CT Imaging
#Numerous colonic diverticula on CT Imaging
#Bony degenerative changes on CT Imaging
#Appearance of subacute fracture involving the right side of the symphysis pubis and the right inferior pubic ramus, stable appearance
#Suggestion of subacute fracture involving the left sacral ala, stable appearance on CT Imaging
#Bilateral sacral insufficiency fractures containing mild bone marrow edema.
#Severe left lateral recess stenosis, moderate central canal stenosis, and severe left neural foraminal narrowing at L4/L5 which appears unchanged.
#Severe right lateral recess stenosis, moderate central canal stenosis, and severe right neural foraminal narrowing at L3/L4 which appears unchanged.
#Severe left-sided facet joint arthrosis at L5/S1 with moderate surrounding bone marrow and soft tissue edema.
#Mild central canal stenosis at L2/L3 which appears unchanged.
Code status: DNR
DVT prophylaxis: Lovenox Subq
Anticipated Discharge: > 48 hours
Subjective/Interval History
-
Date of Service: August 08, 2024
In good spirits, denies pain
Objective Data
-
Labs:
Laboratory Results
08/08/24
06:20
WBC 12.2 H
Hgb 12.0
Hct 34.9 L
Plt Count 446 H
Sodium 131 L
Potassium 4.3
Chloride 98
Carbon Dioxide 28
BUN 7
Creatinine 0.5 L
Glucose 95
Calcium 8.8
Vital Signs:
Vital Signs
Temp Pulse Resp BP Pulse Ox
98 F 85 18 145/80 95
08/08/24 07:36 08/08/24 07:36 08/08/24 07:36 08/08/24 07:36 08/08/24 09:00
I&O
08/07/24 08/08/24 08/09/24
06:59 06:59 06:59
Intake Total 1395 / 1395 2264 / 5
Output Total
Balance 1391 / 1391 2260 / 2260
Review of Systems
-
History Source: Patient and Coordinated Provider
Constitutional: Denies Fever
EENT: Reports No Symptoms Reported
Respiratory: Reports No Symptoms
Cardiac: Reports No Symptoms
Abdomen/GI: Reports Abdominal Pain (minimum); Denies Nausea, Vomiting or Constipated (had BM last 2 days)
Genitourinary: Reports No Symptoms
Musculoskeletal: Reports No Symptoms
Physical Exam
-
General: Well Developed, Well Nourished and No Apparent Distress
HEENT: Normocephalic, Atraumatic and Moist Mucous Membranes
Respiratory: Clear to Auscultation; Negative Wheezes, Rales or Rhonchi
Cardiac: Regular Rhythm and S1/S2
GI: Soft, Nontender, Nondistended and Normal Bowel Sounds
Genito-urinary: No Costovertebral Tender
Musculoskeletal: No Clubbing, No Cyanosis and No Edema
Neuro: Awake, Alert and Oriented
[2024-08-08 15:02] VITALS: BP 123/62
[2024-08-08] MEDS: FLUSH (NSS) 1 FLUSH IV (16:12)
[2024-08-08] MEDS: LOVENOX 40 MG SC (17:44)
[2024-08-08] MEDS: LIPITOR 10 MG PO (19:49)
[2024-08-08] MEDS: MELATONIN 5 MG PO (21:21)
[2024-08-08 23:55] VITALS: BP 130/64
[2024-08-09] MEDS: UNASYN IV ×4 (03:25→22:10)
[2024-08-09] MEDS: SYNTHROID 125 MCG PO (03:28)
[2024-08-09 07:00] VITALS: BP 131/64
[2024-08-09] MEDS: VISBIOME 1 CAP PO (07:18)
[2024-08-09] MEDS: PROTONIX IV 40 MG IV ×2 (07:18→20:33)
[2024-08-09] MEDS: NSS (PRESERVATIVE FREE) 10 ML IV ×2 (07:19→20:33)
[2024-08-09 07:24] LABS: % Basophils 0.7 % (0-2); % Eosinophils 3.2 % (0-6); % Immature Granulocytes 0.3 % (0-0.5); % Lymphocytes 18.6 % (20.5-51.1); % Monocytes 12.2 % (1.7-9.3); Absolute Basophils 0.1 10^3/uL (0-0.2); Absolute Eosinophils 0.3 10^3/uL (0-0.7); Absolute Lymphocytes 1.8 10^3/uL (1.2-3.4); Absolute Monocytes 1.2 10^3/uL (0.1-0.6); Absolute Neutrophils 6.2 10^3/uL (1.4-6.5); Hematocrit 35.2 % (37.0-47.0); Hemoglobin 11.9 g/dL (12.0-16.0); Mean Corp Hgb Conc. 33.8 g/dL (33.0-37.0); Mean Corpuscular Hgb 28.7 pg (27.0-31.0); Mean Platelet Volume 8.9 fL (7.4-10.4); Nucleated Red Blood Cells % 0 %; Platelet Count 451 10^3/uL (130-400); Red Blood Cell Count 4.14 10^6/uL (4.20-5.40); Red Cell Dist. Width 12.6 % (11.5-14.5); White Blood Cell Count 9.5 10^3/uL (4.8-10.8)
[2024-08-09 07:51] LABS: Blood Urea Nitrogen 7 mg/dl (7-17); Calcium 8.7 mg/dl (8.4-10.2); Carbon Dioxide 28 mmol/L (22-30); Chloride 100 mmol/L (98-107); Estimated Creatinine Clearance 67 ml/min; Glucose 95 mg/dl (70-99); Potassium 3.8 mmol/L (3.5-5.1); Sodium 132 mmol/L (135-145); eGFR > 60.00
[2024-08-09] MEDS: OMNIPAQUE 50 ML PO (08:33)
--- NOTE | 2024-08-09 09:11 | W.PN.ID1 ---
Addendum entered and electronically signed by Dariana Kelly MD 08/09/24 12:39:
CT resulted:
hepatic drain in position and decreased in size but remains >2 cm and output has been minimal for days
gastric collections also notably smaller just above 2 cm in the largest dimension
requested IR reevaluate and consider upsizing vs repositioning of the drain
continue unasyn while inpatient, on discharge can transition to augmentin 875/125 mg PO BID plan 4 more weeks of treatment
cbc, bmp, esr, crp just prior to outpatient follow up
follow up in ID clinic in about 3-4 weeks with any available provider
Original Note:
Date of Service
Date of Service: August 09, 2024
Today's Communication
- CRP improved over 50%
- hepatic drain output remains minimal for CT scan today then likely reassess with IR for possible drain removal
- continue unasyn
Assessment / Plan
Hepatic Abscess
Intraabdominal Abscess - possibly related to pancrease or gastric body; no perforation was found on EGD
- 08/04 blood cultures x2 in progress no growth to date
- 08/05 - aerobic and anaerobic culture of fluid from the hepatic abscess in progress, fluid was purulent; gram stain no organisms - suggests partial treatment
- 08/05 - aerobic culture from the perigastric/pancreatic fluid in progress - also no growth
- CRP improved over 50%
- hepatic drain output remains minimal for CT scan today then likely reassess with IR for possible drain removal
- continue unasyn
- last colonoscopy was fairly recent - 02/04 - notable for significant diverticulosis, difficulty study due to L sided rigidity, one poly resected, it was felt that risk of further colonoscopies likely outweighed future benefits and I would assess
that to still be the case at this time.
Chief Complaint
-: Other (hepatic abscess, diverticulosis with recent diverticulitis, possible gastric abscess)
Subjective / Review of Systems
afebrile
bp stable
no overnight events
'I feel good'
Vital Signs / Physical Exam
Vital Signs
Vital Signs
Temp Pulse Resp BP Pulse Ox
99.1 F 85 20 130/64 95
08/08/24 23:55 08/08/24 23:55 08/08/24 23:55 08/08/24 23:55 08/08/24 23:55
Physical Exam
Constitutional: No Acute Distress and Chronically Ill
Cardiovascular: Regular Rate and S1/S2; Negative Murmur or Rub
Pulmonary: Clear and Symmetric; Negative Wheezes or Rales
Gastrointestinal: Soft, Non Tender, Non Distended and Normal Bowel Sounds
Skin: Warm and Dry; Negative Rash or Jaundice
Objective Data
Lab Data
Lab Results
08/09/24 06:48
08/09/24 06:48
ESR 68 mm/hour (0-20) H 08/06/24 05:30
PT 14.9 Sec (11.4-14.6) H 08/05/24 08:28
INR 1.14 08/05/24 08:28
Estimated Creat Clear 67 ml/min 08/09/24 06:48
Lactic Acid 0.8 mmol/L (0.7-2.0) 08/04/24 16:25
Total Bilirubin 0.7 mg/dl (0.2-1.3) 08/06/24 05:31
AST 23 U/L (14-36) 08/06/24 05:31
ALT 24 U/L (0-35) 08/06/24 05:31
Alkaline Phosphatase 92 U/L (38-126) 08/06/24 05:31
C-Reactive Protein 119.00 mg/L (0.0-10.00) H 08/09/24 06:48
Most recent labs reviewed.
CRP improved by over 50% from 07/26
Micro Results:
08/04/24 17:28 Blood Culture - Preliminary
Blood/Venous No Growth in 4 days- Final report to follow
08/04/24 16:25 Blood Culture - Preliminary
Blood/Venous No Growth in 4 days- Final report to follow
08/05/24 11:54 Anaerobic Culture - Preliminary
Abscess Culture pending. Anaerobic cultures are examined after 3
days incubation. Additional information to follow.
08/05/24 11:54 Body Fluid Culture - Preliminary
Fluid NO GROWTH
Gram Stain - Preliminary
08/05/24 16:32 Wound Culture - Final
Abscess Gram Stain - Final
--- NOTE | 2024-08-09 09:19 | W.PN.GS2 ---
Today's Communication / Plan
-
-- Repeat CT A/P with PO and IV contrast
Assessment / Plan
-
Assessment: Patient is a 84 yo F p/w upper abdominal discomfort with left hepatic lobe abscess as well as two collections along the greater curve of her stomach of unclear etiology - possibly d/t chronic diverticulitis
S/p IR drainage of left lobe liver abscess and EUS guided FNA of perigastric/pancreatic collection on 08/05/2024 (no evidence of gastritis or duodenitis or ulcer disease on EGD)
AFVSS
WBC normalized
Cultures with NGTD
Clinical and laboratory improvement. Plan for a repeat CT scan with oral and IV contrast today to reassess size of hepatic and perigastric collections which will help to aid management of her IR drainage and antibiotic duration. Difficult to say
definitively, though the most likely cause of her issues are related to a smoldering diverticulitis given her delay in presentation as well as prior CT scans and endoscopic evaluation demonstrating diverticulosis with a possible component of under
mild diverticulitis. Less likely to be related to a primary gastric or hepatic etiology. No evidence of gastritis, duodenitis, or ulcer disease on her most recent EGD. Lengthy discussion had with the patient, her , and her daughter
regarding the above. We briefly discussed surgical management of diverticulitis. Given her age and unclear diagnosis no plans or desire for surgical resection (sigmoidectomy) at this time or in the near future. We discussed that she will need to
monitor her symptoms closely with her PCP and if recurrent issues she may need outpatient colorectal surgery follow-up. All questions answered.
Plan:
-- Repeat CT A/P with PO and IV contrast
-- OK for LRD and Ensure supplement, following imaging
-- ABX as per ID
Subjective Data
-
Date of Service: August 09, 2024
No complaints. Lower back pain has improved. No nausea or vomiting. Reports poor appetite for the past several weeks to months. Reports cognitive decline over months to years, however, has had intermittent exacerbating episodes over the past
several months. Denies any abdominal or LLQ abdominal pain. Intermittent issues with constipation over the past several years, which have improved with occasional suppositories and probiotic use. Last colonoscopy was in 2021 and noted to have
diverticulosis with a more firm and indurated sigmoid colon.
Objective Data
-
Intake and Output
08/08/24 08/09/24 08/10/24
06:59 06:59 06:59
Intake Total 5 / 5 1160 / 1160
Output Total
Balance 2260 / 1 1155 / 1155
Intake:
Oral fluids 1950 / 1949 620 / 620
IV piggybacks 305 / 305 530 / 530
Amount instilled into Drain (
Total)
Middle Abdomen Placed in IR
Output:
Drain Output (Total)
Middle Abdomen Placed in IR
Other:
Number of approximated MODERATE 1 4
amounts of urine
How many times incontinent 1
SMALL amount urine
Vital Signs
Temp Pulse Resp BP Pulse Ox
99.1 F 85 20 130/64 95
08/08/24 23:55 08/08/24 23:55 08/08/24 23:55 08/08/24 23:55 08/08/24 23:55
Lab Results
08/09/24 06:48
08/09/24 06:48
Calcium 8.7 mg/dl (8.4-10.2) 08/09/24 06:48
Phosphorus 4.0 mg/dl (2.5-4.5) 08/06/24 05:31
Magnesium 1.9 mg/dl (1.6-2.3) 08/06/24 05:31
Total Bilirubin 0.7 mg/dl (0.2-1.3) 08/06/24 05:31
Direct Bilirubin 0.2 mg/dl (0.0-0.4) 08/06/24 05:31
AST 23 U/L (14-36) 08/06/24 05:31
ALT 24 U/L (0-35) 08/06/24 05:31
Alkaline Phosphatase 92 U/L (38-126) 08/06/24 05:31
Total Protein 5.6 g/dl (6.3-8.2) L 08/06/24 05:31
Albumin 3.0 g/dl (3.5-5.0) L 08/06/24 05:31
Physical Exam
-
Gen: NAD
Abd: soft, NT/ND, non-peritoneal, IR drain with minimal output
Patient has a shukla catheter: No
Patient has a central line: No
[2024-08-09 09:43] VITALS: BP 131/64
--- NOTE | 2024-08-09 09:56 | W.PN.GI.CBS2 ---
Addendum entered and electronically signed by Mikayla Cheema Do, MD 08/09/24 14:49:
I saw and examined the patient.
The NURSERY NURSE's note was reviewed and I agree with the note.
Comment: Citlaly tolerating diet and feels well. Vitals stable, exam NTTP, NABS. Labs reviewed with normal WBC
Recommendations
- Results of CTAP done today reviewed with patient improving fluid collection/abscess
- IR drain removed
- C/w abx
- Appreciate ID and surgical recs
- She declines surgery
- recommend miralax daily
At this juncture no new GI recs will sign off please call for ?
Original Note:
Today's Communication / Plan
-
Etiology of gastric/hepatic abscess- related to diverticulitis, no perforation on EGD/ EUS vs other
-IR drainage of liver abscess and also aspiration of perigastric abscess by EUS performed 08/05. Await cultures, many white cells noted.- no growth so far, ID
Leukocytosis trending down, no fevers or chills, CRP trending down
for repeat CT today
cont abx per ID on IV ampicillin/sulbactam
-Continue Pantoprazole 40 mg IV BID
Assessment / Plan
-
84-year-old female with past medical history of hypothyroidism, hypertension, degenerative disc disease, Pseudomonas UTI, osteoporosis, sacral insufficiency fracture, right flank hematoma 04/2024 felt to be secondary to DVT prophylaxis from pelvic
fracture requiring transfusion 1 unit packed red blood cells, recent hospitalization on 07/26/2024 for chills, leukocytosis of 29,000, febrile up to 103 degrees. Pt reports at that time of bilateral low back pain and CT of the abdomen pelvis without
contrast showing diverticulosis possible subacute diverticulitis and possible gastritis. Blood cultures x 2 were negative. Influenza and COVID were negative. Patient was treated with Zosyn and switched to Augmentin for 10-day course to end on
08/03/2024. Patient was discharged to home on 07/28/2024. Patient states that she had upper abdominal discomfort above the umbilicus and wraps around to back. Followed up with PCP. Had persistent leukocytosis. Outpatient PCP ordered lumbar MRI
which showed hepatic abscesses and was referred to the emergency room for further evaluation. CT imaging showed posterior gastric abscesses and we have asked to evaluate for the same.
08/04/24 CT of the abdomen and pelvis with and without IV contrast s 'there is a lobulated low-density collection which is centered in the lateral wall of the upper gastric body/fundus this collection is seen on image 16 of series 301, and measures
approximately 2.6 cm AP by 2.0 cm transverse by 2.2 cm craniocaudal. This focal collection appears to have a thin connection to a second collection more inferiorly along the posterolateral margin of the gastric body. This second collection measures
4.6 cm craniocaudal by 2.8 cm transverse by 2.3 cm AP. These collections do appear to be centered in the gastric wall, and likely represent perigastric abscesses'. Additionally, 'In the lateral segment of the left lobe of the liver, there is a
focal mass with low-density central region and irregular enhancing border, with progressive slight centripetal filling of enhancement on delayed images, but persistence of cystic central component. This mass measures 4.4 cm transverse by 4.2 cm AP
by 4.8 cm craniocaudal. The appearance is highly suggestive of a hepatic abscess, as suggested on MRI of the lumbar spine performed day prior
08/05/24EGD/-EUS- - Extrinsic compression in the cardia.- A lesion was found in the left lobe of the liver. The lesion was anechoic, hypoechoic and heterogenous. lesion measured 38 mm.
- A complex cystic lesion vs abscess was seen near the pancreatic body. Fine needle aspiration for fluid performed. - Pancreatic parenchymal abnormalities consisting of
diffusely increased echogenicity were noted in the pancreatic head and pancreatic body. - Main pancreatic duct (MPD) diameter was measured. Endosonographically, the MPD had a normal appearance.
- There was no sign of significant pathology in the common bile duct
08/05/24 perc drain Successful ultrasound-guided hepatic drainage catheter placement, yielding 5 mL of bloody purulent fluid.
Impression:
Posterior Gastric abscesses:
--lobulated low-density collection, centered in the lateral wall of the upper gastric body/fundus 2.6 cm AP by 2.0 cm transverse by 2.2 cm
--posterolateral margin of the gastric body, measuring 4.6 cm craniocaudal by 2.8 cm transverse by 2.3 cm
Hepatic abscess
--4.4 cm transverse by 4.2 cm AP by 4.8 cm, lateral segment of the left lobe of the liver
MRI findings of 2.8 cm segment of asymmetric enhancing wall thickening in the mid sigmoid colon which is most likely ACUTE DIVERTICULITIS. Colonic adenocarcinoma is considered less likely. Severe diverticulosis throughout the sigmoid colon.
--last colonoscopy 01/16/2022.
hx fall 08/05/24
other med problems:
-hyperlipidemia
-hypothyroidism
-HTN
-osteoporosis
-hx carline
-hx pelvic fx
-DDD
Plan:
Etiology of gastric/hepatic abscess- related to diverticulitis, no perforation on EGD/ EUS vs other
-IR drainage of liver abscess and also aspiration of perigastric abscess by EUS performed 08/05. Await cultures, many white cells noted.- no growth so far, ID
Leukocytosis trending down, no fevers or chills, CRP trending down
for repeat CT today
cont abx per ID on IV ampicillin/sulbactam
-Continue Pantoprazole 40 mg IV BID
Subjective
Subjective
Date of Service: August 09, 2024
08/06 brown stool, NPO for CT
Objective
Data Reviewed
Laboratory Data:
Laboratory Results
08/09/24 06:48
08/09/24 06:48
Laboratory Results
PT 14.9 Sec (11.4-14.6) H 08/05/24 08:28
INR 1.14 08/05/24 08:28
Phosphorus 4.0 mg/dl (2.5-4.5) 08/06/24 05:31
Magnesium 1.9 mg/dl (1.6-2.3) 08/06/24 05:31
Total Bilirubin 0.7 mg/dl (0.2-1.3) 08/06/24 05:31
AST 23 U/L (14-36) 08/06/24 05:31
ALT 24 U/L (0-35) 08/06/24 05:31
Alkaline Phosphatase 92 U/L (38-126) 08/06/24 05:31
Lipase 82 U/L (23-300) 08/04/24 13:47
Vital Signs and I&O:
Vital Signs
Temp Pulse Resp BP Pulse Ox
98.1 F 79 16 131/64 91
08/09/24 07:00 08/09/24 07:00 08/09/24 07:00 08/09/24 07:00 08/09/24 07:00
I&O
08/08/24 08/09/24 08/10/24
06:59 06:59 06:59
Intake Total 5 / 5 1160 / 1160
Output Total
Balance 2261 / 2261 1155 / 1155
Physical Exam
Physical Exam
HEENT: Anicteric and Moist mucous membranes
Cardiology: Normal Sinus Rhythm
Pulmonary: Clear
GI: Soft, Non Distended, Non Tender and Other ([place] drain with minimal serous fluid )
Extremities: No Edema
Neuro: Non Focal and Other (family assist with history )
--- NOTE | 2024-08-09 11:31 | PN.CDI ---
CDI
- -
CDI:
Physician Documentation Request
Admit Date: 08/04/24 21:00
Dear Doctor Wang
Patient admitted with suspected hepatic abscess.
Recent sodium results:
Laboratory Tests
08/06/24 08/07/24 08/08/24
05:31 06:08 06:20
Sodium 134 L 132 L 131 L
08/09/24
06:48
Sodium 132 L
Could you please provide a diagnosis that supports the above lab abnormalities and additional evaluation,/monitoring:
Hyponatremia
abnormal lab value clinically insignificant
Other
Use of terms such as suspected, likely, concern for, or probable (associated with a specific diagnosis that is being evaluated, monitored, or treated as if it exists) are acceptable and can be coded in the inpatient setting, when documented at the
time of discharge.
Thank you,
Megan Souza RN, BSN
CDI Specialist
tiger text
Please use your independent medical judgment in providing your response.
[2024-08-09] MEDS: OSCAL CAL 500 500 MG PO (12:38)
[2024-08-09] MEDS: THERAGRAN 1 TABLET PO (12:38)
[2024-08-09] MEDS: VITAMIN D3 (cholecalciferol) 25 MCG PO (12:38)
[2024-08-09] MEDS: NON-FORMULARY ITEM 1 TAB PO (12:38)
[2024-08-09 12:54] VITALS: BP 145/79; PULSE 94
--- NOTE | 2024-08-09 13:09 | W.PN.HOSP.TC ---
Today's Communication/Plan
-
continue current Tx, consider tube repositioning
Assessment / Plan
Assessment / Plan
84-year-old female with past medical history significant for hypertension, hyperlipidemia, hypothyroidism and osteoporosis with sacral insufficiency fracture, who presents to the emergency department from outpatient clinic with an MRI showing
intra-abdominal/hepatic abscess. Patient was recently admitted on 07/26/24 to 07/28/24 with abdominal pain at that time was found to have a mild diverticulitis. She was initially started on Zosyn and ultimately discharged on Augmentin. Prior to
that she had a urinary tract infection. She had pretty elevated leukocytosis. After follow-up as an outpatient the patient continued to have leukocytosis. There was concern that she might of had infection from a spinal injection and PMD did a MRI
of the lumbar spine which showed the intra abdominal/hepatic abscess for which she was sent to the emergency department. Patient denies any history of recent surgical procedure. She reports that during childbirth at 1 point she was told she had
hepatitis of childbirth. She denied any recent travel. She does have a well water source at home which she states she tests regularly. She is a wine drinker drinking about a cup of wine nightly with meals but has no history of liver disease. She
denied any fevers or chills, cough, shortness of breath, chest pain, nausea, vomiting, constipation, diarrhea or urinary symptoms. She reports ongoing abdominal discomfort (denies to colic pain) as well as pain across the lower back.
In the emergency department she was afebrile, blood pressure was 135/70 with a pulse of 86 and she was satting at 97% on room air. She had a white count of 19.5. Electrolytes BUN/creatinine were unremarkable. LFTs were normal. Lipase was normal.
CT of the abdomen showed mass within the lateral segment of the left lobe liver highly suspicious for hepatic abscess. 2 collections along the posterolateral wall of the stomach which may have a thin connection this highly suspicious for
perigastric abscesses. No free air identified. No evidence of biliary ductal abnormalities.
Patient with ongoing mild abdominal discomfort, persistent leukocytosis and found to have intra-abdominal abscess on outpatient MRI of the lumbar spine for leukocytosis. CT scan here showed multiple intra-abdominal abscesses suspicious for
perigastric abscess as well as left liver lobe collection suspicious for hepatic abscess. No obvious free air. No bowel obstruction or signs of ischemia. No history of surgical/puncture wound. She is long-standing s/p cholecystectomy without any
evidence of biliary process.
#Liver mass, suspected to be hepatic abscess (less likely to be a centrally necrotic malignant hepatic tumor)
follow up CT scan 08/09: Percutaneous drainage of left lobe hepatic abscess in the interval since prior CT with overall decreased size/volume of abscess collection. Percutaneous drainage catheter appears to extend through the left lobe of the
liver with distal pigtail tip posterior to the left lobe of the liver proper with some accompanying small volume localized fluid and air bubbles.
Overall slightly decreased two abnormal fluid collections along the wall of the stomach in comparison to prior CT.
No additional significant interval change.
#Suspected perigastric abscesses
#Concern for Diverticulitis on CT Imaging -- less likely to be colon cancer
#Persistent Leukocytosis
WBC 19.5-->15.3-->15.0-->12.2-->9.5k
CRP 270-->244-->131-->119
Na remains in the mild hyponatremic range of 132
- Findings above found on L-Spine MRI since patient was having low back pain
- Recently hospitalized for diverticulitis
- IR drainage of liver abscess drainage performed 08/05/24
- input from ID appreciated
- input from Surgery appreciated
- Was on IV Zosyn and Micafungin and now changed to Unasyn 3 gms IV q6h. Appreciate ID input
- advanced to low residue diet and is tolerating
- Continue Pantoprazole 40 mg IV BID
- Supportive care/IV fluids
- Follow blood cultures
- Dr Finley performed EGD/EUS on 08/06/24 -- NGTD
- Continue IR drain, Dr. Kelly contacted [facility] regarding possible repositioning of drain
#Fall on 08/05/24
-In the setting of post-anesthesia (from EGD) state
-Had head impact; CT Head showed no acute changes
-Patient's neurological exam as of 08/07/24 remains good
#atelectasis noted 08/08, markedly improved with use of I.S.
#Concern for Diverticulitis
- Continue antibiotics
#Hyperlipidemia
- Continue atorvastatin
#Hypothyroidism
- Continue levothyroxine
#Hypertension
#Osteoporosis with sacral insufficiency fracture
#Status post cholecystectomy with no evidence for biliary ductal dilation on CT Imaging
#Numerous colonic diverticula on CT Imaging
#Bony degenerative changes on CT Imaging
#Appearance of subacute fracture involving the right side of the symphysis pubis and the right inferior pubic ramus, stable appearance
#Suggestion of subacute fracture involving the left sacral ala, stable appearance on CT Imaging
#Bilateral sacral insufficiency fractures containing mild bone marrow edema.
#Severe left lateral recess stenosis, moderate central canal stenosis, and severe left neural foraminal narrowing at L4/L5 which appears unchanged.
#Severe right lateral recess stenosis, moderate central canal stenosis, and severe right neural foraminal narrowing at L3/L4 which appears unchanged.
#Severe left-sided facet joint arthrosis at L5/S1 with moderate surrounding bone marrow and soft tissue edema.
#Mild central canal stenosis at L2/L3 which appears unchanged.
Code status: DNR
DVT prophylaxis: Lovenox Subq
reviewed with in room
Anticipated Discharge: > 48 hours
Subjective/Interval History
-
Date of Service: August 09, 2024
Currently no abdominal pain
Objective Data
-
Labs:
Laboratory Results
08/09/24
06:48
WBC 9.5
Hgb 11.9 L
Hct 35.2 L
Plt Count 451 H
Sodium 132 L
Potassium 3.8
Chloride 100
Carbon Dioxide 28
BUN 7
Creatinine 0.5 L
Glucose 95
Calcium 8.7
Vital Signs:
Vital Signs
Temp Pulse Resp BP Pulse Ox
98.1 F 79 16 131/64 96
08/09/24 07:00 08/09/24 07:00 08/09/24 07:00 08/09/24 07:00 08/09/24 11:55
I&O
08/08/24 08/09/24 08/10/24
06:59 06:59 06:59
Intake Total 2264 / 2264 1160 / 1160
Output Total
Balance 1 / 1 1155 / 1155
Review of Systems
-
History Source: Patient and Coordinated Provider
Constitutional: Denies Fever
EENT: Reports No Symptoms Reported
Respiratory: Reports No Symptoms
Cardiac: Reports No Symptoms
Abdomen/GI: Reports Abdominal Pain (resolved); Denies Nausea, Vomiting or Constipated (had BM last 2 days)
Genitourinary: Reports No Symptoms
Musculoskeletal: Reports No Symptoms
Physical Exam
-
General: Well Developed, Well Nourished and No Apparent Distress
HEENT: Normocephalic, Atraumatic and Moist Mucous Membranes
Respiratory: Clear to Auscultation; Negative Wheezes, Rales (atelectatic rales were noted 08/08, none today) or Rhonchi
Cardiac: Regular Rhythm and S1/S2
GI: Soft, Nontender, Nondistended and Normal Bowel Sounds
Genito-urinary: No Costovertebral Tender
Musculoskeletal: No Clubbing, No Cyanosis and No Edema
Neuro: Awake, Alert and Oriented
[2024-08-09 13:27] VITALS: BP 136/73; BP_SYST 88
--- NOTE | 2024-08-09 13:56 | W.PN.UPDATE ---
Update Note
Progress Note Update
- Unsuccessful repo of indwelling hepatic drain
- Removed existing drain over a wire and did a pullback contrast study with 4F catheter. Most of the injected contrast followed the catheter track with poor delineation of residual abscess cavity.
- Attempted to place a new 8.5F catheter but there was resistance and patient had discomfort; could not say with certainty under fluoro positioning of the catheter so elected to remove entirely.
- Would continue to treat with IV abx, rescan in several days.
[2024-08-09 14:38] VITALS: BP 110/77
--- NOTE | 2024-08-09 16:45 | CM ---
Pt to IR to adjust IR drain .
spoke with pt in room Offered Vn .
She said she will speak with her and let CM know.
PLAN Home with possible VN if requested
[2024-08-09] MEDS: LOVENOX 40 MG SC (17:05)
[2024-08-09] MEDS: LIPITOR 10 MG PO (20:34)
[2024-08-09] MEDS: MELATONIN 5 MG PO (20:34)
[2024-08-09 23:55] VITALS: BP 117/61
[2024-08-10] MEDS: UNASYN IV ×2 (05:13→10:46)
[2024-08-10] MEDS: SYNTHROID 125 MCG PO (05:13)
[2024-08-10 06:43] LABS: Hematocrit 35.4 % (37.0-47.0); Hemoglobin 11.8 g/dL (12.0-16.0); Mean Corp Hgb Conc. 33.3 g/dL (33.0-37.0); Mean Corpuscular Hgb 28.3 pg (27.0-31.0); Mean Corpuscular Volume 84.9 fL (81.0-99.0); Mean Platelet Volume 9.1 fL (7.4-10.4); Platelet Count 457 10^3/uL (130-400); Red Blood Cell Count 4.17 10^6/uL (4.20-5.40); Red Cell Dist. Width 12.6 % (11.5-14.5); White Blood Cell Count 10.1 10^3/uL (4.8-10.8)
[2024-08-10 07:01] LABS: Blood Urea Nitrogen 8 mg/dl (7-17); Calcium 8.6 mg/dl (8.4-10.2); Carbon Dioxide 28 mmol/L (22-30); Chloride 100 mmol/L (98-107); Estimated Creatinine Clearance 67 ml/min; Glucose 90 mg/dl (70-99); Potassium 4.1 mmol/L (3.5-5.1); Sodium 133 mmol/L (135-145); eGFR > 60.00
[2024-08-10 07:31] VITALS: BP 133/76
[2024-08-10] MEDS: MIRALAX 17 GRAMS PO (08:54)
[2024-08-10] MEDS: VISBIOME 1 CAP PO (08:54)
[2024-08-10] MEDS: NSS (PRESERVATIVE FREE) 10 ML IV ×2 (08:55→19:28)
[2024-08-10] MEDS: PROTONIX IV 40 MG IV ×2 (08:55→19:28)
--- NOTE | 2024-08-10 09:03 | W.PN.GS2 ---
Today's Communication / Plan
-
Continue IV antibiotics. Appreciate ID recommendations: Unasyn while inpatient, transition to Augmentin for 4 weeks as an outpatient.
Okay for a low residue diet and Ensure supplementation.
Bowel regimen
Plan for repeat CT abdomen pelvis with IV contrast on Thursday
Continue daily CBC and BMP.
General surgery will continue to follow
Assessment / Plan
-
Assessment: Patient is a 84 yo F p/w upper abdominal discomfort with left hepatic lobe abscess as well as two collections along the greater curve of her stomach of unclear etiology - possibly d/t chronic diverticulitis. S/p IR drainage of left lobe
liver abscess (now removed after unsuccessful repositioning) and EUS guided FNA of perigastric/pancreatic collection on 08/05/2024 (no evidence of gastritis/duodenitis or stomach ulcer disease on EGD)
Plan:
Continue IV antibiotics. Appreciate ID recommendations: Unasyn while inpatient, transition to Augmentin for 4 weeks as an outpatient.
Okay for a low residue diet and Ensure supplementation.
Bowel regimen
Plan for repeat CT abdomen pelvis with IV contrast on Thursday
Continue daily CBC and BMP.
General surgery will continue to follow
Time Spent
Total Time Spent with Patient (in minutes): 20
Subjective Data
-
Date of Service: August 10, 2024
Interval Events:
No acute events overnight. Unable to reposition drain successfully so removed. Otherwise, but slept well. Pain Controlled. Denies Nausea/Vomiting, +bowel function. Tolerating diet but still has poor appetite.
Objective Data
-
Intake and Output
08/09/24 08/10/24 08/11/24
06:59 06:59 06:59
Intake Total 1160 / 1160 720 / 720
Output Total 5 / 5
Balance 1155 / 1155 720 / 720
Intake:
Oral fluids 620 / 620 240 / 240
IV piggybacks 530 / 530 480 / 480
Amount instilled into Drain (
Total)
Middle Abdomen Placed in IR
Output:
Drain Output (Total)
Middle Abdomen Placed in IR
Other:
Number of approximated SMALL 2
amounts of urine
Number of approximated MODERATE 4 1
amounts of urine
Number of unmeasured liquid
stools
Rectum 3
Vital Signs
Temp Pulse Resp BP Pulse Ox
98.1 F 82 16 133/76 95
08/10/24 07:31 08/10/24 07:31 08/10/24 07:31 08/10/24 07:31 08/10/24 07:31
Lab Results
08/10/24 05:57
08/10/24 05:57
Calcium 8.6 mg/dl (8.4-10.2) 08/10/24 05:57
Phosphorus 4.0 mg/dl (2.5-4.5) 08/06/24 05:31
Magnesium 1.9 mg/dl (1.6-2.3) 08/06/24 05:31
Total Bilirubin 0.7 mg/dl (0.2-1.3) 08/06/24 05:31
Direct Bilirubin 0.2 mg/dl (0.0-0.4) 08/06/24 05:31
AST 23 U/L (14-36) 08/06/24 05:31
ALT 24 U/L (0-35) 08/06/24 05:31
Alkaline Phosphatase 92 U/L (38-126) 08/06/24 05:31
Total Protein 5.6 g/dl (6.3-8.2) L 08/06/24 05:31
Albumin 3.0 g/dl (3.5-5.0) L 08/06/24 05:31
Physical Exam
-
GENERAL/NEURO: Awake, Alert, no distress
CHEST: Unlabored breathing on RA
ABDOMEN: Soft, Non-Tender, Non-Distended.
Patient has a shukla catheter: No
Patient has a central line: No
--- NOTE | 2024-08-10 09:06 | W.PN.ID1 ---
Date of Service
Date of Service: August 10, 2024
Today's Communication
- midline
- transition to ceftriaxone 2 gm IV q24 and metronidazole 500 mg PO BID plan two more weeks of IV therapy through 08/23 (4 week total course), then might transition to augmentin to complete two more weeks for a 6 week course.
- outpatient CT a/p with IV and oral contrast early next week and then follow up in ID clinic
Assessment / Plan
Hepatic Abscess
Intraabdominal Abscess - possibly related to pancreas or gastric body; no perforation was found on EGD
Recent Diverticulitis - probable source of the abscesses
- 08/05 - aerobic and anaerobic culture of fluid from the hepatic abscess finalized negative, fluid was purulent; gram stain no organisms - suggests partial treatment with prior augmentin
- 08/05 - aerobic culture from the perigastric/pancreatic fluid - also finalized negative
- CRP improved over 50% from initial on augmentin/unasyn
- unsuccessful repositioning of hepatic drain 08/09 and drain removed - hepatic abscess now 3 to 3.5 cm down from 4.8 cm in greatest position - IR recommends continued IV antibiotic treatment and rescan in several days
- discussed options of setting up for home IV antibiotics with outpatient follow up for repeat CT scan next week vs staying inpatient and they would prefer discharge and outpatient follow up - will attempt to set up
- midline
- transition to ceftriaxone 2 gm IV q24 and metronidazole 500 mg PO BID plan two more weeks of IV therapy through 08/23 (4 week total course), then might transition to augmentin to complete two more weeks for a 6 week course.
- outpatient CT a/p with IV and oral contrast early next week and then follow up in ID clinic
Chief Complaint
-: Other (hepatic abscess, diverticulosis with recent diverticulitis, possible gastric abscess)
Subjective / Review of Systems
remains afebrile
bp stable
unsuccessful repositioning of hepatic drain - IR recommends continued IV antibiotic treatment and rescan in several days
no abdominal pain
family says her color looks better and I agree
Vital Signs / Physical Exam
Vital Signs
Vital Signs
Temp Pulse Resp BP Pulse Ox
98.1 F 82 16 133/76 95
08/10/24 07:31 08/10/24 07:31 08/10/24 07:31 08/10/24 07:31 08/10/24 07:31
Physical Exam
Constitutional: No Acute Distress
Cardiovascular: Regular Rate and S1/S2; Negative Murmur or Rub
Pulmonary: Clear and Symmetric; Negative Wheezes or Rales
Gastrointestinal: Soft, Non Tender, Non Distended and Normal Bowel Sounds
Skin: Warm and Dry; Negative Rash or Jaundice
Objective Data
Lab Data
Lab Results
08/10/24 05:57
08/10/24 05:57
ESR 68 mm/hour (0-20) H 08/06/24 05:30
PT 14.9 Sec (11.4-14.6) H 08/05/24 08:28
INR 1.14 08/05/24 08:28
Estimated Creat Clear 67 ml/min 08/10/24 05:57
Lactic Acid 0.8 mmol/L (0.7-2.0) 08/04/24 16:25
Total Bilirubin 0.7 mg/dl (0.2-1.3) 08/06/24 05:31
AST 23 U/L (14-36) 08/06/24 05:31
ALT 24 U/L (0-35) 08/06/24 05:31
Alkaline Phosphatase 92 U/L (38-126) 08/06/24 05:31
C-Reactive Protein 119.00 mg/L (0.0-10.00) H 08/09/24 06:48
Most recent labs reviewed.
Micro Results:
08/05/24 11:54 Body Fluid Culture - Final
Fluid No Growth After 72 Hours
Gram Stain - Final
08/05/24 11:54 Anaerobic Culture - Final
Abscess NO ANAEROBES ISOLATED
08/04/24 17:28 Blood Culture - Final
Blood/Venous No Growth - Final Report
08/04/24 16:25 Blood Culture - Final
Blood/Venous No Growth - Final Report
08/05/24 16:32 Wound Culture - Final
Abscess Gram Stain - Final
Care Review
Plan reviewed with: Physician (Dr Piña - disposition)
--- NOTE | 2024-08-10 11:27 | W.PN.HOSP.TC ---
Today's Communication/Plan
-
Potential dc tomorrow if IV abx regiment can be set up. ID Ordered midline
Assessment / Plan
Assessment / Plan
84-year-old female with past medical history significant for hypertension, hyperlipidemia, hypothyroidism and osteoporosis with sacral insufficiency fracture, who presents to the emergency department from outpatient clinic with an MRI showing
intra-abdominal/hepatic abscess. Patient was recently admitted on 07/26/24 to 07/28/24 with abdominal pain at that time was found to have a mild diverticulitis. She was initially started on Zosyn and ultimately discharged on Augmentin. Prior to
that she had a urinary tract infection. She had pretty elevated leukocytosis. After follow-up as an outpatient the patient continued to have leukocytosis. There was concern that she might of had infection from a spinal injection and PMD did a MRI
of the lumbar spine which showed the intra abdominal/hepatic abscess for which she was sent to the emergency department. Patient denies any history of recent surgical procedure. She reports that during childbirth at 1 point she was told she had
hepatitis of childbirth. She denied any recent travel. She does have a well water source at home which she states she tests regularly. She is a wine drinker drinking about a cup of wine nightly with meals but has no history of liver disease. She
denied any fevers or chills, cough, shortness of breath, chest pain, nausea, vomiting, constipation, diarrhea or urinary symptoms. She reports ongoing abdominal discomfort (denies to colic pain) as well as pain across the lower back.
In the emergency department she was afebrile, blood pressure was 135/70 with a pulse of 86 and she was satting at 97% on room air. She had a white count of 19.5. Electrolytes BUN/creatinine were unremarkable. LFTs were normal. Lipase was normal.
CT of the abdomen showed mass within the lateral segment of the left lobe liver highly suspicious for hepatic abscess. 2 collections along the posterolateral wall of the stomach which may have a thin connection this highly suspicious for
perigastric abscesses. No free air identified. No evidence of biliary ductal abnormalities.
Patient had ongoing mild abdominal discomfort, now resolved, persistent leukocytosis and found to have intra-abdominal abscess on outpatient MRI of the lumbar spine for leukocytosis. CT scan here showed multiple intra-abdominal abscesses suspicious
for perigastric abscess as well as left liver lobe collection suspicious for hepatic abscess. No obvious free air. No bowel obstruction or signs of ischemia. No history of surgical/puncture wound. She is long-standing s/p cholecystectomy without
any evidence of biliary process.
#Liver mass, suspected to be hepatic abscess (less likely to be a centrally necrotic malignant hepatic tumor)
follow up CT scan 08/09: Percutaneous drainage of left lobe hepatic abscess in the interval since prior CT with overall decreased size/volume of abscess collection. Percutaneous drainage catheter appears to extend through the left lobe of the
liver with distal pigtail tip posterior to the left lobe of the liver proper with some accompanying small volume localized fluid and air bubbles.
Overall slightly decreased two abnormal fluid collections along the wall of the stomach in comparison to prior CT.
No additional significant interval change.
#Suspected perigastric abscesses
#Concern for Diverticulitis on CT Imaging -- less likely to be colon cancer
#Persistent Leukocytosis
WBC 19.5-->15.3-->15.0-->12.2-->9.5-->10.1k
CRP 270-->244-->131-->119
Na remains in the mild hyponatremic range of 132
- Findings above found on L-Spine MRI since patient was having low back pain
- Recently hospitalized for diverticulitis
- IR drainage of liver abscess drainage performed 08/05/24
- input from ID appreciated
- input from Surgery appreciated
- Was on IV Zosyn and Micafungin and now changed to Unasyn 3 gms IV q6h. Appreciate ID input
- advanced to low residue diet and is tolerating
- Continue Pantoprazole 40 mg IV BID
- Supportive care/IV fluids
- Follow blood cultures
- Dr Finley performed EGD/EUS on 08/06/24 -- NGTD
- Attempt to reposition the drain resulted in dislodgement, unable to replace due to pain. Decision to leave out.
Dr. Kelly plan is to set up 2 weeks of home IV abx and then transition to oral, with outpt CT scan and depending on CT scan to consider drain replacement. She will see if can be set up today for dc tomorrow
#Fall on 08/05/24
-In the setting of post-anesthesia (from EGD) state
-Had head impact; CT Head showed no acute changes
-Patient's neurological exam as of 08/07/24 remains good
#atelectasis noted 08/08, markedly improved with use of I.S.
#Concern for Diverticulitis
- Continue antibiotics
#Hyperlipidemia
- Continue atorvastatin
#Hypothyroidism
- Continue levothyroxine
#Hypertension
#Osteoporosis with sacral insufficiency fracture
#Status post cholecystectomy with no evidence for biliary ductal dilation on CT Imaging
#Numerous colonic diverticula on CT Imaging
#Bony degenerative changes on CT Imaging
#Appearance of subacute fracture involving the right side of the symphysis pubis and the right inferior pubic ramus, stable appearance
#Suggestion of subacute fracture involving the left sacral ala, stable appearance on CT Imaging
#Bilateral sacral insufficiency fractures containing mild bone marrow edema.
#Severe left lateral recess stenosis, moderate central canal stenosis, and severe left neural foraminal narrowing at L4/L5 which appears unchanged.
#Severe right lateral recess stenosis, moderate central canal stenosis, and severe right neural foraminal narrowing at L3/L4 which appears unchanged.
#Severe left-sided facet joint arthrosis at L5/S1 with moderate surrounding bone marrow and soft tissue edema.
#Mild central canal stenosis at L2/L3 which appears unchanged.
Code status: DNR
DVT prophylaxis: Lovenox Subq
reviewed with and dgt Nila in room 08/10
Anticipated Discharge: Within 24 hours
Subjective/Interval History
-
Date of Service: August 10, 2024
Overall feeling better
Objective Data
-
Labs:
Laboratory Results
08/10/24
05:57
WBC 10.1
Hgb 11.8 L
Hct 35.4 L
Plt Count 457 H
Sodium 133 L
Potassium 4.1
Chloride 100
Carbon Dioxide 28
BUN 8
Creatinine 0.5 L
Glucose 90
Calcium 8.6
Vital Signs:
Vital Signs
Temp Pulse Resp BP Pulse Ox
98.1 F 82 16 133/76 95
08/10/24 07:31 08/10/24 07:31 08/10/24 07:31 08/10/24 07:31 08/10/24 07:31
I&O
08/09/24 08/10/24 08/11/24
06:59 06:59 06:59
Intake Total 1160 / 1160 720 / 720
Output Total
Balance 1155 / 1155 720 / 720
Review of Systems
-
History Source: Patient and Coordinated Provider
Constitutional: Denies Fever
EENT: Reports No Symptoms Reported
Respiratory: Reports No Symptoms
Cardiac: Reports No Symptoms
Abdomen/GI: Reports Abdominal Pain (resolved); Denies Nausea, Vomiting or Constipated (had BM last 2 days)
Genitourinary: Reports No Symptoms
Musculoskeletal: Reports No Symptoms
Physical Exam
-
General: Well Developed, Well Nourished and No Apparent Distress
HEENT: Normocephalic, Atraumatic and Moist Mucous Membranes
Respiratory: Clear to Auscultation; Negative Wheezes, Rales (atelectatic rales were noted 08/08, none today) or Rhonchi
Cardiac: Regular Rhythm and S1/S2
GI: Soft, Nontender, Nondistended and Normal Bowel Sounds
Genito-urinary: No Costovertebral Tender
Musculoskeletal: No Clubbing, No Cyanosis and No Edema
Neuro: Awake, Alert and Oriented
[2024-08-10] MEDS: NON-FORMULARY ITEM 1 TAB PO (12:18)
[2024-08-10] MEDS: THERAGRAN 1 TABLET PO (12:19)
[2024-08-10] MEDS: VITAMIN D3 (cholecalciferol) 25 MCG PO (12:19)
[2024-08-10] MEDS: OSCAL CAL 500 500 MG PO (12:19)
[2024-08-10] MEDS: STERILE WATER FOR INJECTION 20 ML IV (12:21)
[2024-08-10] MEDS: ROCEPHIN 2000 MG IV (12:21)
--- NOTE | 2024-08-10 15:54 | DOWNTIME ---
There was a [facility] [employer] Downtime on 08/10/2024 from 1230 to 08/10/2024 at 1550. Downtime documentation of patient's care, including medication administrations, has been reconciled in the electronic record per guidelines. Refer to the
patient's paper chart under the miscellaneous tab to see printed paper medication records and downtime forms.
[2024-08-10 15:57] VITALS: BP 115/59
--- NOTE | 2024-08-10 16:12 | CM ---
IR removed drain yesterday.
ID provided IV antibiotic script for home infusion set up.
Spoke with pt explained home infusion and she agreed to use [facility] .
Spoke with Jacquelyn Clinical script,Hand P ,insurance cards faxed to [facility].
Jacquelyn said that they can accept care.
Pt will need midline information faxed to [facility] after placed.
IMM reviewed with patient signed on chart.
PLAN Home with [facility] infusion
--- NOTE | 2024-08-10 16:50 | W.PN.ID1 ---
Addendum entered and electronically signed by Dariana Kelly MD 08/11/24 09:10:
I saw and evaluated the patient. I reviewed the resident�s note and agree with findings and plan as documented in the resident�s note with the following additions/corrections. Please also see my separately documented note from same day
Hepatic Abscess
Intraabdominal Abscess - possibly related to pancreas or gastric body; no perforation was found on EGD
Recent Diverticulitis - probable source of the abscesses
- 08/05 - aerobic and anaerobic culture of fluid from the hepatic abscess finalized negative, fluid was purulent; gram stain no organisms - suggests partial treatment with prior augmentin
- 08/05 - aerobic culture from the perigastric/pancreatic fluid - also finalized negative
- CRP improved over 50% from initial on augmentin/unasyn
- unsuccessful repositioning of hepatic drain 08/09 and drain removed - hepatic abscess now 3 to 3.5 cm down from 4.8 cm in greatest position - IR recommends continued IV antibiotic treatment and rescan in several days
- discussed options of setting up for home IV antibiotics with outpatient follow up for repeat CT scan next week vs staying inpatient and they would prefer discharge and outpatient follow up - will attempt to set up
- midline
- transition to ceftriaxone 2 gm IV q24 and metronidazole 500 mg PO BID plan two more weeks of IV therapy through 08/23 (4 week total course), then might transition to augmentin to complete two more weeks for a 6 week course.
- outpatient CT a/p with IV and oral contrast early next week and then follow up in ID clinic
Original Note:
Date of Service
Date of Service: August 10, 2024
Patient seen and examined with , sister and [id number] at bedside. Patient reports feeling well and does not have any complaints today. Denies chest pain, shortness of breath, abdominal pain, fever or chills.
Today's Communication
Ceftriaxone 2 g IV Q24H, metronidazole 500 mg PO BID; will continue for additional 4 weeks and likely transition to Augmentin to complete 6 weeks course.
Assessment / Plan
84-year-old female with PMH of recurrent UTIs, who presented again to the ED due to an outpatient MRI showing hepatic abscess.
Assessment/plan:
#Hepatic abscess
#Probable perigastric abscesses
#Leukocytosis
#Diverticulitis/diverticulosis
- Intra-abdominal abscess likely from diverticulitis.
- S/p IR drainage of left lobe liver abscess, EUS guided FNA of perigastric/pancreatic collection 08/05 with no evidence of gastritis, duodenitis, gastric ulcer disease on EGD.
- Aerobic and anaerobic cultures of hepatic abscess finalized negative; no organisms identified on Gram stain possibly due to pressure treatment with Augmentin prior to culture collection.
- Aerobic culture of perigastric/pancreatic collection finalized negative.
- Hepatic drain removed 08/09 due to on successful repositioning. IV antibiotics with repeat CT scan in several days as outpatient per IR.
- Patient will like to go home with IV antibiotics to complete course; midline successfully obtained today.
- Currently on ceftriaxone 2 g IV Q24H, metronidazole 500 mg PO BID; will continue for additional 4 weeks and likely transition to Augmentin to complete 6 weeks course.
- Follow-up with ID outpatient.
Chief Complaint
-: Other (hepatic abscess, diverticulosis with recent diverticulitis, possible gastric abscess)
Subjective / Review of Systems
Review of Systems: No Fever, No Chills, No Chest Pain, No Abdominal Pain, No Nausea and Diarrhea
Vital Signs / Physical Exam
Vital Signs
Vital Signs
Temp Pulse Resp BP Pulse Ox
97.9 F 88 16 115/59 97
08/10/24 15:57 08/10/24 15:57 08/10/24 15:57 08/10/24 15:57 08/10/24 15:57
Physical Exam
Constitutional: No Acute Distress
Cardiovascular: Regular Rate and S1/S2; Negative Murmur or Rub
Pulmonary: Clear and Symmetric; Negative Wheezes or Rales
Gastrointestinal: Soft, Non Tender, Non Distended and Normal Bowel Sounds
Skin: Warm and Dry; Negative Rash or Jaundice
Neurological: Awake and AO x 3
Psychological: Calm
Objective Data
Lab Data
Lab Results
08/10/24 05:57
08/10/24 05:57
ESR 68 mm/hour (0-20) H 08/06/24 05:30
PT 14.9 Sec (11.4-14.6) H 08/05/24 08:28
INR 1.14 08/05/24 08:28
Estimated Creat Clear 67 ml/min 08/10/24 05:57
Lactic Acid 0.8 mmol/L (0.7-2.0) 08/04/24 16:25
Total Bilirubin 0.7 mg/dl (0.2-1.3) 08/06/24 05:31
AST 23 U/L (14-36) 08/06/24 05:31
ALT 24 U/L (0-35) 08/06/24 05:31
Alkaline Phosphatase 92 U/L (38-126) 08/06/24 05:31
C-Reactive Protein 119.00 mg/L (0.0-10.00) H 08/09/24 06:48
Most recent labs reviewed.
Microbiology: Report Reviewed
Micro Results:
08/05/24 11:54 Body Fluid Culture - Final
Fluid No Growth After 72 Hours
Gram Stain - Final
08/05/24 11:54 Anaerobic Culture - Final
Abscess NO ANAEROBES ISOLATED
08/04/24 17:28 Blood Culture - Final
Blood/Venous No Growth - Final Report
08/04/24 16:25 Blood Culture - Final
Blood/Venous No Growth - Final Report
08/05/24 16:32 Wound Culture - Final
Abscess Gram Stain - Final
Care Review
Plan reviewed with: Physician
[2024-08-10] MEDS: LOVENOX 40 MG SC (17:43)
[2024-08-10] MEDS: FLAGYL 500 MG PO (19:28)
[2024-08-10] MEDS: LIPITOR 10 MG PO (21:00)
[2024-08-10] MEDS: MELATONIN 5 MG PO (21:00)
[2024-08-10 23:59] VITALS: BP 138/77
[2024-08-11] MEDS: SYNTHROID 125 MCG PO (05:00)
[2024-08-11 05:02] LABS: % Eosinophils 2.7 % (0-6); % Immature Granulocytes 0.5 % (0-0.5); % Monocytes 11.4 % (1.7-9.3); % Neutrophils 60.4 % (42.2-75.2); Absolute Basophils 0.1 10^3/uL (0-0.2); Absolute Eosinophils 0.2 10^3/uL (0-0.7); Absolute Lymphocytes 2.1 10^3/uL (1.2-3.4); Absolute Neutrophils 5.3 10^3/uL (1.4-6.5); Hematocrit 34.4 % (37.0-47.0); Hemoglobin 11.5 g/dL (12.0-16.0); Mean Corp Hgb Conc. 33.4 g/dL (33.0-37.0); Mean Corpuscular Hgb 28.8 pg (27.0-31.0); Mean Corpuscular Volume 86.2 fL (81.0-99.0); Mean Platelet Volume 8.8 fL (7.4-10.4); Nucleated Red Blood Cells % 0 %; Platelet Count 416 10^3/uL (130-400); Red Blood Cell Count 3.99 10^6/uL (4.20-5.40); Red Cell Dist. Width 12.5 % (11.5-14.5); White Blood Cell Count 8.8 10^3/uL (4.8-10.8)
[2024-08-11 05:29] LABS: ALT (SGPT) 35 U/L (0-35); AST (SGOT) 30 U/L (14-36); Albumin 3.1 g/dl (3.5-5.0); Alkaline Phosphatase 86 U/L (38-126); Blood Urea Nitrogen 9 mg/dl (7-17); Calcium 8.8 mg/dl (8.4-10.2); Carbon Dioxide 30 mmol/L (22-30); Chloride 101 mmol/L (98-107); Estimated Creatinine Clearance 67 ml/min; Glucose 96 mg/dl (70-99); Potassium 4.1 mmol/L (3.5-5.1); Sodium 134 mmol/L (135-145); Total Bilirubin 0.4 mg/dl (0.2-1.3); Total Protein 5.8 g/dl (6.3-8.2); eGFR > 60.00
[2024-08-11 07:08] VITALS: BP 149/65
[2024-08-11] MEDS: PROTONIX IV 40 MG IV (07:48)
[2024-08-11] MEDS: FLAGYL 500 MG PO (07:48)
[2024-08-11] MEDS: VISBIOME 1 CAP PO (07:48)
[2024-08-11] MEDS: MIRALAX PO (07:50)
[2024-08-11] MEDS: NSS (PRESERVATIVE FREE) 10 ML IV (07:50)
--- NOTE | 2024-08-11 10:23 | CM ---
Spoke with [facility] she received clinical and IV abx script..
Jacquelyn said that they can accept care.
Pts midline information faxed to [facility].
Pt to receive IV antibiotic does in hospital before dc.
Family will drive her home
PLAN Home with [facility] infusion
[2024-08-11] MEDS: THERAGRAN 1 TABLET PO (11:21)
[2024-08-11] MEDS: VITAMIN D3 (cholecalciferol) 25 MCG PO (11:21)
[2024-08-11] MEDS: NON-FORMULARY ITEM 1 TAB PO (11:21)
[2024-08-11] MEDS: OSCAL CAL 500 500 MG PO (11:21)
[2024-08-11] MEDS: STERILE WATER FOR INJECTION 20 ML IV (12:56)
[2024-08-11] MEDS: ROCEPHIN 2000 MG IV (12:57)
--- NOTE | 2024-08-11 13:59 | W.PN.GS2 ---
Today's Communication / Plan
-
`
Assessment / Plan
-
Assessment: Patient is a 84 yo F p/w upper abdominal discomfort with left hepatic lobe abscess as well as two collections along the greater curve of her stomach of unclear etiology - possibly d/t chronic diverticulitis (asymptomatic and no prior dx
of diverticulitis) . S/p IR drainage of left lobe liver abscess (now removed after unsuccessful repositioning) and EUS guided FNA of perigastric/pancreatic collection on 08/05/2024 (no evidence of gastritis/duodenitis or stomach ulcer disease on EGD)
AFVSS
clinically improved/resolving
Plan: okay for d/c from surgical standpoint with outpatient ABX and surveillance CT imaging
ID managing ABX recommendations and will be monitoring with CT; surgical followup can be on an as needed basis but provided patient with our office contact if any questions or concerns are to arise.
signing off
Time Spent
Total Time Spent with Patient (in minutes): `
Subjective Data
-
Date of Service: August 11, 2024
pt seen and examined
at bedside
minimal epigastric discomfort, no pain
appetite improving
Objective Data
-
Intake and Output
08/10/24 08/11/24 08/12/24
06:59 06:59 06:59
Intake Total 720 / 720 620 / 620
Balance 720 / 720 620 / 620
Intake:
Oral fluids 240 / 240 620 / 620
IV piggybacks 480 / 480
Other:
Number of approximated SMALL 2
amounts of urine
Number of approximated MODERATE 1 2
amounts of urine
Number of unmeasured liquid
stools
Rectum 3
Vital Signs
Temp Pulse Resp BP Pulse Ox
97.7 F 81 18 149/65 98
08/11/24 07:08 08/11/24 07:08 08/11/24 07:08 08/11/24 07:08 08/11/24 07:08
Lab Results
08/11/24 04:47
08/11/24 04:47
Calcium 8.8 mg/dl (8.4-10.2) 08/11/24 04:47
Phosphorus 4.0 mg/dl (2.5-4.5) 08/06/24 05:31
Magnesium 1.9 mg/dl (1.6-2.3) 08/06/24 05:31
Total Bilirubin 0.4 mg/dl (0.2-1.3) 08/11/24 04:47
Direct Bilirubin 0.2 mg/dl (0.0-0.4) 08/06/24 05:31
AST 30 U/L (14-36) 08/11/24 04:47
ALT 35 U/L (0-35) 08/11/24 04:47
Alkaline Phosphatase 86 U/L (38-126) 08/11/24 04:47
Total Protein 5.8 g/dl (6.3-8.2) L 08/11/24 04:47
Albumin 3.1 g/dl (3.5-5.0) L 08/11/24 04:47
Physical Exam
-
NAD AAOx3
ABD: soft, ND, mild epigastric tenderness,
no R/R/G
[2024-08-11 14:15] VITALS: BP 111/66
--- NOTE | 2024-08-11 14:31 | W.PN.HOSP.TC ---
Today's Communication/Plan
-
dc to home
Assessment / Plan
Assessment / Plan
84-year-old female with past medical history significant for hypertension, hyperlipidemia, hypothyroidism and osteoporosis with sacral insufficiency fracture, who presents to the emergency department from outpatient clinic with an MRI showing
intra-abdominal/hepatic abscess. Patient was recently admitted on 07/26/24 to 07/28/24 with abdominal pain at that time was found to have a mild diverticulitis. She was initially started on Zosyn and ultimately discharged on Augmentin. Prior to
that she had a urinary tract infection. She had pretty elevated leukocytosis. After follow-up as an outpatient the patient continued to have leukocytosis. There was concern that she might of had infection from a spinal injection and PMD did a MRI
of the lumbar spine which showed the intra abdominal/hepatic abscess for which she was sent to the emergency department. Patient denies any history of recent surgical procedure. She reports that during childbirth at 1 point she was told she had
hepatitis of childbirth. She denied any recent travel. She does have a well water source at home which she states she tests regularly. She is a wine drinker drinking about a cup of wine nightly with meals but has no history of liver disease. She
denied any fevers or chills, cough, shortness of breath, chest pain, nausea, vomiting, constipation, diarrhea or urinary symptoms. She reports ongoing abdominal discomfort (denies to colic pain) as well as pain across the lower back.
In the emergency department she was afebrile, blood pressure was 135/70 with a pulse of 86 and she was satting at 97% on room air. She had a white count of 19.5. Electrolytes BUN/creatinine were unremarkable. LFTs were normal. Lipase was normal.
CT of the abdomen showed mass within the lateral segment of the left lobe liver highly suspicious for hepatic abscess. 2 collections along the posterolateral wall of the stomach which may have a thin connection this highly suspicious for
perigastric abscesses. No free air identified. No evidence of biliary ductal abnormalities.
Patient had ongoing mild abdominal discomfort, now resolved, persistent leukocytosis and found to have intra-abdominal abscess on outpatient MRI of the lumbar spine for leukocytosis. CT scan here showed multiple intra-abdominal abscesses suspicious
for perigastric abscess as well as left liver lobe collection suspicious for hepatic abscess. No obvious free air. No bowel obstruction or signs of ischemia. No history of surgical/puncture wound. She is long-standing s/p cholecystectomy without
any evidence of biliary process.
#Liver mass, suspected to be hepatic abscess (less likely to be a centrally necrotic malignant hepatic tumor)
follow up CT scan 08/09: Percutaneous drainage of left lobe hepatic abscess in the interval since prior CT with overall decreased size/volume of abscess collection. Percutaneous drainage catheter appears to extend through the left lobe of the
liver with distal pigtail tip posterior to the left lobe of the liver proper with some accompanying small volume localized fluid and air bubbles.
Overall slightly decreased two abnormal fluid collections along the wall of the stomach in comparison to prior CT.
No additional significant interval change.
#Suspected perigastric abscesses
#Concern for Diverticulitis on CT Imaging -- less likely to be colon cancer
#Persistent Leukocytosis
WBC 19.5-->15.3-->15.0-->12.2-->9.5-->10.1-->8.8k
CRP 270-->244-->131-->119-->54.5
Na remains in the mild hyponatremic range of 132
- Findings above found on L-Spine MRI since patient was having low back pain
- Recently hospitalized for diverticulitis
- IR drainage of liver abscess drainage performed 08/05/24
- input from ID appreciated
- input from Surgery appreciated
- Was on IV Zosyn and Micafungin and now changed to Unasyn 3 gms IV q6h. Appreciate ID input
- advanced to low residue diet and is tolerating
- Continue Pantoprazole 40 mg IV BID
- Supportive care/IV fluids
- Follow blood cultures
- Dr Finley performed EGD/EUS on 05/24/25 -- NGTD
- Attempt to reposition the drain resulted in dislodgement, unable to replace due to pain. Decision to leave out.
Dr. Kelly plan is to set up 2 weeks of home IV abx and then transition to oral, with outpt CT scan ~1 week and depending on CT scan to consider drain replacement.
#Fall on 08/05/24
-In the setting of post-anesthesia (from EGD) state
-Had head impact; CT Head showed no acute changes
-Patient's neurological exam as of 08/07/24 remains good
#atelectasis noted 08/08, markedly improved with use of I.S.
#Concern for Diverticulitis
- Continue antibiotics
#Hyperlipidemia
- Continue atorvastatin
#Hypothyroidism
- Continue levothyroxine
#Hypertension
#Osteoporosis with sacral insufficiency fracture
#Status post cholecystectomy with no evidence for biliary ductal dilation on CT Imaging
#Numerous colonic diverticula on CT Imaging
#Bony degenerative changes on CT Imaging
#Appearance of subacute fracture involving the right side of the symphysis pubis and the right inferior pubic ramus, stable appearance
#Suggestion of subacute fracture involving the left sacral ala, stable appearance on CT Imaging
#Bilateral sacral insufficiency fractures containing mild bone marrow edema.
#Severe left lateral recess stenosis, moderate central canal stenosis, and severe left neural foraminal narrowing at L4/L5 which appears unchanged.
#Severe right lateral recess stenosis, moderate central canal stenosis, and severe right neural foraminal narrowing at L3/L4 which appears unchanged.
#Severe left-sided facet joint arthrosis at L5/S1 with moderate surrounding bone marrow and soft tissue edema.
#Mild central canal stenosis at L2/L3 which appears unchanged.
Code status: DNR
DVT prophylaxis: Lovenox Subq
reviewed with in room 08/11
Complex discharge
Dr. Kelly sent the order in for the CT scan
More than 30 minutes spent in discharge including
Final examination of the patient
Summarizing hospital stay
Instructions for continuing care to all relevant caregivers
Preparation of discharge records, prescriptions, and referral forms
Total time spent (in minutes): 45
Anticipated Discharge: Today
Subjective/Interval History
-
Date of Service: August 11, 2024
Feels well, anxious to go home
Objective Data
-
Labs:
Laboratory Results
08/11/24
04:47
WBC 8.8
Hgb 11.5 L
Hct 34.4 L
Plt Count 416 H
Sodium 134 L
Potassium 4.1
Chloride 101
Carbon Dioxide 30
BUN 9
Creatinine 0.5 L
Glucose 96
Calcium 8.8
Total Bilirubin 0.4
AST 30
ALT 35
Alkaline Phosphatase 86
Vital Signs:
Vital Signs
Temp Pulse Resp BP Pulse Ox
98.1 F 95 18 111/66 98
08/11/24 14:15 08/11/24 14:15 08/11/24 14:15 08/11/24 14:15 08/11/24 14:15
I&O
08/10/24 08/11/24 08/12/24
06:59 06:59 06:59
Intake Total 720 / 720 620 / 620
Balance 720 / 720 620 / 620
Review of Systems
-
History Source: Patient and Coordinated Provider
Constitutional: Denies Fever
EENT: Reports No Symptoms Reported
Respiratory: Reports No Symptoms
Cardiac: Reports No Symptoms
Abdomen/GI: Reports Abdominal Pain (resolved); Denies Nausea, Vomiting or Constipated (had BM last 4 days)
Genitourinary: Reports No Symptoms
Musculoskeletal: Reports No Symptoms
Physical Exam
-
General: Well Developed, Well Nourished and No Apparent Distress
HEENT: Normocephalic, Atraumatic and Moist Mucous Membranes
Respiratory: Clear to Auscultation; Negative Wheezes, Rales (atelectatic rales were noted 08/08, none today) or Rhonchi
Cardiac: Regular Rhythm and S1/S2
GI: Soft, Nontender, Nondistended and Normal Bowel Sounds
Genito-urinary: No Costovertebral Tender
Musculoskeletal: No Clubbing, No Cyanosis and No Edema
Neuro: Awake, Alert and Oriented
--- NOTE | 2024-08-11 15:17 | W.DS.TRANS ---
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
-
Discharge Instructions:
Discharge Diagnosis/Procedures Hepatic, intraabdominal abscesses
Diet Low Residue
Activity No strenuous activity
Driving Restrictions No driving
Bathing Restrictions None
Blood Work CBC with diff, ESR,CRP,CMP on Tuesday 08/15, then
weekly
Others Tests CT scan with and without contrast as ordered by
Dr. Kelly
Other Services VN
Instructions:
Stand-Alone Forms:
Changes to Home Medications: Yes
Discharge Medications:
DC Medications w/original date entered in [employer]
atorvastatin 10 mg tablet 10 mg PO HS High Cholesterol 03/15/24
calcium carbonate 500 mg PO NOON Supplement 03/15/24
cholecalciferol (vitamin D3) 25 mcg (1,000 unit) tablet (Vitamin D3) 25 mcg PO NOON Supplement 03/15/24
levothyroxine 125 mcg tablet 125 mcg PO DAILY Thyroid 03/15/24
Focus Eye 1 cap PO NOON Supplement 04/28/24
therapeutic multivitamin 1 tab PO NOON Supplement 04/28/24
Lactobac no.2-Bifidobac no.1-S. thermo 112.5 billion cell capsule (Visbiome) 1 cap PO DAILY Gastrointestinal Issue 08/04/24
Areds 1 tab PO DAILY@1200 ##0 08/11/24
acetaminophen 325 mg tablet 650 mg (2 x 325 mg) PO Q4HPRN PRN mild pain/RIOS/temp> 100.4F #0 tabs 08/11/24
ceftriaxone 2 gram solution for injection 2,000 mg IV Q24H #12 vials 08/11/24
metronidazole 500 mg tablet 500 mg PO BID #60 tabs 08/11/24
Home Medication Changes
Augmentin stopped
Rocephin IV and Flagyl oral ordered
Pending Results: No
--- NOTE | 2024-08-11 15:27 | W.PN.ID1 ---
Date of Service
Date of Service: August 11, 2024
Today's Communication
- transition to ceftriaxone 2 gm IV q24 and metronidazole 500 mg PO BID plan two more weeks of IV therapy through 08/23 (4 week total course), then might transition to augmentin to complete two more weeks for a 6 week course.
- outpatient CT a/p with IV and oral contrast early next week and then follow up in ID clinic
Assessment / Plan
Hepatic Abscess
Intraabdominal Abscess - possibly related to pancreas or gastric body; no perforation was found on EGD
Recent Diverticulitis - probable source of the abscesses
- 08/05 - aerobic and anaerobic culture of fluid from the hepatic abscess finalized negative, fluid was purulent; gram stain no organisms - suggests partial treatment with prior augmentin
- 08/05 - aerobic culture from the perigastric/pancreatic fluid - also finalized negative
- CRP improved over 50% from initial on augmentin/unasyn
- unsuccessful repositioning of hepatic drain 08/09 and drain removed - hepatic abscess now 3 to 3.5 cm down from 4.8 cm in greatest position - IR recommends continued IV antibiotic treatment and rescan in several days
- discussed options of setting up for home IV antibiotics with outpatient follow up for repeat CT scan next week vs staying inpatient and they would prefer discharge and outpatient follow up - will attempt to set up
- midline
- transition to ceftriaxone 2 gm IV q24 and metronidazole 500 mg PO BID plan two more weeks of IV therapy through 08/23 (4 week total course), then might transition to augmentin to complete two more weeks for a 6 week course.
- outpatient CT a/p with IV and oral contrast early next week and then follow up in ID clinic
Chief Complaint
-: Other (hepatic abscess, diverticulosis with recent diverticulitis, possible gastric abscess)
Subjective / Review of Systems
afebrile
bp stable
no complaints
tolerating current therapies
Vital Signs / Physical Exam
Vital Signs
Vital Signs
Temp Pulse Resp BP Pulse Ox
98.1 F 95 18 111/66 98
08/11/24 14:15 08/11/24 14:15 08/11/24 14:15 08/11/24 14:15 08/11/24 14:15
Physical Exam
Constitutional: No Acute Distress
Cardiovascular: Regular Rate and S1/S2; Negative Murmur or Rub
Pulmonary: Clear and Symmetric; Negative Wheezes or Rales
Gastrointestinal: Soft, Non Tender, Non Distended and Normal Bowel Sounds
Skin: Warm and Dry; Negative Rash or Jaundice
Objective Data
Lab Data
Lab Results
08/11/24 04:47
08/11/24 04:47
ESR 68 mm/hour (0-20) H 08/06/24 05:30
PT 14.9 Sec (11.4-14.6) H 08/05/24 08:28
INR 1.14 08/05/24 08:28
Estimated Creat Clear 67 ml/min 08/11/24 04:47
Lactic Acid 0.8 mmol/L (0.7-2.0) 08/04/24 16:25
Total Bilirubin 0.4 mg/dl (0.2-1.3) 08/11/24 04:47
AST 30 U/L (14-36) 08/11/24 04:47
ALT 35 U/L (0-35) 08/11/24 04:47
Alkaline Phosphatase 86 U/L (38-126) 08/11/24 04:47
C-Reactive Protein 54.50 mg/L (0.0-10.00) H 08/11/24 04:47
Most recent labs reviewed.
Micro Results:
08/05/24 11:54 Body Fluid Culture - Final
Fluid No Growth After 72 Hours
Gram Stain - Final
08/05/24 11:54 Anaerobic Culture - Final
Abscess NO ANAEROBES ISOLATED
08/04/24 17:28 Blood Culture - Final
Blood/Venous No Growth - Final Report
08/04/24 16:25 Blood Culture - Final
Blood/Venous No Growth - Final Report
08/05/24 16:32 Wound Culture - Final
Abscess Gram Stain - Final
Care Review
Plan reviewed with: Physician (Dr Piña - antibiotics)
== END 2024-08-11 16:04 | disposition home health service (06) | DRG 441 ==
LOC: 4 EAST ACU 21:00
PROVIDERS: Emergency Medicine; Hospitalist; Internal Medicine Gastroenterology; Nurse Practitioner Adult Health; Nurse Practitioner Family; Physician Assistant; Radiology Diagnostic Radiology; Radiology Vascular & Interventional Radiology; Registered Nurse; Student in an Organized Health Care Education/Training Program; ADMITTING PHYSICIAN Internal Medicine; ATTENDING PHYSICIAN Internal Medicine; CONSULT PHYSICIAN Internal Medicine Gastroenterology; CONSULT PHYSICIAN Student in an Organized Health Care Education/Training Program; CONSULT PHYSICIAN Surgery; EMERGENCY PHYSICIAN Emergency Medicine; FAMILY PHYSICIAN Internal Medicine
PROC: 0F9730Z Drainage of Common Hepatic Duct with Drainage Device, Percutaneous Approach (ICD-10-PCS; 2024-08-05)
PROC: 0FDG4ZX Extraction of Pancreas, Percutaneous Endoscopic Approach, Diagnostic (ICD-10-PCS; 2024-08-05)
PROC: 0F2BX0Z Change Drainage Device in Hepatobiliary Duct, External Approach (ICD-10-PCS; 2024-08-09)
DX: K75.0 Abscess of liver (principal); K65.1 Peritoneal abscess; K57.20 Diverticulitis of large intestine with perforation and abscess without bleeding; M84.48XA Pathological fracture, other site, initial encounter for fracture; J98.11 Atelectasis; K86.2 Cyst of pancreas; E87.1 Hypo-osmolality and hyponatremia; Z66 Do not resuscitate; E03.9 Hypothyroidism, unspecified; I10 Essential (primary) hypertension; M81.0 Age-related osteoporosis without current pathological fracture; E78.00 Pure hypercholesterolemia, unspecified; R09.89 Other specified symptoms and signs involving the circulatory and respiratory systems; K31.89 Other diseases of stomach and duodenum; G89.29 Other chronic pain; K40.90 Unilateral inguinal hernia, without obstruction or gangrene, not specified as recurrent; N28.1 Cyst of kidney, acquired; Z53.9 Procedure and treatment not carried out, unspecified reason; Z79.899 Other long term (current) drug therapy; Z80.0 Family history of malignant neoplasm of digestive organs; Z86.0100 Personal history of colon polyps, unspecified; Z87.440 Personal history of urinary (tract) infections; Z90.49 Acquired absence of other specified parts of digestive tract
CPT/HCPCS: 88173; 88305; 49405; 49423; 70450; 74177; 74178; 75984; 80048; 80053; 82248; 83605; 83690; 83735; 84100; 84134; 84478; 85025; 85027; 85610; 85652; 86140; 87015; 87040; 87070; 87075; 87205; 89051; 96365; 97116; 97162; 97530; 99152; 99153; 99284; C1729; C1769; Q9967

== ENCOUNTER → 2024-08-16 11:41 | Outpatient (REF) | payer OTHER, SELFPAY | LOC: RAD 11:41 | PROVIDERS: ATTENDING PHYSICIAN Student in an Organized Health Care Education/Training Program; FAMILY PHYSICIAN Internal Medicine | DX: K75.0 Abscess of liver (principal) | CPT/HCPCS: 74177; Q9967 ==

== ENCOUNTER 2024-10-21 23:42 | Inpatient (IN) | payer OTHER, SELFPAY ==
[2024-10-21 21:20] VITALS: BP 170/96; BMI 30.2
[2024-10-21 21:25] VITALS: BP 170/96
--- NOTE | 2024-10-21 21:49 | ED.GENMED ---
History of Present Illness
General
Chief Complaint: Fall
Source: patient and ambulance crew
Exam Limitations: none
Time Seen by Provider: 10/21/24 21:35
History of Present Illness
History of Present Illness:
84yoF with a history of hypothyroidism presenting via EMS for evaluation after a fall about an hour ago. Patient was moving close off of her bed when she fell backwards and landed directly on her right hip. She denies head strike or loss of
consciousness. She was unable to get up after the fall and EMS was activated. Her only current complaint is right hip pain. Right leg is shortened and externally rotated on arrival. No paresthesias. Atrial fibrillation noted on the monitor
during initial exam. She has no history of this and denies any chest pain, palpitations, dizziness, shortness of breath.
Past History
Past History
ED Past Medical History: HTN and Hypothyroidism
Social History
Tobacco: Non-smoker
Personal:
Living: with family
Phy Exam
Physical Exam
Physical Exam:
Uncomfortable due to pain
General Physical Exam
General Presentation: well appearing
General Skin: warm and dry
General Habitus: elderly
General Mental: alert
ENT Exam
ENT Exam: normocephalic
Cardiovascular Exam
Cardiovascular Exam: regular rate/rhythm, no edema and normal peripheral pulses (2+ DP pulses bilaterally)
Pulmonary Exam
Pulmonary Exam: lungs clear, no respiratory distress, no rales, no crackles and no rhonchi
Neurological Exam
Neurological Exam: alert
Bandar Coma Scale
Eye Opening: Spontaneous
Verbal Response: Oriented
Motor Response: Obeys Commands
GCS Total Score: 15
Musculoskeletal Exam
Musculoskeletal Exam: other (R lower extremity is shortened and externally rotated. Unable to range hip joint. Sensation and DP pulse intact.)
Skin Exam
Skin Exam: normal color and warm/dry
Psychiatric Exam
Psychiatric Exam: normal mood/affect
Course
Orders/Labs/Results
Orders:
Orders
10/21/24 21:48
Electrocardiogram (*1) Urgent
Reason for Study: Other
Other Reason for Exam: afib on monitor
EKG- Treatment ONCE
CR Femur - Right Min 2 Vw Urgent
Comment:
Reason For Exam: R hip pain, fall
CR Pelvis - 1 Or 2 Views Urgent
Comment:
Reason For Exam: R hip pain, fall
10/21/24 21:56
Complete Blood Count/With Diff Urgent
Comprehensive Metabolic Panel Urgent
Magnesium Urgent
TSH Reflex To Free T4 Urgent
10/21/24 22:53
HYDROmorphone [Dilaudid] 0.5 mg IV NOW STA
Ondansetron Injectable [Zofran] 4 mg IV NOW STA
10/21/24 23:09
Admit/Transfer Patient As Directed
Co-Sign Provider:
Level of Care: Inpatient admission
Assign to:: Telemetry
Physician / Group: Laura
Diagnosis: Right Hip Fracture
Reason for Telemetry: Arrhythmia
Date to Stop Telemetry: 10/24/24
Time to Stop Telemetry: 11:00
Reason for Hospitalization: Hip Fracture
Expected length of stay greater than two midnights?: Yes
ELOS- Estimated Length of Stay in days: 3
I certify the patient meets the requirements for IP care: Yes
PRN Pain Medication Management As Directed
May give lesser potent ordered pain med per pt: Yes
preference::
Protocol:: Medication orders for pain may be administered in a
manner that supports deferring to patient preference
when the pt is:
- Requesting an ordered lesser potent pain medication.
Least to most potent pain medications are defined
as: acetaminophen < NSAID < tramadol < opioids
(morphine, oxycodone, hydromorphone).
- Requesting a lesser dose of the same medication IF
ORDERED.
- Requesting a less intrusive route of administration
if both routes are prescribed by the provider (PO <
IV).
10/21/24 23:11
Code Status As Directed
Resuscitation Status: Full Code
10/21/24 23:29
PRN Pain Medication Management As Directed
May give lesser potent ordered pain med per pt: Yes
preference::
Protocol:: Medication orders for pain may be administered in a
manner that supports deferring to patient preference
when the pt is:
- Requesting an ordered lesser potent pain medication.
Least to most potent pain medications are defined
as: acetaminophen < NSAID < tramadol < opioids
(morphine, oxycodone, hydromorphone).
- Requesting a lesser dose of the same medication IF
ORDERED.
- Requesting a less intrusive route of administration
if both routes are prescribed by the provider (PO <
IV).
10/22/24 00:08
HYDROmorphone [Dilaudid] 0.25 mg IV Q1HPRN PRN
Magnesium Hydroxide [Milk of Magnesia] 30 ml PO DAILYPRN PRN
Oxycodone [Roxicodone] 2.5 mg PO Q4HPRN PRN
Oxycodone [Roxicodone] 5 mg PO Q4HPRN PRN
Tamsulosin [Flomax] 0.4 mg PO DAILYPRN PRN
10/22/24 00:08
ORTHOPEDIC CONSULT Routine
Consulting Provider: Lenny Mohamud
Was physician already notified: Yes
Activity As Directed
Activity Level: Bedrest
Bladder Scan As Directed
Follow Bladder Retention/Intermittent Cath Algorithm?: Yes
PRN if no void in __ hours: 6
Comment: if not voiding 6 hrs upon arrival to floor, bladder scan & follow algorithm
Intake/ Output As Directed
Frequency: Per unit guidelines
Pneumatic Compression Sleeves As Directed
Type: Knee high
Straight Cath As Directed
Frequency: Per Retention Algorithm
Additional Instructions: straight cath as needed per acute urinary retention algorithm for 24 hrs
Additional Instructions: for bladder scan greater than 400 mL
Vital Signs As Directed
Frequency: Per unit guidelines
DX Deep Vein Thrombosis Video Routine
10/22/24 Breakfast
NPO
Allow oral meds: Yes
Allow clear liquids: 4hrs prior to procedure
Comment: may have unrestricted clear liquid up to 4 hrs prior to scheduled procedure
Levothyroxine [Synthroid] 125 mcg PO DAILY@0600
10/22/24 08:00
Acetaminophen [Tylenol] 1,000 mg PO TID
10/22/24 22:00
Atorvastatin [Lipitor] 10 mg PO HS
10/22/24 23:11
Ot Eval And Treat Routine
Pt Eval And Treat Routine
Activity Level: Out of Bed-Early Mobility
10/24/24 11:00
DC Protocol for Telemetry ONCE
Abnormal Lab Results
10/21/24
21:56
Abs Immat Gran (auto) 0.1 H 10^3/uL
(0-0.05)
Absolute Monos (auto) 0.9 H 10^3/uL
(0.1-0.6)
Immature Gran % 1.0 H %
(0-0.5)
Monocytes % 11.2 H %
(1.7-9.3)
BUN 19 H mg/dl
(7-17)
Creatinine 0.5 L mg/dL
(0.6-1.0)
Glucose 107 H mg/dl
(70-99)
10/21/24 21:56
10/21/24 21:56
Vital Signs
Initial and Last Documented VS:
Initial Vital Signs
Temp Pulse Resp BP Pulse Ox
97.7 F 87 12 170/96 87
10/21/24 21:20 10/21/24 21:20 10/21/24 21:20 10/21/24 21:20 10/21/24 21:20
Last Documented Vital Signs
Temp Pulse Resp BP Pulse Ox
97.3 F 80 18 121/85 97
10/22/24 00:25 10/22/24 00:25 10/22/24 00:25 10/22/24 00:25 10/22/24 00:30
MDM/Problems Addressed
Differential Diagnosis Includes:
84yoF here with R hip pain after a fall this evening. RLE is shortened and externally rotated. Extremity is neurovascularly intact. Differential diagnosis includes: Fracture versus dislocation
Initial ED plan: Possible A-fib noted on monitor. Will check EKG, labs including magnesium and TSH, and pelvic/femur x-rays.
*Pulse Oximetry
SaO2: 97
Nasal Cannula flow liters per minute: 2
Oxygen Mode of Delivery: Room air
Patient hypoxic: no (97%)
*EKG
Interpreted by ED Provider?: Yes
EKG Intrepretation Date: 10/21/24
Heart Rate: 88
Rate: normal
Rhythm: sinus and PAC's
[place]: left axis deviation
Interval: normal interval
QRS Pattern: normal QRS
Ischemia: no ischemia
*Critical Care Note
Total Time (30-74mins, 75-104mins- exclusive of procedures): Not Applicable
Update Note
Update Note:
EKG shows normal sinus rhythm with frequent PACs. X-rays confirm intertrochanteric fracture. Orthopedics notified and patient admitted for further management.
ED Attending Note
-
Portions of this chart may have been created with voice recognition software.� Occasional wrong word or��sound alike� substitutions may have occurred due to the inherent limitations of voice recognition software.
Discharge Plan
Departure
Patient Disposition: Admit
Date of Disposition: 10/21/24
Time of Disposition: 22:49
Presentation/result/management discussed w/ accepting MD/DO: Hospitalist
Discharge Problem:
Closed fracture of right hip
Interventions
Interventions:
*Risk Screen - Suicide Last Done: 10/21/24 21:20
*General Assessment Last Done: 10/21/24 21:20
*Neglect/Abuse Screening Last Done: 10/21/24 21:20
*ED- Fall Risk Assessment Last Done: 10/21/24 21:20
*ED COVID-19 Vaccine History Last Done: 10/21/24 21:20
*Nursing Disposition Last Done: 10/21/24 23:48
ED-Musculoskeletal Assessment Last Done: 10/21/24 22:18
ED- Neurological Assessment Last Done: 10/21/24 22:18
ED-Skin Assessment Last Done: 10/21/24 22:18
Discharge Date and Time
Discharge Date/Time: 10/22/24 00:03
[2024-10-21 22:00] VITALS: BP 162/95
[2024-10-21 22:11] LABS: Hematocrit 37.6 % (37.0-47.0); Hemoglobin 12.5 g/dL (12.0-16.0); Mean Corp Hgb Conc. 33.2 g/dL (33.0-37.0); Mean Corpuscular Volume 88.5 fL (81.0-99.0); Nucleated Red Blood Cells % 0 %; Platelet Count 214 10^3/uL (130-400); Red Cell Dist. Width 14.2 % (11.5-14.5)
[2024-10-21 22:27] LABS: ALT (SGPT) 19 U/L (0-35); AST (SGOT) 26 U/L (14-36); Albumin 4.0 g/dl (3.5-5.0); Alkaline Phosphatase 109 U/L (38-126); Blood Urea Nitrogen 19 mg/dl (7-17); Calcium 9.5 mg/dl (8.4-10.2); Carbon Dioxide 30 mmol/L (22-30); Chloride 101 mmol/L (98-107); Estimated Creatinine Clearance 69 ml/min; Glucose 107 mg/dl (70-99); Magnesium 1.8 mg/dl (1.6-2.3); Potassium 4.0 mmol/L (3.5-5.1); Sodium 135 mmol/L (135-145); Total Protein 6.7 g/dl (6.3-8.2); eGFR > 60.00
[2024-10-21] MEDS: ZOFRAN 4 MG IV (22:58)
[2024-10-21] MEDS: DILAUDID 0.5 MG IV (22:58)
[2024-10-21 23:00] VITALS: BP 138/68
--- NOTE | 2024-10-21 23:14 | HPS.HSE ---
Family Physician
-
Family Physician: Rashad Trinidad
Chief Complaint
-
Fall
History of Present Illness
Patient is an 84 y/o female past medical history of hypothyroidism and osteoporosis who presents with right hip pain following fall. Patient notes she was sorting clothes on he bed. She took a step backwards and lost her balance. She feel onto
the hardwood landing on her right hip. She denies hitting her head during the event. She was unable to get up off the floor after the fall. EMS was called and she was brought to the emergency department for evaluation.
Medical History
Past Medical History
Past Medical History: Reports Other
Additional Past Medical History:
Hypothyroidism
Hyperlipidemia
Osteoporosis
Past Surgical History: Reports Other
Additional Past Surgical History:
Cholecystectomy
Cataract extraction
Carpal tunnel release
B/L foot surgery (multiple)
LPS- BTL
Cervix LEEP
LT L4-5 ILESI NO SED 05.04.24
LT L5 TFESI NO SED 05/31/24
Social History
Tobacco: Non-smoker
Alcohol: Daily (2 large glasses of wine nightly)
Personal:
Living: With Family
Employment: Retired
Family History
Family History: Not pertinent
Allergies / Home Medications
Allergies reflects when Allergies were last updated in [employer].
Home Medications with original date entered in [employer]
Allergy/Medication List:
Allergies
Allergy/AdvReac Type Severity Reaction Status Date / Time
aspirin Allergy Hives Verified 10/21/24 21:30
Home Medications
atorvastatin 10 mg tablet 10 mg PO HS High Cholesterol 03/15/24
calcium carbonate 500 mg PO NOON Supplement 03/15/24
cholecalciferol (vitamin D3) 25 mcg (1,000 unit) tablet (Vitamin D3) 25 mcg PO NOON Supplement 03/15/24
levothyroxine 125 mcg tablet 125 mcg PO DAILY Thyroid 03/15/24
Focus Eye 1 cap PO NOON Supplement 04/28/24
Lactobac no.2-Bifidobac no.1-S. thermo 112.5 billion cell capsule (Visbiome) 1 cap PO DAILY Gastrointestinal Issue 08/04/24
Areds 1 tab PO DAILY@1200 ##0 08/11/24
acetaminophen 325 mg tablet 650 mg (2 x 325 mg) PO Q4HPRN PRN mild pain/RIOS/temp> 100.4F #0 tabs 08/11/24
Review of Systems
-
A 12 point ROS was completed and negative except as noted: Yes
Constitutional: Denies Fever or Chills
Respiratory: Denies Cough or Trouble Breathing
Cardiac: Denies Chest Pain or Palpitations
Musculoskeletal: Reports See HPI
Physical Exam
Vital Signs
Vital Signs
Temp Pulse Resp BP Pulse Ox
97.7 F 79 14 162/95 92
10/21/24 21:20 10/21/24 22:45 10/21/24 22:45 10/21/24 22:00 10/21/24 22:45
Physical Exam
General: Comfortable and Conversant
HEENT: Anicteric and Moist mucous membranes
Respiratory: Clear and Non Labored Respirations
Cardiac: S1/S2 and Regular Rhythm
GI: Soft and Non Tender
Musculoskeletal: No Clubbing, No Cyanosis and Other (RLE is shortened and externally rotated)
Skin: Warm and Dry
Neuro: Awake, Alert and Oriented
Psych: Calm
Laboratory Results
-
10/21/24 21:56
10/21/24 21:56
Laboratory Results
Total Bilirubin 0.5 mg/dl (0.2-1.3) 10/21/24 21:56
AST 26 U/L (14-36) 10/21/24 21:56
ALT 19 U/L (0-35) 10/21/24 21:56
Alkaline Phosphatase 109 U/L (38-126) 10/21/24 21:56
Hip/Pelvis X-Ray:
There is a comminuted intertrochanteric fracture of the proximal right femur.
Data Reviewed
-
Lab Data: Labs Reviewed by me
Impression/Plan
-
Right Hip Fracture
-Consult Orthopedics
-NPO after midnight for OR tomorrow
-Continue pain control
-Continue bowel regimen
Irregular Heart Rhythm
-ECG shows sinus with PACs
-Continue to monitor on Telemetry
Hypothyroidism
-Continue levothyroxine
Hyperlipidemia
-Continue atorvastatin
DVT proph: SCDs
Code Status: Full Code
--- NOTE | 2024-10-21 23:22 | W.PN.UPDATE ---
Update Note
Progress Note Update
This is an addendum to the H&P written by Tami Dumas on 10/21/2024. Patient seen and examined independently with PA.
84-year-old female past medical history of hepatic abscess, posterior lateral stomach wall abscesses, chronic back pain, hyperlipidemia, hypothyroidism, hypertension, presenting with fall landing on right hip with right hip pain. Patient without any
cardiac symptoms and good functional status normally.
Vital signs show blood pressure 170 systolic.
Labs unremarkable.
Femur/pelvic x-ray shows comminuted intertrochanteric fracture of the proximal right femur. �There may be patchy osteopenia, cannot exclude pathologic fracture.
EKG shows sinus rhythm with PACs. Telemetry also shows irregular rhythm at times consistent with PACs.�
Patient with right hip fracture. �N.p.o. postmidnight for surgery tomorrow as per orthopedics. Pain control.� Patient at low risk for post cardiac complications and can proceed to surgery.�
[2024-10-22] VITALS (12 sets, daily range): BP systolic 99–147; BP diastolic 58–87; PULSE 90
[2024-10-22] MEDS: DILAUDID 0.25 MG IV ×4 (00:32→10:15)
--- NOTE | 2024-10-22 01:49 | PTCARENOTE ---
Received pt. to 2S from ER via stretcher around 0010 and pulled over to room bed. Pt. reporting 10/10 pain during movement - medicated per MAY. BP high upon arrival but WNL after given a chance to rest, other VSS. Pt. oriented to room and unit
policies, bed locked and in lowest position, side rails in place, call light within reach, and questions addressed at time of admission.
[2024-10-22] MEDS: ROXICODONE 5 MG PO ×3 (03:01→21:15)
[2024-10-22] MEDS: SYNTHROID 125 MCG PO (06:01)
[2024-10-22] MEDS: TYLENOL PO (08:14)
[2024-10-22] MEDS: ANCEF 10 IV (08:15)
--- NOTE | 2024-10-22 08:33 | CON.ORTHO ---
Consultation
-
Date/Time Consultation Requested: Nov 07
Date/Time Consultation Performed: Nov 07
Requesting Provider: HUMBERTO Elena
Performing Provider: Karen Mohamud
Reason for Consultation: Right hip fracture
Consultation - Orthopedics
History
History of Present Illness:
Patient is an 84 y/o female past medical history of hypothyroidism and osteoporosis who presents with right hip pain following fall. Patient notes she was sorting clothes on he bed. She took a step backwards and lost her balance. She feel onto
the hardwood landing on her right hip. She denies hitting her head during the event. She was unable to get up off the floor after the fall. EMS was called and she was brought to the emergency department for evaluation. We have been requested in
consultation given radiographic findings of a right hip fracture. Denies any previous issues with her right hip
Past Medical History:
Hypothyroidism
Hyperlipidemia
Osteoporosis
Past Surgical History:
Cholecystectomy
Cataract extraction
Carpal tunnel release
B/L foot surgery (multiple)
LPS- BTL
Cervix LEEP
LT L4-5 ILESI NO SED 05.04.24
LT L5 TFESI NO SED 05/31/24
Social History:
Tobacco: Non-smoker
Alcohol: Daily (2 large glasses of wine nightly)
Personal:
Living: With Family
Employment: Retired
Family History:
Family History: Not pertinent
ROS:
12 point negative except for those mentioned in HPI
Allergies / Home Medications
Allergy/AdvReac Type Severity Reaction Status Date / Time
aspirin Allergy Hives Verified 10/21/24 21:30
�Medication �Instructions �Recorded
atorvastatin 10 mg tablet 10 mg PO HS High Cholesterol 03/15/24
calcium carbonate 500 mg PO NOON Supplement 03/15/24
cholecalciferol (vitamin D3) 25 25 mcg PO NOON Supplement 03/15/24
mcg (1,000 unit) tablet (Vitamin
D3)
levothyroxine 125 mcg tablet 125 mcg PO DAILY Thyroid 03/15/24
Focus Eye 1 cap PO NOON Supplement 04/28/24
Lactobac no.2-Bifidobac no.1-S. 1 cap PO DAILY Gastrointestinal 08/04/24
thermo 112.5 billion cell capsule Issue
(Visbiome)
Areds 1 tab PO DAILY@1200 ##0 08/11/24
acetaminophen 325 mg tablet 650 mg (2 x 325 mg) PO Q4HPRN PRN 08/11/24
mild pain/RIOS/temp> 100.4F #0 tabs
Vital Signs / Lab Results
Temp Pulse Resp BP Pulse Ox
97.5 F 81 20 139/82 99
10/22/24 07:16 10/22/24 07:16 10/22/24 07:16 10/22/24 07:16 10/22/24 08:04
10/21/24 21:56
10/21/24 21:56
Assessment / Plan
PE: Afeb. Right hip skin intact. RLE short and ER. Generalized pain to palpation of the right hip. + logroll. Deferred ROM due to known fracture. Knee nontender. Calf soft, nontender. DNVI RLE
Xrays: RIGHT hip IT fracture
Impression: FERNY
Plan: At length bedside discussion with the patient yields her understanding to the nature of her right hip fracture and our proposed recommendations. Non-operative and operative management discussed, including the RBAs of each approach. She accepts
all the proposed risks of surgery and wishes to proceed with a gamma nail fixation under the direction of Dr. Mohamud. We discussed the post-op and rehab course, and will appreciate CM assistance with disposition. Surgical and blood consent has been
signed and placed to her chart. Operative site has been marked as the right hip. T&S requested. She is and will remain NPO for OR shortly. ABX OCTOR. Will follow. Post-op we will try 81mg ASA BID for DVT ppx. If hives still develop could consider
just mechanical ppx. Would not recommend more potent thinners unless felt necessaryper the primary team, as to minimize the risk of post-op bleeding/hematoma.
[2024-10-22] MEDS: MORPHINE SULFATE 1 MG IV ×2 (09:22→09:39)
--- NOTE | 2024-10-22 10:17 | CM ---
Addendum entered by Silver Romero 10/22/24 15:09:
Pt's daughter Ginny asked to make a referral to [facility]. Additional referral made.
Original Note:
CM following re: discharge planning.
Reviewed pt's chart, met with pt. Pt's and pt's son at bedside.
Pt is an 84 year old female, admitted with primary dx of RIGHT hip IT fracture after she fell at home. OR today.
Pt lives with 2SH, 2 steps to enter, has 5 supportive children. Per pt ambulates with a walker, was at [facility] [place] and known to [facility]. Both pt's and pt's son are aware that pt will need a short term rehab and they requested
following SNFs: [facility], [facility] and [facility]. A referral to above SNFs made.
PCP: Rashad Trinidad
Pharmacy: [facility].
D/C plan: preferred SNF when medically stable.
CM will follow to assist pt with discharge to a preferred SNF.
--- NOTE | 2024-10-22 10:38 | PTCARENOTE ---
Pt returned from OR. Pt drowsy but easily arousable and oriented. Prima seal dressing x 3 - R hip w/ small drainage, R lateral leg, R lateral knee w/ small drainage. Dr Mohamud at bedside to update family. Teds and foot pumps not applied d/t
tenderness R foot - knee high SCDs in place.
[2024-10-22] MEDS: NORMOSOL-R/PLASMALYTE-A 1000 IV ×2 (10:43→23:27)
--- NOTE | 2024-10-22 14:28 | W.PN.HOSP.TC ---
Today's Communication/Plan
-
Recovering well from surgery
Assessment / Plan
Assessment / Plan
84 y/o woman with a past medical history of hypothyroidism and osteoporosis who presented with right hip pain following fall. Patient notes she was sorting clothes on he bed. She took a step backwards and lost her balance. She feel onto the
hardwood landing on her right hip. She denies hitting her head during the event. She was unable to get up off the floor after the fall. EMS was called and she was brought to the emergency department for evaluation. She went to the OR today on
10/22/24.
1. Right Hip Fracture - s/p OR procedure
-Orthopedics consult appreciated
-Continue post-op pain control
-Continue post-op bowel regimen
Advancement of diet and mobility per ortho.
2. Irregular Heart Rhythm - new issue, may have been from pain/stress
-ECG shows sinus with PACs
-Continue to monitor on Telemetry
3. Hypothyroidism - chronic
-Continue levothyroxine
4. Hyperlipidemia
-Continue atorvastatin
DVT proph: SCDs
Code Status: Full Code
Anticipated Discharge: 24 - 48 hours
Subjective/Interval History
-
Date of Service: October 22, 2024
Feels well. recovering well.
Objective Data
-
Vital Signs:
Vital Signs
Temp Pulse Resp BP Pulse Ox
97.4 F 81 20 117/64 96
10/22/24 12:40 10/22/24 12:40 10/22/24 12:40 10/22/24 12:40 10/22/24 12:40
I&O
10/21/24 10/22/24 10/23/24
06:59 06:59 06:59
Intake Total 300 / 300
Output Total 120 / 120
Balance 180 / 180
Review of Systems
-
History Source: Patient
All other systems: Reviewed and negative
Physical Exam
-
General: Well Developed, Well Nourished, No Apparent Distress, Comfortable and Obese
HEENT: Nose Appears Normal and Ears Appear Normal
Respiratory: Clear to Auscultation
Cardiac: Regular Rhythm and S1/S2
GI: Soft, Nontender and Nondistended
Musculoskeletal: No Clubbing and No Cyanosis
Skin: Warm and Dry
Neuro: Awake, Alert and Oriented
Psych: Calm
Data Reviewed
-
Labs: Labs Reviewed by me
[2024-10-22] MEDS: TYLENOL 1000 MG PO ×2 (15:14→21:15)
[2024-10-22] MEDS: ANCEF 5 IV ×2 (15:15→23:28)
[2024-10-22] MEDS: ASPIR LOW (ENTERIC COATED) PO (21:12)
[2024-10-22] MEDS: LIPITOR 10 MG PO (21:15)
[2024-10-22] MEDS: COLACE 100 MG PO (21:15)
[2024-10-23] VITALS (8 sets, daily range): BP systolic 108–149; BP diastolic 56–78; PULSE 81–84; O2SAT 93–95
[2024-10-23] MEDS: SYNTHROID 125 MCG PO (05:52)
[2024-10-23] MEDS: ROXICODONE 5 MG PO ×4 (05:52→23:48)
[2024-10-23 06:08] LABS: Hematocrit 28.9 % (37.0-47.0); Hemoglobin 9.8 g/dL (12.0-16.0); Mean Corp Hgb Conc. 33.9 g/dL (33.0-37.0); Mean Corpuscular Volume 87.8 fL (81.0-99.0); Platelet Count 182 10^3/uL (130-400); Red Cell Dist. Width 14.1 % (11.5-14.5)
[2024-10-23 06:24] LABS: Blood Urea Nitrogen 22 mg/dl (7-17); Calcium 8.7 mg/dl (8.4-10.2); Carbon Dioxide 27 mmol/L (22-30); Chloride 102 mmol/L (98-107); Estimated Creatinine Clearance 69 ml/min; Glucose 112 mg/dl (70-99); Potassium 4.1 mmol/L (3.5-5.1); Sodium 132 mmol/L (135-145); eGFR > 60.00
[2024-10-23] MEDS: TYLENOL 1000 MG PO ×3 (09:15→20:47)
[2024-10-23] MEDS: COLACE 100 MG PO ×2 (09:15→20:47)
[2024-10-23] MEDS: ASPIR LOW (ENTERIC COATED) PO (09:15)
[2024-10-23] MEDS: ASPIR LOW (ENTERIC COATED) 81 MG PO ×2 (10:07→20:47)
--- NOTE | 2024-10-23 10:16 | W.PN.HOSP.TC ---
Today's Communication/Plan
-
Stop IV fluids
Assessment / Plan
Assessment / Plan
84 y/o woman with a past medical history of hypothyroidism and osteoporosis who presented with right hip pain following fall. Patient notes she was sorting clothes on he bed. She took a step backwards and lost her balance. She feel onto the
hardwood landing on her right hip. She denies hitting her head during the event. She was unable to get up off the floor after the fall. EMS was called and she was brought to the emergency department for evaluation. She went to the OR on 10/22/24.
1. Right Hip Fracture - s/p OR procedure
-Orthopedics consult appreciated
-Continue post-op pain control
-Continue post-op bowel regimen
Advancement of diet and mobility per ortho
Rehab when appropriately recoved from surgery
2. Irregular Heart Rhythm - new issue, may have been from pain/stress
-ECG shows sinus with PACs
-Continue to monitor on Telemetry
3. Hypothyroidism - chronic
-Continue levothyroxine
4. Hyperlipidemia
-Continue atorvastatin
5. Borderline hyponatremia (132)
Stop IV fluids
Recheck in am
6. WBC of 13.2 (was 7.8), Hgb of 9.8 (was 12.5)
Probable changes from surgery, without acute clinical hazard
Check tomorrow and make sure stabilized.
DVT proph: SCDs
Code Status: Full Code
Anticipated Discharge: 24 - 48 hours
Subjective/Interval History
-
Date of Service: October 23, 2024
Feels well.
Objective Data
-
Labs:
Laboratory Results
10/23/24
05:38
WBC 13.2 H
Hgb 9.8 L D
Hct 28.9 L
Plt Count 182
Sodium 132 L
Potassium 4.1
Chloride 102
Carbon Dioxide 27
BUN 22 H
Creatinine 0.4 L
Glucose 112 H
Calcium 8.7
Vital Signs:
Vital Signs
Temp Pulse Resp BP Pulse Ox
98.1 F 80 16 122/56 93
10/23/24 07:35 10/23/24 07:35 10/23/24 07:35 10/23/24 07:35 10/23/24 07:35
I&O
10/22/24 10/23/24 10/24/24
06:59 06:59 06:59
Intake Total 540 / 540 480 / 480
Output Total 120 / 120
Balance 420 / 420 480 / 480
Review of Systems
-
History Source: Patient
All other systems: Reviewed and negative
Physical Exam
-
General: Well Developed, Well Nourished, No Apparent Distress, Comfortable and Conversant
HEENT: Nose Appears Normal and Ears Appear Normal
Respiratory: Clear to Auscultation
Cardiac: Regular Rhythm and S1/S2
GI: Soft, Nontender and Nondistended
Musculoskeletal: No Clubbing and No Cyanosis
Skin: Warm and Dry
Neuro: Awake, Alert and Oriented
Psych: Calm
Data Reviewed
-
Labs: Labs Reviewed by me
--- NOTE | 2024-10-23 10:26 | W.PN.ORTHO ---
Today's Communication / Plan
-
Continue treatment per the primary team, appreciate efforts
Dispo per - SNF vs. Home with VNS
Continue WBAT RLE on walker/assistance
PT/OT
ASA 81mg BID x 4 weeks for DVT ppx
Dressings to remain 10 days
Pain control/ice to hip/narcs judiciously
Outpatient Ortho follow-up 4 weeks for xrays and clinical check
Assessment
.
Distal Motor Intact: Yes
Dressing:
Clean, dry and intact. Aquacels in place x 3 right thigh
Assessment:
POD#1 Right gamma nail
Overall doing/feeling well
Calf soft, nontender
Plan
.
Surgery / Date: Right gamma nail Nov 07 ([facility])
DVT Prophylaxis: Aspirin (81mg BID)
Activity:
Out of bed. WBAT RLE on walker/assistance
PT/OT
Discharge Plan: Other (per CM- appreciated)
Subjective
.
.:
Patient resting comfortably this AM. No significant pain. bedside
Vital Signs and Labs
.
Vital Signs and Labs:
Lab Results
10/23/24 05:38
10/23/24 05:38
Temp Pulse Resp BP Pulse Ox
98.1 F 80 16 122/56 93
10/23/24 07:35 10/23/24 07:35 10/23/24 07:35 10/23/24 07:35 10/23/24 07:35
[2024-10-23] MEDS: NORMOSOL-R/PLASMALYTE-A IV (11:00)
--- NOTE | 2024-10-23 19:30 | PTCARENOTE ---
Pt. asking if it would be possible to 'wheel' her to the bathroom and use the bed arroyo overnight. Reinforced the importance of increased activity post hip surgery with regards to successful healing. Pain management plan discussed. Pt. then agreeable
to use bed side commode or walk to bathroom overnight as she's able.
[2024-10-23] MEDS: LIPITOR 10 MG PO (20:47)
[2024-10-24] VITALS (7 sets, daily range): BP systolic 110–151; BP diastolic 57–78; PULSE 83–107; O2SAT 98
[2024-10-24] MEDS: DILAUDID 0.25 MG IV (03:19)
[2024-10-24] MEDS: SYNTHROID 125 MCG PO (03:20)
--- NOTE | 2024-10-24 05:47 | W.PN.ORTHO ---
Today's Communication / Plan
-
84-year-old female POD #2 RIGHT Hip Gamma Nail 10/22/[address] Mohamud.
- Continue treatment per the primary team, appreciate efforts.
- Dispo per CM- Preferred SNF when medically stable.
- Continue WBAT RLE on walker/assistance.
- PT/OT.
- ASA 81mg BID x 4 weeks for DVT ppx.
- Dressings to remain 10 days.
- Pain control/ice to hip/narcs judiciously.
- Outpatient Ortho follow-up 4 weeks for x-rays and clinical check. D/c information updated. Orthopedic surgery will sign off at this time. Please re-engage with any questions or concerns.
Assessment
.
Distal Motor Intact: Yes
Dressing:
Clean, dry and intact. Aquacel's in place x 3 right thigh.
Assessment:
POD#2 Right hip gamma nail.
Overall doing/feeling well.
Calf soft, nontender.
Plan
.
Surgery / Date: Right gamma nail Nov 07 ([facility])
DVT Prophylaxis: Aspirin (ASA 81mg BID)
Activity:
Out of bed. WBAT RLE on walker/assistance.
PT/OT.
Discharge Plan: Other (Appreciate )
Subjective
.
.:
Patient resting comfortably.
Vital Signs and Labs
.
Vital Signs and Labs:
Temp Pulse Resp BP Pulse Ox
97.4 F 80 16 118/66 97
10/24/24 03:00 10/24/24 03:00 10/24/24 03:00 10/24/24 03:00 10/24/24 03:00
[2024-10-24 06:42] LABS: Hematocrit 28.5 % (37.0-47.0); Hemoglobin 9.4 g/dL (12.0-16.0); Mean Corp Hgb Conc. 33.0 g/dL (33.0-37.0); Mean Corpuscular Volume 90.2 fL (81.0-99.0); Platelet Count 178 10^3/uL (130-400); Red Cell Dist. Width 14.2 % (11.5-14.5)
[2024-10-24 07:07] LABS: Blood Urea Nitrogen 18 mg/dl (7-17); Calcium 8.7 mg/dl (8.4-10.2); Carbon Dioxide 31 mmol/L (22-30); Chloride 101 mmol/L (98-107); Estimated Creatinine Clearance 69 ml/min; Glucose 88 mg/dl (70-99); Potassium 4.5 mmol/L (3.5-5.1); Sodium 135 mmol/L (135-145); eGFR > 60.00
[2024-10-24] MEDS: ASPIR LOW (ENTERIC COATED) 81 MG PO ×2 (07:50→19:55)
[2024-10-24] MEDS: TYLENOL 1000 MG PO ×3 (07:50→20:48)
[2024-10-24] MEDS: COLACE 100 MG PO ×2 (07:50→19:55)
[2024-10-24] MEDS: ROXICODONE 5 MG PO ×2 (08:27→14:42)
--- NOTE | 2024-10-24 11:16 | CM ---
Addendum entered by Cynthia Ramos 10/24/24 12:19:
Per [facility] admissions can accept patient today
Spoke w/ spouse and daughter who no longer is interested in [facility] as they are continuing their research on facilities. Prefers for CM to explore [facility].
Spoke w/ [facility], no beds today or tomorrow
Spoke w/ [facility], no beds today, possibly tomorrow
Updated family, they are reviewing some other facilities using Medicare.gov and help from a family friend, will give CM a call when they have some other options
Addendum entered by Cynthia Ramos 10/24/24 11:40:
Received call from [facility]. At this time there are no beds through Thursday.
Spoke w/ spouse and daughter, made aware that [facility] doesn't have any beds and that patient is clear for d/c. Daughter and spouse asked CM to send a referral to [facility] and explore [facility] as a second option. [facility] also accepted but
daughter and spouse are not agreeable.
Referral sent to [facility], left Sasha/admissions a message to review
Original Note:
Chart reviewed. Plan is for SNF at d/c, referrals entered over the weekend.
Met w/ patient, spouse and daughter at bedside. Informed [facility] accepted, other facilities are still pending determination
Family prefers [facility]. CM left message w/ Susanne/admissions regarding referral
Per hospitalist, patient is clear for d/c once there's an accepting facility
Patient will need insurance auth prior to d/c
Will need ambulance transport
Plan: SNF
--- NOTE | 2024-10-24 11:42 | PN.CDI ---
CDI
- -
CDI:
Physician Documentation Request
Admit Date: 10/21/24 23:42
Dear Doctor Cade,
Please review the following and provide your response in the progress notes.
Clinical Indicators:
#Exams: CR Femur - Right Min 2 Vw; CR Pelvis - 1 Or 2 Views
#FINDINGS: There is a comminuted intertrochanteric fracture of the proximal right femur. #...Some osseous heterogeneity of the included portions of the right and
#... left femur is suggested.
#...There may be patchy osteopenia, cannot exclude pathologic fracture.
10/22
#Reason for Consultation: Right hip fracture
#...past medical history of hypothyroidism and osteoporosis
#...who presents with right hip pain following fall.
#...Patient notes she was sorting clothes on he bed.
#...She took a step backwards and lost her balance.
#...She feel onto the hardwood landing on her right hip.
Please clarify the following regarding the etiology of the right hip fracture:
Multifactorial, low level trauma and osteoporotic
Traumatic fracture only
Other (please specify)
Type Fracture
Age-related With current pathological fx
Drug induced (specify drug) without current pathological fx
Idiopathic
Osteoporosis of disuse
Due to post surgical malabsorption
Post traumatic
Post oophorectomy osteoporosis
Other (please specify)
Use of terms such as suspected, likely, concern for, or probable (associated with a specific diagnosis that is being evaluated, monitored, or treated as if it exists) are acceptable and can be coded in the inpatient setting, when documented at the
time of discharge.
Thank you,
Maylin Cintron RN BSN CCDS
CDI Specialist
Please contact via tiger text
Please use your independent medical judgment in providing your response.
--- NOTE | 2024-10-24 11:53 | PN.CDI ---
CDI
- -
CDI:
Physician Documentation Request
Admit Date: 10/21/24 23:42
Dear Doctor Cade,
Please review the following and provide your response in the progress notes.
Clinical Indicators:
DATE OF OPERATION: 10/22/2024
#...PROCEDURE: Right hip nikkie construct
#...for reverse obliquity intertrochanteric fracture
#...BLOOD LOSS: 50 cc
PN, 10/24
#...POD#2 Right hip gamma nail.
Laboratory Tests
10/21/24 10/23/24 10/24/24
21:56 05:38 05:43
Hgb 12.5 9.8 L D 9.4 L
Hct 37.6 28.9 L 28.5 L
Based on the above and your clinical assessment, please clarify, the likely condition/diagnosis evaluated, monitored and/or treated?
Acute blood loss anemia
Abnormal lab value, clinically insignificant
Other (please specify)
Use of terms such as suspected, likely, concern for, or probable (associated with a specific diagnosis that is being evaluated, monitored, or treated as if it exists) are acceptable and can be coded in the inpatient setting, when documented at the
time of discharge.
Thank you,
Maylin Cintron RN BSN CCDS
CDI Specialist
Please contact via tiger text
Please use your independent medical judgment in providing your response.
[2024-10-24] MEDS: CLARITIN 10 MG PO (12:04)
--- NOTE | 2024-10-24 12:57 | W.PN.HOSP.TC ---
Today's Communication/Plan
-
ASA 81mg BID
monitor hgb
DC ready, CM aware
Assessment / Plan
Assessment / Plan
84 y/o woman with a past medical history of hypothyroidism and osteoporosis who presented with right hip pain following fall. Patient notes she was sorting clothes on he bed. She took a step backwards and lost her balance. She feel onto the
hardwood landing on her right hip. She denies hitting her head during the event. She was unable to get up off the floor after the fall. EMS was called and she was brought to the emergency department for evaluation. She went to the OR on 10/22/24.
# Right Hip Fracture
#POD#2 Right hip gamma nail.
- Continue WBAT RLE on walker/assistance.
- PT/OT.
- ASA 81mg BID x 4 weeks for DVT ppx.
- Dressings to remain 10 days.
- Pain control/ice to hip/narcs judiciously.
- Outpatient Ortho follow-up 4 weeks for x-rays and clinical check. D/c information updated
- [facility] ready, CM aware
#PACS
-can obtain holter outpatient
#Hypothyroidism - chronic
-Continue levothyroxine
-TSh WNL
#Hyperlipidemia
-Continue atorvastatin
#Acute Blood Loss Anemia
-s/p Gamma Nail
-stabilized
-monitor with ASA 81 mg bid
5. Hyponatremia (132)
mild
-resolved
6. leukocytosis
-most likely reactive
-resolved
-trend
DVT proph: ASA 81mg BID
Code Status: Full Code
Anticipated Discharge: Within 24 hours
Subjective/Interval History
-
Date of Service: October 24, 2024
No events, tolerating aspirin well
Objective Data
-
Labs:
Laboratory Results
10/24/24
05:43
WBC 10.6
Hgb 9.4 L
Hct 28.5 L
Plt Count 178
Sodium 135
Potassium 4.5
Chloride 101
Carbon Dioxide 31 H
BUN 18 H
Creatinine 0.5 L
Glucose 88
Calcium 8.7
Vital Signs:
Vital Signs
Temp Pulse Resp BP Pulse Ox
98.6 F 87 18 151/70 97
10/24/24 11:45 10/24/24 11:45 10/24/24 11:45 10/24/24 11:45 10/24/24 11:45
I&O
10/23/24 10/24/24 10/25/24
06:59 06:59 06:59
Intake Total 540 / 540 1140 / 1140
Output Total 120 / 120
Balance 420 / 420 1140 / 1140
Review of Systems
-
History Source: Patient
All other systems: Not reviewed unless documented
Physical Exam
-
General: Well Developed, Well Nourished, No Apparent Distress, Comfortable and Conversant
HEENT: Nose Appears Normal and Ears Appear Normal
Respiratory: Clear to Auscultation
Cardiac: Regular Rhythm and S1/S2
GI: Soft, Nontender and Nondistended
Musculoskeletal: No Clubbing and No Cyanosis
Skin: Warm and Dry
Neuro: Awake, Alert and Oriented
Psych: Calm
Data Reviewed
-
Diagnostic Radiology: Report Reviewed by me
Labs: Labs Reviewed by me
--- NOTE | 2024-10-24 13:04 | PTCARENOTE ---
pt c/o feeling 'itchy'. no hives or rash noted. pt requesting antihistamine. Dr Le notified and Claritin provided per MAY. will observe.
[2024-10-24] MEDS: LIPITOR 10 MG PO (20:48)
[2024-10-25] MEDS: SYNTHROID 125 MCG PO (05:33)
[2024-10-25 07:30] VITALS: BP 129/76
[2024-10-25 07:35] LABS: Hematocrit 29.3 % (37.0-47.0); Hemoglobin 9.5 g/dL (12.0-16.0); Mean Corp Hgb Conc. 32.4 g/dL (33.0-37.0); Mean Corpuscular Volume 90.7 fL (81.0-99.0); Platelet Count 192 10^3/uL (130-400); Red Cell Dist. Width 14.1 % (11.5-14.5)
[2024-10-25 08:14] LABS: ALT (SGPT) 127 U/L (0-35); AST (SGOT) 71 U/L (14-36); Albumin 3.0 g/dl (3.5-5.0); Alkaline Phosphatase 137 U/L (38-126); Blood Urea Nitrogen 16 mg/dl (7-17); Calcium 8.5 mg/dl (8.4-10.2); Carbon Dioxide 29 mmol/L (22-30); Chloride 102 mmol/L (98-107); Estimated Creatinine Clearance 69 ml/min; Glucose 91 mg/dl (70-99); Potassium 4.2 mmol/L (3.5-5.1); Sodium 134 mmol/L (135-145); Total Protein 5.4 g/dl (6.3-8.2); eGFR > 60.00
[2024-10-25] MEDS: COLACE 100 MG PO (08:36)
[2024-10-25] MEDS: CLARITIN 10 MG PO (08:36)
[2024-10-25] MEDS: ASPIR LOW (ENTERIC COATED) 81 MG PO (08:36)
[2024-10-25] MEDS: ROXICODONE 5 MG PO ×2 (08:36→14:44)
[2024-10-25] MEDS: TYLENOL 1000 MG PO (08:36)
--- NOTE | 2024-10-25 09:58 | CM ---
CM received late message back yesterday from [facility] admissions that there will be a bed available for patient today.
Spoke w/ spouse about bed at [facility], agreeable for patient to admit to SNF. Declined [facility] now.
CM called [facility] to initiate auth, spoke w/ Maylin. Auth approved beginning today, 10/25, NRD 10/28
Reference # [id number]
Ambulance auth approved. Reference # [id number]
Updated [facility]. Requesting 1 pm transport if possible
Updated hospitalist, will work on d/c soon
Updated patient and spouse. IMM verbally reviewed, copy provided, copy on chart
[facility] SNF
Report: [phone]

Plan: D/c to [facility] today
[2024-10-25 11:50] VITALS: BP 120/84
--- NOTE | 2024-10-25 12:27 | W.PN.HOSP.TC ---
Addendum entered and electronically signed by Faustino Le MD 10/26/24 15:58:
[id number]
Original Note:
Today's Communication/Plan
-
Monitor CBC, LFts outpatient
ASA 81mg BID x 4 weeks for DVT ppx. Patient requesting Claritin for any allergy purposes while on aspirin
Dressings to remain 10 days.
Pain control/ice to hip/narcs judiciously.
Outpatient Ortho follow-up 4 weeks for x-rays and clinical check.
F/u PCP within1 week
Assessment / Plan
Assessment / Plan
84 y/o woman with a past medical history of hypothyroidism and osteoporosis who presented with right hip pain following fall. Patient notes she was sorting clothes on he bed. She took a step backwards and lost her balance. She feel onto the
hardwood landing on her right hip. She denies hitting her head during the event. She was unable to get up off the floor after the fall. EMS was called and she was brought to the emergency department for evaluation. She went to the OR on 10/22/24.
# Right Hip Fracture
#POD#3 Right hip gamma nail.
- Continue WBAT RLE on walker/assistance.
- PT/OT.
- ASA 81mg BID x 4 weeks for DVT ppx. Patient requesting Claritin for any allergy purposes while on aspirin
- Dressings to remain 10 days.
- Pain control/ice to hip/narcs judiciously.
- Outpatient Ortho follow-up 4 weeks for x-rays and clinical check. D/c information updated
- DC ready, CM aware
#PACS
-can obtain holter outpatient
#Hypothyroidism - chronic
-Continue levothyroxine
-TSh WNL
#Hyperlipidemia
-Continue atorvastatin
#Acute Blood Loss Anemia
-s/p Gamma Nail
-stabilized
-monitor with ASA 81 mg bid
#Hyponatremia (132)
mild
-resolved
#Leukocytosis
-most likely reactive
-resolved
-trend
#Transaminitis
� Mild
� Bilirubin normal
� Monitor outpatient
� No abdominal pain
DVT proph: ASA 81mg BID
Code Status: Full Code
More than 30 minutes spent in discharge including
Final examination of the patient
Summarizing hospital stay
Instructions for continuing care to all relevant caregivers
Preparation of discharge records, prescriptions, and referral forms
Total time spent (in minutes): 36
Anticipated Discharge: Today
Subjective/Interval History
-
Date of Service: October 25, 2024
No acute events, tolerated aspirin well
Objective Data
-
Labs:
Laboratory Results
10/25/24
06:31
WBC 10.0
Hgb 9.5 L
Hct 29.3 L
Plt Count 192
Sodium 134 L
Potassium 4.2
Chloride 102
Carbon Dioxide 29
BUN 16
Creatinine 0.5 L
Glucose 91
Calcium 8.5
Total Bilirubin 1.0
AST 71 H
ALT 127 H
Alkaline Phosphatase 137 H
Vital Signs:
Vital Signs
Temp Pulse Resp BP Pulse Ox
98.6 F 87 16 120/84 96
10/25/24 11:50 10/25/24 11:50 10/25/24 11:50 10/25/24 11:50 10/25/24 11:50
I&O
10/24/24 10/25/24 10/26/24
06:59 06:59 06:59
Intake Total 1140 / 1140 900 / 900
Balance 1140 / 1140 900 / 900
Review of Systems
-
History Source: Patient
All other systems: Not reviewed unless documented
Physical Exam
-
General: Well Developed, Well Nourished, No Apparent Distress, Comfortable and Conversant
HEENT: Nose Appears Normal and Ears Appear Normal
Respiratory: Clear to Auscultation
Cardiac: Regular Rhythm and S1/S2
GI: Soft, Nontender and Nondistended
Musculoskeletal: No Clubbing and No Cyanosis
Skin: Warm and Dry
Neuro: Awake, Alert and Oriented
Psych: Calm
Data Reviewed
-
Diagnostic Radiology: Report Reviewed by me
Labs: Labs Reviewed by me
--- NOTE | 2024-10-25 12:30 | W.DS.TRANS ---
DC Summary - [employer]
-
Discharge Instructions:
Discharge Diagnosis/Procedures Right Hip Fracture
Right hip gamma nail.
Diet Low Fat,Low Cholesterol
Blood Work cbc and cmp in 3-5 days with pcp
Others Tests Can obtain Holter monitor outpatient with PCP/
Cardiology
Instructions:
Stand-Alone Forms:
Changes to Home Medications: Yes
Discharge Medications:
DC Medications w/original date entered in [facility]
atorvastatin 10 mg tablet 10 mg PO HS High Cholesterol 03/15/24
calcium carbonate 500 mg PO NOON Supplement 03/15/24
cholecalciferol (vitamin D3) 25 mcg (1,000 unit) tablet (Vitamin D3) 25 mcg PO NOON Supplement 03/15/24
levothyroxine 125 mcg tablet 125 mcg PO DAILY Thyroid 03/15/24
Focus Eye 1 cap PO NOON Supplement 04/28/24
Lactobac no.2-Bifidobac no.1-S. thermo 112.5 billion cell capsule (Visbiome) 1 cap PO DAILY Gastrointestinal Issue 08/04/24
Areds 1 tab PO DAILY@1200 ##0 08/11/24
acetaminophen 325 mg tablet 650 mg (2 x 325 mg) PO Q4HPRN PRN mild pain/RIOS/temp> 100.4F #0 tabs 08/11/24
aspirin 81 mg tablet,delayed release 81 mg PO BID #0 tabs 10/25/24
loratadine 10 mg tablet 10 mg PO DAILY #0 tabs 10/25/24
oxycodone 5 mg tablet 5 mg PO Q4HPRN PRN moderate pain #12 tabs 10/25/24
Home Medication Changes
aspirin 81 mg tablet,delayed release 81 mg PO BID #0 tabs 10/25/24
loratadine 10 mg tablet 10 mg PO DAILY #0 tabs 10/25/24
oxycodone 5 mg tablet 5 mg PO Q4HPRN PRN moderate pain #12 tabs 10/25/24
Pending Results: No
--- NOTE | 2024-10-31 21:35 | W.PN.UPDATE ---
Update Note
Progress Note Update
in my medical opinion patient suffered a pathological fracture due to age related osteoporosis.
== END 2024-10-25 15:10 | DRG 481 ==
LOC: 2 SOUTH 23:42
PROVIDERS: Internal Medicine; Physician Assistant; ADMITTING PHYSICIAN Hospitalist; ATTENDING PHYSICIAN Internal Medicine; CONSULT PHYSICIAN Orthopaedic Surgery; EMERGENCY PHYSICIAN Emergency Medicine; FAMILY PHYSICIAN Internal Medicine
PROC: 0QS606Z Reposition Right Upper Femur with Intramedullary Internal Fixation Device, Open Approach (ICD-10-PCS; 2024-10-22)
DX: M80.051A Age-related osteoporosis with current pathological fracture, right femur, initial encounter for fracture (principal); D62 Acute posthemorrhagic anemia; E87.1 Hypo-osmolality and hyponatremia; E03.9 Hypothyroidism, unspecified; I48.91 Unspecified atrial fibrillation; I10 Essential (primary) hypertension; G89.29 Other chronic pain; E78.5 Hyperlipidemia, unspecified; M54.9 Dorsalgia, unspecified; D72.829 Elevated white blood cell count, unspecified; R74.01 Elevation of levels of liver transaminase levels; W01.0XXA Fall on same level from slipping, tripping and stumbling without subsequent striking against object, initial encounter; Y93.E2 Activity, laundry; Y92.003 Bedroom of unspecified non-institutional (private) residence as the place of occurrence of the external cause; Z79.890 Hormone replacement therapy; Z90.49 Acquired absence of other specified parts of digestive tract; Z88.6 Allergy status to analgesic agent
CPT/HCPCS: 72170; 73502; 73552; 76000; 80048; 80053; 83735; 84443; 85025; 85027; 86850; 86900; 86901; 93005; 96374; 96375; 97110; 97116; 97162; 97166; 97530; 97535; 99285; C1713

== ENCOUNTER 2025-01-11 11:56 | Outpatient (RCR) | payer OTHER, SELFPAY | END 2025-01-11 23:59 | disposition home or self-care (01) | LOC: RPT 11:56 | PROVIDERS: ATTENDING PHYSICIAN Internal Medicine | DX: Z47.89 Encounter for other orthopedic aftercare (principal); S72.001D Fracture of unspecified part of neck of right femur, subsequent encounter for closed fracture with routine healing; S32.020D Wedge compression fracture of second lumbar vertebra, subsequent encounter for fracture with routine healing; R26.89 Other abnormalities of gait and mobility; Z73.6 Limitation of activities due to disability; M62.81 Muscle weakness (generalized); W19.XXXD Unspecified fall, subsequent encounter | CPT/HCPCS: 97110; 97162; 97530; 97535 ==

== ENCOUNTER 2025-02-10 06:47 | Outpatient (RCR) | payer OTHER, SELFPAY | END 2025-02-10 23:59 | disposition home or self-care (01) | LOC: RPT 06:47 | PROVIDERS: ATTENDING PHYSICIAN Internal Medicine | DX: S72.001D Fracture of unspecified part of neck of right femur, subsequent encounter for closed fracture with routine healing (principal); Z47.89 Encounter for other orthopedic aftercare (principal); S32.020D Wedge compression fracture of second lumbar vertebra, subsequent encounter for fracture with routine healing; R26.89 Other abnormalities of gait and mobility; Z73.6 Limitation of activities due to disability; M62.81 Muscle weakness (generalized); W19.XXXD Unspecified fall, subsequent encounter | CPT/HCPCS: 97110; 97112; 97116; 97530 ==

== ENCOUNTER 2025-03-14 09:10 | Outpatient (RCR) | payer OTHER, SELFPAY | END 2025-03-14 23:59 | disposition home or self-care (01) | LOC: RPT 09:10 | PROVIDERS: ATTENDING PHYSICIAN Internal Medicine | DX: Z47.89 Encounter for other orthopedic aftercare (principal); S72.001D Fracture of unspecified part of neck of right femur, subsequent encounter for closed fracture with routine healing; S32.020D Wedge compression fracture of second lumbar vertebra, subsequent encounter for fracture with routine healing; R26.89 Other abnormalities of gait and mobility; Z73.6 Limitation of activities due to disability; M62.81 Muscle weakness (generalized); W19.XXXD Unspecified fall, subsequent encounter | CPT/HCPCS: 97110; 97116; 97530 ==